=== PATIENT | male | born 1955 | race African-American/Black ===

== ENCOUNTER 2023-04-16 08:55 | Inpatient (IN) | payer OTHER, SELFPAY ==
[2023-04-16] VITALS (34 sets, daily range): BP systolic 86–168; BP diastolic 50–103; BMI 41.5
--- NOTE | 2023-04-16 08:00 | CON.NEURO ---
Consultation
Order
Reason for consultation: stroke alert
Prehospital notification: 7:36 AM 04/16/2023
CC: none
HPI: This is a 67-year-old man who presented to [facility] on April 16, 2023 for with right hemiplegia and aphasia.
According to EMS Mr. 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 Last time seen in usual state of health�midnight.
ER VS: 161/95, 63,
PDMP:no Rxed meds.
Labs: Platelets�165, PT/INR�normal, gluc-101.
CT head wo contrast(04/16/2023)intraparenchymal hemorrhage on the left side, centered in the left thalamus and left basal ganglia, with extension into the left saxena radiata and left lateral ventricle. Main focus of hemorrhage within the left
thalamus measures 2.7 x 1.7 x 1.7 cm.
PMH: HTN, pre DM, anemia, obesity, GERD,
PSH: PPM, gastric bypass
SH:unknown
FH:unknown
All:NKDA
ROS:limited due to aphasia
Assessment and Plan:
I. 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 ICH score-1. Mortality rate 13 %.
II. Vascular encephalopathy
III. HTN
�
-NPO
-AHA guidelines recommend lowering systolic SBP to <160 mmHg
-Treat persistently elevated MAP>110 with Labetalol IV
-Maintain elevation of HOB 30-45 degrees
-Continuous monitoring using pulse oximetry if O2�saturation is <96%
-Normal saline should be used for maintenance and replacement fluids
-Stat Neurosurgery consultation
-Andexanet dakota 800 mg IV bolus administered at a rate of ~30 mg/minute, followed within 2 minutes by an IV infusion of 8 mg/minute for up to 120 minutes.
-If elevated intracranial pressure is suspected or herniation is apparent in imaging- Hyperventilate to maintain pCO2�25mm for a maximum length of time of 6 hours; Osmotic diuresis using Mannitol: load 1g per kg IV bolus and maintain on 0.5g per kg
IV Q6h; check serum osmolality 1 hour prior to each dose.���Dose should be held if serum osm>310
-Treat persistently elevated MAP>110 with Labetalol IV
-SCD/XAVI
I reviewed all radiology and labs along with past medical records pertinent to current medical problems.
Thank you for allowing us to participate in the care of this patient. We will continue to follow. Please do not hesitate to contact us with any questions or concerns.
Subjective/Objective
Subjective Data
Date of Service: April 16, 2023
CVA Assessment
Onset of Stroke Symptoms
Date of onset of symptoms: 04/16/23
Date last time pt seen normal: 04/16/23
Time last time pt seen normal: 12:00 (AM)
NIH Stroke Score
Level of Consciousness: 1 - Arousable
LOC Questions: 2-Neither correct
LOC Commands: 1-Performs one correctly
Best Horizontal Gaze: 1-Partial gaze palsy
Visual Sood: 1=Partial hemianopia
Facial Palsy: 2=Partial paralysis
Motor - Right Arm: 4=No movement
Motor - Left Arm: 0=No drift 10 seconds
Motor - Right Le-No movement
Motor - Left Le-No drift 5 seconds
Limb Ataxia: 0-Absent
Explanation of untestable limb ataxia: encephalopathy, plegia
Sensation: 0-Normal
Best Language: 2-Severe aphasia
Dysarthria: 2-Severe slurring
Extinction and Inattention: 0-No abnormality
Total Score:: 20
--- NOTE | 2023-04-16 08:05 | ED.GENMED ---
History of Present Illness
<Esequiel Agee PA-C - Last Filed: 04/16/23 09:48>
General
Chief Complaint: Change in Mental Status
Time Seen by Provider: 04/16/23 07:52
History of Present Illness
History of Present Illness:
67-year-old male with unknown past medical history arrives via EMS as a prehospital stroke alert. 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
midnight last night, was found this morning lying on the ground up against the tub. Upon arrival of EMS the patient was noted to have dense right hemiparesis and garbled speech. He was also noted to be cold on the right side. Patient arrives with
his medications available and he does take Eliquis however the indication for this is not certain. No family is immediately available on my assessment. On initial evaluation by myself the patient is densely hemiparetic with significant dysarthria
Review of Systems
<Esequiel Agee PA-C - Last Filed: 04/16/23 09:48>
Review of Systems
Allergies reviewed?: Yes
All Other Systems: ROS reviewed and negative except as documented in HPI and ROS
Phy Exam
<Esequiel Agee PA-C - Last Filed: 04/16/23 09:48>
Physical Exam
Physical Exam:
GEN: Well appearing, NAD, WDWN
HEENT: Oral mucosa moist, no scleral icterus, no nasal congestion
Cardiac: Regular rate
Lung: No respiratory distress, no tachypnea
MSK: No gross deformity or injuries
Skin: Good color, no pallor or jaundice, no rashes
Neuro: Alert, follows commands. Difficult to assess orientation due to dysarthria. Dense right hemiparesis involving the face and upper and lower extremity, no effort against gravity. Insensate to pinprick on the right diffusely. Initial NIH
stroke scale of 19
Psych: Calm, cooperative
Scores
<Esequiel Agee PA-C - Last Filed: 04/16/23 09:48>
NIH Stroke Score
Level of Consciousness: 0 - Alert
LOC Questions: 1-Answers one correctly
LOC Commands: 0-Performs both correctly
Best Horizontal Gaze: 0-Normal
Visual Sood: 0=Normal, no visual loss
Facial Palsy: 3=Complete paralysis
Motor - Right Arm: 4=No movement
Motor - Left Arm: 0=No drift 10 seconds
Motor - Right Le-No movement
Motor - Left Le-No drift 5 seconds
Limb Ataxia: 1-Present in one limb
Sensation: 2-Severe loss
Best Language: 0-No aphasia
Dysarthria: 2-Severe slurring
Extinction and Inattention: 2-Total octaviano inattention
Total Score:: 19
Course
<Esequiel Agee PA-C - Last Filed: 04/16/23 09:48>
Orders/Labs/Results
Orders:
Orders
04/16/23 07:43
CT Head W/o Cont STROKE ALERT Stat
Comment:
Reason For Exam: r/o stroke
04/16/23 07:48
Electrocardiogram (*1) Stat
Reason for Study: Other
Other Reason for Exam: neuro symptoms
Bedside Glucose- Treatment ONCE
Cardiac Monitoring- Treatment ONCE
EKG- Treatment ONCE
04/16/23 08:00
Basic Metabolic Panel Urgent
Complete Blood Count/With Diff Urgent
Creatine Phosphokinase Urgent
Comment: ADD ON
PTT Urgent
Prothrombin Time Urgent
04/16/23 08:01
HydrALAZINE [Apresoline] 10 mg IV NOW STA
04/16/23 08:15
Nicardipine 40 mg/200 ml [Cardene] 40 mg in 200 ml IV PER PROTOCOL
Initial dose in mg/hr, then titrate:: 2
Titrate to keep:: SBP 140 - 160 mmHg
Titrate by mg/hr:: 2.5 mg/hr
Frequency of titrations (minutes):: 5-15 minutes
Maximum dose in mg/hr:: 15
Begin to taper infusion when:: Remained at goal for 2hrs
Taper by mg/hr:: 2.5 mg/hr
Frequency of taper (minutes) if patient maintains goal:: every 15-30 minutes
Taper to off?: Yes
If infusion off & no longer maintaining goal:: Contact Provider
04/16/23 08:16
HydrALAZINE [Apresoline] 20 mg .ROUTE .STK-MED ONE
04/16/23 08:18
Add On- LAB Urgent
Tests Added?: CPK
04/16/23 08:23
Prothrombin Complex(Pcc),Human [Kcentra] 2,590 unit Empty Viaflex Container 100 ml [Viaflex Empty Container] 100 ml IV NOW
04/16/23 08:42
Type+Screen Urgent
04/16/23 08:43
Admit/Transfer Patient As Directed
Co-Sign Provider:
Level of Care: Inpatient admission
Assign to:: ICU
Physician / Group: Dr. Alec Oneill
Diagnosis: Brain intraparenchymal hemorrhage - prehospital stroke alert
Reason for Hospitalization: Brain intraparenchymal hemorrhage - prehospital stroke alert
Expected length of stay greater than two midnights?: Yes
ELOS- Estimated Length of Stay in days: 5
I certify the patient meets the requirements for IP care: Yes
04/16/23 08:48
Code Status As Directed
Resuscitation Status: Full Code
HydrALAZINE [Apresoline] 20 mg .ROUTE .STK-MED ONE
04/16/23 08:51
HydrALAZINE [Apresoline] 10 mg IV NOW STA
04/16/23 09:26
0.9% Sodium Chloride 1000 ml [Nss] 1,000 ml IV 100 mls/hr
Acetaminophen [Tylenol/Feverall] 650 mg RECTAL Q4HPRN PRN
Acetaminophen [Tylenol] 650 mg PO Q4HPRN PRN
Labetalol HCl [Trandate] 5 mg IV Q6HPRN PRN
04/16/23 09:26
Echo 2D MMode Color/Doppler Routine
Reason for Study: stroke/TIA
DIETARY CONSULT Routine
Reason for Consult: stroke/TIA
NEUROLOGY CONSULT Urgent
Consulting Provider: Vickie Castillo
Was physician already notified: Yes
Technology Trainer Urgent
Troponin I Urgent
Urinalysis Urgent
Activity As Directed
Activity Level: Bedrest
Elevate HOB [Head of Bed-Restrictions] As Directed
Head of Bed-Restrictions As Directed
Elevation Level: 30 degress
NIH Stroke Scale As Directed
Directions: Per protocol
Comment: every shift and with any change in condition or mental status
Neurological Checks As Directed
Frequency: q1h
Additional Instructions:: q1h and with any change in condition or mental status
Patient Education As Directed
Type: Stroke education packet
Comment: provide to patient and family
Pneumatic Compression Sleeves As Directed
Type: Knee high
Pneumatic Compression Sleeves As Directed
Type: Knee high
Swallow Screening CVA/TIA ONLY As Directed
Comment: NPO until swallowing screening completed
If patient FAILS swallow screening:: NPO, Speech Therapy consult, Aspiration Precautions
If patient PASSES swallow screening, diet:: Cholesterol Lowering
Vital Signs As Directed
Frequency: Per unit guidelines
Additional Instructions:: goal SBP 120-140 mmHg
Ot Eval And Treat Routine
Pt Eval And Treat Routine
Activity Level: As Tolerated
Speech Therapy Eval & Treat Routine
DX Deep Vein Thrombosis Video Routine
DX Deep Vein Thrombosis Video Routine
04/17/23 06:00
Cardiovascular Evaluation IN AM
Complete Blood Count/No Diff IN AM
Comprehensive Metabolic Panel IN AM
Magnesium IN AM
04/18/23 06:00
Complete Blood Count/No Diff IN AM
Comprehensive Metabolic Panel IN AM
Magnesium IN AM
04/19/23 06:00
Complete Blood Count/No Diff IN AM
Comprehensive Metabolic Panel IN AM
Magnesium IN AM
04/20/23 06:00
Complete Blood Count/No Diff IN AM
Comprehensive Metabolic Panel IN AM
Magnesium IN AM
04/21/23 06:00
Complete Blood Count/No Diff IN AM
Comprehensive Metabolic Panel IN AM
Magnesium IN AM
Abnormal Lab Results
04/16/23
08:00
RBC 4.47 L 10^6/uL
(4.70-6.10)
Hgb 10.8 L g/dL
(13.0-18.0)
Hct 37.7 L %
(39.0-52.0)
MCH 24.2 L pg
(27.0-31.0)
MCHC 28.6 L g/dL
(33.0-37.0)
RDW 17.9 H %
(11.5-14.5)
MPV 11.0 H fL
(7.4-10.4)
Absolute Lymphs (auto) 0.8 L 10^3/uL
(1.2-3.4)
Absolute Monos (auto) 0.7 H 10^3/uL
(0.1-0.6)
Lymphocytes % 15.9 L %
(20.5-51.1)
Monocytes % 13.0 H %
(1.7-9.3)
Carbon Dioxide 32 H mmol/L
(22-30)
Glucose 101 H mg/dl
(70-99)
04/16/23 08:00
04/16/23 08:00
Vital Signs
Initial and Last Documented VS:
Initial Vital Signs
Resp Pulse Ox
25 100
04/16/23 07:57 04/16/23 07:57
Last Documented Vital Signs
Temp Pulse Resp BP Pulse Ox
97.7 F 111 33 104/75 99
04/16/23 08:29 04/16/23 09:15 04/16/23 09:15 04/16/23 09:15 04/16/23 09:15
<Isaías Masters, DO - Last Filed: 04/16/23 08:12>
Orders/Labs/Results
Orders:
Orders
04/16/23 07:43
CT Head W/o Cont STROKE ALERT Stat
Comment:
Reason For Exam: r/o stroke
04/16/23 07:48
Electrocardiogram (*1) Stat
Reason for Study: Other
Other Reason for Exam: neuro symptoms
Bedside Glucose- Treatment ONCE
Cardiac Monitoring- Treatment ONCE
EKG- Treatment ONCE
04/16/23 08:00
Basic Metabolic Panel Urgent
Complete Blood Count/With Diff Urgent
Creatine Phosphokinase Urgent
Comment: ADD ON
PTT Urgent
Prothrombin Time Urgent
04/16/23 08:01
HydrALAZINE [Apresoline] 10 mg IV NOW STA
04/16/23 08:15
Nicardipine 40 mg/200 ml [Cardene] 40 mg in 200 ml IV PER PROTOCOL
Initial dose in mg/hr, then titrate:: 2
Titrate to keep:: SBP 140 - 160 mmHg
Titrate by mg/hr:: 2.5 mg/hr
Frequency of titrations (minutes):: 5-15 minutes
Maximum dose in mg/hr:: 15
Begin to taper infusion when:: Remained at goal for 2hrs
Taper by mg/hr:: 2.5 mg/hr
Frequency of taper (minutes) if patient maintains goal:: every 15-30 minutes
Taper to off?: Yes
If infusion off & no longer maintaining goal:: Contact Provider
04/16/23 08:16
HydrALAZINE [Apresoline] 20 mg .ROUTE .STK-MED ONE
04/16/23 08:18
Add On- LAB Urgent
Tests Added?: CPK
04/16/23 08:23
Prothrombin Complex(Pcc),Human [Kcentra] 2,590 unit Empty Viaflex Container 100 ml [Viaflex Empty Container] 100 ml IV NOW
04/16/23 08:42
Type+Screen Urgent
04/16/23 08:43
Admit/Transfer Patient As Directed
Co-Sign Provider:
Level of Care: Inpatient admission
Assign to:: ICU
Physician / Group: Dr. Alec Oneill
Diagnosis: Brain intraparenchymal hemorrhage - prehospital stroke alert
Reason for Hospitalization: Brain intraparenchymal hemorrhage - prehospital stroke alert
Expected length of stay greater than two midnights?: Yes
ELOS- Estimated Length of Stay in days: 5
I certify the patient meets the requirements for IP care: Yes
04/16/23 08:48
Code Status As Directed
Resuscitation Status: Full Code
HydrALAZINE [Apresoline] 20 mg .ROUTE .STK-MED ONE
04/16/23 08:51
HydrALAZINE [Apresoline] 10 mg IV NOW STA
04/16/23 09:26
0.9% Sodium Chloride 1000 ml [Nss] 1,000 ml IV 100 mls/hr
Acetaminophen [Tylenol/Feverall] 650 mg RECTAL Q4HPRN PRN
Acetaminophen [Tylenol] 650 mg PO Q4HPRN PRN
Labetalol HCl [Trandate] 5 mg IV Q6HPRN PRN
04/16/23 09:26
Echo 2D MMode Color/Doppler Routine
Reason for Study: stroke/TIA
DIETARY CONSULT Routine
Reason for Consult: stroke/TIA
NEUROLOGY CONSULT Urgent
Consulting Provider: Vickie Castillo
Was physician already notified: Yes
Technology Trainer Urgent
Troponin I Urgent
Urinalysis Urgent
Activity As Directed
Activity Level: Bedrest
Elevate HOB [Head of Bed-Restrictions] As Directed
Head of Bed-Restrictions As Directed
Elevation Level: 30 degress
NIH Stroke Scale As Directed
Directions: Per protocol
Comment: every shift and with any change in condition or mental status
Neurological Checks As Directed
Frequency: q1h
Additional Instructions:: q1h and with any change in condition or mental status
Patient Education As Directed
Type: Stroke education packet
Comment: provide to patient and family
Pneumatic Compression Sleeves As Directed
Type: Knee high
Pneumatic Compression Sleeves As Directed
Type: Knee high
Swallow Screening CVA/TIA ONLY As Directed
Comment: NPO until swallowing screening completed
If patient FAILS swallow screening:: NPO, Speech Therapy consult, Aspiration Precautions
If patient PASSES swallow screening, diet:: Cholesterol Lowering
Vital Signs As Directed
Frequency: Per unit guidelines
Additional Instructions:: goal SBP 120-140 mmHg
Ot Eval And Treat Routine
Pt Eval And Treat Routine
Activity Level: As Tolerated
Speech Therapy Eval & Treat Routine
DX Deep Vein Thrombosis Video Routine
DX Deep Vein Thrombosis Video Routine
04/17/23 06:00
Cardiovascular Evaluation IN AM
Complete Blood Count/No Diff IN AM
Comprehensive Metabolic Panel IN AM
Magnesium IN AM
04/18/23 06:00
Complete Blood Count/No Diff IN AM
Comprehensive Metabolic Panel IN AM
Magnesium IN AM
04/19/23 06:00
Complete Blood Count/No Diff IN AM
Comprehensive Metabolic Panel IN AM
Magnesium IN AM
04/20/23 06:00
Complete Blood Count/No Diff IN AM
Comprehensive Metabolic Panel IN AM
Magnesium IN AM
04/21/23 06:00
Complete Blood Count/No Diff IN AM
Comprehensive Metabolic Panel IN AM
Magnesium IN AM
Abnormal Lab Results
04/16/23
08:00
RBC 4.47 L 10^6/uL
(4.70-6.10)
Hgb 10.8 L g/dL
(13.0-18.0)
Hct 37.7 L %
(39.0-52.0)
MCH 24.2 L pg
(27.0-31.0)
MCHC 28.6 L g/dL
(33.0-37.0)
RDW 17.9 H %
(11.5-14.5)
MPV 11.0 H fL
(7.4-10.4)
Absolute Lymphs (auto) 0.8 L 10^3/uL
(1.2-3.4)
Absolute Monos (auto) 0.7 H 10^3/uL
(0.1-0.6)
Lymphocytes % 15.9 L %
(20.5-51.1)
Monocytes % 13.0 H %
(1.7-9.3)
Carbon Dioxide 32 H mmol/L
(22-30)
Glucose 101 H mg/dl
(70-99)
04/16/23 08:00
04/16/23 08:00
Vital Signs
Initial and Last Documented VS:
Initial Vital Signs
Resp Pulse Ox
25 100
04/16/23 07:57 04/16/23 07:57
Last Documented Vital Signs
Temp Pulse Resp BP Pulse Ox
97.7 F 111 33 104/75 99
02/14/24 08:29 04/16/23 09:15 04/16/23 09:15 04/16/23 09:15 04/16/23 09:15
<Esequiel Agee PA-C - Last Filed: 04/16/23 09:48>
MDM/Problems Addressed
MDM/Problems Addressed:
67-year-old male arrives by EMS as a prehospital stroke alert with dense right hemiparesis and dysarthria. He is found to have a left basal ganglia/thalamic hemorrhage which is likely hypertensive in nature. Patient is known to take Eliquis,
uncertain if he took within the past 24 hours, given this he was administered Kcentra for reversal of anticoagulation and aggressive hypertensive management was initiated with hydralazine and nicardipine. Case was discussed with neurosurgery who
recommend ICU admission for serial neuroexams and repeat head CT in 4 to 6 hours as there is likely no surgical option. Neurosurgery will consult. Mica Builder and hospitalist made aware for admission. Patient did become increasingly somnolent in
the emergency department however arouses easily to voice and remains oriented on my evaluation.
<Esequiel Agee PA-C - Last Filed: 04/16/23 09:48>
Comment
Comment:
Initial EKG independently interpreted by me reveals a normal sinus rhythm with T wave inversions and abnormal ST segments in the precordial leads likely indicative of LVH
*Critical Care Note
comment:
Critical care time: 45 minutes
Critical care time was exclusive of: Separately billable procedures, treating other patients, and teaching time
Critical care was necessary to treat or prevent imminent or life-threatening deterioration of the following conditions: Intraparenchymal hemorrhage
Critical care time spent personally by me on the following activities:
[x] Review of old charts
[x] Obtaining history from patient or surrogate
[x] Ordering and review of the laboratory studies
[x] Ordering and review of radiographic studies
[x] Ordering and performing treatments and interventions
[x] Patient patient's response to treatment
[x] Development of treatment plan with patient or surrogate
<Isaías Masters DO - Last Filed: 04/16/23 08:12>
*Radiology
Radiology exam reviewed: preliminary read by ED provider and radiology read reviewed
*Pulse Oximetry
Patient hypoxic: no
*EKG
Interpreted by ED Provider?: Yes
Interpretation: abnormal
Comparison EKG: no comparison EKG present
Heart Rate: 78
Rate: normal
Rhythm: sinus
Ischemia: non-specific ST changes
*Terrazzo Supervisor Interpretation
Rate: normal
Interpretation: normal
Heart Rate: 78
Rhythm: sinus
*Critical Care Note
Total Time (30-74mins, 75-104mins- exclusive of procedures): 45
ED Attending Note
<Esequiel Agee PA-C - Last Filed: 04/16/23 09:48>
-
Portions of this chart may have been created with voice recognition software.� Occasional wrong word or��sound alike� substitutions may have occurred due to the inherent limitations of voice recognition software.
<Isaías Masters DO - Last Filed: 04/16/23 08:12>
ED Attending Note
Patient seen and examined by attending physician: Yes
I performed the substantive portion of visit, reviewed & personally made and approve the management plan that is documented in note by myself or MIRELLA.: Yes
ED Attending Note:
Seen with CLARY examined independently, prehospital stroke alert 67 male, aphasia droop right-sided plegia takes Eliquis by report no trauma has looks like an intracerebral hemorrhage
Plan be blood pressure control, reversal of his Eliquis, neurology neurosurgery evaluation
Discharge Plan
Departure
Patient Disposition: Admit
Date of Disposition: 04/16/23
Time of Disposition: 08:07
Admit to: ICU
Presentation/result/management discussed w/ accepting MD/DO: Hospitalist
Discharge Problem:
Intracranial hemorrhage
Interventions
Interventions:
*Risk Screen - Suicide Last Done: 04/16/23 08:29
*General Assessment Last Done: 04/16/23 07:48
*Neglect/Abuse Screening Last Done: 04/16/23 09:37
ED- Fall Risk Assessment Last Done: 04/16/23 09:37
*ED COVID-19 Vaccine History Last Done: 04/16/23 07:48
*Nursing Disposition Last Done: 04/16/23 09:37
ED- Neurological Assessment Last Done: 04/16/23 08:29
ED Swallowing Screen Last Done: 04/16/23 08:29
Discharge Date and Time
Discharge Date/Time: 04/16/23 09:39
[2023-04-16] MEDS: APRESOLINE 10 MG IV ×2 (08:17→08:51)
[2023-04-16 08:18] LABS: % Basophils 0.6 % (0-2); % Eosinophils 1.2 % (0-6); % Immature Granulocytes 0.2 % (0-0.5); % Lymphocytes 15.9 % (20.5-51.1); % Neutrophils 69.1 % (42.2-75.2); Absolute Eosinophils 0.1 10^3/uL (0-0.7); Absolute Lymphocytes 0.8 10^3/uL (1.2-3.4); Absolute Monocytes 0.7 10^3/uL (0.1-0.6); Absolute Neutrophils 3.6 10^3/uL (1.4-6.5); Hematocrit 37.7 % (39.0-52.0); Hemoglobin 10.8 g/dL (13.0-18.0); Mean Corp Hgb Conc. 28.6 g/dL (33.0-37.0); Mean Corpuscular Hgb 24.2 pg (27.0-31.0); Mean Corpuscular Volume 84.3 fL (80.0-94.0); Nucleated Red Blood Cells % 0 % (-); Platelet Count 165 10^3/uL (130-400); Red Blood Cell Count 4.47 10^6/uL (4.70-6.10); Red Cell Dist. Width 17.9 % (11.5-14.5); White Blood Cell Count 5.2 10^3/uL (4.8-10.8)
[2023-04-16] MEDS: CARDENE 200 IV ×3 (08:22→23:31)
[2023-04-16 08:24] LABS: PT 14.3 Sec (11.4-14.6)
[2023-04-16 08:25] LABS: APTT 24.5 Sec (23.4-35.0)
[2023-04-16 08:25] LABS: Glucose - Point of Care 90 mg/dl (70-99)
--- NOTE | 2023-04-16 08:25 | EDRN ---
Pt daughter (Denisse) called and notified of pt condition. NKA confirmed with daughter. CLARY Ross spoke to daughter prior to her leaving to come up. Pt attempting to communicate with garbled speech unable to understand pt clearly. Pt updated on daughter
notification and nods head to confirm understanding.
Nicardipine started Per CLARY Ross IV to start at 5 mg/hr with a targeted SBP of <140. Pt resting comfortably. Vitals being monitored.
[2023-04-16 08:27] LABS: Blood Urea Nitrogen 19 mg/dl (9-20); Carbon Dioxide 32 mmol/L (22-30); Chloride 104 mmol/L (98-107); Glucose 101 mg/dl (70-99); Sodium 138 mmol/L (135-145); eGFR > 60.00
[2023-04-16] MEDS: KCENTRA 100 UNIT IV (08:52)
[2023-04-16 09:41] LABS: Hypochromasia 1+; Normal RBC Morphology No
[2023-04-16 09:51] LABS: Blood Urea Nitrogen 19 mg/dl (9-20); Calcium 9.1 mg/dl (8.4-10.2); Carbon Dioxide 34 mmol/L (22-30); Chloride 99 mmol/L (98-107); Glucose 104 mg/dl (70-99); Potassium 3.8 mmol/L (3.5-5.1); Sodium 140 mmol/L (135-145); eGFR > 60.00
--- NOTE | 2023-04-16 09:57 | CON.INTV ---
Consultation
Consultation Request
Date/Time Consultation Requested: 04/16/2023936
Date/Time Consultation Performed: 04/16/2023952
Requesting Provider: Dr. Oneill
Performing Provider: Dr. Peters
Reason for Consultation: IPH
Medical History
-
Chief Complaint: Found down
History of Present Illness:
67-year-old AAM with past medical history of hypertension, GERD, A-fib on Eliquis who was found down on the floor up against the bathtub. EMS was called originally for a lift assist and when they arrived he was exhibiting stroke symptoms. Unclear
how long he was down for. BIBEMS and stroke alert was called as he was found to have a right-sided facial droop and right-sided arm/leg weakness. He was last known well at around midnight on 04/16/2023. Brought to the ER where imaging showed a
left-sided intraparenchymal hemorrhage with intraventricular extension. Initial vitals showed blood pressure 157/79, saturating 97%, heart rate 88. Afebrile to 97.7 �F. Initial NIH stroke scale was 20. Labs showed an INR of 1.1, Hb 10.8,
platelet count 165. Because patient was taking Eliquis, hence Kcentra was given, and he was given hydralazine and started on Cardene drip and was admitted to the ICU for further care and critical care services consulted for additional
management/recommendations.
PMHx: hypertension, prediabetes, obesity, GERD, PPM, gastric bypass, ?Atrial fibrillation versus stroke on Eliquis
PSHx: Gastric bypass; pacemaker implantation
Past Medical History
Past Medical History: Other (Above as per HPI)
Past Surgical History: Other (Above as per HPI)
Social History
Tobacco: Other (Unable to obtain due to patient's expressive aphasia)
Alcohol: Other (Unable to obtain due to patient's expressive aphasia)
Drug: Other (Unable to obtain due to patient's expressive aphasia)
Family History
Family History: Unable to Obtain (Unable to obtain due to patient's expressive aphasia)
Allergies / Home Medications
Allergies
Allergy/AdvReac Type Severity Reaction Status Date / Time
No Known Allergies Allergy Unverified 04/16/23 08:12
Home Medications
Medication Instructions Recorded Confirmed Last Taken Type
apixaban 5 mg tablet 5 mg PO BID Blood Clot 04/16/23 04/16/23 Unknown History
Prevention/Tx
furosemide 20 mg tablet (Lasix) 20 mg PO DAILY Fluid 04/16/23 04/16/23 Unknown History
Retention/Swelling
metoprolol tartrate 50 mg tablet 50 mg PO BID Heart 04/16/23 04/16/23 Unknown History
Disease/Condition
omeprazole 40 mg capsule,delayed 40 mg PO DAILY Gastrointestinal 04/16/23 04/16/23 Unknown History
release Issue
valsartan 160 mg tablet 160 mg PO DAILY 04/16/23 04/16/23 Unknown History
Review of Systems
-
Unable to Obtain full review of systems at this time due to: Language Barrier (expressive aphasia)
Vitals / Labs / Diagnostic Testing
Vital Signs
Temp Pulse Resp BP Pulse Ox
98.5 F 84 24 126/82 92
04/16/23 15:36 04/16/23 18:00 04/16/23 18:00 04/16/23 18:00 04/16/23 18:00
Lab Data
04/16/23 08:00
04/16/23 09:15
Laboratory Results
04/16/23
08:00
PT 14.3
INR 1.10
APTT 24.5
Diagnostic Testing:
Physical Exam
-
HEENT: Normocephalic and Anicteric
Cardiovascular: S1/S2 and Peripheral Edema (negative)
Respiratory: Clear, Wheeze (negative), Rales (negative) and Rhonchi (negative)
GI: Soft, Non Distended and Non Tender
Neurology: Other (sleepy but easily arousable; answering questions by nodding head yes or no; right-sided facial droop; right-arm flaccid paralysis)
Skin: Warm and Dry
General: Comfortable and Chills (negative)
Assessment
-
Assessment: 67-year-old AAM with a PMHx HTN, GERD, A-fib on Eliquis who was found down on the floor up against the bathtub. EMS was called and patient was found to have strokelike symptoms and stroke alert was called. Patient brought to the ER
where imaging showed left-sided IPH with intraventricular extension. Initial BP elevated at 157/79, and he was treated with hydralazine and Cardene infusion. Because patient takes Eliquis at home, Kcentra was administered. He was transferred to
the ICU for further care and critical care services consulted for additional management/recommendations.
Chronic conditions HAND SURGEON: Hypertension, prediabetes, obesity, GERD, PPM, gastric bypass, ?Atrial fibrillation versus stroke on Eliquis
Impression:
#Acute left-sided hemorrhagic IPH involving thalamus and basal ganglia with intraventricular extension - suspect hypertensive etiology
#Hypertensive crisis on cardene gtt
#Expressive aphasia and right hemiplegia due to above with suspected hemorrhagic CVA
#?A-fib on Eliquis
#Valvular heart disease with moderate and mild AI
Plan:
- Admit to ICU
- Strict SBP<140mmHg with cardene gtt
- Head of bed elevated >30-45 degrees
- NPO for food until seen by NURSE TRANSPLANT
- q1hr neurochecks
- Hold all anti-platelet/anti-coagulants until instructed otherwise by neurology
- Neurosurgery consulted --> no acute neurosurgical intervention required
- Serial CT head with stat CT head for any sudden change in neurological status
- Maintain euglycemia with goal BG 140-180mg/dL
- Replete electrolytes with goal K>3.5 , Mg>1.8, PO4>3
- DVT ppx
Critical care statement: A total of 40 minutes of critical care time was provided for this patient today. This includes management of unstable vital signs, evaluation of the patient at bedside, reviewing the patient's pertinent medical records
including radiographs, microbiology, laboratory evaluations, and discussion with primary team, consultants, pharmacy, nutrition, physical therapy, case management, charge nurse, critical care nursing, and respiratory therapy.
Data:
CXR 04-16-2023: Clear lungs.
CT Head 04-16-2023:
1. Intraparenchymal hemorrhage on the left side, centered in the left thalamus and left basal ganglia, with extension into the left saxena radiata and left lateral ventricle. Main focus of hemorrhage within the left thalamus measures 2.7 x 1.7 x 1.7
cm. Hemorrhage is likely hypertensive in etiology.
2. No evidence of significant hydrocephalus.
TTE 04-16-2023:
Hyperdynamic left ventricular systolic function.� Left ventricular ejection
�fraction is greater than 75%.
�Moderate left ventricular hypertrophy with the thickest wall being the septum
�but spade like ventricle with contrast suggests hypertrophy at the apex as
�well.
�Moderate aortic stenosis (based on gradient) and mild aortic regurgitation.
�No prior study available for comparison.
[2023-04-16] MEDS: NSS 1000 IV ×2 (10:00→20:00)
[2023-04-16 10:20] LABS: Creatine Phosphokinase 121 U/L (55-170)
--- NOTE | 2023-04-16 11:35 | CARDSERVDEF ---
Echocardiogram with Definity completed after protocol screening completed. Allergies verified.
Patent IV site: ___Rt AC__
IV site flushed with 0.9% NaCl pre and post administration.
Diluted bolus method utilized to enhance visualization of ventricular bravo.
Total volume given: _4.0___ mL
Patient tolerated all procedures well without complications.
[2023-04-16 12:59] LABS: Troponin I 0.022 ng/ml
[2023-04-16] MEDS: TYLENOL/FEVERALL 650 MG RECTAL (13:00)
[2023-04-16 13:04] LABS: Urine Albumin 1+ (Neg - Trace); Urine Bilirubin Negative (Negative); Urine Character Clear (Clear); Urine Color Yellow; Urine Glucose Negative (Negative); Urine Ketone Negative (Negative); Urine Leukocyte Negative (Negative); Urine Nitrite Negative (Negative); Urine Occult Blood Negative (Negative); Urine Specific Gravity 1.015 (<1.030); Urine Urobilinogen Negative (Neg - 1+)
[2023-04-16 13:17] LABS: Urine Squamous Cell 0-2 /LPF (Few)
[2023-04-16 13:20] LABS: Urine Bacteria Few (Negative); Urine Red Blood Cell 0-2 /HPF (0-2); Urine White Cell 0-2 /HPF (0-5)
--- NOTE | 2023-04-16 14:28 | PTOTSP ---
Speech Therapy Initial Evaluation
Severe dysarthria, dysphagia and cog-lang deficits s/p CVA.
Recommend
1. Remain NPO with meds via non-oral route
2. Aspiration precautions and oral care with suctioning as needed
3. APPLICATION DEVELOPMENT SPECIALIST following; going speech/language and dysphagia eval + tx
--- NOTE | 2023-04-16 15:00 | CON.NS ---
Consultation
-
Date/Time Consultation Performed: 04/16/2023, 15:00
Performing Provider: Suly
Chief Complaint
History of Present Illness
This is a hospital consultation on a 67-year-old gentleman who presented this morning to the emergency room with right hemiplegia and aphasia. 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 Is
unclear how long he was been down for. Last time he was seen in his usual state of health was approximately midnight. He was found to be hypertensive. He had a noncontrast head CT which demonstrated a left thalamic hemorrhage, with extension into
the ventricle. He was reported to be on Eliquis, it is unclear why.
Patient seen and examined. RN, and patient's daughter is at bedside. Patient's daughter reports that he did not reveal much about his overall health to her. Medication pillboxes available for review. She reports that he has a majority of his
care at [facility]. She reports that he also has a history of having a pacemaker.
Review of Systems
-
Unable to obtain full review of systems at this time due to: Patient Non-verbal
Medication and Allergies
Home Medications
Home Medications
Medication Instructions Recorded
furosemide 20 mg tablet (Lasix) 20 mg PO DAILY 04/16/23
metoprolol succinate 50 mg 50 mg PO DAILY 04/16/23
tablet,extended release 24 hr
(Toprol XL)
valsartan 160 mg tablet 160 mg PO DAILY 04/16/23
Allergies
Allergies
Allergy/AdvReac Type Severity Reaction Status Date / Time
No Known Allergies Allergy Unverified 04/16/23 08:12
Physical Exam
-
Exam:
Sleepy but arousable.
Pupils are equal and reactive.
Extraocular movements are full. Right-sided visual neglect
Right facial droop
Right-sided hemiparesis, with complete plegia of right hand/arm. Does intermittently move right lower extremity involuntarily, and withdraws to noxious stimuli.
Does follow commands on the left. Able to stick tongue out. Intermittently verbal.
Head is normocephalic atraumatic
Breathing nonlabored
Abdomen is soft
Extremities are warm
EXAMINATION: CT of the head without contrast.
INDICATION: Right facial droop, right-sided weakness.
COMPARISON: No prior studies available for comparison.
TECHNIQUE: 5 mm axial images were obtained from the skull base through vertex. Coronal reformats provided. Automated dose reduction technique was utilized for this exam.
FINDINGS:
Parenchymal hemorrhage is seen on the left side, centered within the left thalamus and left basal ganglia. Small amount of hemorrhage within the left saxena radiata. Hemorrhage extends into the left lateral ventricle.
Left thalamic hemorrhage measures 1.7 x 1.7 x 2.7 cm.
Small amount of vasogenic edema is seen adjacent to the hemorrhage.
The ventricles and sulci are of normal caliber.
There is mild confluent periventricular and deep subcortical white matter hypoattenuation.
No areas of transcortical infarction are appreciated.
No displaced skull fracture is seen.
Mastoid air cells are normally aerated. Small mucous retention cysts are seen within the left maxillary sinus.
IMPRESSION:
1. Intraparenchymal hemorrhage on the left side, centered in the left thalamus and left basal ganglia, with extension into the left saxena radiata and left lateral ventricle. Main focus of hemorrhage within the left thalamus measures 2.7 x 1.7 x 1.7
cm. Hemorrhage is likely hypertensive in etiology.
2. No evidence of significant hydrocephalus.
COMPARISON: April 16, 2023 at 0752 hours
FINDINGS:
Unenhanced CT imaging of the head is compared to a study obtained approximately 5 hours previously in the same day again demonstrating a hemorrhage with epicenter in the left thalamus and extensive of hemorrhage into the posterior horn of the left
lateral ventricle, essentially stable.
There is no new intracranial hemorrhage, mass effect or midline shift. There is no extra-axial fluid collection.
The ventricles, cisterns and sulci are again prominent commensurate with age, stable. Again identified is decreased attenuation in the periventricular deep white matter bilaterally.
IMPRESSION:
Acute hemorrhage with epicenter in the left thalamus with extension into the left lateral ventricle, essentially stable in comparison to study earlier in same day, including stable size of the ventricles.
Problems
-
Problem Status Onset Code
Intracranial hemorrhage I62.9
Assessment / Plan
-
This 67-year-old gentleman that presents with acute onset of right hemiparesis/hemiplegia. Imaging demonstrates left thalamic/basal ganglia ICH, with extension into the ventricles. Repeat imaging is stable without any obvious evidence of increase
in size or evolving hydrocephalus. Patient's Eliquis was reversed.
-- At present time, patient's ICH is nonoperative.
--Maintain strict systolic blood pressure control less than 140 mm
--Head of bed elevation greater than 30 degrees at all times
--If examination changes, obtain stat head CT.
--Repeat CT scan of the head tomorrow a.m., 04/17/2023.
--Maintain normal sodium levels
-- Mix all medications in normal saline. Avoid hypotonic fluids.
--- NOTE | 2023-04-16 15:16 | HPS.HSE ---
Family Physician
-
Family Physician: NOT KNOW UNKNOWN - PT DOES
Chief Complaint
-
Stroke alert, lying on the ground, hemiparesis, aphasia
History of Present Illness
67-year-old male with past medical history of hypertension, prediabetes, obesity, GERD, PPM, gastric bypass, ? Atrial fibrillation versus stroke on Eliquis now presenting for right hemiplegia, aphasia. Patient was found on the floor of the
bathroom, last time seen with usual state of health was yesterday night at approximately midnight. Unable to obtain proper history as patient nonverbal although following directions at times. Blood pressure 161/95, heart rate 63 on arrival. Labs
grossly unremarkable, UA negative. CT head with intraparenchymal hemorrhage of the left side, centered in the left thalamus and basal left ganglia, with attention to the left saxena radiata and the left lateral ventricle. Main focus of hemorrhage
within the left thalamus measures 2.7 x 1.7 x 1.7 cm. Hemorrhage is likely hypertensive in etiology. Received Andexanet�. no evidence of hydrocephalus. Repeat CT stable from earlier study. Stroke team alerted, neurovascular surgery and
neurology on board.
Medical History
Past Medical History
Past Medical History: Reports Other (hypertension, prediabetes, obesity, GERD, PPM, gastric bypass, ? Atrial fibrillation versus stroke on Eliqui)
Past Surgical History: Reports Other ( PPM, gastric bypass)
Social History
Unable to obtain full social history at this time due to: Acuity
Living: Assisted Living
Employment: Not Employed
Family History
Family History: Not pertinent
Allergies / Home Medications
Allergies reflects when Allergies were last updated in [employer].
Home Medications with original date entered in [employer]
Allergy/Medication List:
Allergies
Allergy/AdvReac Type Severity Reaction Status Date / Time
No Known Allergies Allergy Unverified 04/16/23 08:12
Home Medications
apixaban 5 mg tablet 5 mg PO BID Blood Clot Prevention/Tx 04/16/23
furosemide 20 mg tablet (Lasix) 20 mg PO DAILY 04/16/23
metoprolol tartrate 50 mg tablet 50 mg PO BID Heart Disease/Condition 04/16/23
omeprazole 40 mg capsule,delayed release 40 mg PO DAILY Gastrointestinal Issue 04/16/23
valsartan 160 mg tablet 160 mg PO DAILY 04/16/23
Review of Systems
-
History Source: Patient
A 12 point ROS was completed and negative except as noted: Yes
Physical Exam
Vital Signs
Vital Signs
Temp Pulse Resp BP Pulse Ox
97.8 F 102 27 140/92 95
04/16/23 11:30 04/16/23 13:45 04/16/23 13:45 04/16/23 13:30 04/16/23 12:00
Physical Exam
General: Well Developed
HEENT: NormoCephalic and Other (aphasic, intermittently follows commands)
Respiratory: Clear
Cardiac: S1/S2
GI: Soft
Genito-urinary: Deferred by me
Musculoskeletal: No Clubbing
Skin: Warm
Neuro: Awake and Other (aphasic)
Hematologic/Lymphatic: No Lymphadenopathy
Psych: Calm
Laboratory Results
-
04/16/23 08:00
04/16/23 09:15
Laboratory Results
PT 14.3 Sec (11.4-14.6) 04/16/23 08:00
INR 1.10 04/16/23 08:00
APTT 24.5 Sec (23.4-35.0) 04/16/23 08:00
Total Bilirubin Cancelled 04/16/23 08:00
AST Cancelled 04/16/23 08:00
ALT Cancelled 04/16/23 08:00
Alkaline Phosphatase Cancelled 04/16/23 08:00
Troponin I 0.022 ng/ml 04/16/23 12:16
Data Reviewed
-
CT Scan: Image Personally Visualized and interpreted and Report Reviewed by me
Lab Data: Labs Reviewed by me
Impression/Plan
-
IMPRESSION:
67-year-old male with past medical history of hypertension, prediabetes, obesity, GERD, PPM, gastric bypass, ? Atrial fibrillation versus stroke on Eliquis now presenting for right hemiplegia, aphasia. Found to have intraparenchymal hemorrhage.
Stroke alert was called, admitted to the ICU.
PLAN:
#Intraparenchymal hemorrhage
-intraparenchymal hemorrhage on the left side, centered in the left thalamus and left basal ganglia, with extension into the left saxena radiata and left lateral ventricle. Main focus of hemorrhage within the left thalamus measures 2.7 x 1.7 x 1.7
cm.
-Repeat CT head stable
-IV labetalol as needed for SBP goal greater than 140 mmHg
� Treat persistently elevated MAP greater than 110 with labetalol IV
� Head of bed elevation
� Continue ICU level of care, pulse oximetry if oxygen saturation less than 96%
� Normal saline
� Neurosurgery on board
� Status post Andexanet
� SCDs
� Further critical care interventions as deemed necessary
� Echo with LVH, especially apex and septum, EF appears to be grossly within normal limits
�Speech, PT, OT eval
� Follow-up lipid panel, hemoglobin A1c
#Hypertension
#Prediabetes
#GERD
� Labetalol IV with goal parameters as stated above
� Hemoglobin A1c follow-up
� Will have to hold oral hypertensives at this time pending speech eval
#? Atrial fibrillation
� Hold Eliquis
#DVT plexus
� SCDs
--- NOTE | 2023-04-16 17:18 | PTCARENOTE ---
Patient received as a transfer from the ED at approx 0930 with assessment as noted. NIH score upon arrival of 21. Complete right sided hemiparesis with no right sided sensation or vision. Patient awake and able to follow simple directions and
communicate basic thoughts. Extremely dysarthric and speech mostly unintelligible. Denies pain. NIH score unchanged since although he now can very weakly wiggle his toes on the right foot. Tolerated follow up CT-Head without difficulty. Cardene
infusing at 5 mg/hr to maintain SBP's between 120-140. Afebrile. NSR on monitor. Lungs decreased bilaterally 1/3 up otherwise CTA. Tachypneic at times. Sao2 93-95% on room air. Hypo BS. No bowel movement since arrival. Condom catheter draining
yellow urine. Family into visit and updated to patient condition by nursing and neurosurgery. Patient currently in bed with side rails and call kay in reach on his left side. Will continue to monitor closely.
[2023-04-17] VITALS (46 sets, daily range): BP systolic 92–158; BP diastolic 51–96; PULSE 97–106; O2SAT 94; BMI 41.2
[2023-04-17 05:07] LABS: Hematocrit 34.8 % (39.0-52.0); Hemoglobin 10.2 g/dL (13.0-18.0); Mean Corp Hgb Conc. 29.3 g/dL (33.0-37.0); Mean Corpuscular Hgb 24.2 pg (27.0-31.0); Mean Corpuscular Volume 82.7 fL (80.0-94.0); Platelet Count 155 10^3/uL (130-400); Red Blood Cell Count 4.21 10^6/uL (4.70-6.10); Red Cell Dist. Width 18.1 % (11.5-14.5); White Blood Cell Count 6.1 10^3/uL (4.8-10.8)
[2023-04-17 05:27] LABS: ALT (SGPT) 15 U/L (0-50); AST (SGOT) 29 U/L (17-59); Albumin 3.8 g/dl (3.5-5.0); Alkaline Phosphatase 102 U/L (38-126); Blood Urea Nitrogen 12 mg/dl (9-20); Calcium 9.1 mg/dl (8.4-10.2); Carbon Dioxide 27 mmol/L (22-30); Chloride 106 mmol/L (98-107); Estimated Creatinine Clearance 107 ml/min; Glucose 121 mg/dl (70-99); HDL Cholesterol 62 mg/dl; LDL Cholesterol, Calculated 58 mg/dl; Magnesium 1.8 mg/dl (1.6-2.3); Phosphorus 2.6 mg/dl (2.5-4.5); Potassium 3.8 mmol/L (3.5-5.1); Sodium 137 mmol/L (135-145); Total Bilirubin 0.9 mg/dl (0.2-1.3); Total Cholesterol 131 mg/dl (50-199); Total Protein 7.1 g/dl (6.3-8.2); Triglyceride 56 mg/dl (10-149); Very Low Density Lipoprotein 11 mg/dl (0-30); eGFR > 60.00
[2023-04-17] MEDS: NSS 1000 IV ×2 (06:36→16:14)
--- NOTE | 2023-04-17 09:01 | W.PN.INTV ---
Today's Communication / Plan
Recommendations
Neurochecks q1hr
SBP<140mmHg
Stat CT head for any sudden change in neuro status or neurochecks
MRI Brain pending
PT/OT/MEDICAL ASSISTANT PER DIEM
Assessment
-
Assessment: 67-year-old AAM with a PMHx HTN, GERD, A-fib on Eliquis who was found down on the floor up against the bathtub. EMS was called and patient was found to have strokelike symptoms and stroke alert was called. Patient brought to the ER
where imaging showed left-sided IPH with intraventricular extension. Initial BP elevated at 157/79, and he was treated with hydralazine and Cardene infusion. Because patient takes Eliquis at home, Kcentra was administered. He was transferred to
the ICU for further care and critical care services consulted for additional management/recommendations.
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
Impression:
#Acute left-sided hemorrhagic IPH involving thalamus and basal ganglia with intraventricular extension - suspect hypertensive etiology
#Hypertensive crisis on cardene gtt --> crisis now resolved and he is off cardene gtt
#Expressive aphasia and right hemiplegia due to above with suspected hemorrhagic CVA
#A-fib on Eliquis
#Valvular heart disease with moderate and mild AI
#Hx of PPM
Plan:
- Maintain SBP<140mmHg
- Head of bed elevated >30-45 degrees
- Diet as per MEDICAL ASSISTANT PER DIEM --> VFSS recommended
- q1hr neurochecks ---> tomorrow can likley reduce frequency if ok with neurology
- check MRI brain to assess for cerebral infarction; need to confirm if PPM is MRI compatible first
- Neurosurgery consulted --> no acute neurosurgical intervention required
- Hold all anti-platelet/anti-coagulants until instructed otherwise by neurology - ok to start HSQ as per NSx
- Serial CT head with stat CT head for any sudden change in neurological status
- Maintain euglycemia with goal BG 140-180mg/dL
- Replete electrolytes with goal K>3.5 , Mg>1.8, PO4>3
- DVT ppx
Critical care statement: A total of 38 minutes of critical care time was provided for this patient today. This includes management of unstable vital signs, evaluation of the patient at bedside, reviewing the patient's pertinent medical records
including radiographs, microbiology, laboratory evaluations, and discussion with primary team, consultants, pharmacy, nutrition, physical therapy, case management, charge nurse, critical care nursing, and respiratory therapy.
Data:
CXR 04-16-2023: Clear lungs.
CT Head 04-17-2023: No significant interval change in left-sided intracranial hemorrhage with intraventricular extension.
CT Head 04-16-2023:
1. Intraparenchymal hemorrhage on the left side, centered in the left thalamus and left basal ganglia, with extension into the left saxena radiata and left lateral ventricle. Main focus of hemorrhage within the left thalamus measures 2.7 x 1.7 x 1.7
cm. Hemorrhage is likely hypertensive in etiology.
2. No evidence of significant hydrocephalus.
TTE 04-16-2023:
Hyperdynamic left ventricular systolic function.� Left ventricular ejection
�fraction is greater than 75%.
�Moderate left ventricular hypertrophy with the thickest wall being the septum
�but spade like ventricle with contrast suggests hypertrophy at the apex as
�well.
�Moderate aortic stenosis (based on gradient) and mild aortic regurgitation.
�No prior study available for comparison.
Subjective Dataa
Subjective Data
Date of Service:
Date of Service: April 17, 2023
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
Subjective:
Patient seen this morning. He is sleeping but easily awakens and is following all commands. Unable to move his right arm at all, still able to barely move his right leg/foot with small wiggles. Left arm and left leg are normal. Right-sided
facial droop is severe, persistent and is greatly impacting his ability to communicate/talk.
Review of Systems
General: Other (Negative unless mentioned above)
Objective Data
Data Reviewed
Vital Signs / I&O / Oxygen:
Vital Signs
Temp Pulse Resp BP Pulse Ox
99.6 F 95 29 137/87 94
04/17/23 08:18 04/17/23 08:30 04/17/23 08:30 04/17/23 08:30 04/17/23 08:00
Intake and Output
04/16/23 04/17/23 04/18/23
06:59 06:59 06:59
Intake Total 2362.5 / 2475.0 212.5 / 212.5
Output Total 2054
Balance 307.5 / 420.0 212.5 / 212.5
SaO2 94
Physical Exam
General: Comfortable
HEENT: Normocephalic and Anicteric
Cardiovascular: S1-S2, Murmur (heard best at RUSB) and Peripheral Edema (negative)
Respiratory: Clear, Wheeze (negative), Crackles (negative) and Rhonchi (negative)
GI: Soft, Non Distended and Non Tender
Neurology: Awake, Alert and Other (flaccid paralysis of RUE; minimal movement seen in R-foot; absent sensation to light touch on RUE or RLE or right cheek or right lower face; unable to keep right eye lid closed against my resistance; unable to
shrug right shoulder; H-test is normal but limited as he excessively blinks during testing)
Skin: Warm and Dry
Labs/Micro/Reports
Lab Data
04/17/23 04:36
04/17/23 04:36
[2023-04-17 09:11] LABS: Glycohemoglobin (HgbA1c) 6.2 % (4.0-5.6)
--- NOTE | 2023-04-17 09:43 | W.PN.NEURO.1 ---
Today's Communication / Plan
-
.
Subjective/Objective
Subjective Data
Date of Service: April 17, 2023
Mr. Villa reports no headache. She continues to be hemiplegic with left arm sensory loss. No reports of nausea, change in vision.
Repeat CT scan�pending. BP has been at goal with Cardene gtt.
Labs: Normal WBCs, creatinine, sodium, platelets. LDL�58.
CT head wo contrast(04/16/2023)intraparenchymal hemorrhage on the left side, centered in the left thalamus and left basal ganglia, with extension into the left saxena radiata and left lateral ventricle. Main focus of hemorrhage within the left
thalamus measures 2.7 x 1.7 x 1.7 cm.
PMH: HTN, pre DM,� anemia, obesity, GERD,
PSH: PPM, gastric bypass
All:NKDA
ROS: Constitutional: Negative. Negative for chills, fever and unexpected weight change.
HENT: Positive for difficulties with swallowing.
Neurological: positive for dysarthria and right hemiplegia
General: Well developed. In no acute distress.
Cardio: Regular rate and rhythm without murmur. Extremities are without cyanosis or edema.
Neuro:
Mental Status: Alert, oriented to name, age, month, year, president. Poor attention and preserved comprehension. Follows simple requests consistently. Nonfluent
Cranial Nerves: . Pupils are equally round and reactive to light. EOMs full. Visual gonzales full to confrontation. No ptosis. No nystagmus. Severe right facial weakness Severe dysarthria.
Motor: Right hemiplegia
Reflexes: Limited exam due to body habitus
Sensory: Reduced light touch in the right arm
Coordination: No dysmetria or tremor on the L.
Gait: deferred
Assessment and Plan:
I. 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
II. Vascular encephalopathy. Clinically improved.
III. HTN
�
-Telemetry monitoring
-NPO
-Dysphagia evaluation
-Maintain elevation of HOB 30-45 degrees
-Continuous monitoring using pulse oximetry if O2�saturation is <96%
-Normal saline for fluid maintenance
-If elevated intracranial pressure is suspected or herniation is apparent in imaging- Hyperventilate to maintain pCO2�25mm for a maximum length of time of 6 hours; Osmotic diuresis using Mannitol: load 1g per kg IV bolus and maintain on 0.5g per kg
IV Q6h; check serum osmolality 1 hour prior to each dose.���Dose should be held if serum osm>310
-Neurosurgery follow up
-SCD/XAVI
�
I reviewed all radiology and labs along with past medical records pertinent to current medical problems.
�
Thank you for allowing us to participate in the care of this patient. We will continue to follow. Please do not hesitate to contact us with any questions or concerns.
�
Objective Data
Vital Signs
Temp Pulse Resp BP Pulse Ox
37.6 C 95 29 137/87 94
04/17/23 08:18 04/17/23 08:30 04/17/23 08:30 04/17/23 08:30 04/17/23 08:00
Lab Results
04/17/23 04:36
04/17/23 04:36
PT 14.3 Sec (11.4-14.6) 04/16/23 08:00
INR 1.10 04/16/23 08:00
APTT 24.5 Sec (23.4-35.0) 04/16/23 08:00
Sodium 137 mmol/L (135-145) 04/17/23 04:36
Potassium 3.8 mmol/L (3.5-5.1) 04/17/23 04:36
BUN 12 mg/dl (9-20) 04/17/23 04:36
Glucose 121 mg/dl (70-99) H 04/17/23 04:36
Calcium 9.1 mg/dl (8.4-10.2) 04/17/23 04:36
Phosphorus 2.6 mg/dl (2.5-4.5) 04/17/23 04:36
LDL Cholesterol, Calc 58 mg/dl 04/17/23 04:36
Patient Allergies
No Known Allergies Allergy (Unverified 04/16/23 08:12)
--- NOTE | 2023-04-17 11:12 | PN.NS ---
Subjective
-
remains stable, BP controlled. Repeat CT completed this am.
Physical Exam
-
Exam:
awakens easily to voice
severe dysarthric speech
Pupils are equal and reactive.
Extraocular movements are full. Right-sided visual neglect
Right facial droop
Right-sided hemiparesis, with complete plegia of right hand/arm. Does intermittently move right lower extremity involuntarily, and withdraws to noxious stimuli.
normal strength on left
Head is normocephalic atraumatic
Breathing nonlabored
Abdomen is soft
Extremities are warm
CT head repeat this am shows stability of left BG ICH with IVH
Problems
-
Problem Status Onset Code
Intracranial hemorrhage I62.9
Assessment / Plan
-
This 67-year-old gentleman that presents with acute onset of right hemiparesis/hemiplegia. Imaging demonstrates left thalamic/basal ganglia ICH, with extension into the ventricles. Repeat imaging is stable without any obvious evidence of increase
in size or evolving hydrocephalus. Patient's Eliquis was reversed.
-- no neurosurgical intervention at this time
--Maintain strict systolic blood pressure control less than 140 mm
--Head of bed elevation greater than 30 degrees at all times
--If examination changes, obtain stat head CT.
--follow exam clinically, no need for repeat imaging at this time
--Maintain normal sodium levels
-- Mix all medications in normal saline. Avoid hypotonic fluids.
--ok to start DVT prophylaxis
--hold eliquis
Today's Communication
-
[2023-04-17] MEDS: NSS (PRESERVATIVE FREE) 10 ML IV (12:23)
[2023-04-17] MEDS: PROTONIX IV 40 MG IV (12:23)
[2023-04-17] MEDS: TYLENOL/FEVERALL 650 MG RECTAL (12:24)
--- NOTE | 2023-04-17 13:22 | CM ---
Addendum entered by Yoshi English 04/17/23 15:02:
PT/OT/ST evaluations noted - Acute rehab recommended.
CM met with pt and his daughter Denisse at bedside. CM discussed next level of care and both pt and his daughter requested [facility].
A referral to [facility] made and spoke to liasergio Garibay.
PM&R consult requested.
D/C plan: [facility].
CM will follow to assist pt with discharge to [facility].
Addendum entered by Yoshi English 04/17/23 14:39:
[facility], pt has [employer] Medicare and it updated in [facility].
Original Note:
CM following re: discharge planning.
Discussed in rounds, reviewed pt's chart, met with pt yesterday and today, met with daughter Denisse and pt's son in law yesterday.
Pt is a 68 year old male, admitted with primary dx of Intracranial Hemophage.
Pt is not a great historian. per daughter Denisse pt was born and grew up in [facility] [place], stays in [place] with daughter, other 4 children and the rest of the family in [place]. 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
Pt's daughter was very anxious to provide any information regarding the pt and she stated she will discuss any after care services when 'it will be time for that'. 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
PT and OT evaluations noted - skilled level of care indicated.
CM spoke to [facility] small business representative Wanda regarding insurance status and she will meet with daughter shortly.
PCP: per daughter pt does not have PCP.
Pharmacy: [facility].
D/C plan: SNF when medically stable and insurance/Medicaid application is in place.
CM will follow with discharge plan updates as hospitalization progresses
--- NOTE | 2023-04-17 14:59 | W.PN.HOSP.TC ---
Today's Communication/Plan
-
cont to monitor in icu
stat ct head if any neuro changes
NSS
DVT ppx
Assessment / Plan
Assessment / Plan
General: Well Developed
HEENT: NormoCephalic and Other (slurred speech, follows commands)
Respiratory: Clear
Cardiac: S1/S2
GI: Soft
Genito-urinary: Deferred by me
Musculoskeletal: No Clubbing
Skin: Warm
Neuro: Awake and Other (aphasic)
Hematologic/Lymphatic: No Lymphadenopathy
Psych: Calm
IMPRESSION:
67-year-old male with past medical history of hypertension, prediabetes, obesity, GERD, PPM, gastric bypass, ?� Atrial fibrillation versus stroke on Eliquis now presenting for right hemiplegia, aphasia.� Found to have intraparenchymal hemorrhage.�
Stroke alert was called, admitted to the ICU.
PLAN:
#Intraparenchymal hemorrhage
-intraparenchymal hemorrhage on the left side, centered in the left thalamus and left basal ganglia, with extension into the left saxena radiata and left lateral ventricle. Main focus of hemorrhage within the left thalamus measures 2.7 x 1.7 x 1.7
cm.
-Repeat CT head stable
-f/u neuro and nsg recs
-Maintain strict systolic blood pressure control less than 140 mm; labetolol IV prn
� Head of bed elevation
� Continue ICU level of care, pulse oximetry if oxygen saturation less than 96%
� Normal saline, avoid hypotonic meds
� Neurosurgery on board
- If any neurological changes - ct head stat
� Status post Andexanet
� SCDs
� Further critical care interventions as deemed necessary
� Echo with LVH, especially apex and septum, EF appears to be grossly within normal limits
�Speech, PT, OT eval
� Follow-up lipid panel, hemoglobin A1c
#Hypertension
#Prediabetes
#GERD
� Labetalol IV with goal parameters as stated above
� Hemoglobin A1c 6.2;
� Will have to hold oral hypertensives at this time pending speech eval
#?� Atrial fibrillation
� Hold Eliquis
#DVT ppx
-okay for hsq as per nsg
Total time spent on today's encounter was 51 minutes which included time spent in counseling the patient/family regarding diagnosis and treatment plan as listed above, goals of care, and symptom management. Case was discussed with nursing staff,
specialists, and care coordinators/case management. All labs and imaging personally reviewed by me. Remainder the time spent in detailed review of previous records, lab data, imaging, and other medical provider documentation.
Anticipated Discharge: > 48 hours
Subjective/Interval History
-
Date of Service: April 17, 2023
improvement in speech today
Objective Data
-
Labs:
Laboratory Results
04/17/23
04:36
WBC 6.1
Hgb 10.2 L
Hct 34.8 L
Plt Count 155
Sodium 137
Potassium 3.8
Chloride 106
Carbon Dioxide 27
BUN 12
Creatinine 0.8
Glucose 121 H
Calcium 9.1
Total Bilirubin 0.9
AST 29
ALT 15
Alkaline Phosphatase 102
Vital Signs:
Vital Signs
Temp Pulse Resp BP Pulse Ox
100.3 F 95 25 142/81 93
04/17/23 11:28 04/17/23 14:00 04/17/23 14:00 04/17/23 14:00 04/17/23 14:00
I&O
04/16/23 04/17/23 04/18/23
06:59 06:59 06:59
Intake Total 2362.5 / 2475.0 812.5 / 812.5
Output Total 2054 525 / 525
Balance 307.5 / 420.0 287.5 / 287.5
Review of Systems
-
History Source: Patient
All other systems: Not reviewed unless documented
Data Reviewed
-
CT Scan: Image personally visualized and interpreted and Report Reviewed by me
Labs: Labs Reviewed by me
--- NOTE | 2023-04-17 15:53 | W.PN.INTV ---
Today's Communication / Plan
Recommendations
-MRI brain without contrast to assess for ischemia
-Now on SC heparin for DVT prophylaxis
-Telemetry monitoring
-Possible downgrade to IMU tomorrow if neuro status remains stable
-NPO due to severe dysarthria, ST to repeat eval
-Maintain elevation of HOB 30-45 degrees
-Continuous monitoring using pulse oximetry if O2�saturation is <96%
-Normal saline for fluid maintenance, avoid hypotonic fluids
-Monitor for change in neuro status
Assessment
-
Assessment: 67-year-old AAM with a PMHx HTN, GERD, A-fib on Eliquis who was found down on the floor up against the bathtub. EMS was called and patient was found to have strokelike symptoms and stroke alert was called. Patient brought to the ER
where imaging showed left-sided IPH with intraventricular extension. Initial BP elevated at 157/79, and he was treated with hydralazine and Cardene infusion. Because patient takes Eliquis at home, Kcentra was administered. He was transferred to
the ICU for further care and critical care services consulted for additional management/recommendations.
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
Impression:
#Acute left-sided hemorrhagic IPH involving thalamus and basal ganglia with intraventricular extension - suspect hypertensive etiology
# BP controlled
#Dysarthria and right hemiplegia due to above with suspected hemorrhagic CVA
#?A-fib on Eliquis
#Valvular heart disease with moderate and mild AI
Plan:
- Strict SBP<140mmHg. IV Labetalol PRN
- Acetaminophen for Fever
- Head of bed elevated >30-45 degrees
- Speech and swallow assessment: remain NPO
- q1hr neurochecks
- Started DVT prophylaxis:SQ Heparin
- Serial CT head with stat CT head for any sudden change in neurological status
- Maintain euglycemia with goal BG 140-180mg/dL
- Replete electrolytes with goal K>3.5 , Mg>1.8, PO4>3
Data:
CXR 04-16-2023: Clear lungs.
CT Head 04-16-2023:
1. Intraparenchymal hemorrhage on the left side, centered in the left thalamus and left basal ganglia, with extension into the left saxena radiata and left lateral ventricle. Main focus of hemorrhage within the left thalamus measures 2.7 x 1.7 x 1.7
cm. Hemorrhage is likely hypertensive in etiology.
2. No evidence of significant hydrocephalus.
REPEAT CT HEAD 04-17-2023 UNCHANGED
TTE 04-16-2023:
Hyperdynamic left ventricular systolic function.� Left ventricular ejection
�fraction is greater than 75%.
�Moderate left ventricular hypertrophy with the thickest wall being the septum
�but spade like ventricle with contrast suggests hypertrophy at the apex as
�well.
�Moderate aortic stenosis (based on gradient) and mild aortic regurgitation.
�No prior study available for comparison.
Subjective Dataa
Subjective Data
Date of Service:
Date of Service: April 17, 2023
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
Subjective:
Spoke to patient, daughter, Denisse in the room. Daughter confirms there is a history of clots, but is unsure of details. Pt's is awake, alert, oriented. Follows all commands appropriately, understands all questions but verbally answers within limits
of his severe dysarthria.
Review of Systems
General: Other (Limited review of systems due to Dysarthria )
Cardiopulmonary: Dyspnea and Chest Pain
Objective Data
Data Reviewed
Vital Signs / I&O / Oxygen:
Vital Signs
Temp Pulse Resp BP Pulse Ox
100.3 F 95 25 142/81 93
04/17/23 11:28 04/17/23 14:00 04/17/23 14:00 04/17/23 14:00 04/17/23 14:00
Intake and Output
04/16/23 04/17/23 04/18/23
06:59 06:59 06:59
Intake Total 2362.5 / 2475.0 912.5 / 912.5
Output Total 2054 525 / 525
Balance 307.5 / 420.0 387.5 / 387.5
SaO2 93
Physical Exam
General: Fever
HEENT: Normocephalic, Anicteric, Moist Mucous Membranes and Other (Pupils equal )
Cardiovascular: S1-S2, Regular Rhythm, Murmur (systolic murmur), Peripheral Edema (negative) and Cool Extremities (negative)
Respiratory: Clear and Other (mildly increased respiratory effort)
GI: Soft and Non Distended
Neurology: Awake, Alert, Oriented, AO x 3, No Motor Deficits (Negative: Right-sided hemiplegia RUE > RLE, absent sensation on RUE, mildly preserved on RLE, Right-sided facial droop with fore-head sparing), Non Verbal (Negative: Responds
appropriately to all questions but severely dysarthric ), Other (Extraocular movements full) and Other (No hemineglect, no dysphasia)
Skin: Warm, Dry and Good Color
Labs/Micro/Reports
Lab Data
04/17/23 04:36
04/17/23 04:36
--- NOTE | 2023-04-17 16:06 | PTOTSP ---
Dysphagia Therapy
Video swallow study recommended to rule out unilateral pharyngeal weakness, rule out silent aspiration, determine if patient is safe for oral intake for therapy and/or nutrition, and further develop dysphagia treatment plan. Continue NPO with oral
care 3-5x daily until video swallow study. Recommendations discussed with patient, nursing, physicians, and with his daughter later via telephone.
--- NOTE | 2023-04-17 17:04 | PTCARENOTE ---
Patient received in AM with assessment as noted. Continues sleeping intermittently, easily awakens to voice and oriented when awake. NIH score of 21 with his right side flaccid and severe dysarthria. Right field cut and inattention continues. Seen
by neurosurgery in AM. CT-head today with results unchanged from 04/16. For an MRI and video swallow study on 04/18. NSR on monitor. Cardene gtt d/c'd at 0700. SBP's maintained <140 when resting and more elevated when interacting with staff or family.
T-max 100.3 oral at 1200. Tylenol supp 650 mg given with results 1600 temp 99.1 oral. Lungs decreased in bases bilaterally. Sao2 93-96% on room air. Hypo BS. Continues NPO. No bowel movement today. Condom catheter draining yellow urine. Family into
visit and updated to patient condition. Patient currently in bed with call kay in his left hand. Will continue to monitor closely.
[2023-04-17] MEDS: HEPARIN 5000 UNITS SC (19:45)
--- NOTE | 2023-04-17 20:30 | PTCARENOTE ---
Resumed care of pt this evening. Pt appears drowsy and was sleeping upon entering the room. NIH pefromed at bedside w/ dayshift RN, Jostin. NIH score was a 20. Pt continues to exhibit rt sided hemiplegia. Pt exhibits dysarthria, facial droop, visual
deficit, limb ataxia, and sensory/sensation deficits all on the right side. Pt appears to have normal function of left sided extremities. Pt is A&Ox3, responds to verbal and tactile cues. Pt denies any pain. Head of bed kept elevated at 30 degrees.
Pt is in NSR on tele monitor, has +1 edema in rt lower extremity, and + pedal/radial pulses. Pt on RA satting at 95% pulse ox. On auscultation pt's lungs sound diminished at the bases. Pt's respirations are shallow. Pt remained NPO, video swall
examination scheduled for tomorrow. Pt's abdomen obese w/ hypoactive BS. Pt incontinent of bladder, condom cath in place and pt is voiding yellow colored urine. Skin is C/D/I. VSS.
[2023-04-17] MEDS: LOPRESSOR 5 MG IV (22:04)
--- NOTE | 2023-04-17 22:20 | PTCARENOTE ---
At approx. 2130 pt's HR elevated to 177 and tele alarmed rhythm change to A-fib. Pt was asleep during rhythm change and appeared asymptomatic. FLOOR TILING PROFESSIONAL, Lesia Del Castillo, notified and an EKG was ordered. EKG read A-fib w/ RVR. A one time dose of IV
lopressor was also ordered. Lopressor administered by this RN.
[2023-04-17] MEDS: CARDIZEM 10 MG IV (23:26)
[2023-04-17] MEDS: CARDIZEM 125 IV (23:26)
--- NOTE | 2023-04-17 23:37 | PTCARENOTE ---
Bolus dose of cardizem administered by this RN for elevated HR. Cardizem gtt initiated at 5mg/hr via peripheral IV site per protocol.
[2023-04-18] VITALS (47 sets, daily range): BP systolic 89–179; BP diastolic 52–108; PULSE 71–105; O2SAT 96–100; BMI 40.7
[2023-04-18] MEDS: NSS 1000 IV ×2 (02:33→13:38)
[2023-04-18 04:43] LABS: Hematocrit 34.4 % (39.0-52.0); Hemoglobin 10.4 g/dL (13.0-18.0); Mean Corp Hgb Conc. 30.2 g/dL (33.0-37.0); Mean Corpuscular Hgb 24.6 pg (27.0-31.0); Mean Corpuscular Volume 81.3 fL (80.0-94.0); Mean Platelet Volume 10.8 fL (7.4-10.4); Platelet Count 164 10^3/uL (130-400); Red Blood Cell Count 4.23 10^6/uL (4.70-6.10); Red Cell Dist. Width 18.2 % (11.5-14.5); White Blood Cell Count 6.1 10^3/uL (4.8-10.8)
[2023-04-18 05:08] LABS: ALT (SGPT) 14 U/L (0-50); AST (SGOT) 29 U/L (17-59); Albumin 3.5 g/dl (3.5-5.0); Alkaline Phosphatase 93 U/L (38-126); Blood Urea Nitrogen 10 mg/dl (9-20); Calcium 8.9 mg/dl (8.4-10.2); Carbon Dioxide 25 mmol/L (22-30); Chloride 106 mmol/L (98-107); Estimated Creatinine Clearance 105 ml/min; Glucose 99 mg/dl (70-99); Magnesium 1.7 mg/dl (1.6-2.3); Potassium 3.8 mmol/L (3.5-5.1); Sodium 135 mmol/L (135-145); Total Bilirubin 0.8 mg/dl (0.2-1.3); Total Protein 6.9 g/dl (6.3-8.2); eGFR > 60.00
[2023-04-18] MEDS: PROTONIX IV 40 MG IV (07:42)
[2023-04-18] MEDS: HEPARIN 5000 UNITS SC ×2 (07:42→21:17)
[2023-04-18] MEDS: CARDIZEM 125 IV ×2 (07:42→17:10)
[2023-04-18] MEDS: NSS (PRESERVATIVE FREE) 10 ML IV (07:42)
--- NOTE | 2023-04-18 08:15 | PTCARENOTE ---
report received, assessments per work list. patient awake, handoff NIH per work list. per off going RN, remains unchanged. patient awake, able to make needs known. speech garbled. right sided neglect. monitor afib, rate 100-110. cardizem@15 mg.
lungs with coarse breath sounds,diminished breath sounds. dyspnea at rest, moist cough. increased oral secretions. right arm, leg edema. oxygen applied for patient comfort. abdomen obese, active bowel sounds, no stool. condom cath in place, reta
yellow urine. reviewed plan of care, call kay in hand
[2023-04-18] MEDS: TRANDATE 5 MG IV ×2 (09:12→14:05)
--- NOTE | 2023-04-18 09:12 | W.PN.INTV ---
Today's Communication / Plan
Recommendations
Neurochecks q1hr
SBP<140mmHg
Cardizem gtt; rate control
Replete K>4, Mg>[address] head for any sudden change in neuro status or neurochecks
MRI Brain pending
PT/OT/STOKER MECHANIC
Cardiology consulted
Assessment
-
Assessment:��67-year-old AAM with a PMHx HTN, GERD, A-fib on Eliquis who was found down on the floor up against the bathtub.� EMS was called and patient was found to have strokelike symptoms and stroke alert was called.� Patient brought to the ER
where imaging showed left-sided IPH with intraventricular extension.� Initial BP elevated at 157/79, and he was treated with hydralazine and Cardene infusion.� Because patient takes Eliquis at home, Kcentra was administered.� He was transferred to
the ICU for further care and critical care services consulted for additional management/recommendations.�
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
Impression:
#Acute left-sided hemorrhagic IPH involving thalamus and basal ganglia with intraventricular extension - suspect hypertensive etiology
#Hypertensive crisis on cardene gtt --> crisis now resolved and he is off cardene gtt
#A-fib with RVR now on cardizem gtt
#Expressive aphasia and right-sided hemiplegia due to above with suspected hemorrhagic CVA
#A-fib on Eliquis
#Valvular heart disease with moderate and mild AI
#Hx of PPM
Plan:
- Maintain SBP<140mmHg
- Rate control with cardizem gtt; titrate as needed
- Head of bed elevated >30-45 degrees
- Diet as per STOKER MECHANIC --> VFSS recommended
- q1hr neurochecks ---> reduce frequency to q2-4hr if ok with neurology
- check MRI brain to assess for cerebral infarction; need to confirm if PPM is MRI compatible first
- Consult cardiology given his A-fib now on cardizem gtt and also with Hx of PPM
- Neurosurgery consulted --> no acute neurosurgical intervention required
- Hold all anti-platelet/anti-coagulants until instructed otherwise by neurology - started HSQ on 04/17 which was ok as per NSx
- Serial CT head with stat CT head for any sudden change in neurological status
- Maintain euglycemia with goal BG 140-180mg/dL
- Physiatry consultation
- Replete electrolytes with goal K>3.5 , Mg>1.8, PO4>3
- DVT ppx
Critical care statement: A total of 39 minutes of critical care time was provided for this patient today. This includes management of unstable vital signs, evaluation of the patient at bedside, reviewing the patient's pertinent medical records
including radiographs, microbiology, laboratory evaluations, and� discussion with primary team, consultants, pharmacy, nutrition, physical therapy, case management, charge nurse, critical care nursing, and respiratory therapy.
Data:
CXR 04-16-2023:�Clear lungs.
CT Head 04-17-2023:�No significant interval change in left-sided intracranial hemorrhage with intraventricular extension.
CT Head 04-16-2023:
1. Intraparenchymal hemorrhage on the left side, centered in the left thalamus and left basal ganglia, with extension into the left saxena radiata and left lateral ventricle. Main focus of hemorrhage within the left thalamus measures 2.7 x 1.7 x 1.7
cm. Hemorrhage is likely hypertensive in etiology.
2. No evidence of significant hydrocephalus.
TTE 04-16-2023:
Hyperdynamic left ventricular systolic function.� Left ventricular ejection
�fraction is greater than 75%.
�Moderate left ventricular hypertrophy with the thickest wall being the septum
�but spade like ventricle with contrast suggests hypertrophy at the apex as
�well.
�Moderate aortic stenosis (based on gradient) and mild aortic regurgitation.
�No prior study available for comparison.
Subjective Dataa
Subjective Data
Date of Service:
Date of Service: April 18, 2023
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
Subjective:
Pt seen this AM. He is going down for speech/swallow exam. Went into rapid a-fib last night and cardizem gtt started. I spoke with daughter and answered all her questions. Nurse says patient was short of breath today with more abdominal
breathing which improved with application of supplemental oxygen at 1 L/min. Patient able to speak a little more clear today but still has slurred speech with right-sided facial droop and right-sided weakness with RUE plegia.
Review of Systems
General: Other (Negative unless mentioned above)
Objective Data
Data Reviewed
Vital Signs / I&O / Oxygen:
Vital Signs
Temp Pulse Resp BP Pulse Ox
97.9 F 103 25 141/92 97
04/18/23 07:26 04/18/23 09:12 04/18/23 09:11 04/18/23 09:12 04/18/23 08:00
Intake and Output
04/17/23 04/18/23 04/19/23
06:59 06:59 06:59
Intake Total 2362.5 / 2475.0 2492.5 / 2607.5 342 / 342
Output Total 2054 / 2054 2945 / 2945
Balance 307.5 / 420.0 -452.5 / -337.5 342 / 342
SaO2 97
Nasal Cannula flow liters per 1
minute
Physical Exam
General: Respiratory Distress (Negative) and Comfortable
HEENT: Normocephalic and Anicteric
Cardiovascular: S1-S2, Murmur (heard best at RUSB) and Peripheral Edema (negative)
Respiratory: Wheeze (Occasionally heard in middle lung gonzales during expiration), Crackles (bibasilar in posterior lung gonzales), Rhonchi (negative) and Accessory Resp Muscle Use (Mild, and more noticeable when patient falls asleep)
GI: Soft, Non Distended and Non Tender
Neurology: Awake, Alert, Oriented, AO x 3, No Motor Deficits (Negative: Right-sided hemiplegia RUE > RLE, absent sensation on RUE, mildly preserved on RLE, Right-sided facial droop with fore-head sparing), Non Verbal (responds appropriately to all
questions but severely dysarthric ), Other (Extraocular movements full) and Other (No hemineglect)
Skin: Warm and Dry
Labs/Micro/Reports
Lab Data
04/18/23 04:23
04/18/23 04:23
--- NOTE | 2023-04-18 09:29 | CON.MR ---
Consultation
Consultation Request
Date/Time Consultation Performed: 04/18/23 930
Requesting Provider: Dr. Oneill
Performing Provider: Dr. Corley
Reason for Consultation: CVA
Medical History
-
Chief Complaint: CVA, R weakness
History of Present Illness:
I had the opportunity to see Martin Durand in rehabilitation consultation. This is a 67-year-old male with past medical history of hypertension, prediabetes, obesity, GERD, PPM, gastric bypass, Atrial fibrillation versus stroke on Eliquis brought to
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 In ED, blood pressure 161/95, heart rate 63 on arrival.� CT head with
intraparenchymal hemorrhage of the left side, centered in the left thalamus and basal left ganglia, with attention to the left saxena radiata and the left lateral ventricle.� Main focus of hemorrhage within the left thalamus measures 2.7 x 1.7 x 1.7
cm.� Hemorrhage is likely hypertensive in etiology.� Received Andexanet.�
Repeat Head CT done 04/17 with no significant interval change in left-sided intracranial hemorrhage with intraventricular extension. Seen by neurosurgery and is currently being treated non-operatively. MRI ordered for possible ischemia evaluation.
Patient seen at bedside this morning, lying in bed. States some SOB this morning, and did have some SOB confirmed by RN. Also states some dizziness and lightheadedness. Denies any headache or other pain. Significant dysarthria does limit speech
intelligibility.
Past Medical History
Past Medical History: HTN, pre DM,� anemia, obesity, GERD
Past Surgical History:PPM, gastric bypass
Social History
Functional Level Premorbidity:
Independent for all activities. No previous cane or assistive device
Current Funct Level: Ambulation, Transfer, UE/LE Dressing:
to be assessed by PT/OT
Living: Alone
# Steps to Enter: 2nd floor apartment in the assisted living facility - elevator accesss.
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
Allergies / Home Medications
Allergy/AdvReac Type Severity Reaction Status Date / Time
No Known Allergies Allergy Unverified 04/16/23 08:12
Medication Instructions Recorded Confirmed Last Taken Type
apixaban 5 mg tablet 5 mg PO BID Blood Clot 04/16/23 04/16/23 Unknown History
Prevention/Tx
furosemide 20 mg tablet (Lasix) 20 mg PO DAILY Fluid 04/16/23 04/16/23 Unknown History
Retention/Swelling
metoprolol tartrate 50 mg tablet 50 mg PO BID Heart 04/16/23 04/16/23 Unknown History
Disease/Condition
omeprazole 40 mg capsule,delayed 40 mg PO DAILY Gastrointestinal 04/16/23 04/16/23 Unknown History
release Issue
valsartan 160 mg tablet 160 mg PO DAILY Blood Pressure 04/16/23 04/16/23 Unknown History
Review Of Systems
-
Unable to obtain full review of systems at this time due to: Language Barrier (Severe dysarthria)
History Source: Patient
All other systems: Negative unless noted
Constitutional: Reports No Symptoms
EENT: Reports No Symptoms
Respiratory: Reports Trouble Breathing
Cardiac: Reports Chest Pain
Abdomen/GI: Reports No Symptoms
: Reports Other (lopez)
Musculoskeletal: Reports No Symptoms
Integumentary: Reports No Symptoms
Neurological: Reports Weakness and Numbness
Psych: Reports No Symptoms
Endocrine: Reports No Symptoms
Hematologic/Lymphatic: Reports No Symptoms
Immunology: Reports No Symptoms
Physical Exam
Active Medications
Generic Name Dose Route Start Last Admin
Trade Name Freq PRN Reason Stop Dose Admin
Acetaminophen 650 mg 04/16/23 09:26
Acetaminophen 325 Mg Tablet PO 05/14/23 09:25
Q4HPRN PRN
MILD PAIN/temp >38C (100.4F)
Acetaminophen 650 mg 04/16/23 09:26 04/17/23 12:24
Acetaminophen 650 Mg Rectal Suppository RECTAL 05/14/23 09:25 650 mg
Q4HPRN PRN Administration
MILD PAIN/temp >38C (100.4F)
Heparin Sodium 5,000 units 04/17/23 20:00 04/18/23 07:42
Heparin 5,000 Units/Ml 1 Ml Vial SC 05/15/23 19:59 5,000 units
Q12 NESSA Administration
Diltiazem HCl 125 mg in 125 mls @ 0 mls/hr 04/17/23 23:15 04/18/23 07:42
Cardizem IV 125 mls
PER PROTOCOL NESSA Administration
Protocol
Per Protocol
Sodium Chloride 1,000 mls @ 100 mls/hr 04/18/23 01:15 04/18/23 02:33
Nss IV 1,000 mls
.Q10H NESSA Administration
Labetalol HCl 5 mg 04/16/23 09:26 04/18/23 09:12
Labetalol Hcl 5 Mg/1 Ml (20 Mg/4 Ml) Injection IV 05/14/23 09:25 5 mg
Q6HPRN PRN Administration
SBP > 140 mmHg or MAP >110
Pantoprazole Sodium 40 mg 04/17/23 12:00 04/18/23 07:42
Pantoprazole Sodium 40 Mg/10 Ml Vial IV 05/15/23 11:59 40 mg
DAILY NESSA Administration
Sodium Chloride 0 flush 04/16/23 12:00
Sodium Chloride 0.9% (Flush) Syringe IV 05/14/23 11:59
PER PROTOCOL NESSA
Sodium Chloride 10 ml 04/17/23 12:00 04/18/23 07:42
Sodium Chloride 0.9% (Preservative Free) 10 Ml Vial IV 05/15/23 11:59 10 ml
DAILY NESSA Administration
Vital Signs
Temp Pulse Resp BP Pulse Ox
97.9 F 103 25 141/92 97
04/18/23 07:26 04/18/23 09:12 04/18/23 09:11 04/18/23 09:12 04/18/23 08:00
Height 5 ft 7 in
Actual Weight 117.7 kg
Body Mass Index (BMI) 40.7
Physical Exam
Physical Exam:
General Appearance/Observation: Well-developed, well-nourished individual in no apparent distress. Lying in bed.
Pain/Comfort Assessment: Denies
Mood/Affect: Drowsy but arousable today.
Able to follow commands and answer simple questions
Eyes: Conjunctiva/Lids: normal Pupils: pupils equal round and reactive to light
Ears/Nose/Throat: oral mucosa moist, throat clear. Lips/Teeth/Gums: some poor dentition, poor control of saliva/secretions
Cardiovascular: Heart: irregular, soft systolic murmur
Pulses: dorsalis pedis 2+ bilaterally
Respiratory: Auscultation: decreased R breath sounds and mild at L base
Gastrointestinal: abdomen not tender, no distension, no guarding, normal abdominal bowel sounds
: Lopez in place - clear yellow urine
Rectal Exam: Deferred
Extremities: Edema: Slight in R hand and bilateral distal leg/ankle Cyanosis: None Trophic changes: None
Neurology Exam:
Orientation: Drowsy but arousable. Oriented to name and place
Higher cortical function
Speech: severe dysarthria
Repetition: Intact
Comprehension: Seems intact
Two step command: Able to follow 1 and 2 step commands
Cranial Nerves:
CNII: Pupillary light reflex: Intact Visual Field: Seems like more right sided neglect, possible visual field deficit
CN III, IV, : Extraocular muscles: decreased gaze to the right
CN V: Facial Sensation at Forehead: Decreased on right
CN VII: Facial movement: Right facial droop and minimal right sided activation
CN VIII: Hearing: Normal
CN IX/X: Speech & swallow: Dysarthria
CN XI: Shoulder shrug: unable on right
CN XII: Tongue protrusion: L
Sensory:
Light touch: States absent to light touch entire R side - face, trunk, RUE and RLE
Reflexes:
Biceps: Absent R
Achilles: Absent R
Babinski: Positive on R
Clonus: None
Hipolito: Positive on R
Cerebellar: Dysmetria/Ataxia: No active movement in R side
Musculoskeletal:
Motor: (Manual muscle scale 0-5)
Muscle SA EF WE EE FF FA HF KE DF EHL PF
Right 0 0 0 0 0 0 0 0 0 0 0
Left 4 5 5 5 5 5 4 4 5 5 5
Tone: Flaccid on R side. No pain with PROM
Range of Motion: Passively within normal limits in all extremities
Lab Results
04/18/23 04:23
04/18/23 04:23
WBC 6.1 10^3/uL (4.8-10.8) 04/18/23 04:23
Hgb 10.4 g/dL (13.0-18.0) L 04/18/23 04:23
Hct 34.4 % (39.0-52.0) L 04/18/23 04:23
MCV 81.3 fL (80.0-94.0) 04/18/23 04:23
Plt Count 164 10^3/uL (130-400) 04/18/23 04:23
PT 14.3 Sec (11.4-14.6) 04/16/23 08:00
INR 1.10 04/16/23 08:00
Sodium 135 mmol/L (135-145) 04/18/23 04:23
Potassium 3.8 mmol/L (3.5-5.1) 04/18/23 04:23
Chloride 106 mmol/L (98-107) 04/18/23 04:23
Carbon Dioxide 25 mmol/L (22-30) 04/18/23 04:23
BUN 10 mg/dl (9-20) 04/18/23 04:23
Creatinine 0.8 mg/dL (0.7-1.3) 04/18/23 04:23
eGFR > 60.00 04/18/23 04:23
Glucose 99 mg/dl (70-99) 04/18/23 04:23
Hemoglobin A1c 6.2 % (4.0-5.6) H 04/17/23 04:36
Calcium 8.9 mg/dl (8.4-10.2) 04/18/23 04:23
Phosphorus 2.6 mg/dl (2.5-4.5) 04/17/23 04:36
Magnesium 1.7 mg/dl (1.6-2.3) 04/18/23 04:23
Total Bilirubin 0.8 mg/dl (0.2-1.3) 04/18/23 04:23
AST 29 U/L (17-59) 04/18/23 04:23
ALT 14 U/L (0-50) 04/18/23 04:23
Alkaline Phosphatase 93 U/L (38-126) 04/18/23 04:23
Total Protein 6.9 g/dl (6.3-8.2) 04/18/23 04:23
Albumin 3.5 g/dl (3.5-5.0) 04/18/23 04:23
Diagnostic Results
As per HPI.
Comorbidities / Impairment Group
Comorbidities:
HTN
Impairment Group:
L intraparenchymal bleed, R hemiparesis
Assessment / Plan
Plan
Assessment:
68 year old male with L hemmoragic CVA L thalamus, basal ganglia with right hemiplegia and dysarthria
PM&R Will need intensive PT/OT when medically stable to increase independence with ADLs, improve balance, coordination, endurance, strength, mobility, community reintegration, decreased burden of care on others and family education.
Hemorrhagic L CVA: Was on apixaban at home prior - on hold now. Blood pressure control (SBP less than 180 and diastolic less than 100 to participate with therapy for ischemic stroke). Continue to monitor neurologic status.
-Neurosurgery determined non-operative treatment
-Neurology still following
-Planning MRI to evaluate for extent of ischemic involvement
Right Hemiplegia: No active movement at present time. High risk for falls and sliding out of chair/bed. Safety reinforced.
- Avoid using affected R arm to help lift or pull patient as this will cause trauma to the shoulder.
Right Neglect: Seems patient has some neglect vs. visual field involvement.
- makes patient at increased risk for falls. Will need therapy to work on scanning of environment for safe navigation.
Dysphagia: speech evaluation, oral care protocol, chlorhexidine rinse after meals and HS, aspiration precautions. Advance diet as tolerated.
Dysarthria: speech evaluation
Seizure prophylaxis: with intraparenchymal hemorrhage - need for medical Seizure prophylaxis?
HTN: On diltiazem for BP control, monitor closely
Atrial fibrillation: Off of anticoagulation
Pulmonary: had some SOB today. May need evaluation CXR vs. CT scan to rule out pneumonia/aspiration?
Skin: monitor for pressure sores/rashes/lesions.
Pain: acetaminophenas needed.
Bowel: Colace and Senna, PRN bisacodyl.
Bladder: has lopez
GI Prophylaxis: Pantoprazole
DVT Prophylaxis: Does have heparin SQ ordered
Safety: Continue to reinforce assistance with all transfers.
Code Status: Full code
Dispo: Eventual home but unsure of social support for assistance. Social history reviewed.
Functional and Medical Goals: Modified Independent with ADL�s, ambulation, transfers
Summary
-
Things that must be addressed in Hospital prior to discharge:
1. Please consult PT/OT.
2. Please consult speech, including swallow eval.
3. Blood pressure must be less than 180 systolic and 100 diastolic for 24 hours before being stable for transfer to SNF/acute rehab.
4. Please give blood pressure parameters.
5. Please comment on dvt chemoprophylaxis restrictions.
Discharge Destination: Acute Rehab when patient is medically stable.
Summary of recommendations:
- Discharge Destination: Acute rehabilitation
- Please comment on potential/timing for restarting anticoagulation for A-fib.
Will continue to follow patient.
Thank you for allowing me to care for your patient. Please contact me with any questions or concerns.
Data Reviewed
-
Radiology: Image Personally Visualized and interpreted
Labs: Labs Reviewed by me
Comments
-
This note was dictated using a voice recognition system. Please excuse any typographical errors from surveillance system monitor. If you believe there are any discrepancies, please notify our office.
--- NOTE | 2023-04-18 10:54 | W.PN.NEURO.1 ---
Today's Communication / Plan
-
.
Subjective/Objective
Subjective Data
Date of Service: April 18, 2023
24h events: Mostly normotensive, new onset of A-fib.
Mr. Villa reports no headache.� She continues to be hemiplegic with hemisensory loss.� No reports of nausea, change in vision.
Labs: LDL�58.
CT head wo contrast(04/16/2023)intraparenchymal hemorrhage on the left side, centered in the left thalamus and left basal ganglia, with extension into the left saxena radiata and left lateral ventricle. Main focus of hemorrhage within the left
thalamus measures 2.7 x 1.7 x 1.7 cm.
PMH: HTN, pre DM,� anemia, obesity, GERD,
PSH: PPM, gastric bypass
All:NKDA
ROS: Constitutional: Negative. Negative for chills, fever and unexpected weight change.
HENT: Positive for difficulties with swallowing, dysarthria
Neurological: positive for dysarthria and right hemiplegia, right-sided numbness, negative for headache, chest pain, abdominal pain
�
�
General: Well developed. In no acute distress.
Cardio: Regular rate and rhythm without murmur. Extremities are without cyanosis or edema.
Neuro:
Mental Status: Alert, oriented to name, age, month, year, president.� Poor attention and preserved comprehension.� Follows simple requests consistently.� Nonfluent
Cranial Nerves: . Pupils are equally round and reactive to light.� EOMs full.� Visual gonzales full to confrontation.� No ptosis.� No nystagmus.� Severe right facial weakness. Severe dysarthria.
Motor:� � Right hemiplegia
Reflexes:� � � � � � Limited exam due to body habitus
Sensory:�Right-sided hemisensory
Coordination: No dysmetria or tremor on the L.
Gait: � � � � � deferred
Assessment and Plan:
I. 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
II. A-Fib. [id number] Score-4.
III. Vascular encephalopathy. Stable
�
-Telemetry monitoring
-Aspiration precaution
-Maintain elevation of HOB 30-45 degrees
-Neurosurgery follow up
-Please repeat CT head without contrast in 7 days or in case of change in neuroexam
-Heparin subQ for DVT prophylaxis
�
I reviewed all radiology and labs along with past medical records pertinent to current medical problems. Total time spent�40 minutes
�
Thank you for allowing us to participate in the care of this patient. We will continue to follow. Please do not hesitate to contact us with any questions or concerns
Objective Data
Vital Signs
Temp Pulse Resp BP Pulse Ox
36.6 C 96 27 138/81 97
04/18/23 07:26 04/18/23 10:30 04/18/23 10:30 04/18/23 10:30 04/18/23 10:30
Lab Results
04/18/23 04:23
04/18/23 04:23
PT 14.3 Sec (11.4-14.6) 04/16/23 08:00
INR 1.10 04/16/23 08:00
APTT 24.5 Sec (23.4-35.0) 04/16/23 08:00
Sodium 135 mmol/L (135-145) 04/18/23 04:23
Potassium 3.8 mmol/L (3.5-5.1) 04/18/23 04:23
BUN 10 mg/dl (9-20) 04/18/23 04:23
Glucose 99 mg/dl (70-99) 04/18/23 04:23
Calcium 8.9 mg/dl (8.4-10.2) 04/18/23 04:23
Phosphorus 2.6 mg/dl (2.5-4.5) 04/17/23 04:36
LDL Cholesterol, Calc 58 mg/dl 04/17/23 04:36
Patient Allergies
No Known Allergies Allergy (Unverified 04/16/23 08:12)
--- NOTE | 2023-04-18 12:39 | CM ---
CM following re: discharge planning.
Discussed in Rounds, reviewed pt's chart, met with pt and pt's daughter at bedside. Neurology following. Video swallowing performed today.
PM&R, PT, OT, ST evaluations noted - acute rehab recommended. Daughter preferred [facility] yesterday and a referral to [facility] made yesterday.
[facility] counselor following.
D/C plan: [facility] when pt is medically stable. Pt will need an auth from [facility]
CM will follow to assist pt with discharge to [facility].
--- NOTE | 2023-04-18 13:06 | CON.CAR ---
Addendum entered and electronically signed by Juan Luis Berger MD 04/18/23 14:45:
I saw and examined the patient.
The METAL SHEET ROLLER OPERATOR's note was reviewed and I agree with the note.
Comment:68 YO male with HTN, HLD, Afib on Eliquis, [employer] DC PPM (MRI compatible), and h/o DVT, who presents to the ER via EMS with c/o right hemiplegia and aphasia found to have IPH. He is currently without complaint but on exam is a
bit tachypneic. Speech is diffficult. He has irreg irreg, lungs cta anterior.1+pitting in the feet rt>Lt. CCN at the bedside, just received IV labetolol and diltiazem for HTN. Goal bp 120-160. Will stop his IV NS. Reassess bp and volume after
medications. Continue iv dilt for rate control. Pedro Sci device and leads MRI compatible.
Original Note:
Consultation
Consultation Request
Date/Time Consultation Requested: 04/18/23 11a
Date/Time Consultation Performed: 04/18/23 12:15p
Requesting Provider: Dr. Arita
Performing Provider: COOPER Monahan for Dr. Berger
Reason for Consultation: CVA, Afib, PPM, needs MRI
Medical History
-
Chief Complaint: right hemiplegia, aphasia
History of Present Illness:
Mr. Durand is a 68 yo male with HTN, HLD, Afib on Eliquis, [employer] DC PPM (MRI compatible), and h/o DVT, who presents to the ER via EMS with c/o right hemiplegia and aphasia. 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 CT head 04/16/23 shows intraparenchymal hemorrhage on the left side, centered in the left thalamus and left basal ganglia, with extension into the left saxena radiata and left lateral ventricle, the main focus of
hemorrhage within the left thalamus measures 2.7 x 1.7 x 1.7 cm. He has been on Eliquis and received Andexxa. He is admitted to the ICU on hospitalist service with neurology and neurosurgery following. He has a PPM and we are asked to investigate
if his PPM is MRI compatible. His passenger agent is Dr. Arturo Madrid at [facility], though has not been seen in 'awhile'. He wishes to switch to our practice as he made a new patient appointment with Dr. Iglesias last month, but had to cancel it. He moved
and is now closer to our office. History was obtained from his outpatient records, patient and his daughter Denisse who is present during exam today. EKG 04/18/23 Afib with RVR 106 bpm and is now on Cardizem drip with rate controlled Afib. He was on
Eliquis as an outpatient.
Past Medical History
Past Medical History: Other (as above)
Past Surgical History: Cardiac ([employer] DC PPM) and Other (bariatric surgery, hernia repair)
Social History
Tobacco: Non-Smoker
Alcohol: None
Living: Alone
Employment: Employed
Family History
Family History: Reviewed & Not Pertinent
Allergies / Home Medications
Allergy/AdvReac Type Severity Reaction Status Date / Time
No Known Allergies Allergy Unverified 04/16/23 08:12
Medication Instructions Recorded Confirmed Type
apixaban 5 mg tablet 5 mg PO BID Blood Clot 04/16/23 04/16/23 History
Prevention/Tx
furosemide 20 mg tablet (Lasix) 20 mg PO DAILY Fluid 04/16/23 04/16/23 History
Retention/Swelling
metoprolol tartrate 50 mg tablet 50 mg PO BID Heart 04/16/23 04/16/23 History
Disease/Condition
omeprazole 40 mg capsule,delayed 40 mg PO DAILY Gastrointestinal 04/16/23 04/16/23 History
release Issue
valsartan 160 mg tablet 160 mg PO DAILY Blood Pressure 04/16/23 04/16/23 History
Review of Systems
-
History Source: Patient
All other systems: Negative unless noted
Physical Exam
Vital Signs
Temp Pulse Resp BP Pulse Ox
98.5 F 96 27 138/81 97
04/18/23 11:00 04/18/23 10:30 04/18/23 10:30 04/18/23 10:30 04/18/23 10:30
Lab Results
04/18/23 04:23
04/18/23 04:23
Troponin I 0.022 ng/ml 04/16/23 12:16
Physical Exam
General: Well Developed and Well Nourished
HEENT: Normocephalic
Respiratory: Clear and Non Labored Respirations
Cardiac: S1/S2, Irregular Rhythm and Murmur (2/6 ELIESER)
Breast: Deferred by me
GI: Soft and Normal Bowel Sounds
Rectal: Deferred by Provider
Genito-urinary: Clear Urine (Du)
Musculoskeletal: No Clubbing, No Cyanosis and No Edema
Skin: Warm and Dry
Neuro: AO x 3 and Other (right hemiplegia )
Hematologic/Lymphatic: No Lymphadenopathy
Psych: Calm
Impression / Plan
-
Afib - rapid ventricular response.
- now rate controlled on Cardizem drip, continue.
- was on Eliquis and received Andexxa in ER.
- Eliquis on hold given ICH.
ICH - acute.
- neurology and neurosurgery following.
- requesting MRI, PPM is MRI compatible.
- right hemiplegia, facial droop, dysarthria.
PPM - [employer] DC PPM.
- followed by Dr. Arturo Madrid at [facility].
- MRI compatible.
HTN - stable on meds, monitor.
GERD - stable on Protonix.
Data Reviewed
-
EKG: Tracing Personally Visualized and interpreted
Radiology: Report Reviewed by me
CT Scan: Report Reviewed by me
Labs: Labs Reviewed by me
Old Records: Requested and Reviewed
--- NOTE | 2023-04-18 13:20 | PTCARENOTE ---
reassessed, tolerated video swallow. working with PT/OT. family at bedside. updated with plan of care
--- NOTE | 2023-04-18 13:58 | PTOTSP ---
ST Video Fluoroscopic Swallow Study
Pt presents with moderately-severe oral dysphagia characterized by ineffective bolus breakdown and bolus formation, mildly delayed anterior to posterior transport, mildly reduced bolus containment resulting in mild posterior loss into the pharynx,
inadequate laryngeal vestibule closure with multiple sequential sips of thin liquids resulting in laryngeal penetration (possible aspiration? - limited view due to body habitus), and mild pharyngeal residue post-swallow that is reduced/eliminated
with a reflexive use of a dry swallow.
Recommendations:
1. Initiate a PO diet of IDDSI 4 (Pureed Solids) and IDDSI 0 (Thin Liquids) with small, single sips.
2. Medications whole with water as tolerated.
3. Aspiration precautions.
4. MERCURY CELL CLEANER will continue to follow and recommend solid diet upgrades as deemed appropriate.
--- NOTE | 2023-04-18 14:37 | W.PN.HOSP.TC ---
Today's Communication/Plan
-
mri brain
ct head in 7 days
cardizem ggt
hsq
Assessment / Plan
Assessment / Plan
General: Well Developed
HEENT: NormoCephalic and Other (slurred speech, follows commands)
Respiratory: Clear
Cardiac: S1/S2
GI: Soft
Genito-urinary: Deferred by me
Musculoskeletal: No Clubbing
Skin: Warm
Neuro: Awake and Other (aphasic)
Hematologic/Lymphatic: No Lymphadenopathy
Psych: Calm
IMPRESSION:
67-year-old male with past medical history of hypertension, prediabetes, obesity, GERD, PPM, gastric bypass, ?� Atrial fibrillation versus stroke on Eliquis now presenting for right hemiplegia, aphasia.� Found to have intraparenchymal hemorrhage.�
Stroke alert was called, admitted to the ICU.
PLAN:
#Intraparenchymal hemorrhage
-intraparenchymal hemorrhage on the left side, centered in the left thalamus and left basal ganglia, with extension into the left saxena radiata and left lateral ventricle. Main focus of hemorrhage within the left thalamus measures 2.7 x 1.7 x 1.7
cm.
-Repeat CT head stable
-f/u neuro and nsg recs
-Maintain strict systolic blood pressure control less than 140 mm; labetolol IV prn
� Head of bed elevation
� Continue ICU level of care, pulse oximetry if oxygen saturation less than 96%
-stop fluids
� Neurosurgery on board
- If any neurological changes - ct head stat
� Status post Andexanet
� Further critical care interventions as deemed necessary
� Echo with LVH, especially apex and septum, EF appears to be grossly within normal limits
�Speech, PT, OT eval
-MRI - will need clearance due to PPM - tentatively MRI friday
-Please repeat CT head without contrast in 7 days or in case of change in neuroexam
#Hypertension
#Prediabetes
#GERD
� Labetalol IV with goal parameters as stated above
� Hemoglobin A1c 6.2;
� Will have to hold oral hypertensives at this time pending speech eval
-Cards consulted
#Atrial fibrillation
� Hold Eliquis
-Dilt ggt
#DVT ppx
-okay for hsq as per nsg/neuro
Total time spent on today's encounter was 55 minutes which included time spent in counseling the patient/family regarding diagnosis and treatment plan as listed above, goals of care, and symptom management. Case was discussed with nursing staff,
specialists, and care coordinators/case management. All labs and imaging personally reviewed by me. Remainder the time spent in detailed review of previous records, lab data, imaging, and other medical provider documentation.
Anticipated Discharge: > 48 hours
Subjective/Interval History
-
Date of Service: April 18, 2023
Went to A-fib with RVR, Dilt drip needed
Objective Data
-
Labs:
Laboratory Results
04/18/23
04:23
WBC 6.1
Hgb 10.4 L
Hct 34.4 L
Plt Count 164
Sodium 135
Potassium 3.8
Chloride 106
Carbon Dioxide 25
BUN 10
Creatinine 0.8
Glucose 99
Calcium 8.9
Total Bilirubin 0.8
AST 29
ALT 14
Alkaline Phosphatase 93
Vital Signs:
Vital Signs
Temp Pulse Resp BP Pulse Ox
98.5 F 81 26 179/93 97
04/18/23 11:00 04/18/23 14:05 04/18/23 14:02 04/18/23 14:05 04/18/23 14:02
I&O
04/17/23 04/18/23 04/19/23
06:59 06:59 06:59
Intake Total 2362.5 / 2475.0 2492.5 / 2607.5 869.5 / 869.5
Output Total 2054 / 2054 2945 / 2945 325 / 325
Balance 307.5 / 420.0 -452.5 / -337.5 544.5 / 544.5
Review of Systems
-
History Source: Patient
All other systems: Not reviewed unless documented
Data Reviewed
-
CT Scan: Image personally visualized and interpreted and Report Reviewed by me
Labs: Labs Reviewed by me
--- NOTE | 2023-04-18 16:38 | PTCARENOTE ---
patient reassessed, taken and returned from MRI without issue. pacer interrogated pre and post MRI by pacer surveying or spatial science technician. poor appetite for lunch. expiratory wheezing noted, RT updated. vitals per work list. Laboratory Animal Facility Supervisor, hospitalist and cardiology
updated with patient vital signs, Cardizem rate by tiger text. reviewed with pharmacist. orders pending
[2023-04-18] MEDS: VASOTEC 1.25 MG IV (17:00)
[2023-04-18] MEDS: DIOVAN 160 MG PO (17:01)
--- NOTE | 2023-04-18 17:13 | PTCARENOTE ---
Vasotec administered per prn order. patient able to take Diovan crushed in applesauce.
[2023-04-18] MEDS: DUONEB 3 ML INH (20:53)
[2023-04-18] MEDS: LOPRESSOR 50 MG PO (21:17)
[2023-04-19] VITALS (36 sets, daily range): BP systolic 123–191; BP diastolic 70–115; PULSE 68; BMI 40.4
[2023-04-19 05:39] LABS: Hematocrit 37.5 % (39.0-52.0); Hemoglobin 11.2 g/dL (13.0-18.0); Mean Corp Hgb Conc. 29.9 g/dL (33.0-37.0); Mean Corpuscular Hgb 24.3 pg (27.0-31.0); Mean Corpuscular Volume 81.5 fL (80.0-94.0); Mean Platelet Volume 10.9 fL (7.4-10.4); Platelet Count 172 10^3/uL (130-400); Red Cell Dist. Width 18.3 % (11.5-14.5); White Blood Cell Count 6.5 10^3/uL (4.8-10.8)
[2023-04-19 05:54] LABS: ALT (SGPT) 16 U/L (0-50); AST (SGOT) 32 U/L (17-59); Albumin 3.9 g/dl (3.5-5.0); Alkaline Phosphatase 101 U/L (38-126); Blood Urea Nitrogen 14 mg/dl (9-20); Calcium 9.4 mg/dl (8.4-10.2); Carbon Dioxide 25 mmol/L (22-30); Chloride 105 mmol/L (98-107); Estimated Creatinine Clearance 94 ml/min; Glucose 102 mg/dl (70-99); Magnesium 1.8 mg/dl (1.6-2.3); Potassium 3.9 mmol/L (3.5-5.1); Sodium 137 mmol/L (135-145); Total Bilirubin 0.8 mg/dl (0.2-1.3); Total Protein 7.4 g/dl (6.3-8.2); eGFR > 60.00
[2023-04-19] MEDS: TRANDATE 5 MG IV (06:07)
[2023-04-19] MEDS: DUONEB 3 ML INH ×2 (07:33→19:38)
[2023-04-19] MEDS: LOPRESSOR 50 MG PO ×2 (08:16→21:22)
[2023-04-19] MEDS: DIOVAN 160 MG PO ×2 (08:16→15:26)
[2023-04-19] MEDS: PROTONIX IV 40 MG IV (08:16)
[2023-04-19] MEDS: NSS (PRESERVATIVE FREE) 10 ML IV (08:16)
[2023-04-19] MEDS: HEPARIN 5000 UNITS SC ×2 (08:16→21:21)
--- NOTE | 2023-04-19 08:27 | PTCARENOTE ---
Rec'd pt at 0700. NIHSS-19, completed with nightshift RN during handoff. Pt oriented, speech garbled and difficult to understand at times. Right side flaccid with loss of sensation on right side. Monitor SR. Lungs dim, pox 96% RA. +BS, abd
large/round. Condom cath in place draining reta urine.
--- NOTE | 2023-04-19 09:13 | W.PN.INTV ---
Today's Communication / Plan
Recommendations
Neurochecks q1hr
SBP<140mmHg
Rate control
Replete K>4, Mg>[address] head for any sudden change in neuro status or neurochecks
PT/OT/ROLLER SKATES ASSEMBLER
Cardiology consulted
May need to resume cardizem gtt if SBP remains uncontrolled despite being on PO anti-hypertensives and getting prn IV meds
Assessment
-
Assessment:��67-year-old AAM with a PMHx HTN, GERD, A-fib on Eliquis who was found down on the floor up against the bathtub.� EMS was called and patient was found to have strokelike symptoms and stroke alert was called.� Patient brought to the ER
where imaging showed left-sided IPH with intraventricular extension.� Initial BP elevated at 157/79, and he was treated with hydralazine and Cardene infusion.� Because patient takes Eliquis at home, Kcentra was administered.� He was transferred to
the ICU for further care and critical care services consulted for additional management/recommendations.�
Chronic conditions BRANCH CONTROLLER:��Hypertension, prediabetes, obesity, GERD, PPM, gastric bypass, Atrial fibrillation on Eliquis
Impression:
#Acute left-sided hemorrhagic IPH involving thalamus and basal ganglia with intraventricular extension - suspect hypertensive etiology
#Hypertensive crisis on cardene gtt --> crisis now resolved and he is off cardene gtt
#A-fib with RVR - HR now controlled and he is off cardizem gtt
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
#A-fib previously on Eliquis
#Valvular heart disease with moderate and mild AI
#Hx of PPM
Plan:
- Maintain SBP<140mmHg
- Rate control with goal HR <110
- Head of bed elevated >30-45 degrees
- Diet as per ROLLER SKATES ASSEMBLER --> VFSS recommended
- q1hr neurochecks ---> reduce frequency to q2-4hr if ok with neurology
- Cardiology on board --> recs appreciated
- Neurosurgery consulted --> no acute neurosurgical intervention required
- Hold all anti-platelet/anti-coagulants until instructed otherwise by neurology - started HSQ on 04/17 which was ok as per NSx
- Serial CT head with stat CT head for any sudden change in neurological status
- Maintain euglycemia with goal BG 140-180mg/dL
- Physiatry consultation
- Replete electrolytes with goal K>3.5 , Mg>1.8, PO4>3
- DVT ppx
Continue ICU level of care given his uncontrolled BP with possible need for Cardene drip. Neurology still wants patient in ICU as well.
Critical care statement: A total of 41 minutes of critical care time was provided for this patient today. This includes management of unstable vital signs, evaluation of the patient at bedside, reviewing the patient's pertinent medical records
including radiographs, microbiology, laboratory evaluations, and� discussion with primary team, consultants, pharmacy, nutrition, physical therapy, case management, charge nurse, critical care nursing, and respiratory therapy.
Data:
CXR 04-16-2023:�Clear lungs.
CT Head 04-17-2023:�No significant interval change in left-sided intracranial hemorrhage with intraventricular extension.
CT Head 04-16-2023:
1. Intraparenchymal hemorrhage on the left side, centered in the left thalamus and left basal ganglia, with extension into the left saxena radiata and left lateral ventricle. Main focus of hemorrhage within the left thalamus measures 2.7 x 1.7 x 1.7
cm. Hemorrhage is likely hypertensive in etiology.
2. No evidence of significant hydrocephalus.
CT Head 04-19-2023: Grossly stable parenchymal hemorrhage within the left basal ganglia/parietal lobe and slightly improved layering intraventricular hemorrhage within the occipital horns bilaterally. No significant midline shift or herniation.
MRI Brain 04-18-2023: Limited examination due to fast scan technique.
Expected evolution of the previously described intraparenchymal hemorrhagic infarct in the left thalamus and left and right lateral ventricle intraventricular hemorrhage. There is mild to moderate adjacent vasogenic edema and minimal 3 mm
[id number] midline shift. No downward herniation.
No additional acute infarct.
Mild to moderate diffuse volume loss. Moderate to severe leukoaraiosis.
Scattered foci of hemosiderin, outlined above, consistent with the history of previous hemorrhagic embolic event.
Continued follow-up MRI in 3-6 months to exclude an underlying occult neoplasm.
TTE 04-16-2023:
Hyperdynamic left ventricular systolic function.� Left ventricular ejection
�fraction is greater than 75%.
�Moderate left ventricular hypertrophy with the thickest wall being the septum
�but spade like ventricle with contrast suggests hypertrophy at the apex as
�well.
�Moderate aortic stenosis (based on gradient) and mild aortic regurgitation.
�No prior study available for comparison.
Subjective Dataa
Subjective Data
Date of Service:
Date of Service: April 19, 2023
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
Subjective:
. Patient seen today at bedside. He BP elevated at 178/81. He still has slurred speech with right-sided facial droop. Unable to move right arm. Brain MRI done last night shows hemorrhagic infarct in the left thalamus and left/right lateral
ventricle intraventricular hemorrhage. No acute events reported overnight. He was weaned off Cardizem drip early this morning.
Review of Systems
General: Other (Negative unless mentioned)
Objective Data
Data Reviewed
Vital Signs / I&O / Oxygen:
Vital Signs
Temp Pulse Resp BP Pulse Ox
99.0 F 82 20 159/115 95
04/19/23 03:36 04/19/23 07:35 04/19/23 07:35 04/19/23 07:00 04/19/23 07:35
Intake and Output
04/18/23 04/19/23 04/20/23
06:59 06:59 06:59
Intake Total 2492.5 / 2607.5 1009.5 / 1009.5
Output Total 2945 / 2945 1375 / 1375
Balance -452.5 / -337.5 -365.5 / -365.5
SaO2 95
Nasal Cannula flow liters per 1
minute
Physical Exam
General: Respiratory Distress (Negative) and Comfortable
HEENT: Normocephalic and Anicteric
Cardiovascular: S1-S2, Murmur (heard best at RUSB) and Peripheral Edema (negative)
Respiratory: Wheeze (negative today), Crackles (bibasilar in posterior lung gonzales), Rhonchi (negative) and Accessory Resp Muscle Use (Mild, and more noticeable when patient falls asleep)
GI: Soft, Non Distended and Non Tender
Neurology: Awake, Alert, Oriented, AO x 3, No Motor Deficits (Negative: Right-sided hemiplegia RUE > RLE, absent sensation on RUE, mildly preserved on RLE, Right-sided facial droop with fore-head sparing), Non Verbal (responds appropriately to all
questions but severely dysarthric ), Other (Extraocular movements full) and Other (No hemineglect)
Skin: Warm and Dry
Labs/Micro/Reports
Lab Data
04/19/23 05:18
04/19/23 05:18
--- NOTE | 2023-04-19 10:08 | W.PN.CD ---
Today's Communication / Plan
-
start po diltiazem 30mg qid and 30 now
consider increasing valsartan but as we want bp >120-160 will do one thing at a time
Impression / Plan
-
Afib - rapid ventricular response.
-back in sinus since 6/:51 am
-transition to po diltiazem as this will also help with bp
- was on Eliquis and received Andexxa in ER.
- Eliquis on hold given ICH.
ICH - acute.
- neurology and neurosurgery following.
-BP goal is 120-160. Diastolic quite high currently, adding diltiazema as gtt stopped last night for HR<70?
-MRI completed
- right hemiplegia, facial droop, dysarthria.
PPM - Amorelie DC PPM.
- followed by Dr. Arturo Madrid at [facility].
- MRI compatible. MRI completed
HTN - elevated, will start po dilt
-cotninue intensive monitoring given strict goals with ICH
-continue po bb
-can increase valsartan later if still elevated
GERD - stable on Protonix.
CCT 31 minutes, d/w CCN Manasa
BP is very tenuous would continue in ICU
Subjective
He is awake in bed, now back in nsr
Physical Exam
Vital Signs/Labs
Vital Signs
Temp Pulse Resp BP Pulse Ox
99.0 F 82 20 159/115 95
04/19/23 03:36 04/19/23 07:35 04/19/23 07:35 04/19/23 07:00 04/19/23 07:35
04/18/23 04/19/23 04/20/23
06:59 06:59 06:59
Actual Weight 117.7 kg 116.8 kg
04/19/23 05:18
04/19/23 05:18
PT 14.3 Sec (11.4-14.6) 04/16/23 08:00
INR 1.10 04/16/23 08:00
APTT 24.5 Sec (23.4-35.0) 04/16/23 08:00
Magnesium 1.8 mg/dl (1.6-2.3) 04/19/23 05:18
Triglycerides 56 mg/dl (10-149) 04/17/23 04:36
LDL Cholesterol, Calc 58 mg/dl 04/17/23 04:36
VLDL Cholesterol, Calc 11 mg/dl (0-30) 04/17/23 04:36
HDL Cholesterol 62 mg/dl 04/17/23 04:36
LAB Results
04/16/23
12:16
Troponin I 0.022
Physical Exam
Constitutional: No acute distress
Cardiovascular: Rhythm & rate is regular, Pedal edema is absent, JVD pressure is normal, Systolic murmur absent, Diastolic murmur absent and Rhythm/rate is irregular
Respiratory: Respiratory effort normal, Lungs clear to auscul., Wheeze Absent, Crackles Absent and Rhonchi Absent
Data Reviewed
-
Date of Service: April 19, 2023
EKG: Other (af to sinus at 6:51)
X-Ray/CT/US/MRI/NUC/PET: Discussed with Nurse (discussed with critical care nursing give po dilt monitor bp )
--- NOTE | 2023-04-19 10:22 | W.PN.NEURO.1 ---
Today's Communication / Plan
-
.
Subjective/Objective
Subjective Data
Date of Service: April 19, 2023
24h events: hypertensive, intermittently tachycardic, continues to be in A-Fib.
Mr. Villa reports a moderate headache, no change in vision, nausea, emesis. He continues to be hemiplegic with hemisensory loss.�
Labs:� LDL�58.
CT head wo contrast(04/16/2023)intraparenchymal hemorrhage on the left side, centered in the left thalamus and left basal ganglia, with extension into the left saxena radiata and left lateral ventricle. Main focus of hemorrhage within the left
thalamus measures 2.7 x 1.7 x 1.7 cm.
PMH: HTN, pre DM,� anemia, obesity, GERD,
PSH: PPM, gastric bypass
All:NKDA
ROS: Constitutional: Negative. Negative for chills, fever and unexpected weight change.
HENT: Positive for difficulties with swallowing, dysarthria
Neurological: positive for dysarthria and right hemiplegia, right-sided numbness, negative for headache, chest pain, abdominal pain
�
�
General: Well developed. In a mild distress due to headache.
Cardio: Regular rate and rhythm without murmur. Extremities are without cyanosis or edema.
Neuro:
Mental Status: Alert, oriented to name, age, month, year, president.� Poor attention and preserved comprehension.� Follows simple requests consistently.� Nonfluent
Cranial Nerves: . Pupils are equally round and reactive to light.� EOMs full.� Visual gonzales full to confrontation.� No ptosis.� No nystagmus.� Severe right facial weakness.� Severe dysarthria.
Motor:� � Right hemiplegia
Reflexes:� � � � � � Limited exam due to body habitus
Sensory:�Right-sided hemisensory
Coordination: No dysmetria or tremor on the L.
Gait: � � � � � deferred
Assessment and Plan:
I. 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
II. A-Fib. [id number] Score-4.
III. Vascular encephalopathy. Stable
�
-Telemetry monitoring
-Aspiration precaution
-Tylenol 500mg Q8h PRN
-Please repeat CT head without contrast
-Brain MRI wo jay jay if PPM is MRI compatible.
-Heparin subQ for DVT prophylaxis
�
I reviewed all radiology and labs along with past medical records pertinent to current medical problems.� Total time spent�40 minutes
�
Thank you for allowing us to participate in the care of this patient. We will continue to follow. Please do not hesitate to contact us with any questions or concern
Objective Data
Vital Signs
Temp Pulse Resp BP Pulse Ox
37.2 C 82 20 159/115 95
04/19/23 03:36 04/19/23 07:35 04/19/23 07:35 04/19/23 07:00 04/19/23 07:35
Lab Results
04/19/23 05:18
04/19/23 05:18
PT 14.3 Sec (11.4-14.6) 04/16/23 08:00
INR 1.10 04/16/23 08:00
APTT 24.5 Sec (23.4-35.0) 04/16/23 08:00
Sodium 137 mmol/L (135-145) 04/19/23 05:18
Potassium 3.9 mmol/L (3.5-5.1) 04/19/23 05:18
BUN 14 mg/dl (9-20) 04/19/23 05:18
Glucose 102 mg/dl (70-99) H 04/19/23 05:18
Calcium 9.4 mg/dl (8.4-10.2) 04/19/23 05:18
Phosphorus 2.6 mg/dl (2.5-4.5) 04/17/23 04:36
LDL Cholesterol, Calc 58 mg/dl 04/17/23 04:36
Patient Allergies
No Known Allergies Allergy (Unverified 04/16/23 08:12)
[2023-04-19] MEDS: CARDIZEM 30 MG PO ×3 (11:04→21:21)
[2023-04-19] MEDS: CARDIZEM PO (13:00)
--- NOTE | 2023-04-19 13:00 | PTCARENOTE ---
Pt to Ct scan of head, tolerated well. Incont for moderate amt soft kaiser stool, pericare performed and condom cath placed. Neuro checks unchanged, speech remains garbled. PRN Vasotec given for SBP 170's.
[2023-04-19] MEDS: VASOTEC 1.25 MG IV (13:08)
--- NOTE | 2023-04-19 14:36 | W.PN.HOSP.TC ---
Today's Communication/Plan
-
Repeat CT head stable
Diltiazem p.o.
Titrate valsartan as needed, goal SBP 120-160
Assessment / Plan
Assessment / Plan
General: Well Developed
HEENT: NormoCephalic and Other (slurred speech, follows commands)
Respiratory: Clear
Cardiac: S1/S2
GI: Soft
Genito-urinary: Deferred by me
Musculoskeletal: No Clubbing
Skin: Warm
Neuro: Awake and Other (aphasic)
Hematologic/Lymphatic: No Lymphadenopathy
Psych: Calm
IMPRESSION:
67-year-old male with past medical history of hypertension, prediabetes, obesity, GERD, PPM, gastric bypass, ?� Atrial fibrillation versus stroke on Eliquis now presenting for right hemiplegia, aphasia.� Found to have intraparenchymal hemorrhage.�
Stroke alert was called, admitted to the ICU.
PLAN:
#Intraparenchymal hemorrhage
-intraparenchymal hemorrhage on the left side, centered in the left thalamus and left basal ganglia, with extension into the left saxena radiata and left lateral ventricle. Main focus of hemorrhage within the left thalamus measures 2.7 x 1.7 x 1.7
cm.
-Repeat CT head stable
-f/u neuro and nsg recs
-Maintain strict systolic blood pressure control less than 140 mm; labetolol IV prn
� Head of bed elevation
� Continue ICU level of care, pulse oximetry if oxygen saturation less than 96%
-stop fluids
� Neurosurgery on board
- If any neurological changes - ct head stat
� Status post Andexanet
� Further critical care interventions as deemed necessary
� Echo with LVH, especially apex and septum, EF appears to be grossly within normal limits
�Speech, PT, OT eval
-MRI with expected evolution of the hemorrhagic infarct; mild to moderate vasogenic edema and minimal 3 mm [id number] midline shift. No downward herniation
� Repeat CT head stable ICH; slightly improved layering intraventricular hemorrhage with occipital horns bilaterally
-speech - dyphagia diet
#Hypertension
#Prediabetes
#GERD
� Labetalol IV with goal parameters as stated above
� Hemoglobin A1c 6.2;
� Will have to hold oral hypertensives at this time pending speech eval
-Titrate losartan as needed for SBP 1 20-1 60
#Atrial fibrillation
� Hold Eliquis
-Started on diltiazem 30 mg 4 times daily
� Appreciate cardiology on board
#DVT ppx
-okay for hsq as per nsg/neuro
Total time spent on today's encounter was 52 minutes which included time spent in counseling the patient/family regarding diagnosis and treatment plan as listed above, goals of care, and symptom management. Case was discussed with nursing staff,
specialists, and care coordinators/case management. All labs and imaging personally reviewed by me. Remainder the time spent in detailed review of previous records, lab data, imaging, and other medical provider documentation.
Anticipated Discharge: > 48 hours
Subjective/Interval History
-
Date of Service: April 19, 2023
Diltiazem was stopped for unknown reason overnight
Objective Data
-
Labs:
Laboratory Results
04/19/23
05:18
WBC 6.5
Hgb 11.2 L
Hct 37.5 L
Plt Count 172
Sodium 137
Potassium 3.9
Chloride 105
Carbon Dioxide 25
BUN 14
Creatinine 0.9
Glucose 102 H
Calcium 9.4
Total Bilirubin 0.8
AST 32
ALT 16
Alkaline Phosphatase 101
Vital Signs:
Vital Signs
Temp Pulse Resp BP Pulse Ox
98.4 F 64 25 149/92 96
04/19/23 13:48 04/19/23 14:30 04/19/23 14:30 04/19/23 14:00 04/19/23 08:00
I&O
04/18/23 04/19/23 04/20/23
06:59 06:59 06:59
Intake Total 2492.5 / 2607.5 1009.5 / 1009.5 120 / 120
Output Total 2945 / 2945 1375 / 1375
Balance -452.5 / -337.5 -365.5 / -365.5 120 / 120
Review of Systems
-
History Source: Patient
All other systems: Not reviewed unless documented
Data Reviewed
-
CT Scan: Image personally visualized and interpreted and Report Reviewed by me
MRI: Image personally visualized and interpreted and Report Reviewed by me
Labs: Labs Reviewed by me
--- NOTE | 2023-04-19 17:37 | PTCARENOTE ---
No changes in assessment. Pt asking when he is going to get transferred somewhere so he can get help to go home. Discussed rehab with pt and that he might not be able to go back home since he is unable to move his entire right side. Pt stated
'living this way is hard'. Emotional support given.
--- NOTE | 2023-04-19 19:30 | PTCARENOTE ---
bedside handoff, NIHSS by 2RN- score 18. dtr updated at bedside.
--- NOTE | 2023-04-19 21:00 | PTCARENOTE ---
pt sleeping in between care, easily arousable, neuro checks per work list documentation, SR HR 60s-70s, RA Sat 96%, B/L IV WNL, condom cath- yellow urine. call kay with patient.
[2023-04-20] VITALS (26 sets, daily range): BP systolic 91–140; BP diastolic 54–82; PULSE 91; BMI 39.3
--- NOTE | 2023-04-20 | PTCARENOTE ---
no changes in pt assessment, neuro checks unchanged.
--- NOTE | 2023-04-20 05:00 | PTCARENOTE ---
CHG clothes, turned, repositioned, no changes in assessment.
[2023-04-20 05:37] LABS: Hematocrit 37.5 % (39.0-52.0); Hemoglobin 11.3 g/dL (13.0-18.0); Mean Corp Hgb Conc. 30.1 g/dL (33.0-37.0); Mean Corpuscular Hgb 24.2 pg (27.0-31.0); Mean Corpuscular Volume 80.5 fL (80.0-94.0); Mean Platelet Volume 10.7 fL (7.4-10.4); Platelet Count 161 10^3/uL (130-400); Red Blood Cell Count 4.66 10^6/uL (4.70-6.10); Red Cell Dist. Width 18.6 % (11.5-14.5); White Blood Cell Count 6.7 10^3/uL (4.8-10.8)
[2023-04-20 06:03] LABS: ALT (SGPT) 11 U/L (0-50); AST (SGOT) 29 U/L (17-59); Albumin 2.3 g/dl (3.5-5.0); Alkaline Phosphatase 44 U/L (38-126); Blood Urea Nitrogen 12 mg/dl (9-20); Calcium 6.7 mg/dl (8.4-10.2); Carbon Dioxide 20 mmol/L (22-30); Chloride 112 mmol/L (98-107); Estimated Creatinine Clearance > 125 ml/min; Glucose 84 mg/dl (70-99); Magnesium 1.3 mg/dl (1.6-2.3); Potassium 2.8 mmol/L (3.5-5.1); Sodium 139 mmol/L (135-145); Total Bilirubin 0.8 mg/dl (0.2-1.3); Total Protein 5.1 g/dl (6.3-8.2); eGFR > 60.00
[2023-04-20] MEDS: KCL 270 MEQ IV ×2 (06:42→10:13)
[2023-04-20] MEDS: MAGNESIUM SULFATE 50 IV (06:43)
[2023-04-20] MEDS: DUONEB 3 ML INH ×2 (07:41→20:19)
[2023-04-20] MEDS: CARDIZEM PO ×2 (08:00→13:00)
[2023-04-20] MEDS: CALCIUM GLUCONATE 130 MG IV (08:22)
[2023-04-20] MEDS: HEPARIN 5000 UNITS SC ×2 (08:25→21:00)
[2023-04-20] MEDS: NSS (PRESERVATIVE FREE) 10 ML IV (08:25)
[2023-04-20] MEDS: PROTONIX IV 40 MG IV (08:25)
--- NOTE | 2023-04-20 08:30 | PTCARENOTE ---
Rec'd pt at 0700. Pt sleeping, awakens to verbal stimuli. Speech garbled, right side remains flaccid. NIHSS-18. Monitor SR. Lungs dim, pox 93% RA. +BS, abd large/round/nt. Poor appetite, pt eating few bites and falls to sleep quickly when
undisturbed. Condom cath in place, pt vdg yellow urine. KCL and Ca Gluconate riders infusing. SBP 90-100's, Dr. Berger notified. To hold am BP meds until BP improves, Valsartan dose also adjusted by .
--- NOTE | 2023-04-20 09:02 | W.PN.INTV ---
Today's Communication / Plan
Recommendations
Neurochecks q3hr as per neuro
SBP<140mmHg but monitor hypotension with q1hr vital signs
Rate control
Replete K>4, Mg>[address] head for any sudden change in neuro status or neurochecks
PT/OT/TITLE LAWYER
Cardiology consulted
Assessment
-
Assessment:��67-year-old AAM with a PMHx HTN, GERD, A-fib on Eliquis who was found down on the floor up against the bathtub.� EMS was called and patient was found to have strokelike symptoms and stroke alert was called.� Patient brought to the ER
where imaging showed left-sided IPH with intraventricular extension.� Initial BP elevated at 157/79, and he was treated with hydralazine and Cardene infusion.� Because patient takes Eliquis at home, Kcentra was administered.� He was transferred to
the ICU for further care and critical care services consulted for additional management/recommendations.�
Chronic conditions BLOCK OPERATOR:��Hypertension, prediabetes, obesity, GERD, PPM, gastric bypass, Atrial fibrillation on Eliquis
Impression:
#Acute left-sided hemorrhagic IPH involving thalamus and basal ganglia with intraventricular extension - suspect hypertensive etiology
#Hypertensive crisis on cardene gtt --> crisis now resolved and he is off cardene gtt
#A-fib with RVR - HR now controlled and he is off cardizem gtt
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
#A-fib previously on Eliquis
#Valvular heart disease with moderate and mild AI
#Hx of PPM
Plan:
- Maintain SBP<140mmHg but keep SBP>100 with MAP>65 mmHg
- Rate control with goal HR <110
- Head of bed elevated >30-45 degrees
- Diet as per TITLE LAWYER --> VFSS recommended
- q3hr neurochecks as per neurology
- Cardiology on board --> recs appreciated
- Neurosurgery consulted --> no acute neurosurgical intervention required
- Hold all anti-platelet/anti-coagulants until instructed otherwise by neurology - started HSQ on 04/17 which was ok as per NSx
- Serial CT head with stat CT head for any sudden change in neurological status
- Maintain euglycemia with goal BG 140-180mg/dL
- Physiatry consultation
- Replete electrolytes with goal K>3.5 , Mg>1.8, PO4>3
- DVT ppx
Considering patient is now borderline hypotensive, continue ICU level of care with q1hr vital signs given possible need for vasopressors. I suspect that if he continues to be stable then we will downgrade him tomorrow.
Critical care statement: A total of 38 minutes of critical care time was provided for this patient today. This includes management of unstable vital signs, evaluation of the patient at bedside, reviewing the patient's pertinent medical records
including radiographs, microbiology, laboratory evaluations, and� discussion with primary team, consultants, pharmacy, nutrition, physical therapy, case management, charge nurse, critical care nursing, and respiratory therapy.
Data:
CXR 04-16-2023:�Clear lungs.
CT Head 04-17-2023:�No significant interval change in left-sided intracranial hemorrhage with intraventricular extension.
CT Head 04-16-2023:
1. Intraparenchymal hemorrhage on the left side, centered in the left thalamus and left basal ganglia, with extension into the left saxena radiata and left lateral ventricle. Main focus of hemorrhage within the left thalamus measures 2.7 x 1.7 x 1.7
cm. Hemorrhage is likely hypertensive in etiology.
2. No evidence of significant hydrocephalus.
CT Head 04-19-2023: Grossly stable parenchymal hemorrhage within the left basal ganglia/parietal lobe and slightly improved layering intraventricular hemorrhage within the occipital horns bilaterally. No significant midline shift or herniation.
MRI Brain 04-18-2023: Limited examination due to fast scan technique.
Expected evolution of the previously described intraparenchymal hemorrhagic infarct in the left thalamus and left and right lateral ventricle intraventricular hemorrhage. There is mild to moderate adjacent vasogenic edema and minimal 3 mm
glid-ut-bjpgl midline shift. No downward herniation.
No additional acute infarct.
Mild to moderate diffuse volume loss. Moderate to severe leukoaraiosis.
Scattered foci of hemosiderin, outlined above, consistent with the history of previous hemorrhagic embolic event.
Continued follow-up MRI in 3-6 months to exclude an underlying occult neoplasm.
TTE 04-16-2023:
Hyperdynamic left ventricular systolic function.� Left ventricular ejection
�fraction is greater than 75%.
�Moderate left ventricular hypertrophy with the thickest wall being the septum
�but spade like ventricle with contrast suggests hypertrophy at the apex as
�well.
�Moderate aortic stenosis (based on gradient) and mild aortic regurgitation.
�No prior study available for comparison.
Subjective Dataa
Subjective Data
Date of Service:
Date of Service: April 20, 2023
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
Subjective:
Patient seen and evaluated today at bedside. He is more hypotensive today with SBP in the 95-115 range. He is similar to yesterday in terms of his ability to enunciate. No real improvement and no worsening neurological status. Still difficult to
understand him clearly. He is in no acute distress. Breathing comfortably on room air, saturating 96%.
Review of Systems
General: Other (Negative unless mentioned above)
Objective Data
Data Reviewed
Vital Signs / I&O / Oxygen:
Vital Signs
Temp Pulse Resp BP Pulse Ox
98.8 F 102 21 114/63 92
04/20/23 07:30 04/20/23 09:37 04/20/23 09:37 04/20/23 09:37 04/20/23 09:30
Intake and Output
04/19/23 04/20/23 04/21/23
06:59 06:59 06:59
Intake Total 1009.5 / 1009.5 420 / 420
Output Total 1375 / 1375 2400 / 2400
Balance -365.5 / -365.5 -1979 /
SaO2 92
Nasal Cannula flow liters per 1
minute
Physical Exam
General: Respiratory Distress (Negative) and Comfortable
HEENT: Normocephalic and Anicteric
Cardiovascular: S1-S2, Murmur (heard best at RUSB) and Peripheral Edema (negative)
Respiratory: Wheeze (negative today), Crackles (bibasilar in posterior lung gonzales), Rhonchi (negative) and Accessory Resp Muscle Use (Mild, and more noticeable when patient falls asleep)
GI: Soft, Non Distended and Non Tender
Neurology: Awake, Alert, Oriented, AO x 3, No Motor Deficits (Negative: Right-sided hemiplegia RUE > RLE, absent sensation on RUE, mildly preserved on RLE, Right-sided facial droop with fore-head sparing), Non Verbal (responds appropriately to all
questions but severely dysarthric ), Other (Extraocular movements full) and Other (No hemineglect)
Skin: Warm and Dry
Labs/Micro/Reports
Lab Data
04/20/23 05:19
--- NOTE | 2023-04-20 10:04 | W.PN.NEURO.1 ---
Today's Communication / Plan
-
.
Subjective/Objective
Subjective Data
Date of Service: April 20, 2023
24h events: transiently hypotensive down to 98/76, tachypneic, hypoxic, requiring O2 via NC, afebrile.
Brain MRI wo jay jay(04/19/2023)-3 mm [id number]-[id number] midline shift, no downward herniation. No acute infarcts in addition to the known ICH.
Mild to moderate diffuse volume loss. Moderate to severe leukoaraiosis. A few scattered tiny foci of hemosiderin in the left cerebellum, BL temporal lobes, right basal ganglia and right thalamus, right occipital lobe and right frontal lobe
anteriorly at the vertex.
Mr. Villa reports no headache.
Labs: Mg 1.3, normal WBC, glucose, Na,
PMH: HTN, pre DM,� anemia, obesity, GERD,
PSH: PPM, gastric bypass
All: NKDA
ROS: Constitutional: Negative. Negative for chills, fever and unexpected weight change.
HENT: Positive for difficulties with swallowing, dysarthria
Neurological: positive for dysarthria and right hemiplegia, right-sided numbness, negative for headache, chest pain, abdominal pain
�
�
General: Well developed. In a mild distress due to headache.
Cardio: Regular rate and rhythm without murmur. Extremities are without cyanosis or edema.
Neuro:
Mental Status: Somnolent, awakens to verbal stimuli, follows simple requests consistently. Poor attention and preserved comprehension.� Nonfluent(getting breathing treatment).
Cranial Nerves: Pupils are equally round and reactive to light.� EOMs full.� BTT BL. No ptosis.� No nystagmus.� Severe right facial weakness.� Severe dysarthria.
Motor:� � Right hemiplegia
Sensory:�Right-sided hemisensory
Coordination: No dysmetria or tremor on the L.
Gait: � � � � � deferred
Assessment and Plan:
I. 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
II. A-Fib. [id number] Score-4.
III. Vascular encephalopathy. Stable
�
-Telemetry monitoring
-Aspiration precaution
-Tylenol 500mg Q8h PRN
-Consider chest CXR
-Please repeat MRI in 3-6 months
-Repeat CT head in 7 days before starting antithrombotic/AC therapy.
-Heparin subQ for DVT prophylaxis
�
I reviewed all radiology and labs along with past medical records pertinent to current medical problems.� Total time spent�35 minutes
�
Thank you for allowing us to participate in the care of this patient. We will continue to follow. Please do not hesitate to contact us with any questions or con
Objective Data
Vital Signs
Temp Pulse Resp BP Pulse Ox
37.1 C 102 21 114/63 92
04/20/23 07:30 04/20/23 09:37 04/20/23 09:37 04/20/23 09:37 04/20/23 09:30
Lab Results
04/20/23 05:19
PT 14.3 Sec (11.4-14.6) 04/16/23 08:00
INR 1.10 04/16/23 08:00
APTT 24.5 Sec (23.4-35.0) 04/16/23 08:00
Sodium 139 mmol/L (135-145) 04/20/23 05:19
Potassium 2.8 mmol/L (3.5-5.1) L D 04/20/23 05:19
BUN 12 mg/dl (9-20) 04/20/23 05:19
Glucose 84 mg/dl (70-99) 04/20/23 05:19
Calcium 6.7 mg/dl (8.4-10.2) L* D 04/20/23 05:19
Phosphorus 2.6 mg/dl (2.5-4.5) 04/17/23 04:36
LDL Cholesterol, Calc 58 mg/dl 04/17/23 04:36
Patient Allergies
No Known Allergies Allergy (Unverified 04/16/23 08:12)
[2023-04-20] MEDS: LOPRESSOR 50 MG PO (10:13)
[2023-04-20] MEDS: CARDIZEM 30 MG PO ×2 (10:19→18:05)
--- NOTE | 2023-04-20 10:35 | W.PN.CD ---
Today's Communication / Plan
-
retime bp meds until bp>100
Decrease valsartan back down to 160mg daily, retitrate as needed
Impression / Plan
-
Afib - rapid ventricular response.
--remains in NSR
-transition to po diltiazem as this will also help with bp
- was on Eliquis and received Andexxa in ER.
- Eliquis on hold given ICH.
ICH - acute.
- neurology and neurosurgery following.
-BP goal is <140.
-MRI completed
- right hemiplegia, facial droop, dysarthria.
PPM - [employer] DC PPM.
- followed by Dr. Arturo Madrid at [facility].
- MRI compatible. MRI completed
HTN -
-[id number] this am, will hold of meds until SBP>100
-will decrease back down the valsartan dose
-cotninue intensive monitoring given strict goals with ICH
-continue po bb
-po diltiazem also added
GERD - stable on Protonix.
d/w CCN Manasa
Subjective
He is awake in bed but quickly falls back to sleep
Physical Exam
Vital Signs/Labs
Vital Signs
Temp Pulse Resp BP Pulse Ox
98.8 F 102 21 128/70 92
04/20/23 07:30 04/20/23 09:37 04/20/23 09:37 04/20/23 10:19 04/20/23 09:30
04/19/23 04/20/23 04/21/23
06:59 06:59 06:59
Actual Weight 116.8 kg 113.6 kg
04/20/23 05:19
PT 14.3 Sec (11.4-14.6) 04/16/23 08:00
INR 1.10 04/16/23 08:00
APTT 24.5 Sec (23.4-35.0) 04/16/23 08:00
Magnesium 1.3 mg/dl (1.6-2.3) L 04/20/23 05:19
Triglycerides 56 mg/dl (10-149) 04/17/23 04:36
LDL Cholesterol, Calc 58 mg/dl 04/17/23 04:36
VLDL Cholesterol, Calc 11 mg/dl (0-30) 04/17/23 04:36
HDL Cholesterol 62 mg/dl 04/17/23 04:36
Physical Exam
Constitutional: No acute distress
Cardiovascular: Rhythm & rate is regular, Pedal edema is absent, JVD pressure is normal and Systolic murmur absent
Respiratory: Wheeze Absent, Crackles Absent, Rhonchi Absent and Other (belly breathing but not in distress)
Neuro/Psych: AO x 3
Data Reviewed
-
Date of Service: April 20, 2023
Labs: Labs Reviewed by me (K low but potassium repletion already ordered)
--- NOTE | 2023-04-20 11:00 | PTCARENOTE ---
1000-BP 128/70, HR up to 100's for brief period of time, paced rhythm, then back down into 70's SR. Am Cardizem and Lopressor doses given at that time.
--- NOTE | 2023-04-20 11:52 | PTOTSP ---
FISH AND WILDLIFE TECHNICIAN Follow Up
Video Fluoroscopic Swallow Study 04/17:
'Pt presents with moderately-severe oral dysphagia characterized by ineffective bolus breakdown and bolus formation, mildly delayed anterior to posterior transport, mildly reduced bolus containment resulting in mild posterior loss into the pharynx,
inadequate laryngeal vestibule closure with multiple sequential sips of thin liquids resulting in laryngeal penetration (possible aspiration? - limited view due to body habitus), and mild pharyngeal residue post-swallow that is reduced/eliminated
with a reflexive use of a dry swallow.'
C/o pureed diet this date w/ poor appetite. Recommend cautious trial of minced and moist (IDDSI 5), FISH AND WILDLIFE TECHNICIAN service to follow up and assess tolerance.
Recommendations:
1. IDDSI 5 (Minced and Moist) and IDDSI 0 (Thin Liquids) with small, single sips.
2. Medications whole with water as tolerated vs in puree
3. Aspiration precautions.
4. FISH AND WILDLIFE TECHNICIAN will continue to follow and recommend solid diet upgrades as deemed appropriate.
--- NOTE | 2023-04-20 12:39 | PTCARENOTE ---
Pt's daughter in to visit, updated on pt's condition and plan of care.
--- NOTE | 2023-04-20 13:57 | W.PN.HOSP.TC ---
Today's Communication/Plan
-
BP titration, reduce valsartan to 160 mg
Continue diltiazem 30 mg 4 times daily, Lopressor
Diet advanced
PT/OT/ST
Electrolyte repletion, follow-up
Assessment / Plan
Assessment / Plan
General: Well Developed
HEENT: NormoCephalic and Other (slurred speech, follows commands)
Respiratory: Clear
Cardiac: S1/S2
GI: Soft
Genito-urinary: Deferred by me
Musculoskeletal: No Clubbing
Skin: Warm
Neuro: Awake and Other (aphasic)
Hematologic/Lymphatic: No Lymphadenopathy
Psych: Calm
IMPRESSION:
67-year-old male with past medical history of hypertension, prediabetes, obesity, GERD, PPM, gastric bypass, ?� Atrial fibrillation versus stroke on Eliquis now presenting for right hemiplegia, aphasia.� Found to have intraparenchymal hemorrhage.�
Stroke alert was called, admitted to the ICU.
PLAN:
#Intraparenchymal hemorrhage
-intraparenchymal hemorrhage on the left side, centered in the left thalamus and left basal ganglia, with extension into the left saxena radiata and left lateral ventricle. Main focus of hemorrhage within the left thalamus measures 2.7 x 1.7 x 1.7
cm.
-Repeat CT head stable
-f/u neuro and nsg recs
-Maintain strict systolic blood pressure control less than 140 mm; labetolol IV prn
� Head of bed elevation
� Continue ICU level of care, pulse oximetry if oxygen saturation less than 96%
-stop fluids
� Neurosurgery on board
- If any neurological changes - ct head stat
� Status post Andexanet
� Further critical care interventions as deemed necessary
� Echo with LVH, especially apex and septum, EF appears to be grossly within normal limits
�Speech, PT, OT eval
-MRI with expected evolution of the hemorrhagic infarct; mild to moderate vasogenic edema and minimal 3 mm xniq-xa-ijulk midline shift. No downward herniation
-speech - dyphagia diet
-Please repeat MRI in 3-6 months
-Repeat CT head in 7 days before starting antithrombotic/AC therapy.
#Hypertension
#Prediabetes
#GERD
� Labetalol IV with goal parameters as stated above
� Hemoglobin A1c 6.2;
� Will have to hold oral hypertensives at this time pending speech eval
-Titrate valsartan as needed for SBP 120-160; decrease valsartan to 160mg daily
#Atrial fibrillation
� Hold Eliquis due to ICH - f/u recs from neuro for initiation
-Started on diltiazem 30 mg 4 times daily
� Appreciate cardiology on board
-cont BB
#Hypokalemia
-is having aggresive diuresis (most likely 2/2 to vasogenic edema)
-ctm and replete aggresively
#Hypomagnesemia
� Monitor and replete
#Hypocalcemia
� Follow-up ionized calcium prior to repletion
#DVT ppx
-okay for hsq as per nsg/neuro
Total time spent on today's encounter was 51 minutes which included time spent in counseling the patient/family regarding diagnosis and treatment plan as listed above, goals of care, and symptom management. Case was discussed with nursing staff,
specialists, and care coordinators/case management. All labs and imaging personally reviewed by me. Remainder the time spent in detailed review of previous records, lab data, imaging, and other medical provider documentation.
Anticipated Discharge: > 48 hours
Subjective/Interval History
-
Date of Service: April 20, 2023
BP down a bit today
Objective Data
-
Labs:
Laboratory Results
04/20/23 04/20/23
05:19 14:00
WBC 6.7
Hgb 11.3 L
Hct 37.5 L
Plt Count 161
Sodium 139 Pending
Potassium 2.8 L D Pending
Chloride 112 H Pending
Carbon Dioxide 20 L Pending
BUN 12 Pending
Creatinine 0.5 L Pending
Glucose 84 Pending
Calcium 6.7 L* D Pending
Total Bilirubin 0.8
AST 29
ALT 11
Alkaline Phosphatase 44
Vital Signs:
Vital Signs
Temp Pulse Resp BP Pulse Ox
99.2 F 67 23 99/63 97
04/20/23 11:30 04/20/23 12:30 04/20/23 12:30 04/20/23 11:00 04/20/23 12:30
I&O
04/19/23 04/20/23 04/21/23
06:59 06:59 06:59
Intake Total 1009.5 / 1009.5 420 / 420 187.5 / 187.5
Output Total 1375 / 1375 2400 / 2400
Balance -365.5 / -365.5 -1979 / -1979 187.5 / 187.5
Review of Systems
-
History Source: Patient
All other systems: Not reviewed unless documented
Data Reviewed
-
CT Scan: Image personally visualized and interpreted and Report Reviewed by me
MRI: Image personally visualized and interpreted and Report Reviewed by me
Labs: Labs Reviewed by me
[2023-04-20 15:39] LABS: Ionized Calcium 1.25 mMOL/L (1.15-1.33)
[2023-04-20 15:52] LABS: Blood Urea Nitrogen 13 mg/dl (9-20); Calcium 8.8 mg/dl (8.4-10.2); Carbon Dioxide 25 mmol/L (22-30); Chloride 108 mmol/L (98-107); Estimated Creatinine Clearance 103 ml/min; Glucose 96 mg/dl (70-99); Sodium 136 mmol/L (135-145); eGFR > 60.00
--- NOTE | 2023-04-20 16:30 | PTCARENOTE ---
No changes in pt assessment. Afternoon labs sent, no new orders.
--- NOTE | 2023-04-20 20:00 | PTCARENOTE ---
ems coordinator, pt drowsy, arousable to verbal, neuro checks/NIHSS per work list documentation, B/L IV intact, RA Sat 95%, condom cath w/yellow UO. call kay with pt.
--- NOTE | 2023-04-20 21:30 | PTCARENOTE ---
scheduled lopressor & cardizem being held at this time due to SBP 90s, KFlaLakshmi aware. will monitor.
[2023-04-21] VITALS (20 sets, daily range): BP systolic 97–178; BP diastolic 51–107; PULSE 89–90; O2SAT 100; BMI 38.7
[2023-04-21] MEDS: LOPRESSOR PO (00:45)
[2023-04-21] MEDS: CARDIZEM PO ×2 (00:45→08:26)
[2023-04-21 03:55] LABS: Hematocrit 36.4 % (39.0-52.0); Hemoglobin 11.1 g/dL (13.0-18.0); Mean Corp Hgb Conc. 30.5 g/dL (33.0-37.0); Mean Corpuscular Hgb 24.4 pg (27.0-31.0); Platelet Count 167 10^3/uL (130-400); Red Blood Cell Count 4.55 10^6/uL (4.70-6.10); Red Cell Dist. Width 18.6 % (11.5-14.5); White Blood Cell Count 6.3 10^3/uL (4.8-10.8)
--- NOTE | 2023-04-21 04:00 | PTCARENOTE ---
speech remains garbled but slightly more clear than earlier in shift, turned/repositioned, mouth care. no further changes.
[2023-04-21 04:21] LABS: ALT (SGPT) 17 U/L (0-50); AST (SGOT) 29 U/L (17-59); Albumin 3.5 g/dl (3.5-5.0); Alkaline Phosphatase 78 U/L (38-126); Blood Urea Nitrogen 18 mg/dl (9-20); Calcium 9.9 mg/dl (8.4-10.2); Carbon Dioxide 26 mmol/L (22-30); Chloride 102 mmol/L (98-107); Estimated Creatinine Clearance 103 ml/min; Glucose 109 mg/dl (70-99); Magnesium 2.1 mg/dl (1.6-2.3); Potassium 4.1 mmol/L (3.5-5.1); Sodium 138 mmol/L (135-145); eGFR > 60.00
[2023-04-21] MEDS: DUONEB 3 ML INH (07:19)
--- NOTE | 2023-04-21 07:24 | W.PN.HOSP.TC ---
Today's Communication/Plan
-
see A/P
Assessment / Plan
Assessment / Plan
IMPRESSION:
67-year-old male with past medical history of hypertension, prediabetes, obesity, GERD, PPM, gastric bypass, ?Atrial fibrillation versus stroke on Eliquis now presenting for right hemiplegia, aphasia.� Found to have intraparenchymal hemorrhage.
Stroke alert was called, admitted to the ICU.
PLAN:
# Intraparenchymal hemorrhage
intraparenchymal hemorrhage on the left side, centered in the left thalamus and left basal ganglia, with extension into the left saxena radiata and left lateral ventricle. Main focus of hemorrhage within the left thalamus measures 2.7 x 1.7 x 1[address] head stable
Maintain strict systolic blood pressure control less than 140 mm; BP controlled with Cardizem, Lopressor, Valsartan ; Labetalol and Enalapril PRN
Head of bed elevation
Continue ICU level of care, pulse oximetry if oxygen saturation less than 96%
Neuro and Neurosurgery on board
If any neurological changes - ct head stat
Status post Andexanet in ED
Echo with LVH, especially apex and septum, EF appears to be grossly within normal limits
Cleared for Minced and Moist diet, thin Liquids
PT, OT recc [facility] vs SNF
MRI with expected evolution of the hemorrhagic infarct; mild to moderate vasogenic edema and minimal 3 mm [id number] midline shift. No downward herniation
Repeat MRI in 3-[address] head in 7 days before starting antithrombotic/AC therapy.
# Hypertension
# Prediabetes
# GERD
BP controlled with Cardizem, Lopressor, Valsartan ; Labetalol and Enalapril PRN
Hemoglobin A1c 6.2;
# Atrial fibrillation
Hold Eliquis due to ICH - f/u recs from neuro for initiation
On Cardizem, Lopressor
Appreciate cardiology on board
# Hypokalemia
# Hypomagnesemia
# Hypocalcemia
resolved
DVT ppx-okay for hsq as per nsg/neuro
Anticipated Discharge: 24 - 48 hours
Subjective/Interval History
-
Date of Service: April 21, 2023
Objective Data
-
Labs:
Laboratory Results
04/21/23
03:39
WBC 6.3
Hgb 11.1 L
Hct 36.4 L
Plt Count 167
Sodium 138
Potassium 4.1
Chloride 102
Carbon Dioxide 26
BUN 18
Creatinine 0.8
Glucose 109 H
Calcium 9.9
Total Bilirubin 1.0
AST 29
ALT 17
Alkaline Phosphatase 78
Vital Signs:
Vital Signs
Temp Pulse Resp BP Pulse Ox
36.8 C 71 18 112/88 92
04/21/23 07:21 04/21/23 07:21 04/21/23 07:21 04/21/23 06:00 04/21/23 07:21
I&O
04/20/23 04/21/23 04/22/23
06:59 06:59 06:59
Intake Total 420 / 420 187.5 / 187.5
Output Total 2400 / 2400 1750 / 1750
Balance -1979 / -1979 -1562.5 / -1562.5
Review of Systems
-
All other systems: Reviewed and negative
Physical Exam
-
General: Well Developed, Well Nourished, No Apparent Distress, Comfortable and Slurred Speech; Negative Respiratory Distress
HEENT: Normocephalic, Atraumatic, Nose Appears Normal and Ears Appear Normal; Negative Oxygen
Respiratory: Clear to Auscultation and Non Labored Respirations; Negative Accessory Resp Muscle Use
Cardiac: Regular Rhythm and S1/S2
GI: Soft, Nontender, Nondistended and Normal Bowel Sounds
Skin: Warm and Dry
Neuro: Awake and Slurred Speech
Psych: Calm
Data Reviewed
-
Labs: Labs Reviewed by me
--- NOTE | 2023-04-21 07:30 | PTCARENOTE ---
Received pt @ change of shift, assessment as charted-see flow sheet. [facility] completed w off going RN, no changes since previous assessment. Assisted w repositioning in bed. Call kay in reach.
--- NOTE | 2023-04-21 07:56 | W.PN.NEURO.1 ---
Today's Communication / Plan
-
-Not recommending further neurologic imaging as inpatient unless there are changes in neurologic exam
-Would start aspirin 81 mg daily on 04/23 which is 7 days after the initial hemorrhage, will provide some minimal protection against cardioembolic stroke
-Would plan on obtaining CT head noncontrast on 05/04 in the outpatient setting (may be at rehab or SNF), based on the study tentatively would plan for starting apixaban 5 mg twice daily on 05/06 and stopping aspirin at that time
-Would eventually pursue Watchman device evaluation given risks of long-term anticoagulation with the intracranial hemorrhage
-Would aim for systolic blood pressure maximum less than 140
-Neurologic checks and NIH stroke scale
-Minimize sedating medications
-Acceptable to continue heparin DVT prophylaxis
-Not recommending any antiseizure medication prophylaxis
-PT OT and rehabilitation medicine evaluations
-Okay to move out of ICU would continue to have on cardiac telemetry
-Will need neurology follow up as outpatient 4 weeks after discharge
Will follow
Neuro Assessment/Plan
Assessment
68-year-old man with left thalamic area intracranial hemorrhage with associated intraventricular hemorrhage
Brain hemorrhage presumed due to hypertensive causes, very low suspicion of any associated neoplasm
MRI brain other microhemorrhages more in the subcortical area
-These are felt very likely due to hypertension rather than amyloid angiopathy given the distribution and patient's history of hypertension
[id number] score of 4 with atrial fibrillation
Over long-term would favor restarting anticoagulation in 3-4 weeks, and then pursuing watchmen device evaluation
Subjective/Objective
Subjective Data
Date of Service: April 21, 2023
No acute events, stable NIH for nursing, no vomiting, BP under control
Objective Data
Vital Signs
Temp Pulse Resp BP Pulse Ox
98.2 F 71 18 112/88 92
04/21/23 07:21 04/21/23 07:21 04/21/23 07:21 04/21/23 06:00 04/21/23 07:21
Lab Results
04/21/23 03:39
04/21/23 03:39
PT 14.3 Sec (11.4-14.6) 04/16/23 08:00
INR 1.10 04/16/23 08:00
APTT 24.5 Sec (23.4-35.0) 04/16/23 08:00
Sodium 138 mmol/L (135-145) 04/21/23 03:39
Potassium 4.1 mmol/L (3.5-5.1) 04/21/23 03:39
BUN 18 mg/dl (9-20) 04/21/23 03:39
Glucose 109 mg/dl (70-99) H 04/21/23 03:39
Calcium 9.9 mg/dl (8.4-10.2) 04/21/23 03:39
Phosphorus 2.6 mg/dl (2.5-4.5) 04/17/23 04:36
LDL Cholesterol, Calc 58 mg/dl 04/17/23 04:36
Patient Allergies
No Known Allergies Allergy (Unverified 04/16/23 08:12)
Review of Systems
-
History Source: Patient
All other systems: Reviewed and negative
Constitutional: No Symptoms
EENT: No Symptoms Reported
Respiratory: No Symptoms
Cardiac: No Symptoms
Abdomen/GI: No Symptoms
Genitourinary: No Symptoms
Musculoskeletal: No Symptoms
Skin: No Symptoms
Neuro: No Symptoms
Endocrine: No Symptoms
Hematologic / Lymphatic: No Symptoms
Allergy / Immunology: No Symptoms
Physical Exam
-
General: Comfortable
Eyes: No Ptosis
HEENT: Normocephalic
Neck: Full Range of Motion
Respiratory: No Dyspnea
GI: Soft and Non-tender
Skin: Warm and Dry; Negative Rash
Extremities: No Edema
Psych: Negative Agitated
Extended Neurological Exam
Attention Span & Concentration: Awake, Alert and Interactive
Memory: Reduced
Tremor: Hand Tremor Absent
Involuntary Movement: None
Speech: Dysarthric (Severe dysarthria); Negative Expressive Aphasia or Receptive Aphasia
Cranial Nerve II: Left Eye: Pupillary Reactivity Unremarkable and Pupillary Size Unremarkable
Cranial Nerve II: Right Eye: Pupillary Reactivity Unremarkable and Pupillary Size Unremarkable
Cranial Nerves III, IV, : Extraocular Movement: Other (Left gaze preference, overcomes and can cross to the right with both eyes)
Cranial Nerve VII: Facial Symmetry: Other (Right facial weakness)
Muscle Strength, Overall: Other (Right arm 1/5, right leg 1/5)
Babinski Sign: Other (Right plantar response is extensor)
Data Reviewed
-
CT Head: Report Reviewed and Image Reviewed
MRI Head: Report Reviewed and Image Reviewed
Echocardiogram: Report Reviewed
Labs: Report Reviewed
--- NOTE | 2023-04-21 08:09 | W.PN.CD ---
Today's Communication / Plan
-
stop diltiazem
retime valsartan
hold lasix
Impression / Plan
-
Afib - rapid ventricular response.
--remains in NSR
-transition to po diltiazem as this will also help with bp
- was on Eliquis and received Andexxa in ER.
- Eliquis on hold given ICH.
-Plan is for repeat CT head at 7 days before starting antithrombotic/AC therapy.
ICH - acute.
- neurology and neurosurgery following.
-BP goal is <140.
-MRI completed
- right hemiplegia, facial droop, dysarthria.
HTN -
-diltiazem doses and second metoprolol dose held, Valsartan reduced back to typical dose 04/20/23. No prn's needed
-lets stop the new diltiazem dose and monitor to ensure gets the standing metopolol and valsartan.
-retime the valsartan to noon to seperate doses
-cotninue intensive monitoring given strict goals with ICH
SOB:
-I supsect abnormal breathing patter is from CVA
-he is not volume overloaded on exam
-would continue to h old lasix
PPM - [facility] DC PPM.
- followed by Dr. Arturo Madrid at [facility].
- MRI compatible. MRI completed
GERD - stable on Protonix.
d/w CCN re retiming of medications and changes in doses
Subjective
He is awake in bed but lethargic, thinks breathing is labored
Physical Exam
Vital Signs/Labs
Vital Signs
Temp Pulse Resp BP Pulse Ox
98.2 F 71 18 112/88 92
04/21/23 07:21 04/21/23 07:21 04/21/23 07:21 04/21/23 06:00 04/21/23 07:21
04/20/23 04/21/23 04/22/23
06:59 06:59 06:59
Actual Weight 113.6 kg 112 kg
04/21/23 03:39
04/21/23 03:39
PT 14.3 Sec (11.4-14.6) 04/16/23 08:00
INR 1.10 04/16/23 08:00
APTT 24.5 Sec (23.4-35.0) 04/16/23 08:00
Magnesium 2.1 mg/dl (1.6-2.3) 04/21/23 03:39
Triglycerides 56 mg/dl (10-149) 04/17/23 04:36
LDL Cholesterol, Calc 58 mg/dl 04/17/23 04:36
VLDL Cholesterol, Calc 11 mg/dl (0-30) 04/17/23 04:36
HDL Cholesterol 62 mg/dl 04/17/23 04:36
Physical Exam
Constitutional: No acute distress
Cardiovascular: Rhythm & rate is regular, Pedal edema is absent, JVD pressure is normal and Systolic murmur absent
Respiratory: Wheeze Absent, Crackles Absent, Rhonchi Absent and Labored respirations (with belly breathing)
GI: Soft
Neuro/Psych: Alert
Data Reviewed
-
Date of Service: April 21, 2023
EKG: Other (tele sinus )
Medical Tests (PFT, Pathology etc): Discussed with Physician (retiming of valsartan stopping diltiazem, getting bp meds sorted ) and Discussed with Nurse (retiming of valsartan stopping diltiazem)
[2023-04-21] MEDS: HEPARIN 5000 UNITS SC ×2 (08:34→19:49)
[2023-04-21] MEDS: NSS (PRESERVATIVE FREE) 10 ML IV (08:35)
[2023-04-21] MEDS: PROTONIX IV 40 MG IV (08:35)
[2023-04-21] MEDS: LOPRESSOR 50 MG PO ×2 (08:35→19:49)
--- NOTE | 2023-04-21 10:59 | W.PN.INTV ---
Today's Communication / Plan
Recommendations
- IMU downgrade
- monitor pressures: SBP >=100<140
- Q2hr neuro checks
Assessment
-
Assessment:��67-year-old AAM with a PMHx HTN, GERD, A-fib on Eliquis who was found down on the floor up against the bathtub.� EMS was called and patient was found to have strokelike symptoms and stroke alert was called.� Patient brought to the ER
where imaging showed left-sided IPH with intraventricular extension.� Initial BP elevated at 157/79, and he was treated with hydralazine and Cardene infusion.� Because patient takes Eliquis at home, Kcentra was administered.� He was transferred to
the ICU for further care and critical care services consulted for additional management/recommendations.�
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
Impression:
#Acute left-sided hemorrhagic IPH involving thalamus and basal ganglia with intraventricular extension - suspect hypertensive etiology
#A-fib with RVR - HR now controlled and he is off cardizem gtt
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
#A-fib previously on Eliquis
#Valvular heart disease with moderate and mild AI
#Hx of permanent pacemaker
Plan:
- Maintain SBP<140mmHg. Monitor for low pressures, keep SBP>100 with MAP>65 mmHg. PRN Labetalol
- Rate control with goal HR <110
- Head of bed elevated >30-45 degrees
- Diet as per ELEMENTARY ASSISTANT TEACHER --> IDDS 5 (minced and moist foods)
- q3hr neurochecks as per neurology
- Cardiology and neurosurgery on board
- Due to occasional borderline hypotensive pressures, Valsartan delayed ttill evening, Diltiazem held.
- Hold Lasix
- Started Heparin SQ on 04/17. To start aspirin 81 mg daily on 04/23 (7 days after the initial hemorrhage)
- Serial CT head with stat CT head for any sudden change in neurological status
- Maintain euglycemia with goal BG 140-180mg/dL
- Physiatry consultation
- Replete electrolytes with goal K>3.5 , Mg>1.8, PO4>3
- DVT ppx
Disposition: Pt now suitable for IMU downgrade.
Data:
CXR 04-16-2023:�Clear lungs.
CT Head 04-17-2023:�No significant interval change in left-sided intracranial hemorrhage with intraventricular extension.
CT Head 04-16-2023:
1. Intraparenchymal hemorrhage on the left side, centered in the left thalamus and left basal ganglia, with extension into the left saxena radiata and left lateral ventricle. Main focus of hemorrhage within the left thalamus measures 2.7 x 1.7 x 1.7
cm. Hemorrhage is likely hypertensive in etiology.
2. No evidence of significant hydrocephalus.
CT Head 04-19-2023: Grossly stable parenchymal hemorrhage within the left basal ganglia/parietal lobe and slightly improved layering intraventricular hemorrhage within the occipital horns bilaterally. No significant midline shift or herniation.
MRI Brain 04-18-2023: Limited examination due to fast scan technique.
Expected evolution of the previously described intraparenchymal hemorrhagic infarct in the left thalamus and left and right lateral ventricle intraventricular hemorrhage. There is mild to moderate adjacent vasogenic edema and minimal 3 mm
[id number] midline shift. No downward herniation.
No additional acute infarct.
Mild to moderate diffuse volume loss. Moderate to severe leukoaraiosis.
Scattered foci of hemosiderin, outlined above, consistent with the history of previous hemorrhagic embolic event.
Continued follow-up MRI in 3-6 months to exclude an underlying occult neoplasm.
TTE 04-16-2023:
Hyperdynamic left ventricular systolic function.� Left ventricular ejection
�fraction is greater than 75%.
�Moderate left ventricular hypertrophy with the thickest wall being the septum
�but spade like ventricle with contrast suggests hypertrophy at the apex as
�well.
�Moderate aortic stenosis (based on gradient) and mild aortic regurgitation.
�No prior study available for comparison.
Subjective Dataa
Subjective Data
Date of Service:
Date of Service: April 21, 2023
No change from previous recorded status. Pt is alert and oriented. Responsive to questions and commands within limits of severe dysarthria.
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
Review of Systems
General: Fever (negative) and Pain (negative)
Cardiopulmonary: Dyspnea (negative)
Neuro: Numbness and Weakness
Objective Data
Data Reviewed
Vital Signs / I&O / Oxygen:
Vital Signs
Temp Pulse Resp BP Pulse Ox
98.2 F 73 22 106/68 95
04/21/23 07:21 04/21/23 10:00 04/21/23 10:00 04/21/23 10:00 04/21/23 10:44
Intake and Output
04/20/23 04/21/23 04/22/23
06:59 06:59 06:59
Intake Total 420 / 420 187.5 / 187.5
Output Total 2400 / 2400 1750 / 1750
Balance -1979 / -1980 -1562.5 / -1562.5
SaO2 95
Nasal Cannula flow liters per 2
minute
Physical Exam
General: Respiratory Distress (Negative) and Comfortable
HEENT: Normocephalic and Anicteric
Cardiovascular: S1-S2, Murmur (systolic, heard best at RUSB) and Peripheral Edema (negative)
Respiratory: Wheeze (negative today), Crackles (bibasilar in posterior lung gonzales), Rhonchi (negative) and Accessory Resp Muscle Use (Mild)
GI: Soft, Non Distended and Non Tender
Neurology: Awake, Alert, Oriented, AO x 3, No Motor Deficits (Negative: Right-sided hemiplegia RUE > RLE, absent sensation on RUE, mildly preserved on RLE, Right-sided facial droop with fore-head sparing), Non Verbal (responds appropriately to all
questions but severely dysarthric ), Other (Extraocular movements full) and Other (No hemineglect)
Skin: Warm and Dry
Labs/Micro/Reports
Lab Data
04/21/23 03:39
04/21/23 03:39
[2023-04-21] MEDS: DIOVAN 160 MG PO (11:46)
--- NOTE | 2023-04-21 12:50 | PTCARENOTE ---
Report given to Kimberly RN and pt. transferred in bed to rm [id number], bed 02 on media monitor w belongings. No further needs from this RN.
--- NOTE | 2023-04-21 13:18 | PTCARENOTE ---
pt transferred from ICU. pt is drowsy but arousable. pt is AAO*2 disoriented to time. pt denies any pain, pt c/o sob pulse 02 97% on room air. pt is flaccid on right side. call kay on the left of the pt. pt oriented to the room. will continue plan
of care.
[2023-04-21] MEDS: TRANDATE 5 MG IV ×3 (13:30→23:15)
--- NOTE | 2023-04-21 14:24 | CM ---
CM following re: discharge planning.
Discussed in rounds, reviewed pt's chart, met with pt. per Rounds meeting, pt has been improving and downgraded from ICU level of care.
PT and OT recommends acute rehab vs SNF. Pt's daughter Denisse requested acute rehab. CM discussed pt's case with [facility] vocational rehabilitation counselor, pt has not been improving physically, requires max assistance and per liaison PT and OT will see him tomorrow for
final determination. Per liaison, as of today pt seems will not be able to tolerate 3 hours of therapy per day.
PT and OT to reevaluate the pt tomorrow.
PM&R recommends acute rehab.
Norm
Accepting physician: Dr. Philippe Patel
D/C plan: [facility]. [facility] acute vocational rehabilitation counselor following.
CM will follow with discharge plan updates as hospitalization progresses
[2023-04-21] MEDS: VASOTEC 1.25 MG IV (15:49)
[2023-04-21] MEDS: DIOVAN 80 MG PO (18:16)
[2023-04-22] VITALS (10 sets, daily range): BP systolic 142–179; BP diastolic 78–112; PULSE 65–67; O2SAT 100; BMI 37.2
[2023-04-22] MEDS: TRANDATE 5 MG IV (03:49)
--- NOTE | 2023-04-22 07:49 | W.PN.CD ---
Addendum entered and electronically signed by Ulises Baer MD 04/22/23 07:59:
-Cardiology will remain available on an as-needed basis; no further recommendations at this time.
-Outpatient follow-up with Cardiology.
Original Note:
Today's Communication / Plan
-
-Continue current dose of metoprolol tartrate 50 mg BID; PO Cardizem now discontinued.
-Plan per yesterday's note: Repeat CT head at 7 days before starting antithrombotic/AC therapy.
-HOCM -avoid volume depletion; Lasix discontinued.
-Continue valsartan 240 mg daily.
-Lasix discontinued; would not resume at this time.
Impression / Plan
-
Afib - rapid ventricular response.
-Remains in NSR.
-Continue current dose of metoprolol tartrate 50 mg BID; PO Cardizem now discontinued.
-Was on Eliquis and received Andexxa in ER; Eliquis on hold given ICH.
-Plan per yesterday's note: Repeat CT head at 7 days before starting antithrombotic/AC therapy.
ICH - acute.
- neurology and neurosurgery following.
-BP goal is <140.
-MRI completed
- right hemiplegia, facial droop, dysarthria.
HTN -blood pressure improved, now controlled.
-Continue valsartan 240 mg daily.
HOCM -avoid volume depletion; Lasix discontinued.
-Continue current dose of metoprolol.
SOB:
-I supsect abnormal breathing patter is from CVA
-he is not volume overloaded on exam
-Lasix discontinued; would not resume at this time.
PPM - [facility] DC PPM.
- followed by Dr. Arturo Madrid at [facility].
- MRI compatible. MRI completed
GERD - stable on Protonix.
d/w CCN re retiming of medications and changes in doses
Subjective
No major events overnight.
Physical Exam
Vital Signs/Labs
Vital Signs
Temp Pulse Resp BP Pulse Ox
98.1 F 71 20 142/78 99
04/22/23 03:42 04/22/23 03:42 04/22/23 03:42 04/22/23 06:17 04/22/23 03:42
04/21/23 04/22/23 04/23/23
06:59 06:59 06:59
Actual Weight 112 kg 107.53 kg
PT 14.3 Sec (11.4-14.6) 04/16/23 08:00
INR 1.10 04/16/23 08:00
APTT 24.5 Sec (23.4-35.0) 04/16/23 08:00
Magnesium 2.1 mg/dl (1.6-2.3) 04/21/23 03:39
Triglycerides 56 mg/dl (10-149) 04/17/23 04:36
LDL Cholesterol, Calc 58 mg/dl 04/17/23 04:36
VLDL Cholesterol, Calc 11 mg/dl (0-30) 04/17/23 04:36
HDL Cholesterol 62 mg/dl 04/17/23 04:36
Physical Exam
Constitutional: No acute distress and Comfortable
EENT: Anicteric
Cardiovascular: Rhythm & rate is regular, Pedal edema is absent, Systolic murmur present (04/08) and S1S2 is normal
Respiratory: Respiratory effort normal and Lungs clear to auscul.
GI: Soft
Neuro/Psych: Alert
Other: Skin (Warm, dry, intact)
Data Reviewed
-
Date of Service: April 22, 2023
EKG: Tracing Personally Visualized and interpreted (Telemetry: Sinus rhythm)
Echo: Tracing Personally Visualized and interpreted (04/16/2023: LVEF greater than 75%, moderate LVH.)
Labs: Labs Reviewed by me
[2023-04-22 07:52] LABS: Hemoglobin 11.3 g/dL (13.0-18.0); Mean Corp Hgb Conc. 29.7 g/dL (33.0-37.0); Mean Corpuscular Volume 84.1 fL (80.0-94.0); Mean Platelet Volume 10.9 fL (7.4-10.4); Platelet Count 158 10^3/uL (130-400); Red Blood Cell Count 4.52 10^6/uL (4.70-6.10); Red Cell Dist. Width 18.9 % (11.5-14.5); White Blood Cell Count 5.1 10^3/uL (4.8-10.8)
[2023-04-22] MEDS: PROTONIX IV 40 MG IV (08:17)
[2023-04-22] MEDS: NSS (PRESERVATIVE FREE) 10 ML IV (08:18)
[2023-04-22] MEDS: HEPARIN 5000 UNITS SC ×2 (08:18→21:32)
[2023-04-22] MEDS: LOPRESSOR 50 MG PO (08:18)
[2023-04-22 08:27] LABS: Blood Urea Nitrogen 25 mg/dl (9-20); Calcium 9.6 mg/dl (8.4-10.2); Carbon Dioxide 28 mmol/L (22-30); Chloride 101 mmol/L (98-107); Estimated Creatinine Clearance 89 ml/min; Glucose 99 mg/dl (70-99); Potassium 4.3 mmol/L (3.5-5.1); Sodium 138 mmol/L (135-145); eGFR > 60.00
--- NOTE | 2023-04-22 09:44 | W.PN.HOSP.TC ---
Today's Communication/Plan
-
see A/P
Assessment / Plan
Assessment / Plan
67-year-old male with past medical history of hypertension, prediabetes, obesity, GERD, PPM, gastric bypass, ?Atrial fibrillation versus stroke on Eliquis now presenting for right hemiplegia, aphasia.� Found to have intraparenchymal hemorrhage.
Stroke alert was called, admitted to the ICU.
PLAN:
# Intraparenchymal hemorrhage
intraparenchymal hemorrhage on the left side, centered in the left thalamus and left basal ganglia, with extension into the left saxena radiata and left lateral ventricle. Main focus of hemorrhage within the left thalamus measures 2.7 x 1.7 x 1.7 cm.
Status post Andexanet in ED.
Repeat CT head stable.
Maintain strict systolic blood pressure control less than 140 mm
Current BP meds adjusted to Coreg 25 BID, Valsartan 240 mg daily ; Labetalol PRN
If any neurological changes - ct head stat
Echo with LVH, especially apex and septum, EF appears to be grossly within normal limits
Cleared for Minced and Moist diet, thin Liquids
PT, OT recc [facility] vs SNF
MRI with expected evolution of the hemorrhagic infarct; mild to moderate vasogenic edema and minimal 3 mm [id number] midline shift. No downward herniation
Per neuro: Not recommending further neurologic imaging as inpatient unless there are changes in neurologic exam
Would start aspirin 81 mg daily on 04/23 which is 7 days after the initial hemorrhage.
Would check CT head noncontrast on 05/04 in the outpatient setting and based on the study tentatively would plan for starting apixaban 5 mg twice daily on 05/06 and stopping aspirin at that time.
Would eventually pursue Watchman device evaluation given risks of long-term anticoagulation with the intracranial hemorrhage
Acceptable to continue heparin DVT prophylaxis
Neuro and Neurosurgery on board
# Hypertension
# Prediabetes
# GERD
BP meds as above
Hemoglobin A1c 6.2;
# Atrial fibrillation
Hold Eliquis due to ICH - neuro recc as above
Coreg [address] Toprol
Appreciate cardiology on board
# Hypokalemia
# Hypomagnesemia
# Hypocalcemia
resolved
DVT ppx-okay for hsq as per nsg/neuro
Dispo: [facility]
Anticipated Discharge: Within 24 hours
Subjective/Interval History
-
Date of Service: April 22, 2023
Objective Data
-
Labs:
Laboratory Results
04/22/23
07:06
WBC 5.1
Hgb 11.3 L
Hct 38.0 L
Plt Count 158
Sodium 138
Potassium 4.3
Chloride 101
Carbon Dioxide 28
BUN 25 H
Creatinine 0.9
Glucose 99
Calcium 9.6
Vital Signs:
Vital Signs
Temp Pulse Resp BP Pulse Ox
36.9 C 70 18 175/103 100
04/22/23 07:00 04/22/23 08:18 04/22/23 07:00 04/22/23 08:18 04/22/23 07:00
I&O
04/21/23 04/22/23 04/23/23
06:59 06:59 06:59
Intake Total 187.5 / 187.5 0 / 0
Output Total 1750 / 1750 575 / 575
Balance -1562.5 / -1562.5 -575 / -575
Review of Systems
-
All other systems: Reviewed and negative
Physical Exam
-
General: Well Developed, Well Nourished, No Apparent Distress, Comfortable and Slurred Speech; Negative Respiratory Distress
HEENT: Normocephalic, Atraumatic, Nose Appears Normal and Ears Appear Normal; Negative Oxygen
Respiratory: Clear to Auscultation and Non Labored Respirations; Negative Accessory Resp Muscle Use
Cardiac: Regular Rhythm and S1/S2
GI: Soft, Nontender, Nondistended and Normal Bowel Sounds
Skin: Warm and Dry
Neuro: Awake and Slurred Speech
Psych: Calm
Data Reviewed
-
Labs: Labs Reviewed by me
[2023-04-22] MEDS: DIOVAN 240 MG PO (11:08)
--- NOTE | 2023-04-22 11:12 | CM ---
CM following re: d/c planning
Chart reviewed
Pt is medically stable for d/c to [facility] pending insurance determination
CM faxed 50 pages of clinical information to and pending ref# [id number]
CM also spoke with Neil/clinical liaison at [facility] who confirmed bed availability once authorization details obtained
CM will continue to monitor patient progress and assist with continued needs as indicated
PLAN; d/c to [facility] pending insurance determination
Report: [phone]
[2023-04-22] MEDS: COREG 25 MG PO (21:32)
[2023-04-23] VITALS (10 sets, daily range): BP systolic 132–176; BP diastolic 78–112; PULSE 55; O2SAT 94; BMI 36.9
[2023-04-23] MEDS: TRANDATE 5 MG IV (00:39)
[2023-04-23 07:29] LABS: Hematocrit 39.6 % (39.0-52.0); Hemoglobin 11.6 g/dL (13.0-18.0); Mean Corp Hgb Conc. 29.3 g/dL (33.0-37.0); Mean Corpuscular Hgb 24.4 pg (27.0-31.0); Mean Corpuscular Volume 83.4 fL (80.0-94.0); Platelet Count 155 10^3/uL (130-400); Red Blood Cell Count 4.75 10^6/uL (4.70-6.10); Red Cell Dist. Width 18.6 % (11.5-14.5); White Blood Cell Count 5.1 10^3/uL (4.8-10.8)
[2023-04-23 08:15] LABS: Blood Urea Nitrogen 24 mg/dl (9-20); Calcium 9.6 mg/dl (8.4-10.2); Carbon Dioxide 28 mmol/L (22-30); Chloride 103 mmol/L (98-107); Estimated Creatinine Clearance 80 ml/min; Glucose 106 mg/dl (70-99); Potassium 4.4 mmol/L (3.5-5.1); Sodium 138 mmol/L (135-145); eGFR > 60.00
[2023-04-23] MEDS: DIOVAN 240 MG PO (09:10)
[2023-04-23] MEDS: COREG 25 MG PO ×2 (09:11→19:37)
[2023-04-23] MEDS: NSS (PRESERVATIVE FREE) 10 ML IV (09:12)
[2023-04-23] MEDS: PROTONIX IV 40 MG IV (09:12)
[2023-04-23] MEDS: HEPARIN 5000 UNITS SC ×2 (09:19→19:37)
[2023-04-23] MEDS: DIOVAN PO (09:19)
--- NOTE | 2023-04-23 09:19 | W.PN.HOSP.TC ---
Today's Communication/Plan
-
see A/P
Assessment / Plan
Assessment / Plan
67-year-old male with past medical history of hypertension, prediabetes, obesity, GERD, PPM, gastric bypass, ?Atrial fibrillation versus stroke on Eliquis now presenting for right hemiplegia, aphasia.� Found to have intraparenchymal hemorrhage.
Stroke alert was called, admitted to the ICU.
PLAN:
# Intraparenchymal hemorrhage
intraparenchymal hemorrhage on the left side, centered in the left thalamus and left basal ganglia, with extension into the left saxena radiata and left lateral ventricle. Main focus of hemorrhage within the left thalamus measures 2.7 x 1.7 x 1.7 cm.
Status post Andexanet in ED.
Repeat CT head stable.
Maintain strict systolic blood pressure control less than 140 mm
Current BP meds are: Coreg 25 BID, Valsartan 240 mg daily, Add hydralazine 10 mg TID; Labetalol PRN
If any neurological changes - ct head stat
Echo with LVH, especially apex and septum, EF appears to be grossly within normal limits
Cleared for Minced and Moist diet, thin Liquids
PT, OT recc [facility] vs SNF
MRI with expected evolution of the hemorrhagic infarct; mild to moderate vasogenic edema and minimal 3 mm [id number] midline shift. No downward herniation
Per neuro: Not recommending further neurologic imaging as inpatient unless there are changes in neurologic exam
Started ASA 81 mg daily on 04/23 which is 7 days after the initial hemorrhage.
Would check CT head noncontrast on 05/04 in the outpatient setting and based on the study tentatively would plan for starting apixaban 5 mg twice daily on 05/06 and stopping aspirin at that time.
Would eventually pursue Watchman device evaluation given risks of long-term anticoagulation with the intracranial hemorrhage
Acceptable to continue heparin DVT prophylaxis
Neuro and Neurosurgery on board
# Hypertension
# Prediabetes
# GERD
BP meds as above
Hemoglobin A1c 6.2
# Atrial fibrillation
Hold Eliquis due to ICH - neuro recc as above
Coreg [address] PLASTER FOREMAN Toprol
Appreciate cardiology on board
# Hypokalemia
# Hypomagnesemia
# Hypocalcemia
resolved
DVT ppx-okay for hsq as per nsg/neuro
Dispo: [facility]
DW RN
Anticipated Discharge: Within 24 hours
Subjective/Interval History
-
Date of Service: April 23, 2023
Objective Data
-
Labs:
Laboratory Results
04/23/23
06:50
WBC 5.1
Hgb 11.6 L
Hct 39.6
Plt Count 155
Sodium 138
Potassium 4.4
Chloride 103
Carbon Dioxide 28
BUN 24 H
Creatinine 1.0
Glucose 106 H
Calcium 9.6
Vital Signs:
Vital Signs
Temp Pulse Resp BP Pulse Ox
37.0 C 66 20 162/96 100
04/23/23 08:17 04/23/23 08:17 04/23/23 08:17 04/23/23 08:17 04/23/23 08:17
I&O
04/22/23 04/23/23 04/24/23
06:59 06:59 06:59
Intake Total 0 / 0 140 / 140
Output Total 575 / 575 600 / 600
Balance -575 / -575 -460 / -460
Review of Systems
-
All other systems: Reviewed and negative
Physical Exam
-
General: Well Developed, Well Nourished, No Apparent Distress, Comfortable and Slurred Speech; Negative Respiratory Distress
HEENT: Normocephalic, Atraumatic, Nose Appears Normal, Ears Appear Normal and Oxygen (2L NC)
Respiratory: Clear to Auscultation and Non Labored Respirations; Negative Accessory Resp Muscle Use
Cardiac: Regular Rhythm and S1/S2
GI: Soft, Nontender, Nondistended and Normal Bowel Sounds
Skin: Warm and Dry
Neuro: Awake and Slurred Speech
Psych: Calm
Data Reviewed
-
Labs: Labs Reviewed by me
[2023-04-23] MEDS: LOW STRENGTH ASPIRIN 81 MG PO (10:52)
[2023-04-23] MEDS: APRESOLINE 10 MG PO ×3 (10:52→23:36)
--- NOTE | 2023-04-23 16:37 | CM ---
CM following re: d/c planning
Chart reviewed
Pt discharge held today by [facility] secondary to patient's elevated BP
Pt was recently placed on hydralazine to manage pressure
CM met with the patient's daughter Denisse at bedside to update on discharge status and explained that patient would likely be transferred to rehab unit tomorrow
IMM was reviewed and copy provided
CM did receive authorization through [employer] and called Neil at [facility] to update her of the same
PT/OT assessed the patient and disposition goal remains acute rehab
CM will continue to follow patient progress and assist with continued needs at d/c as indicated
PLAN; d/c to [facility]
Report: [phone]

CM spoke with Layne Delgado @ [facility]
Pt approved for 5 days inpatient rehab
[employer] 04/23 through 04/27 with NRD 04/28/23
Authorization # [id number]
Concurrent driver license reviewing officerANJANA Velasquez
Fax:
--- NOTE | 2023-04-23 21:40 | DOWNTIME ---
There was a [employer] Downtime on 04/23/2023 from 0111 to 04/23/2023 at 0405. Downtime documentation of patient's care, including medication administrations, has been reconciled in the electronic record per guidelines. Refer to the
patient's paper chart under the miscellaneous tab to see printed paper medication records and downtime forms.
[2023-04-24] VITALS (10 sets, daily range): BP systolic 126–180; BP diastolic 63–100; PULSE 57–64; O2SAT 98; BMI 36.4
[2023-04-24] MEDS: TRANDATE 5 MG IV (04:32)
[2023-04-24 08:21] LABS: Hematocrit 37.5 % (39.0-52.0); Hemoglobin 11.2 g/dL (13.0-18.0); Mean Corp Hgb Conc. 29.9 g/dL (33.0-37.0); Mean Corpuscular Hgb 24.8 pg (27.0-31.0); Platelet Count 133 10^3/uL (130-400); Red Blood Cell Count 4.52 10^6/uL (4.70-6.10); Red Cell Dist. Width 18.2 % (11.5-14.5); White Blood Cell Count 5.3 10^3/uL (4.8-10.8)
[2023-04-24] MEDS: APRESOLINE 20 MG PO ×3 (08:30→22:04)
[2023-04-24] MEDS: COREG 25 MG PO ×2 (08:31→20:47)
[2023-04-24] MEDS: DIOVAN 240 MG PO (08:31)
[2023-04-24] MEDS: LOW STRENGTH ASPIRIN 81 MG PO (08:32)
[2023-04-24] MEDS: HEPARIN 5000 UNITS SC ×2 (08:32→20:47)
[2023-04-24] MEDS: NSS (PRESERVATIVE FREE) 10 ML IV (08:34)
[2023-04-24] MEDS: PROTONIX IV 40 MG IV (08:34)
[2023-04-24 08:44] LABS: Blood Urea Nitrogen 24 mg/dl (9-20); Calcium 9.3 mg/dl (8.4-10.2); Carbon Dioxide 26 mmol/L (22-30); Chloride 104 mmol/L (98-107); Estimated Creatinine Clearance 88 ml/min; Glucose 92 mg/dl (70-99); Potassium 4.2 mmol/L (3.5-5.1); Sodium 137 mmol/L (135-145); eGFR > 60.00
--- NOTE | 2023-04-24 09:43 | W.PN.HOSP.TC ---
Addendum entered and electronically signed by Windy Lewis MD 04/24/23 10:12:
BP 120/80.
Per RN he received hydralazine 20 mg this morning (in addition to the Coreg 25 BID, Valsartan 240 mg daily)
Will cont hydralazine at 20 mg TID instead of 30 mg TID
Original Note:
Today's Communication/Plan
-
Check urgent CT head
of note, pt has been on HSQ for DVT ppx and ASA started 04/23
cont BP meds as above
Assessment / Plan
Assessment / Plan
67-year-old male with past medical history of hypertension, prediabetes, obesity, GERD, PPM, gastric bypass, ?Atrial fibrillation versus stroke on Eliquis now presenting for right hemiplegia, aphasia.� Found to have intraparenchymal hemorrhage.
Stroke alert was called, admitted to the ICU.
PLAN:
# Intraparenchymal hemorrhage
intraparenchymal hemorrhage on the left side, centered in the left thalamus and left basal ganglia, with extension into the left saxena radiata and left lateral ventricle. Main focus of hemorrhage within the left thalamus measures 2.7 x 1.7 x 1.7 cm.
Status post Andexanet in ED.
Repeat CT head stable.
Maintain strict systolic blood pressure control less than 140 mm
Current BP meds are: Coreg 25 BID, Valsartan 240 mg daily, added hydralazine adjust to 30 mg TID; Labetalol PRN
If any neurological changes - ct head stat
Echo with LVH, especially apex and septum, EF appears to be grossly within normal limits
Cleared for Minced and Moist diet, thin Liquids
PT, OT recc [facility] vs SN[facility]
MRI with expected evolution of the hemorrhagic infarct; mild to moderate vasogenic edema and minimal 3 mm [id number] midline shift. No downward herniation
Per neuro: Not recommending further neurologic imaging as inpatient unless there are changes in neurologic exam
Pt was started ASA 81 mg daily on 04/23 which is 7 days after the initial hemorrhage.
Would check CT head noncontrast on 05/04 in the outpatient setting and based on the study tentatively would plan for starting apixaban 5 mg twice daily on 05/06 and stopping aspirin at that time.
Would eventually pursue Watchman device evaluation given risks of long-term anticoagulation with the intracranial hemorrhage
Acceptable to continue heparin DVT prophylaxis
Neuro and Neurosurgery on board
# Increased lethargy and possible weakness
Check urgent CT head
of note, pt has been on HSQ for DVT ppx and ASA started 04/23
cont BP meds as above
# Hypertension
# Prediabetes
# GERD
BP meds as above
Hemoglobin A1c 6.2
# Atrial fibrillation
Hold Eliquis due to ICH - neuro recc as above
Coreg [address] GENERAL MAINTENANCE TECHNICIAN Toprol
Appreciate cardiology on board
# Hypokalemia
# Hypomagnesemia
# Hypocalcemia
resolved
DVT ppx-okay for hsq as per nsg/neuro
Dispo: [facility]
DW RN
Anticipated Discharge: 24 - 48 hours
Subjective/Interval History
-
Date of Service: April 24, 2023
Objective Data
-
Labs:
Laboratory Results
04/24/23
06:43
WBC 5.3
Hgb 11.2 L
Hct 37.5 L
Plt Count 133
Sodium 137
Potassium 4.2
Chloride 104
Carbon Dioxide 26
BUN 24 H
Creatinine 0.9
Glucose 92
Calcium 9.3
Vital Signs:
Vital Signs
Temp Pulse Resp BP Pulse Ox
36.8 C 65 20 177/95 96
04/24/23 07:35 04/24/23 07:35 04/24/23 07:35 04/24/23 07:35 02/22/24 07:35
I&O
04/23/23 04/24/23 04/25/23
06:59 06:59 06:59
Intake Total 140 / 140 840 / 840
Output Total 600 / 600
Balance -460 / -460 840 / 840
Review of Systems
-
Unable to obtain full review of systems at this time due to: Acuity
Physical Exam
-
General: Well Developed, Well Nourished, No Apparent Distress, Comfortable and Slurred Speech; Negative Respiratory Distress
HEENT: Normocephalic, Atraumatic, Nose Appears Normal and Ears Appear Normal
Respiratory: Clear to Auscultation and Non Labored Respirations; Negative Accessory Resp Muscle Use
Cardiac: Regular Rhythm and S1/S2
GI: Soft, Nontender, Nondistended and Normal Bowel Sounds
Skin: Warm and Dry
Neuro: Awake and Slurred Speech
Psych: Calm
Data Reviewed
-
Labs: Labs Reviewed by me
--- NOTE | 2023-04-24 09:45 | WOUNDNOTE ---
WO RN note: Patient seen for HAPI report for penis stage 2 r/t condom cath. 2 small dermal openings noted on penis shaft. Condom cath has been discontinued. Patient has a linear darker skin area on his sacrum which may be a stage 1 pressure injury.
Silicone border foam applied to patient's sacrum. Patient turned to R semi side lying position with help from PCT Whit using foam wedge just above the sacrum and a pillow at buttocks area. Heels off bed with pillow. t/c SPD and ordered TruVue lite
boots. Updated ANJANA Horvath. Care plan to be updated. Consult as needed.
--- NOTE | 2023-04-24 09:47 | WOUNDNOTE ---
PENIS SHAFT (DORSAL LATERAL)
--- NOTE | 2023-04-24 09:48 | WOUNDNOTE ---
WOC RN note: Patient seen for HAPI report for penis stage 2 r/t condom cath. 2 small dermal openings noted
--- NOTE | 2023-04-24 10:00 | PTCARENOTE ---
Pts NIH completed, New left leg weakness noted, Pt also more drowsy this shift, MD into see pt order for Repeat CT scan, pt sent to scan, Plan of care ongoing.
[2023-04-24 11:46] LABS: Glucose - Point of Care 134 mg/dl (70-99)
[2023-04-24] MEDS: APRESOLINE 10 MG IV (12:56)
--- NOTE | 2023-04-24 17:30 | PTCARENOTE ---
Pt having increased SOB and upper airway wheezing POX stable 94-96% on RA. Pt reports his shortness of breath is getting worse but has always had shortness of breath this admission, MD made aware up to eval pt. Orders for portable CXR, Pt and
daughter updated at bedside, call kay within reach, HOB elevated, plan of care ongoing
[2023-04-25 03:38] VITALS: BP 159/95
[2023-04-25 06:00] VITALS: BMI 36.1
[2023-04-25 07:30] VITALS: BP 165/90
[2023-04-25 07:39] LABS: Hematocrit 39.1 % (39.0-52.0); Hemoglobin 11.4 g/dL (13.0-18.0); Mean Corp Hgb Conc. 29.2 g/dL (33.0-37.0); Mean Corpuscular Hgb 24.5 pg (27.0-31.0); Mean Corpuscular Volume 83.9 fL (80.0-94.0); Platelet Count 147 10^3/uL (130-400); Red Blood Cell Count 4.66 10^6/uL (4.70-6.10); Red Cell Dist. Width 18.7 % (11.5-14.5); White Blood Cell Count 5.3 10^3/uL (4.8-10.8)
[2023-04-25 08:21] LABS: Blood Urea Nitrogen 25 mg/dl (9-20); Calcium 9.8 mg/dl (8.4-10.2); Carbon Dioxide 27 mmol/L (22-30); Chloride 101 mmol/L (98-107); Estimated Creatinine Clearance 99 ml/min; Glucose 104 mg/dl (70-99); Potassium 3.9 mmol/L (3.5-5.1); Sodium 138 mmol/L (135-145); eGFR > 60.00
--- NOTE | 2023-04-25 08:58 | W.PN.HOSP.TC ---
Addendum entered and electronically signed by Windy Lewis MD 04/26/23 15:49:
# penis stage 2 ulcer r/t condom cath. Condom cath has been discontinued
# linear darker skin area on his sacrum which may be a stage 1 pressure injury.
Addendum entered and electronically signed by Windy Lewis MD 04/25/23 16:30:
total DC time 35 min
Addendum entered and electronically signed by Windy Lewis MD 04/25/23 15:09:
called daughter again to update, but call not answered
Addendum entered and electronically signed by Windy Lewis MD 04/25/23 10:26:
called daughter twice, calls not answered
Original Note:
Today's Communication/Plan
-
Increase hydralazine to 30 mg TID (from 20 mg TID)
BP has largely improved
[facility] eval
Assessment / Plan
Assessment / Plan
67-year-old male with past medical history of hypertension, prediabetes, obesity, GERD, PPM, gastric bypass, ?Atrial fibrillation versus stroke on Eliquis now presenting for right hemiplegia, aphasia.� Found to have intraparenchymal hemorrhage.
Stroke alert was called, admitted to the ICU.
PLAN:
# Intraparenchymal hemorrhage
intraparenchymal hemorrhage on the left side, centered in the left thalamus and left basal ganglia, with extension into the left saxena radiata and left lateral ventricle. Main focus of hemorrhage within the left thalamus measures 2.7 x 1.7 x 1.7 cm.
Status post Andexanet in ED.
Repeat CT head stable.
Maintain strict systolic blood pressure control less than 140 mm
Current BP meds are: Coreg 25 BID, Valsartan 240 mg daily, added hydralazine adjust to 30 mg TID; Labetalol PRN
If any neurological changes - ct head stat
Echo with LVH, especially apex and septum, EF appears to be grossly within normal limits
Cleared for Minced and Moist diet, thin Liquids
PT, OT recc [facility] vs SN[facility]
MRI with expected evolution of the hemorrhagic infarct; mild to moderate vasogenic edema and minimal 3 mm [id number] midline shift. No downward herniation
Per neuro: Not recommending further neurologic imaging as inpatient unless there are changes in neurologic exam
Pt was started ASA 81 mg daily on 04/23 which is 7 days after the initial hemorrhage.
Would check CT head noncontrast on 05/04 in the outpatient setting and based on the study tentatively would plan for starting apixaban 5 mg twice daily on 05/06 and stopping aspirin at that time.
Would eventually pursue Watchman device evaluation given risks of long-term anticoagulation with the intracranial hemorrhage
Acceptable to continue heparin DVT prophylaxis
Neuro and Neurosurgery on board
# Increased lethargy and possible weakness, resolved
Urgent CT head obtained on 04/24 actually showed decreased intraventricular hemorrhage as compared with the prior study.
Cont HSQ for DVT ppx
Cont ASA, started 04/23
cont BP meds as above
# Hypertension
# Prediabetes
# GERD
BP meds as above
Hemoglobin A1c 6.2
# Atrial fibrillation
Hold Eliquis due to ICH - neuro recc as above
Coreg [address] WHOLESALE BUYER Toprol
Appreciate cardiology on board
# Hypokalemia
# Hypomagnesemia
# Hypocalcemia
resolved
DVT ppx-okay for hsq as per nsg/neuro
Dispo: [facility]
DW RN
Anticipated Discharge: Within 24 hours
Subjective/Interval History
-
Date of Service: April 25, 2023
Objective Data
-
Labs:
Laboratory Results
04/25/23
06:58
WBC 5.3
Hgb 11.4 L
Hct 39.1
Plt Count 147
Sodium 138
Potassium 3.9
Chloride 101
Carbon Dioxide 27
BUN 25 H
Creatinine 0.8
Glucose 104 H
Calcium 9.8
Vital Signs:
Vital Signs
Temp Pulse Resp BP Pulse Ox
36.8 C 72 27 165/90 100
04/25/23 07:30 04/25/23 07:30 04/25/23 07:30 04/25/23 07:30 04/25/23 07:30
I&O
04/24/23 04/25/23 04/26/23
06:59 06:59 06:59
Intake Total 840 / 840 360 / 360
Output Total 200 / 200
Balance 840 / 840 160 / 160
Review of Systems
-
Unable to obtain full review of systems at this time due to: Acuity
Physical Exam
-
General: Well Developed, Well Nourished, No Apparent Distress, Comfortable and Slurred Speech; Negative Respiratory Distress
HEENT: Normocephalic, Atraumatic, Nose Appears Normal and Ears Appear Normal
Respiratory: Clear to Auscultation and Non Labored Respirations; Negative Accessory Resp Muscle Use
Cardiac: Regular Rhythm and S1/S2
GI: Soft, Nontender, Nondistended and Normal Bowel Sounds
Skin: Warm and Dry
Neuro: Awake and Slurred Speech
Psych: Calm
Data Reviewed
-
Labs: Labs Reviewed by me
[2023-04-25] MEDS: APRESOLINE 30 MG PO ×2 (09:27→15:21)
[2023-04-25] MEDS: COREG 25 MG PO (09:31)
[2023-04-25] MEDS: LOW STRENGTH ASPIRIN 81 MG PO (09:34)
[2023-04-25] MEDS: HEPARIN 5000 UNITS SC (09:37)
[2023-04-25] MEDS: PROTONIX IV 40 MG IV (09:40)
[2023-04-25] MEDS: NSS (PRESERVATIVE FREE) 10 ML IV (09:41)
[2023-04-25] MEDS: DIOVAN 240 MG PO (09:44)
[2023-04-25 11:43] VITALS: BP 155/85
--- NOTE | 2023-04-25 15:16 | CM ---
Addendum entered by Myrtle Penny 04/25/23 15:47:
Pt will be transferred to rehab unit via stretcher
Report: [phone]
Fax: [phone]

Pt was approved for 5 days acute inpatient
SOC 04/23/23 through 04/27/23 with NRD 04/28/23
Auth# [id number]
Concurrent research assistant professor: Donal Cifuentes [phone]
Original Note:
CM following re: d/c planning
Chart reviewed
Pt stable for d/c to [facility]
CM has consistently communicated with the patient's daughter
Pt insurance authorization had been obtained however d/c held a couple of days due to increase in patient's blood pressure
Clinical liaison/Neil Morris confirmed bed availability for patient transfer today and CM also notified the patient's daughter
Pt to be transferred via w/c to rehab unit
IMM was reviewed and copy provided
No additional d/c needs to note
PLAN; d/c to [facility] unit
Report:
--- NOTE | 2023-04-25 16:05 | W.DCSUMMARY ---
Discharge Summary
Discharge Data
Date of Admission: 04/16/23
Date of Discharge: 04/25/23
-
Pending Results: No
Hospital Course
Principal Diagnosis:
Intraparenchymal hemorrhage
Chronic Diagnoses:�
Hypertension
Prediabetes, Hemoglobin A1c at 6.2%
Gastroesophageal reflux disease
Atrial fibrillation, presumed paroxysmal
Gastric bypass
Consultations:�
Neurology
Neurosurgery
Cardiology
Doctor Of Dental Surgery
Procedures:�
None
Clinical course:�
This is a 67-year-old male with past medical history as stated above, who presented with right hemiplegia and aphasia.�Patient was found on the floor of the bathroom.
His admission CT head noted intraparenchymal hemorrhage and he received Andexanet�to reverse the Eliquis effect.�
Problem 1:
Intraparenchymal hemorrhage on the left thalamus and left basal ganglia, with extension into the left saxena radiata and left lateral ventricle. Main focus of hemorrhage within the left thalamus measures 2.7 x 1.7 x 1.7 cm.
The patient received Andexanet in the emergency room.
His MRI brain noted expected evolution of the hemorrhagic infarct, mild to moderate vasogenic edema and minimal 3 mm [id number] midline shift, no herniation.
He has had several repeat CT head imaging during his hospital stay which showed that his intraparenchymal hemorrhage is stable.
He should maintain strict systolic blood pressure control less than 140 mm.
He was discharged with Coreg 25 BID, Valsartan 240 mg daily, and hydralazine 30 mg TID.
His Echo noted LVH especially apex and septum, and EF appeared grossly within normal limits.
He can continue with Minced and Moist diet and thin Liquids per speech recommendation.
He was started with ASA 81 mg daily on 04/23 (which was day 7 after the initial hemorrhage) per neurology.
Per neuro, he should get a repeat CT head noncontrast on 05/04 in the outpatient setting, and based on the study to consider starting apixaban 5 mg twice daily on 05/06 and stopping aspirin at that time.
He should follow up with Cardiology outpatient for eventual Watchman device evaluation.
He was discharged to [facility].
The chief radiologic technologist has been informed on TT of the need to check CT head on 05/04 and to start apixaban 5 mg twice daily on 05/06 and stop aspirin at that time.
As for the rest of his medical problems, they were stable during his hospital stay.
Discharge Plan
-
Patient Disposition: Acute Rehab Facility
Discharge Diagnosis/Procedures: Intraparenchymal hemorrhage; essential hypertension; hypertrophic cardiomyopathy (avoid volume depletion, Lasix discontinued).
Condition: Fair
Diet: Other diet
Additional Diets: Minced and Moist with Thin Liquids
Activity: As tolerated
Driving Restrictions: Not until seen by your Dr
Others Tests: Repeat CT head non-contrast on 05/04 and based on the study tentatively would plan to start apixaban 5 mg twice daily on 05/06 and stop aspirin at that time.
Repeat MRI in 3-6 months
Wound Care: Barrier ointment to penis skin breakdown bid.
Sacrum-silicone border foam, change q 3 days and prn loosened dressing.
Air mattress
Soft heel relief boots as tolerated (i.e. TruVue Lite boots).
Pressure redistributing chair cushion (i.e. Roho).
Stop these medications:: Metoprolol, Lasix (to avoid volume depletion in setting of HOCM)
Activity Restrictions/Additional Instructions:
Check CT head noncontrast on 05/04 and based on the study tentatively would plan to start apixaban 5 mg twice daily on 05/06 and stopping aspirin at that time.
Your metoprolol was replaced with Coreg (25 mg BID) for better BP control.
In addition, we have added valsartan 240 mg daily and hydralazine 30 mg TID for BP control.
Keep systolic blood pressure less than 140.
Follow-up with design leader outpatient for eventual Watchman evaluation.
Referrals:
Rhiannon Carr CRNP [Specified Professional Personl] - 05/21/23 10:40 am
UNKNOWN - PT DOES,NOT KNOW [Family Provider] - in less than 1 week
Prescriptions:
New
hydralazine 10 mg Tablet
30 mg PO TID Qty: 90 0RF
carvedilol 25 mg Tablet
25 mg PO BID Qty: 60 0RF
valsartan 80 mg Tablet
240 mg PO DAILY Qty: 90 0RF
aspirin [Children's Aspirin] 81 mg Tablet,Chewable
81 mg PO DAILY Qty: 30 0RF
Continued
omeprazole 40 mg Capsule,Delayed Release(Dr/Ec)
40 mg PO DAILY
Discontinued
furosemide [Lasix] 20 mg Tablet
20 mg PO DAILY
valsartan 160 mg Tablet
160 mg PO DAILY
metoprolol tartrate 50 mg Tablet
50 mg PO BID
apixaban 5 mg Tablet
5 mg PO BID
Discharge Orders:
Discharge Patient (As Directed); Ordered 04/25/23
Ordered By: Windy Lewis
--- NOTE | 2023-04-25 16:38 | PN.CDI ---
CDI
- -
CDI:
Physician Documentation Request
Admit Date: 04/16/23 08:55
Dear Doctor Joshua,
Please review the following and provide your response in the progress notes.
Clinical Indicators:
Pt admitted with ICH /CVA/HTN crisis
Documented per WOCN note 04/24,' Patient seen for HAPI report for penis stage 2 r/t condom cath. 2 small dermal openings noted on penis shaft. Condom cath has been discontinued. Patient has a linear darker skin area on his sacrum which may be a
stage 1 pressure injury. Silicone border foam applied to patient's sacrum. ...'
Physician documentation of the type and location of wounds is required for compliant documentation. Based on the above clinical findings and your assessment, please provide the following in your progress note:
1. Location of the ulcer/wound, including laterality. ( FOR each wound)
2. Type (etiology) of ulcer/wound:
- Pressure (decubitus) ulcer
- Non-pressure ulcer
- Other
Use of terms such as suspected, likely, concern for, or probable (associated with a specific diagnosis that is being evaluated, monitored, or treated as if it exists) are acceptable and can be coded in the inpatient setting, when documented at the
time of discharge.
Thank you,
Oneyda Fairchild RN
CDI Specialist
[place] [employer]
Please use your independent medical judgment in providing your response.
*Source: National Pressure Ulcer Advisory Panel (NPUAP)
--- NOTE | 2023-04-25 17:06 | PTCARENOTE ---
[facility], report called to nursing staff.
== END 2023-04-25 17:20 | DRG 64 ==
LOC: 4 EAST ACU 08:55
PROVIDERS: Nurse Practitioner Family; ADMITTING PHYSICIAN Internal Medicine; ATTENDING PHYSICIAN Internal Medicine; CONSULT PHYSICIAN Internal Medicine Cardiovascular Disease; CONSULT PHYSICIAN Physical Medicine & Rehabilitation; CONSULT PHYSICIAN Psychiatry & Neurology Neurology; EMERGENCY PHYSICIAN Emergency Medicine; OTHER PHYSICIAN Internal Medicine Critical Care Medicine; OTHER PHYSICIAN Neurological Surgery
DX: I61.0 Nontraumatic intracerebral hemorrhage in hemisphere, subcortical (principal); G93.6 Cerebral edema; G81.91 Hemiplegia, unspecified affecting right dominant side; R47.01 Aphasia; I16.9 Hypertensive crisis, unspecified; I42.1 Obstructive hypertrophic cardiomyopathy; G93.49 Other encephalopathy; Z68.41 Body mass index [BMI] 40.0-44.9, adult; R47.1 Dysarthria and anarthria; I61.5 Nontraumatic intracerebral hemorrhage, intraventricular; D64.9 Anemia, unspecified; E11.9 Type 2 diabetes mellitus without complications; I48.91 Unspecified atrial fibrillation; I10 Essential (primary) hypertension; R29.810 Facial weakness; E78.5 Hyperlipidemia, unspecified; E87.6 Hypokalemia; L89.892 Pressure ulcer of other site, stage 2; L89.151 Pressure ulcer of sacral region, stage 1; E83.42 Hypomagnesemia; E83.51 Hypocalcemia; K21.9 Gastro-esophageal reflux disease without esophagitis; E66.9 Obesity, unspecified; Z98.84 Bariatric surgery status; Z79.01 Long term (current) use of anticoagulants; Z95.0 Presence of cardiac pacemaker; Z86.718 Personal history of other venous thrombosis and embolism
CPT/HCPCS: 70450; 70551; 71045; 74230; 80048; 80053; 80061; 81003; 81015; 82330; 82550; 82962; 83036; 83735; 84100; 84484; 85025; 85027; 85610; 85730; 86850; 86900; 86901; 92507; 92523; 92526; 92610; 92611; 93005; 93307; 94640; 96365; 96375; 97110; 97112; 97163; 97167; 97530; 97535; 99291; J7168; Q9957

== ENCOUNTER 2023-04-27 10:09 | Emergency (ER) | payer OTHER, SELFPAY ==
[2023-04-27] VITALS (7 sets, daily range): BP systolic 128–170; BP diastolic 83–111
[2023-04-27 10:30] LABS: Glucose - Point of Care 95 mg/dl (70-99)
[2023-04-27 11:13] LABS: % Basophils 0.7 % (0-2); % Eosinophils 2.6 % (0-6); % Immature Granulocytes 0.4 % (0-0.5); % Lymphocytes 26.6 % (20.5-51.1); % Monocytes 16.6 % (1.7-9.3); % Neutrophils 53.1 % (42.2-75.2); Absolute Eosinophils 0.1 10^3/uL (0-0.7); Absolute Lymphocytes 1.5 10^3/uL (1.2-3.4); Absolute Monocytes 0.9 10^3/uL (0.1-0.6); Absolute Neutrophils 2.9 10^3/uL (1.4-6.5); Hematocrit 37.8 % (39.0-52.0); Hemoglobin 11.5 g/dL (13.0-18.0); Mean Corp Hgb Conc. 30.4 g/dL (33.0-37.0); Mean Corpuscular Hgb 24.8 pg (27.0-31.0); Mean Corpuscular Volume 81.6 fL (80.0-94.0); Nucleated Red Blood Cells % 0 % (-); Platelet Count 144 10^3/uL (130-400); Red Blood Cell Count 4.63 10^6/uL (4.70-6.10); Red Cell Dist. Width 18.8 % (11.5-14.5); White Blood Cell Count 5.5 10^3/uL (4.8-10.8)
[2023-04-27 11:25] LABS: Lactic Acid 0.8 mmol/L (0.7-2.0)
[2023-04-27 11:38] LABS: Troponin I 0.013 ng/ml
[2023-04-27 12:17] LABS: Blood Urea Nitrogen 26 mg/dl (9-20); Calcium 9.8 mg/dl (8.4-10.2); Carbon Dioxide 28 mmol/L (22-30); Chloride 100 mmol/L (98-107); Glucose 106 mg/dl (70-99); Sodium 137 mmol/L (135-145); eGFR > 60.00
[2023-04-27 12:35] LABS: Urine Albumin Negative (Neg - Trace); Urine Bilirubin Negative (Negative); Urine Character Clear (Clear); Urine Color Yellow; Urine Glucose Negative (Negative); Urine Ketone Negative (Negative); Urine Leukocyte Negative (Negative); Urine Nitrite Negative (Negative); Urine Occult Blood Negative (Negative); Urine Urobilinogen Negative (Neg - 1+)
--- NOTE | 2023-04-27 14:16 | ED.GENMED ---
History of Present Illness
General
Chief Complaint: Weakness
Source: patient and other (Nurse from os at bedside)
Exam Limitations: clinical condition
Time Seen by Provider: 04/27/23 10:35
Travel History
Have you had any contact with someone who has COVID-19?: Unable to Answer
Do you have any symptoms of coronavirus? Fever > 100 degrees, chills, cough, shortness of breath, sore throat, loss of taste or smell, muscle aches, or headache?: Unable to Answer
History of Present Illness
History of Present Illness:
68-year-old male who presents after staff at [facility] became concerned that he was less responsive than he had been and having more difficulty with transfers and having difficulty with rehab. The patient was recently here and diagnosed with hemorrhagic
CVA. Patient was discharged on the . No reported fevers or vomiting. No reported fall. Patient is at [facility] for rehab
Past History
Past History
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
ED Past Surgical History: Other (Gastric bypass)
Phy Exam
Physical Exam
Physical Exam:
CONSTITUTIONAL Patient alert and oriented to person. Vital signs reviewed.
HEAD atraumatic, normocephalic.
EYES eyelids normal to inspection, Extraocular muscles intact, Conjunctiva normal, Sclera normal.
NECK normal range of motion, Trachea midline, no jugular venous distention.
RESPIRATORY CHEST No respiratory distress noted, Chest expansion equal, Bilateral breath sounds clear.
CARDIOVASCULAR regular rate and rhythm, Heart sounds normal.
ABDOMEN abdomen nontender, Bowel sounds normal. No distention.
BACK normal inspection, no obvious deformities
UPPER EXTREMITY no cyanosis, no edema.
LOWER EXTREMITY no cyanosis, no edema.
NEURO significantly dysarthric. Flaccid right upper and lower extremity. Right facial droop. Question aphasia
SKIN skin warm, dry, and normal in color.
Course
Orders/Labs/Results
Orders:
Orders
04/27/23
Electrocardiogram (*1) Stat
Comment: ALREADY DONE!!!!!!!
04/27/23 10:40
CT Head W/o Iv Contrast Urgent
Comment:
Reason For Exam: change in ms, h/o CVA
04/27/23 10:41
CR Chest - 2 Views Urgent
Comment:
Reason For Exam: change in ms
04/27/23 11:02
Complete Blood Count/With Diff Urgent
Lactic Acid Q4H
Comment: CANCEL 2nd LACTIC ACID IF 1st LACTIC ACID IS LESS THAN 2
Troponin I Urgent
Blood Culture Q30M
BRYON Source: Blood/Venous
Specimen Description:
Influenza A+B Rapid Molecular Urgent
BRYON Source: Nasal Swab
Specimen Description:
04/27/23 11:08
Blood Culture Q30M
BRYON Source: Blood/Venous
Specimen Description:
04/27/23 11:34
Basic Metabolic Panel Urgent
04/27/23 11:35
Urinalysis Reflex To Culture Urgent
Date Specimen was Collected: 04/27/23
Time Specimen was Collected: 11:33
Abnormal Lab Results
04/27/23 04/27/23
11:02 11:34
RBC 4.63 L 10^6/uL
(4.70-6.10)
Hgb 11.5 L g/dL
(13.0-18.0)
Hct 37.8 L %
(39.0-52.0)
MCH 24.8 L pg
(27.0-31.0)
MCHC 30.4 L g/dL
(33.0-37.0)
RDW 18.8 H %
(11.5-14.5)
Absolute Monos (auto) 0.9 H 10^3/uL
(0.1-0.6)
Monocytes % 16.6 H %
(1.7-9.3)
BUN 26 H mg/dl
(9-20)
Glucose 106 H mg/dl
(70-99)
04/27/23 11:02
04/27/23 11:34
Vital Signs
Initial and Last Documented VS:
Initial Vital Signs
Temp Pulse Resp BP Pulse Ox
99.2 F 59 20 131/91 98
04/27/23 10:29 04/27/23 10:29 04/27/23 10:29 04/27/23 10:29 04/27/23 10:29
Last Documented Vital Signs
Temp Pulse Resp BP Pulse Ox
99.2 F 59 30 142/84 98
04/27/23 10:29 04/27/23 14:15 04/27/23 14:15 04/27/23 12:30 04/27/23 12:30
MDM/Problems Addressed
MDM/Problems Addressed:
Change in mental status, recent intraparenchymal hemorrhage
*Radiology
Radiology exam reviewed: radiology read reviewed
*Pulse Oximetry
Patient hypoxic: no
*EKG
Interpreted by ED Provider?: Yes
Interpretation: abnormal
Rate: bradycardiac
Rhythm: sinus
Ischemia: other (Does have more pronounced T waves anteriorly but is in similar locations to previous. Patient denies chest pain on my exam)
*Application Support Consultant Interpretation
Rate: bradycardiac
Interpretation: abnormal
Rhythm: sinus
*Critical Care Note
Total Time (30-74mins, 75-104mins- exclusive of procedures): Not Applicable
Data Reviewed
Review of Other/Old Records Reveals: Radiology Studies (CT report reviewed), Discharge Summary (Discharge summary reviewed from April 25) and Other (Progress Notes from recent admission reviewed)
Source: patient
Patient Management
Discussion with other providers: Client Technologies Analyst (Case discussed with neurosurgery. Case discussed with neurology)
Escalation/DeEscalation of care consider admission/obs:
68-year-old male with a recent large stroke. Repeat CT today looks about the same certainly does not show progression. No evidence of infection. Daughter at bedside and states he is mostly at his baseline. He is severely dysarthric which makes
his history taking somewhat limited. I discussed with neurosurgery who evaluated his CTs and feels that based on CT, no reason that he cannot go back to [facility]. I do think it is reasonable for him to return to [facility] and be observed
ED Attending Note
-
Portions of this chart may have been created with voice recognition software.� Occasional wrong word or��sound alike� substitutions may have occurred due to the inherent limitations of voice recognition software.
Discharge Plan
Departure
Patient Disposition: Acute Rehab Facility
Date of Disposition: 04/27/23
Time of Disposition: 14:55
Patient with high blood pressure during this ER visit?: No
Discharge Problem:
Acute alteration in mental status
Instructions: Altered Mental Status (DC)
Prescriptions:
No Action
hydralazine 10 mg Tablet
30 mg PO TID Qty: 90 0RF
carvedilol 25 mg Tablet
25 mg PO BID Qty: 60 0RF
aspirin [Children's Aspirin] 81 mg Tablet,Chewable
81 mg PO DAILY Qty: 30 0RF
acetaminophen [Tylenol] 325 mg Tablet
650 mg PO Q6HPRN PRN (Reason: mild pain)
lidocaine 4 % Adhesive Patch,Medicated
1 patch TOPICAL DAILY
valsartan 80 mg Tablet
240 mg PO DAILY
pantoprazole [Protonix] 40 mg Tablet,Delayed Release (Dr/Ec)
40 mg PO DAILY
docusate sodium [Colace] 100 mg Capsule
100 mg PO BID
Referrals:
NONE,* [Family Provider] -
Activity Restrictions/Additional Instructions:
Please be sure to return immediately for any changes in mentation, fevers, vomiting, new neurologic symptoms or any other concerns.
Interventions
Interventions:
*Risk Screen - Suicide Last Done: 04/27/23 10:29
*General Assessment Last Done: 04/27/23 10:29
*Neglect/Abuse Screening Last Done: 04/27/23 10:29
ED- Fall Risk Assessment Last Done: 04/27/23 12:14
*ED COVID-19 Vaccine History Last Done: 04/27/23 10:29
ED- Pulmonary Assessment Last Done: 04/27/23 12:14
ED- Neurological Assessment Last Done: 04/27/23 12:14
ED- Cardiac Assessment Last Done: 04/27/23 12:14
--- NOTE | 2023-04-27 15:36 | EDRN ---
Report to Fitz at [facility].
== END 2023-04-27 15:38 ==
LOC: EMR 10:09
PROVIDERS: EMERGENCY PHYSICIAN Emergency Medicine
DX: R41.82 Altered mental status, unspecified (principal); Z86.73 Personal history of transient ischemic attack (TIA), and cerebral infarction without residual deficits
CPT/HCPCS: 99285; 70450; 71046; 80048; 81003; 82962; 83605; 84484; 85025; 87040; 87502; 93005

== ENCOUNTER 2023-06-06 14:03 | Inpatient (IN) | payer OTHER, SELFPAY ==
[2023-06-05 19:40] VITALS: BP 165/100; BMI 41.6
[2023-06-05 20:00] VITALS: BP 164/83
[2023-06-05 20:15] LABS: % Basophils 0.8 % (0-2); % Eosinophils 14.2 % (0-6); % Immature Granulocytes 0.2 % (0-0.5); % Lymphocytes 32.5 % (20.5-51.1); % Neutrophils 39.3 % (42.2-75.2); Absolute Eosinophils 0.7 10^3/uL (0-0.7); Absolute Lymphocytes 1.7 10^3/uL (1.2-3.4); Absolute Monocytes 0.7 10^3/uL (0.1-0.6); Hematocrit 36.3 % (39.0-52.0); Hemoglobin 10.7 g/dL (13.0-18.0); Mean Corp Hgb Conc. 29.5 g/dL (33.0-37.0); Mean Corpuscular Hgb 25.8 pg (27.0-31.0); Mean Corpuscular Volume 87.7 fL (80.0-94.0); Mean Platelet Volume 9.8 fL (7.4-10.4); Nucleated Red Blood Cells % 0 % (-); Platelet Count 134 10^3/uL (130-400); Red Blood Cell Count 4.14 10^6/uL (4.70-6.10); Red Cell Dist. Width 20.4 % (11.5-14.5); White Blood Cell Count 5.1 10^3/uL (4.8-10.8)
[2023-06-05 20:18] LABS: INR 1.25; PT 15.7 Sec (11.4-14.6)
[2023-06-05 20:19] LABS: APTT 27.9 Sec (23.4-35.0)
[2023-06-05 20:27] LABS: Blood Urea Nitrogen 17 mg/dl (9-20); Calcium 9.8 mg/dl (8.4-10.2); Carbon Dioxide 31 mmol/L (22-30); Chloride 102 mmol/L (98-107); Estimated Creatinine Clearance 92 ml/min; Glucose 119 mg/dl (70-99); Potassium 4.1 mmol/L (3.5-5.1); Sodium 138 mmol/L (135-145); eGFR > 60.00
[2023-06-05 20:47] LABS: COVID-19 Antigen Negative (Negative)
[2023-06-05 20:52] LABS: Troponin I < 0.012 ng/ml
--- NOTE | 2023-06-05 20:59 | ED.GENMED ---
History of Present Illness
General
Chief Complaint: Extremity Pain (non-traumatic)
Source: patient
Exam Limitations: none
Time Seen by Provider: 06/05/23 19:51
Travel History
Have you had any contact with someone who has COVID-19?: No
Do you have any symptoms of coronavirus? Fever > 100 degrees, chills, cough, shortness of breath, sore throat, loss of taste or smell, muscle aches, or headache?: No
History of Present Illness
History of Present Illness:
5-year-old male complaining of swelling to the right arm and right leg with some shortness of breath. Has been short of breath for 3 days. Minimal cough. No fever. No pleuritic pain no chest pain. Recent intracerebral hemorrhage
Past History
Past History
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
ED Past Surgical History: Other (Gastric bypass)
Phy Exam
Physical Exam
Physical Exam:
GENERAL: Alert and oriented in no apparent distress
EYE: Orbits normal.
NECK: Supple, no significant adenopathy.
ENT: Pharynx without erythema
CARDIAC: Regular rate and rhythm without any obvious murmurs.
LUNGS: Minimal tachypnea at rest with some coarse crackles in the base
ABDOMEN: Soft, without focal tenderness or distention
NEUROLOGICAL: Alert and oriented , right hemiplegia
SKIN: Warm and dry, no rash or lesion, no discoloration, skin intact.
MUSCULOSKELETAL: Moderate edema to the right upper extremity and right lower extremity. No warmth or erythema.
PSYCH: Normal and appropriate interaction.
Course
Orders/Labs/Results
Orders:
Orders
06/05/23 Dinner
IDDSI 5 - Minced & Moist
At Your Request: Limited, Ciaio Counter Molder Required
Does patient need a safe tray?: No
Liquid Modification: Thin Liquids
06/05/23 19:52
Electrocardiogram (*1) Stat
Reason for Study: Other
Other Reason for Exam: neuro symptoms
CT Head W/o Iv Contrast Urgent
Comment:
Reason For Exam: Recent hemorrhagic stroke/paresthesias
Cardiac Monitoring- Treatment ONCE
EKG- Treatment ONCE
IV Insert/Care/Rem.- Treatment PRN
06/05/23 19:58
Basic Metabolic Panel Urgent
Complete Blood Count/With Diff Urgent
PTT Urgent
Prothrombin Time Urgent
06/05/23 20:06
CXR2 [CR Chest - 2 Views ] Urgent
Comment:
Reason For Exam: sob
US Periph Venous LOWER Ext RT Urgent
Comment:
Reason For Exam: swelling
US Periph Venous UPPER Ext RT Urgent
Comment:
Reason For Exam: swelling
06/05/23 20:21
COVID-19 Antigen Urgent
Source: Nasal Swab
NT-proBNP Urgent
Troponin I Urgent
Influenza A+B Rapid Molecular Urgent
BRYON Source: Nasal Swab
Specimen Description:
06/05/23 22:15
Ipratropium/Albuterol Sulfate [Duoneb] 3 ml .ROUTE .STK-MED ONE
Ipratropium/Albuterol Sulfate [Duoneb] 3 ml INH R NOW STA
06/05/23 23:[address] Non Medication Order As Directed
Physician Order: PTT 6 hours after initial start of Heparin infusion
Above order entered?: Yes
06/05/23 23:15
Heparin 07123 Units/250 ml 25,000 units in 250 ml IV PER PROTOCOL
Weight to be used for heparin protocol in kilograms (kg):: 116.8
Protocol:: DVT/PE
PTT Goal Range to be used:: PTT 73 to 111 seconds
Order type:: Initial
INITIAL Infusion Dose (UNITS/KG/hr) & then follow protocol:: 18 units/kg/hr
Infusion Dose in UNITS/hr & then follow protocol (UNITS/hr):: 2,000
INFUSION RATE in mL/hr & then follow protocol (mL/hr):: 20
For DVT/PE algorithm, re-bolus for low PTT?: Yes
PTT less than or equal to 64 seconds:: Re-bolus 80 units/kg (max 10,000units). Increase by 500 units/hr
(+ 5mL/hr)
PTT 64.1 to 72.9 seconds:: Re-bolus 40 units/kg (max 5,000 units). Increase by 200 units/hr
(+ 2mL/hr)
PTT 73 to 111 seconds:: Target Range. No change in rate.
PTT 111.1 to 130.9 seconds:: Decrease rate by 200 units/hr (- 2 mL/hr)
PTT 131 to 199.9 seconds:: HOLD for 1 hr. Then decrease by 400 units/hr (- 4mL/hr)
PTT greater than or equal to 200 seconds:: HOLD for 2 hrs & Notify Provider. Then decrease by 500 units/hr
(- 5mL/hr)
Lab follow-up:: Each change, PTT q6h until 2 consecutive are therapeutic. Then
PTT daily.
06/05/23 23:41
Admit/Transfer Patient As Directed
Co-Sign Provider:
Level of Care: Observation services
Assign to:: Telemetry
Physician / Group: dimitris
Diagnosis: DVT right subclavian, axillary/brachial veins
Reason for Telemetry: Arrhythmia
Date to Stop Telemetry: 06/08/23
Time to Stop Telemetry: 11:00
06/05/23 23:42
Code Status As Directed
Resuscitation Status: Full Code
06/06/23
DIETARY CONSULT Routine
Reason for Consult: would like booklet for 'healthy eating'
06/06/23 00:12
Heparin 9,300 units IV PRN PRN
06/06/23 00:13
Heparin 4,700 units IV PRN PRN
06/06/23 01:00
CT Chest Pe Study Urgent
Reason For Exam: Short of breath/right upper extremity DVT
06/06/23 01:43
Acetaminophen [Tylenol] 650 mg PO Q6HPRN PRN
Bisacodyl [Dulcolax] 10 mg RECTAL DAILY PRN
Ondansetron Orally Disint [Zofran Odt (Orally Disintegrating)] 4 mg PO Q8H
Phosphate Enema [Fleet Phosphate Enema-Adult] 118 ml RECTAL DAILY PRN
06/06/23 01:43
VTE Contraindication Routine
VTE Mechanical Device Contraindication: Medical Contraindication
Pharmocologic Contraindication: Medical Contraindication
Heparin Protocol- PTT Orders As Directed
PTT per Heparin protocol: -Obtain CBC and baseline PTT - if not already collected.
-Obtain PTT 6 hours from start of infusion. Then, every 6 hours until 2 consecutive
PTT's are therapeutic. Then, PTT Daily.
-With each rate change, obtain PTT every 6 hours until 2 consecutive PTT's are
therapeutic. Then, PTT Daily.
Activity As Directed
Activity Level: As Tolerated
Notify MD As Directed
Notify physician if: PTT is greater than or equal to 200.
Vital Signs As Directed
Frequency: Per unit guidelines
Incentive Spirometry [Rx Incentive Spirometry] [RESP] Routine
Frequency: q1h while awake
06/06/23 02:00
Flush (0.9% Sodium Chloride) [Flush (Nss)] See Dose Instructions IV PER PROTOCOL
06/06/23 05:36
Oxygen Therapy [O2 Therapy] [RESP] Routine
Titrate/Wean O2 to maintain O2 sat greater than (%): 92
06/06/23 06:43
Neurological Checks As Directed
Frequency: Per unit guidelines
06/06/23 07:55
Request for Physical Therapy [NOTICE] Routine
06/06/23 08:00
Carvedilol [Coreg] 25 mg PO BID
Docusate Sodium [Colace] 100 mg PO BID
Escitalopram Oxalate [Lexapro] 5 mg PO DAILY
HydrALAZINE [Apresoline] 25 mg PO BID
Pantoprazole [Protonix] 40 mg PO DAILY
Sennosides [Senokot] 8.6 mg PO BID
06/06/23 08:12
Complete Blood Count/With Diff IN AM
Comprehensive Metabolic Panel IN AM
Hepatitis C Antibody IN AM
PTT Urgent
06/06/23 08:17
MRSA Screen Routine
BRYON Source: Nose
Specimen Description:
06/06/23 08:22
HEMATOLOGY CONSULT Routine
Consulting Provider: Jason Rodriguez
Was physician already notified: Yes
NEUROLOGY CONSULT Routine
Consulting Provider: Sheldon Malhotra
Was physician already notified: Yes
06/06/23 09:22
Speech Therapy Eval & Treat Routine
06/06/23 Lunch
Cholesterol Lowering
At Your Request: Limited Participation
06/06/23 14:02
Occupational Therapy Consult [Ot Eval And Treat] Routine
Physical Therapy Consult [Pt Eval And Treat] Routine
Activity Level: As Tolerated
06/06/23 16:17
PTT Urgent
Comment: Pt is on a Heparin drip
06/06/23 18:00
Warfarin [Coumadin] 5 mg PO QPM
06/06/23 22:00
Melatonin 3 mg PO HS
06/07/23 05:43
Prothrombin Time IN AM
06/08/23 03:52
Prothrombin Time IN AM
06/08/23 11:00
DC Protocol for Telemetry ONCE
06/09/23 06:00
Prothrombin Time IN AM
06/10/23 06:00
Prothrombin Time IN AM
06/11/23 06:00
Prothrombin Time IN AM
Abnormal Lab Results
06/05/23 06/06/23
19:58 08:12
WBC 4.3 L 10^3/uL
(4.8-10.8)
RBC 4.14 L 10^6/uL 3.93 L 10^6/uL
(4.70-6.10) (4.70-6.10)
Hgb 10.7 L g/dL 10.0 L g/dL
(13.0-18.0) (13.0-18.0)
Hct 36.3 L % 34.8 L %
(39.0-52.0) (39.0-52.0)
MCH 25.8 L pg 25.4 L pg
(27.0-31.0) (27.0-31.0)
MCHC 29.5 L g/dL 28.7 L g/dL
(33.0-37.0) (33.0-37.0)
RDW 20.4 H % 19.9 H %
(11.5-14.5) (11.5-14.5)
Plt Count 121 L 10^3/uL
(130-400)
MPV 12.2 H fL
(7.4-10.4)
Absolute Monos (auto) 0.7 H 10^3/uL 0.7 H 10^3/uL
(0.1-0.6) (0.1-0.6)
Neutrophils % 39.3 L % 39.1 L %
(42.2-75.2) (42.2-75.2)
Monocytes % 13.0 H % 15.8 H %
(1.7-9.3) (1.7-9.3)
Eosinophils % 14.2 H % 12.8 H %
(0-6) (0-6)
PT 15.7 H Sec
(11.4-14.6)
APTT 65.0 H Sec
(23.4-35.0)
Carbon Dioxide 31 H mmol/L
(22-30)
Glucose 119 H mg/dl
(70-99)
06/06/23 08:12
06/06/23 08:12
Vital Signs
Initial and Last Documented VS:
Initial Vital Signs
Temp Pulse Resp BP Pulse Ox
98.4 F 67 22 165/100 96
06/05/23 19:40 06/05/23 19:40 06/05/23 19:40 06/05/23 19:40 06/05/23 19:40
Last Documented Vital Signs
Temp Pulse Resp BP Pulse Ox
98.4 F 64 16 150/91 99
06/08/23 03:44 06/08/23 04:00 06/08/23 03:44 06/08/23 03:43 06/08/23 03:44
*Radiology
Radiology exam reviewed: radiology read reviewed (Negative)
*Pulse Oximetry
Patient hypoxic: no
*Critical Care Note
Total Time (30-74mins, 75-104mins- exclusive of procedures): 15
Update Note
Update Note:
Reviewing records from recent admission it looks like neurology had recommended restarting Eliquis for A-fib actually today if his head CT remained stable. With the extensive right upper extremity DVT patient will be admitted and if the CT is
stable likely heparinized.
Discussed with neurology. Agree if head CT is stable which it appears to be, we can anticoagulate with heparin but do not bolus. No other antiplatelet agents at this time
They actually had started Eliquis 2 days ago. Last dose was 12 hours ago.
ED Attending Note
-
Portions of this chart may have been created with voice recognition software.� Occasional wrong word or��sound alike� substitutions may have occurred due to the inherent limitations of voice recognition software.
Discharge Plan
Departure
Patient Disposition: Admit
Date of Disposition: 06/05/23
Time of Disposition: 23:13
Presentation/result/management discussed w/ accepting MD/DO: Neurology
Discharge Problem:
DVT right subclavian/arm, History of intracerebral bleed left thal
Interventions
Interventions:
*Risk Screen - Suicide Last Done: 06/05/23 19:40
*General Assessment Last Done: 06/05/23 19:40
*Neglect/Abuse Screening Last Done: 06/05/23 19:40
*ED COVID-19 Vaccine History Last Done: 06/05/23 19:40
*Nursing Disposition Last Done: 06/06/23 04:02
ED-Skin Assessment Last Done: 06/05/23 19:49
ED-Peripheral Vascular Assessment Last Done: 06/05/23 19:49
ED-Musculoskeletal Assessment Last Done: 06/05/23 19:49
Discharge Date and Time
Discharge Date/Time: 06/06/23 04:03
[2023-06-05 21:16] LABS: NT-proBNP 1070 pg/ml
[2023-06-05 22:08] VITALS: BP 168/89
[2023-06-05] MEDS: DUONEB 3 ML INH (22:16)
[2023-06-05 23:00] VITALS: BP 157/89
--- NOTE | 2023-06-05 23:44 | HPS.HSE ---
Family Physician
-
Family Physician: Robbie Peterson, DO
Chief Complaint
-
right upper and lower extremity swelling
History of Present Illness
68-year-old male past medical history of hemorrhagic left thalamic/left basal ganglia CVA, atrial fibrillation, hypertension, GERD, prediabetes, gastric bypass, presenting with swelling of the right arm and right leg starting suddenly 3 days ago
associated with pain. He has also been having shortness of breath over the past few weeks but got significantly worse since yesterday. He denies any cough. He denies any chest pain. He denies any dizziness or syncope. He denies any fever.
Patient was recently admitted for right hemiplegia/aphasia and found to have intraparenchymal hemorrhage of left arm/basal ganglia. Patient was on Eliquis and received Andaxanet. He was started on blood pressure medications. He was started on
aspirin on day 7 after the initial hemorrhage with plan to start Eliquis on 05/06. He was discharged to [facility]. Initiation of Eliquis was delayed until yesterday when he took his first dose.
He denies any history of blood clots.
Patient denies smoking or alcohol use.
Medical History
Past Medical History
Past Medical History: Reports Other (hemorrhagic left thalamic/left basal ganglia CVA, atrial fibrillation, hypertension, GERD, prediabetes, gastric bypass)
Past Surgical History: Reports None
Social History
Tobacco: Non-smoker
Alcohol: None
Drug: None
Family History
Family History: Not pertinent
Allergies / Home Medications
Allergies reflects when Allergies were last updated in [employer].
Home Medications with original date entered in [employer]
Allergy/Medication List:
Allergies
Allergy/AdvReac Type Severity Reaction Status Date / Time
No Known Allergies Allergy Verified 04/25/23 17:49
Home Medications
apixaban 5 mg tablet (Eliquis) 5 mg PO BID 30 days #60 tabs 06/03/23
carvedilol 25 mg tablet 25 mg PO BID HTN #60 tabs 06/03/23
docusate sodium 100 mg capsule 100 mg PO BID constipation 30 days #60 caps 06/03/23
escitalopram oxalate 5 mg tablet 5 mg PO DAILY Depression 30 days #30 tabs 06/03/23
hydralazine 25 mg tablet 25 mg PO BID HTN 30 days #60 tabs 06/03/23
melatonin 3 mg tablet 3 mg PO HS insomnia 30 days #30 tabs 06/03/23
pantoprazole 40 mg tablet,delayed release 40 mg PO DAILY GERD 30 days #30 tabs 06/03/23
sennosides 8.6 mg tablet (Senna Laxative) 8.6 mg PO BID Constipation 30 days #60 tabs 06/03/23
acetaminophen 325 mg tablet 650 mg PO Q6HPRN PRN hoyt/mild pain/temp 06/05/23
bisacodyl 10 mg rectal suppository 10 mg OR DAILY PRN if no bm on day 4, if mom ineffective 06/05/23
ondansetron 4 mg disintegrating tablet 4 mg PO Q8H nausea 06/05/23
sodium phosphates 19 gram-7 gram/118 mL enema (Fleet Enema) 118 ml OR DAILY PRN if no bm on day 5, if supp ineffective 06/05/23
Review of Systems
-
History Source: Patient
A 12 point ROS was completed and negative except as noted: Yes
Constitutional: Reports No Symptoms
EENT: Reports No Symptoms
Respiratory: Reports See HPI
Cardiac: Reports No Symptoms
Abdomen/GI: Reports No Symptoms
: Reports No Symptoms
Musculoskeletal: Reports See HPI
Skin: Reports No Symptoms
Neurological: Reports No Symptoms
Endocrine: Reports No Symptoms
Hematologic/Lymphatic: Reports No Symptoms
Psych: Reports No Symptoms
Physical Exam
Vital Signs
Vital Signs
Temp Pulse Resp BP Pulse Ox
98.4 F 66 26 168/89 96
06/05/23 19:40 06/05/23 22:45 06/05/23 22:45 06/05/23 22:08 06/05/23 19:40
Physical Exam
General: Well Developed, Well Nourished and No Apparent Distress
HEENT: NormoCephalic, Moist mucous membranes and Atraumatic
Respiratory: Clear
Cardiac: S1/S2 and Regular Rhythm; No Murmur or Rub
GI: Soft, Non Tender, Non Distended and Normal Bowel Sounds; No Organomegaly
Rectal: Deferred by Provider
Musculoskeletal: No Clubbing, No Cyanosis, Edema, Right Upper Extremity, Edema, Right Lower Extremity and No Edema
Skin: No Rash
Neuro: Nonfocal/grossly intact
Laboratory Results
-
06/05/23 19:58
06/05/23 19:58
Laboratory Results
PT 15.7 Sec (11.4-14.6) H 06/05/23 19:58
INR 1.25 06/05/23 19:58
APTT 27.9 Sec (23.4-35.0) 06/05/23 19:58
Troponin I < 0.012 ng/ml 06/05/23 20:21
Data Reviewed
-
Lab Data: Labs Reviewed by me
Old Records: Reviewed
Impression/Plan
-
IMPRESSION:
PLAN:
# Nonocclusive thrombus of the right subclavian/axillary/proximal brachial veins
-Venous ultrasound shows DVT in the right upper extremity no DVT in the right lower extremity
-CT head checked to evaluate status of recent intracranial hemorrhage which shows no acute intracranial abnormality
-ER spoke with neurology who recommended heparin drip without bolus
-CT PE pending
# Right lower extremity swelling likely venous insufficiency from immobility of right lower extremity from CVA
-Venous ultrasound does not show DVT
# Shortness of breath secondary to atelectasis, rule out aspiration pneumonia, versus pulmonary embolism
-Patient given DuoNeb in ER
-Chest x-ray shows mild to moderate elevation of left hemidiaphragm which is stable, mild linear atelectasis of left lower lung, cardiomegaly without evidence of pulmonary edema
-CT PE pending
-Cardiac BNP of 1000
-Incentive spirometry
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
Paroxysmal atrial fibrillation with pacemaker
-Heparin drip in place of Eliquis which was started yesterday
Moderate aortic stenosis
Essential hypertension
-Continue Coreg
-Continue hydralazine
GERD
-Continue Protonix
Prediabetes
History of gastric bypass
Anxiety/depression
-Continue Lexapro
Chronic anemia
Full code
DVT prophylaxis�heparin drip
Level 5 with thin liquids diet
[2023-06-06] VITALS (12 sets, daily range): BP systolic 137–179; BP diastolic 88–107; BMI 41.6
[2023-06-06] MEDS: HEPARIN 25000 UNITS/250 ML IV ×2 (01:31→16:31)
[2023-06-06] MEDS: ZOFRAN ODT (ORALLY DISINTEGRATING) PO ×3 (03:33→18:16)
--- NOTE | 2023-06-06 05:28 | PTCARENOTE ---
Received patient from ED via bed into room 2250. Tele monitor applied pt Freddy-SR, HR in the 50-60's at rest. IV heparin gtt currently infusing at 20ml/hr, next ptt due at 07:30. Patient AAOx3, garbled speech, and expressive aphasia at
times-baseline since recent CVA. Right arm and leg flaccid w/ decreased sensation. Denies any pain. Patient EUCEDA and c/o having difficulty at times w/ catching his breath. Pt was sating 94% RA. 2L of O2 applied for comfort, pt currently sating 99% on
2L. See nursing assessment for further info. Turned and reposition patient, heels elevated on pillow. Pt oriented to room, call kay in reach.
[2023-06-06] MEDS: APRESOLINE 25 MG PO ×2 (06:25→20:05)
--- NOTE | 2023-06-06 06:46 | CON.NEURO4 ---
Consultation - Neurology 4
-
CONSULTING PHYSICIAN: Angle Malhotra
REFERRING PHYSICIAN: ER
DICTATED BY: Angle Malhotra
DATE/TIME OF REQUEST: 06/06/23
DATE/TIME OF CONSULTATION: 06/06/23
Reason for Consultation: History hemorrhagic stroke, indications for anticoagulation
History of Present Illness:
Patient is a 68-year-old male with a past medical history significant for atrial fibrillation, left-sided subcortical intracranial hemorrhage April 16, and hypertension who presented to the ED with chief complaints of edema of the right arm and
right leg as well as dyspnea for approximately the past 3 days. He had also had some pain in the right side limbs charge from [facility] to [facility] on 04/25 and [facility]. Of note
he had had CT head noncontrast performed on 05/04 and under my review was deemed acceptable for stopping aspirin and starting apixaban on 05/06, patient was receiving apixaban during his acute rehabilitation stay and was discharged on this medication
according to chart review.
Ultrasound performed in the ER found nonocclusive thrombus in the right subclavian axillary and proximal brachial vein, no evidence of DVT in the right lower extremity on ultrasound. Patient was started on heparin infusion and with recommendation
by myself for no heparin bolus given the history of intracranial hemorrhage in April of this year. CT chest for pulmonary embolism performed read is pending at this time.
Patient at this time does endorse some right arm pain as well as chest pain and pleuritic chest pain.
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
Surgical History: Gastric bypass
Family History: Non-contributory
Social History: senior living facility, has a daughter, no current tobacco or alcohol
Allergies: No known drug allergies
Review of Symptoms:
Unable to obtain due to aphasia
Physical Exam:
Middle aged man appears his stated age no signs of head or neck trauma no apparent distress, eyes are clear oropharynx is clear, right arm shows significant edema, right leg with mild edema as well. Heart rate regular breathing unlabored abdomen is
obese soft nontender, no rashes seen.
Neurologic Examination:
Patient is sleeping and awakens easily he demonstrates more expressive than receptive aphasia he obeys commands consistently. Interactive with examiner, tracks, participatory in conversation.
Mildly dysarthric speech with right facial weakness seen, extraocular's are full, blinks to threat in all quadrants, pupils 3 mm equal round react light bilaterally, no ptosis seen, tongue is midline
Motor examination shows 0/5 right arm abduction arm flexion, 0/5 right leg movement. Decreased muscle tone in right arm and leg.
Reflexes increased on the right leg upgoing toe on the right
No ataxia on left arm or leg, limited due to right arm and leg weakness.
Gait deferred
Neuro Imaging: CT head noncontrast with encephalomalacia in the left basal ganglia and thalamus from previous intracranial hemorrhage with no acute hemorrhage seen
Impressions
1. Nonocclusive thrombus in the right subclavian axillary and proximal brachial veins, most likely due to hemiparesis of the right side from the previous left-sided intracranial hemorrhage.
2. Patient will have elevated but acceptable risk for anticoagulation given the previous intracranial hemorrhage in April 2023, potential pulmonary embolism/risk for this and benefits of anticoagulation for this as well as atrial fibrillation
are felt to outweigh the risks.
3. Over the jail would prefer he get watchmen evaluation for atrial fibrillation, but this may not be an option if he is felt to have strong indication for jail anticoagulation given DVT
4. History of left basal ganglia and thalamic area intracranial hemorrhage with intraventricular hemorrhage, this is most likely due to hypertension given location and history of hypertension, with some contribution by his use of Apixaban for
atrial fibrillation
Recommendations:
1. Pursue goal normotension avoid extremes of high blood pressure would recommend keeping systolic blood pressure less than 160
2. Neurologic checks
3. Acceptable risk for anticoagulation given risk of pulmonary embolism and that intracranial hemorrhage has resolved on repeated brain imaging, currently on heparin infusion
4. Follow up CT chest for pulmonary embolism evaluation
5. Not recommending any further neurologic imaging unless there are changes in neurologic status/exam
Will follow as needed call with questions and concerns
Discussed patient care with: Patient, ED physician
[2023-06-06 08:37] LABS: % Basophils 0.5 % (0-2); % Eosinophils 12.8 % (0-6); % Immature Granulocytes 0.2 % (0-0.5); % Lymphocytes 31.6 % (20.5-51.1); % Monocytes 15.8 % (1.7-9.3); % Neutrophils 39.1 % (42.2-75.2); Absolute Eosinophils 0.6 10^3/uL (0-0.7); Absolute Lymphocytes 1.4 10^3/uL (1.2-3.4); Absolute Monocytes 0.7 10^3/uL (0.1-0.6); Absolute Neutrophils 1.7 10^3/uL (1.4-6.5); Hematocrit 34.8 % (39.0-52.0); Mean Corp Hgb Conc. 28.7 g/dL (33.0-37.0); Mean Corpuscular Hgb 25.4 pg (27.0-31.0); Mean Corpuscular Volume 88.5 fL (80.0-94.0); Mean Platelet Volume 12.2 fL (7.4-10.4); Nucleated Red Blood Cells % 0 % (-); Platelet Count 121 10^3/uL (130-400); Red Blood Cell Count 3.93 10^6/uL (4.70-6.10); Red Cell Dist. Width 19.9 % (11.5-14.5); White Blood Cell Count 4.3 10^3/uL (4.8-10.8)
[2023-06-06] MEDS: COREG 25 MG PO ×2 (08:45→20:05)
[2023-06-06] MEDS: ZOFRAN ODT (ORALLY DISINTEGRATING) 4 MG PO (08:45)
[2023-06-06] MEDS: SENOKOT 8.59999999999999964 MG PO ×2 (08:45→20:05)
[2023-06-06] MEDS: LEXAPRO 5 MG PO (08:45)
[2023-06-06] MEDS: PROTONIX 40 MG PO (08:45)
[2023-06-06] MEDS: COLACE 100 MG PO ×2 (08:45→20:05)
--- NOTE | 2023-06-06 09:13 | CON.ONC ---
Addendum entered and electronically signed by Jason Rodriguez MD 06/06/23 14:26:
Hematology Addendum:
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
-right UE DVT on eliquis - DOAC failure
-if patient is considered an anticoagulation candidate by neurology for ongoing RUE DVT as well as h/o afib - heparin to coumadin could be considered as an option for anticoagulation
Will continue to follow with you.
Original Note:
Impression
Impression
Recent hemorrhagic left thalamic /left basal ganglia CVA w/ right-sided residual weakness/expressive aphasia (04/2023)
Nonocclusive thrombus right subclavian/axillary/proximal brachial veins despite Eliquis
DOAC failure
RLE swelling
Hx paroxysmal atrial fibrillation w/ pacemaker
Plan
Plan
Monitor CBC w/ diff daily
4/5 Hgb 10, Hct 34.8, PLT 121
Transfuse as needed to maintain Hgb >7, PLT >20
Continue heparin gtt
Once cleared by Neurology - recommend heparin gtt with transition to Coumadin with a goal INR of 2-3
We will follow.
Patient History
History of Present Illness
Martin Durand is a 68-year-old male who presented to the ER 06/04 with complaints of swelling of the right arm and right leg associated with shortness of breath x3 days. He unfortunately suffered a recent intracerebral hemorrhage and began Apixaban 05/06.
This was continued at acute rehab facility. Ultrasound performed in the ER found nonocclusive thrombus in the right subclavian axillary and proximal brachial vein, no evidence of DVT in the right lower extremity on ultrasound. Patient was started
on heparin infusion without a heparin bolus due to the history of intracranial hemorrhage in Apr 2023. CT chest showed no PE. He complained of right arm pain and pleuritic chest pain. He has been admitted for further evaluation and management.
Past-Medical/Surgical History
Left thalamic/basal ganglia intracranial hemorrhage (04/2023)
Residual right hemiplegia and expressive aphasia
Atrial fibrillation w/ hx pacemaker
Hypertension
Prediabetes
Gastric bypass
Nonsmoker
GERD
Patient Medication
�Medication �Instructions �Recorded �Confirmed �Last Taken �Type
apixaban 5 mg tablet (Eliquis) 5 mg PO BID 30 days #60 tabs 06/03/23 06/05/23 06/05/23 11:12 Rx
carvedilol 25 mg tablet 25 mg PO BID HTN #60 tabs 06/03/23 06/05/23 06/05/23 11:12 Rx
docusate sodium 100 mg capsule 100 mg PO BID constipation 30 days 06/03/23 06/05/23 06/05/23 11:12 Rx
#60 caps
escitalopram oxalate 5 mg tablet 5 mg PO DAILY Depression 30 days 06/03/23 06/05/23 06/05/23 11:12 Rx
#30 tabs
hydralazine 25 mg tablet 25 mg PO BID HTN 30 days #60 tabs 06/03/23 06/05/23 06/05/23 14:08 Rx
melatonin 3 mg tablet 3 mg PO HS insomnia 30 days #30 06/03/23 06/05/23 06/04/23 22:27 Rx
tabs
pantoprazole 40 mg tablet,delayed 40 mg PO DAILY GERD 30 days #30 06/03/23 06/05/23 06/05/23 11:12 Rx
release tabs
sennosides 8.6 mg tablet (Senna 8.6 mg PO BID Constipation 30 days 06/03/23 06/05/23 06/05/23 11:12 Rx
Laxative) #60 tabs
acetaminophen 325 mg tablet 650 mg PO Q6HPRN PRN hoyt/mild 06/05/23 06/05/23 Unknown History
pain/temp
bisacodyl 10 mg rectal suppository 10 mg NC DAILY PRN if no bm on day 06/05/23 06/05/23 Unknown History
4, if mom ineffective
ondansetron 4 mg disintegrating 4 mg PO Q8H nausea 06/05/23 06/05/23 06/05/23 07:27 History
tablet
sodium phosphates 19 gram-7 118 ml NC DAILY PRN if no bm on 06/05/23 06/05/23 Unknown History
gram/118 mL enema (Fleet Enema) day 5, if supp ineffective
Active Medications
Generic Name Dose Route Start Last Admin
Trade Name Freq PRN Reason Stop Dose Admin
Acetaminophen 650 mg 06/06/23 01:43
Acetaminophen 325 Mg Tablet PO 07/04/23 01:42
Q6HPRN PRN
hoyt/mild pain/temp
Bisacodyl 10 mg 06/06/23 01:43
Bisacodyl 10 Mg Rectal Suppository RECTAL 07/04/23 01:42
DAILY PRN
if no bm on day 4, if mom ineffective
Carvedilol 25 mg 06/06/23 08:00 06/06/23 08:45
Carvedilol 25 Mg Tablet PO 07/04/23 07:59 25 mg
BID NESSA Administration
Docusate Sodium 100 mg 06/06/23 08:00 06/06/23 08:45
Docusate Sodium 100 Mg Capsule PO 07/04/23 07:59 100 mg
BID NESSA Administration
Escitalopram Oxalate 5 mg 06/06/23 08:00 06/06/23 08:45
Escitalopram 5 Mg Tablet PO 07/04/23 07:59 5 mg
DAILY NESSA Administration
Heparin Sodium 9,300 units 06/06/23 00:12
Heparin 80 Units/Kg Iv Rebolus IV 07/04/23 00:11
PRN PRN
PTT < OR = 64 seconds
Heparin Sodium 4,700 units 06/06/23 00:13
Heparin 40 Units/Kg Iv Rebolus IV 07/04/23 00:12
PRN PRN
PTT = 64.1 to 72.9 seconds
Hydralazine HCl 25 mg 06/06/23 08:00 06/06/23 06:25
Hydralazine 25 Mg Tablet PO 07/04/23 07:59 25 mg
BID NESSA Administration
Heparin Sodium 25,000 units in 250 mls @ 0 mls/hr 06/05/23 23:15 06/06/23 01:31
Heparin 21154 Units/250 Ml IV 250 mls
PER PROTOCOL NESSA Administration
Protocol
Per Protocol
Melatonin 3 mg 06/06/23 22:00
Melatonin 3 Mg Tablet PO 07/04/23 21:59
HS NESSA
Ondansetron HCl 4 mg 06/06/23 01:43 06/06/23 08:45
Ondansetron 4 Mg (Orally-Disintegrating) Tablet PO 07/04/23 01:42 4 mg
Q8H NESSA Administration
Pantoprazole Sodium 40 mg 06/06/23 08:00 06/06/23 08:45
Pantoprazole 40 Mg Delayed Release Tablet PO 07/04/23 07:59 40 mg
DAILY NESSA Administration
Sennosides 8.6 mg 06/06/23 08:00 06/06/23 08:45
Sennosides (Senokot) 8.6 Mg Tablet PO 07/04/23 07:59 8.6 mg
BID NESSA Administration
Sodium Biphosphate/Sodium Phosphate 118 ml 06/06/23 01:43
Fleet Phosphate Enema (Adult) 135 Ml Bottle RECTAL 07/04/23 01:42
DAILY PRN
if no bm on day 5, if supp ineffective
Sodium Chloride 0 flush 06/06/23 02:00
Sodium Chloride 0.9% (Flush) Syringe IV 07/04/23 01:59
PER PROTOCOL NESSA
Review of Systems
-
Unable to obtain full review of systems at this time due to: Acuity and Other (expressive aphasia)
History Source: Physician, Coordinated Provider and Records
Physical Exam
-
expressive aphasia. RUE swelling.
Labs
Lab Results
WBC 4.3 10^3/uL (4.8-10.8) L 06/06/23 08:12
RBC 3.93 10^6/uL (4.70-6.10) L 06/06/23 08:12
Hgb 10.0 g/dL (13.0-18.0) L 06/06/23 08:12
Hct 34.8 % (39.0-52.0) L 06/06/23 08:12
MCV 88.5 fL (80.0-94.0) 06/06/23 08:12
MCH 25.4 pg (27.0-31.0) L 06/06/23 08:12
MCHC 28.7 g/dL (33.0-37.0) L 06/06/23 08:12
RDW 19.9 % (11.5-14.5) H 06/06/23 08:12
Plt Count 121 10^3/uL (130-400) L 06/06/23 08:12
MPV 12.2 fL (7.4-10.4) H 06/06/23 08:12
Abs Immat Gran (auto) 0.0 10^3/uL (0-0.05) 06/06/23 08:12
Absolute Neuts (auto) 1.7 10^3/uL (1.4-6.5) 06/06/23 08:12
Absolute Lymphs (auto) 1.4 10^3/uL (1.2-3.4) 06/06/23 08:12
Absolute Monos (auto) 0.7 10^3/uL (0.1-0.6) H 06/06/23 08:12
Absolute Eos (auto) 0.6 10^3/uL (0-0.7) 06/06/23 08:12
Absolute Basos (auto) 0.0 10^3/uL (0-0.2) 06/06/23 08:12
Immature Gran % 0.2 % (0-0.5) 06/06/23 08:12
Neutrophils % 39.1 % (42.2-75.2) L 06/06/23 08:12
Lymphocytes % 31.6 % (20.5-51.1) 06/06/23 08:12
Monocytes % 15.8 % (1.7-9.3) H 06/06/23 08:12
Eosinophils % 12.8 % (0-6) H 06/06/23 08:12
Basophils % 0.5 % (0-2) 06/06/23 08:12
Creatinine 0.9 mg/dL (0.7-1.3) 06/05/23 19:58
Vital Signs
Vital Signs
Temp Pulse Resp BP Pulse Ox
98.2 F 62 20 175/101 100
06/06/23 07:22 06/06/23 08:00 06/06/23 07:22 06/06/23 07:22 06/06/23 07:22
06/05/23 CXR: Mild to moderate elevation left hemidiaphragm, stable, with mild linear atelectasis in the left lower lung. Cardiomegaly with no convincing evidence for pulmonary edema. Tortuosity and calcification of the thoracic aorta,
radiographically stable. Thoracic aortic aneurysm cannot be excluded. As warranted, consider further evaluation with CT scan.
06/05/23 PV US: Nonocclusive thrombus within the right subclavian, axillary, and proximal brachial veins.
06/05/23: RLE PV US: No evidence of deep venous thrombosis of the right lower extremity.
06/06/[address]: No evidence of central pulmonary embolism. Evaluation of some the more peripheral pulmonary arterial branches limited.Cardiomegaly with possible left ventricular hypertrophy.
[2023-06-06 09:23] LABS: Anisocytosis 1+; Normal RBC Morphology No; Ovalocytes 1+
[2023-06-06 09:24] LABS: Acanthocytes Occasional; Hypochromasia 2+
[2023-06-06 09:29] LABS: ALT (SGPT) 11 U/L (0-50); AST (SGOT) 21 U/L (17-59); Albumin 3.5 g/dl (3.5-5.0); Alkaline Phosphatase 63 U/L (38-126); Blood Urea Nitrogen 14 mg/dl (9-20); Calcium 9.5 mg/dl (8.4-10.2); Carbon Dioxide 30 mmol/L (22-30); Chloride 104 mmol/L (98-107); Estimated Creatinine Clearance 103 ml/min; Glucose 85 mg/dl (70-99); Potassium 4.1 mmol/L (3.5-5.1); Sodium 138 mmol/L (135-145); Total Bilirubin 0.5 mg/dl (0.2-1.3); Total Protein 6.3 g/dl (6.3-8.2); eGFR > 60.00
[2023-06-06] MEDS: HEPARIN 4700 UNITS IV (09:41)
[2023-06-06 09:55] LABS: Hepatitis C Antibody Negative (Negative)
--- NOTE | 2023-06-06 13:57 | W.PN.HOSP.TC ---
Today's Communication/Plan
-
will continue IV Heparin - requires intensive monitoring. Will bridge to Coumadin. Cleared by Neurology (Recent ICH)
PT/OT/ST
wean O2 as able
Assessment / Plan
Assessment / Plan
Assessment:
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
Eliquis/DOAC failure
- no DVT in LE, no PE on CT
- d/w hematology; DOAC failure
- will continue IV Heparin - requires intensive monitoring. Will bridge to Coumadin. Cleared by Neurology (Recent ICH)
Right lower extremity swelling likely venous insufficiency from immobility of right lower extremity from CVA
- Venous ultrasound does not show DVT
Shortness of breath secondary to atelectasis, rule out aspiration pneumonia
acute hypoxic respiratory insufficiency on 2L
- CT: No evidence of central pulmonary embolism. Evaluation of some the more peripheral pulmonary arterial branches limited. Cardiomegaly with possible left ventricular hypertrophy. Aneurysmal dilatation of the ascending thoracic aorta at 4.7 cm.
Elevated left hemidiaphragm with some left lower lobe subsegmental atelectasis.
- start IS
- prn Nebs
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
- repeat CT resolved hemorrhage
- Neuro consulted; cleared for AC
Paroxysmal atrial fibrillation with pacemaker
- will continue IV Heparin - requires intensive monitoring. Will bridge to Coumadin. Cleared by Neurology (Recent ICH)
Moderate aortic stenosis
Essential hypertension
- continue Coreg
- continue hydralazine
GERD
- continue Protonix
Prediabetes
History of gastric bypass
Anxiety/depression
- continue Lexapro
Chronic anemia
Code: Full
Anticipated Discharge: > 48 hours
Subjective/Interval History
-
Date of Service: June 06, 2023
denies any new complaints at present
Objective Data
-
Labs:
Laboratory Results
06/06/23 06/06/23
08:12 15:50
WBC 4.3 L
Hgb 10.0 L
Hct 34.8 L
Plt Count 121 L
APTT 65.0 H Pending
Sodium 138
Potassium 4.1
Chloride 104
Carbon Dioxide 30
BUN 14
Creatinine 0.8
Glucose 85
Calcium 9.5
Total Bilirubin 0.5
AST 21
ALT 11
Alkaline Phosphatase 63
Vital Signs:
Vital Signs
Temp Pulse Resp BP Pulse Ox
98.2 F 62 16 149/93 100
06/06/23 11:30 06/06/23 12:00 06/06/23 11:30 06/06/23 11:30 06/06/23 11:30
I&O
06/05/23 06/06/23 06/07/23
06:59 06:59 06:59
Output Total 150 / 150
Balance -150 / -150
Physical Exam
-
General: No Apparent Distress
HEENT: Normocephalic and Atraumatic
Respiratory: Negative Wheezes or Rales
Cardiac: Regular Rhythm and S1/S2
GI: Soft
Genito-urinary: No Costovertebral Tender
Musculoskeletal: Edema, Right Upper Extrem
Neuro: AO x 3
Psych: Calm
Data Reviewed
-
Total Time Spent with Patient (in minutes): 51
Labs: Labs Reviewed by me
--- NOTE | 2023-06-06 14:41 | CM ---
CM following for DC planning needs.
Met w/ patient at bedside to complete initial assessment.
Pt. admitted to from [facility], where he [facility]2023 [facility]. [facility] at [facility] @ since April 2023.
Prior to admission, patient was residing w/ dtr. He was indep. prior to that admission.
Information on functional status unable to be obtained at this time.
Multiple calls to [facility]. Spoke w/ Darby gaines [phone]. She informs that patient is not a bed hold. She was unable to share whether they can accept back. When asked whether there are any medical concerns with accepting back,
she declined to notify. Initiated a referral for readmission to review, await response.
Spoke w/ dtr.Denisse. She informed that she resides in [place]. She plans to come to the hospital to speak with patient about his desire to return there versus another facility.
Ultimately, will need insurance authorization for continued SNF stay.
Plan: SNF placement
--- NOTE | 2023-06-06 16:10 | PTOTSP ---
Speech Language Pathology
Pt seen for speech/language evaluations. Mild-mod dysarthria noted combined with accent. Pt was 90% intelligible in known context, 70% in unknown context. Language evaluated via the Quick Aphasia Batter (QAB), form 1. Overall score of 9.15,
indicating score WNL. Scored WNL on all subtests (word comprehension, word finding, grammatical construction, speech motor programming, repetition, reading) except for sentence comprehension with mild deficits noted (score of 8.33).
Pt also seen for clinical bedside swallow evaluation. Seen with lunch tray of regular solids/thin liquids. Slightly prolonged mastication noted, but this was functional given additional time. He reported infrequent pocketing on R, which he is
able to clear with a lingual sweep. No overt signs of aspiration.
Recommend:
(1) Continue regular solids/thin liquids
(2) Aspiration precautions: check for pocketing on R, slow rate, sit upright
(3) Meds as tolerated
(4) DIABETIC EDUCATOR to continue to follow for speech and cognitive-linguistic tx. Further dysphagia therapy not indicated.
[2023-06-06 16:51] LABS: APTT > 200 Sec (23.4-35.0)
--- NOTE | 2023-06-06 17:40 | PTCARENOTE ---
Pt AAOx3 w/no c/o pain or SOB this shift. Pt SB/SR w/occas A-pacing noted on telemetry monitoring. Heparin IV drip infusing per DVT/PE protocol as ordered through patent L FA/wrist IV site. Pt's most recent PTT resulted >200, per protocol IV
infusion placed on hold for 2 hours & hospitalist notified. No new orders received. Pt w/call kay within reach & no addtl needs at this time.
[2023-06-06] MEDS: COUMADIN 5 MG PO (18:15)
--- NOTE | 2023-06-06 21:00 | PTCARENOTE ---
pt pleasant and cooperative. denies pain or discomfort. mild sob noted with exertion. o2 sat=99-100% on 2lnc.condom cath on draining yellow urine. pt pulled off condom cath. pm care done and bed changed.pt aao. speech garbled but understandable.
right arm flaccid. elevated on pillow. pt turned and repositioned by nursing. heparin drip infusing at 1700 units.
[2023-06-06] MEDS: MELATONIN 3 MG PO (21:55)
[2023-06-07] VITALS (9 sets, daily range): BP systolic 131–169; BP diastolic 72–94; PULSE 62; O2SAT 100; BMI 40.2
[2023-06-07 01:27] LABS: APTT 107.3 Sec (23.4-35.0)
[2023-06-07] MEDS: ZOFRAN ODT (ORALLY DISINTEGRATING) PO ×2 (01:52→13:41)
[2023-06-07 05:51] LABS: Hematocrit 34.5 % (39.0-52.0); Mean Corpuscular Hgb 25.6 pg (27.0-31.0); Mean Corpuscular Volume 88.2 fL (80.0-94.0); Mean Platelet Volume 10.7 fL (7.4-10.4); Platelet Count 127 10^3/uL (130-400); Red Blood Cell Count 3.91 10^6/uL (4.70-6.10); Red Cell Dist. Width 20.2 % (11.5-14.5); White Blood Cell Count 4.5 10^3/uL (4.8-10.8)
[2023-06-07 06:04] LABS: Blood Urea Nitrogen 14 mg/dl (9-20); Calcium 9.3 mg/dl (8.4-10.2); Carbon Dioxide 33 mmol/L (22-30); Chloride 103 mmol/L (98-107); Estimated Creatinine Clearance 92 ml/min; Glucose 92 mg/dl (70-99); Potassium 4.2 mmol/L (3.5-5.1); Sodium 136 mmol/L (135-145); eGFR > 60.00
--- NOTE | 2023-06-07 06:15 | PTCARENOTE ---
complete bed bath given and sheets changed.pt states he feels good this morning. o2 ogd=256%. o2 removed. pt with increased anxiety related to o2 being off. requesting to wear it. o2 back on for pt comfort.
[2023-06-07] MEDS: PROTONIX 40 MG PO (08:45)
[2023-06-07] MEDS: APRESOLINE 25 MG PO ×2 (08:46→19:48)
[2023-06-07] MEDS: COREG 25 MG PO ×2 (08:46→19:48)
[2023-06-07] MEDS: LEXAPRO 5 MG PO (08:46)
--- NOTE | 2023-06-07 10:46 | W.PN.HOSP.TC ---
Today's Communication/Plan
-
continue IV heparin/coumadin bridge
nasal spray prn
Assessment / Plan
Assessment / Plan
Assessment:
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
Eliquis/DOAC failure
- no DVT in LE, no PE on CT
- d/w hematology; DOAC failure
- will continue IV Heparin - requires intensive monitoring. Will bridge to Coumadin. Cleared by Neurology (Recent ICH)
Right lower extremity swelling likely venous insufficiency from immobility of right lower extremity from CVA
- Venous ultrasound does not show DVT
Shortness of breath secondary to atelectasis, rule out aspiration pneumonia
acute hypoxic respiratory insufficiency on 2L
Suspected post-nasal drip
- CT: No evidence of central pulmonary embolism. Evaluation of some the more peripheral pulmonary arterial branches limited. Cardiomegaly with possible left ventricular hypertrophy. Aneurysmal dilatation of the ascending thoracic aorta at 4.7 cm.
Elevated left hemidiaphragm with some left lower lobe subsegmental atelectasis.
- no clear evidence of CHF, PNA
- continue IS for atelectasis
- prn Nebs
- add nasal sprays prn
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
- repeat CT resolved hemorrhage
- Neuro consulted; cleared for AC
Paroxysmal atrial fibrillation with pacemaker
- will continue IV Heparin - requires intensive monitoring. Will bridge to Coumadin. Cleared by Neurology (Recent ICH)
Moderate aortic stenosis
Essential hypertension
- continue Coreg
- continue hydralazine
GERD
- continue Protonix
Prediabetes
History of gastric bypass
Anxiety/depression
- continue Lexapro
Chronic anemia
Code: Full
Anticipated Discharge: > 48 hours
Subjective/Interval History
-
Date of Service: June 07, 2023
feels a bit SOB, reports stuffy nose, states that nasal sprays help
Objective Data
-
Labs:
Laboratory Results
06/07/23 06/07/23
01:05 05:43
WBC 4.5 L
Hgb 10.0 L
Hct 34.5 L
Plt Count 127 L
PT 16.0 H
INR 1.30
APTT 107.3 H 143.0 H
Sodium 136
Potassium 4.2
Chloride 103
Carbon Dioxide 33 H
BUN 14
Creatinine 0.9
Glucose 92
Calcium 9.3
Vital Signs:
Vital Signs
Temp Pulse Resp BP Pulse Ox
98.2 F 67 18 169/94 100
06/07/23 07:00 06/07/23 08:46 06/07/23 07:00 06/07/23 08:46 06/07/23 10:29
I&O
06/06/23 06/07/23 06/08/23
06:59 06:59 06:59
Intake Total 720 / 720
Output Total 150 / 150 400 / 400
Balance -150 / -150 320 / 320
Physical Exam
-
General: No Apparent Distress
HEENT: Normocephalic and Atraumatic
Respiratory: Negative Wheezes or Rales
Cardiac: Regular Rhythm and S1/S2
GI: Soft and Nontender
Genito-urinary: No Costovertebral Tender
Neuro: AO x 3
Hematologic / Lymphatic: No Lymphadenopathy
Psych: Calm
Data Reviewed
-
Total Time Spent with Patient (in minutes): 51
Labs: Labs Reviewed by me
[2023-06-07] MEDS: DUONEB 3 ML INH (10:47)
[2023-06-07] MEDS: HEPARIN 25000 UNITS/250 ML IV (13:14)
[2023-06-07] MEDS: COLACE PO (13:25)
[2023-06-07] MEDS: SENOKOT PO (13:25)
[2023-06-07] MEDS: OCEAN, SALINE MIST 50 SPRAYS NASAL (15:50)
[2023-06-07 16:00] LABS: APTT 79.8 Sec (23.4-35.0)
[2023-06-07] MEDS: COUMADIN 5 MG PO (17:12)
[2023-06-07] MEDS: SENOKOT 8.59999999999999964 MG PO (19:48)
[2023-06-07] MEDS: COLACE 100 MG PO (19:48)
[2023-06-07] MEDS: MELATONIN 3 MG PO (21:12)
[2023-06-08] VITALS (12 sets, daily range): BP systolic 150–200; BP diastolic 84–111; BMI 39.8
[2023-06-08 04:02] LABS: Hematocrit 34.2 % (39.0-52.0); Hemoglobin 10.1 g/dL (13.0-18.0); Mean Corp Hgb Conc. 29.5 g/dL (33.0-37.0); Mean Corpuscular Volume 87.9 fL (80.0-94.0); Mean Platelet Volume 10.7 fL (7.4-10.4); Platelet Count 128 10^3/uL (130-400); Red Blood Cell Count 3.89 10^6/uL (4.70-6.10); White Blood Cell Count 4.7 10^3/uL (4.8-10.8)
[2023-06-08 04:32] LABS: INR 1.23; PT 15.4 Sec (11.4-14.6)
[2023-06-08 04:34] LABS: APTT 83.1 Sec (23.4-35.0)
[2023-06-08 04:41] LABS: Blood Urea Nitrogen 14 mg/dl (9-20); Calcium 9.5 mg/dl (8.4-10.2); Carbon Dioxide 33 mmol/L (22-30); Chloride 101 mmol/L (98-107); Estimated Creatinine Clearance 90 ml/min; Glucose 97 mg/dl (70-99); Potassium 4.2 mmol/L (3.5-5.1); Sodium 137 mmol/L (135-145); eGFR > 60.00
--- NOTE | 2023-06-08 05:12 | PTCARENOTE ---
Pt. remains AAOx3, speech garbled, right arm and leg flaccid with decreased sensation. NSR on the monitor, no complaints SOB or pain/discomfort. Right arm +3 edema with palpable radial pulse, elevated on pillows. Condom cath on and draining clear
reta urine. Pt. repositioned frequently for comfort, able to use left arm & leg well to assist with positioning. Heparin gtt infusing at 1300 units/hr, last 3 PTT's drawn therapeutic. Pt. sleeping.
[2023-06-08] MEDS: DUONEB 3 ML INH (08:30)
[2023-06-08] MEDS: HEPARIN 25000 UNITS/250 ML IV (08:43)
[2023-06-08] MEDS: COREG 25 MG PO ×2 (08:46→19:53)
[2023-06-08] MEDS: PROTONIX 40 MG PO (08:46)
[2023-06-08] MEDS: APRESOLINE 25 MG PO ×3 (08:46→19:54)
[2023-06-08] MEDS: LEXAPRO 5 MG PO (08:46)
[2023-06-08] MEDS: COLACE PO ×2 (08:47→19:54)
[2023-06-08] MEDS: SENOKOT 8.59999999999999964 MG PO (08:47)
--- NOTE | 2023-06-08 15:23 | W.PN.HOSP.TC ---
Today's Communication/Plan
-
continue IV Heparin/Coumadin bridge; f/u INRs
increase hydralazine
SNF dc planning
Assessment / Plan
Assessment / Plan
Assessment:
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
Eliquis/DOAC failure
- no DVT in LE, no PE on CT
- d/w hematology; DOAC failure
- will continue IV Heparin - requires intensive monitoring. Will bridge to Coumadin. Cleared by Neurology (Recent ICH)
Right lower extremity swelling likely venous insufficiency from immobility of right lower extremity from CVA
- Venous ultrasound does not show DVT
Shortness of breath secondary to atelectasis, rule out aspiration pneumonia
acute hypoxic respiratory insufficiency on 2L
Suspected post-nasal drip
- CT: No evidence of central pulmonary embolism. Evaluation of some the more peripheral pulmonary arterial branches limited. Cardiomegaly with possible left ventricular hypertrophy. Aneurysmal dilatation of the ascending thoracic aorta at 4.7 cm.
Elevated left hemidiaphragm with some left lower lobe subsegmental atelectasis.
- no clear evidence of CHF, PNA
- continue IS for atelectasis
- prn Nebs
- add nasal sprays prn
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
- repeat CT resolved hemorrhage
- Neuro consulted; cleared for AC
Paroxysmal atrial fibrillation with pacemaker
- will continue IV Heparin - requires intensive monitoring. Will bridge to Coumadin. Cleared by Neurology (Recent ICH)
Moderate aortic stenosis
Essential hypertension
- continue Coreg
- continue hydralazine; increase to TID dosoing
GERD
- continue Protonix
Prediabetes
History of gastric bypass
Anxiety/depression
- continue Lexapro
Chronic anemia
Code: Full
Anticipated Discharge: > 48 hours
Subjective/Interval History
-
Date of Service: June 08, 2023
SOB improving, now on RA. Nasal congestion improving
Objective Data
-
Labs:
Laboratory Results
06/08/23
03:52
WBC 4.7 L
Hgb 10.1 L
Hct 34.2 L
Plt Count 128 L
PT 15.4 H
INR 1.23
APTT 83.1 H
Sodium 137
Potassium 4.2
Chloride 101
Carbon Dioxide 33 H
BUN 14
Creatinine 0.9
Glucose 97
Calcium 9.5
Vital Signs:
Vital Signs
Temp Pulse Resp BP Pulse Ox
98.3 F 74 18 170/92 99
06/08/23 15:09 06/08/23 14:00 06/08/23 15:09 06/08/23 15:09 06/08/23 15:09
I&O
06/07/23 06/08/23 06/09/23
06:59 06:59 06:59
Intake Total 720 / 720 623 / 623
Output Total 400 / 400 800 / 800
Balance 320 / 320 -177 / -177
Physical Exam
-
General: No Apparent Distress
HEENT: Normocephalic and Atraumatic
Respiratory: Negative Wheezes
Cardiac: Regular Rhythm and S1/S2
GI: Soft and Nontender
Neuro: AO x 3
Hematologic / Lymphatic: No Lymphadenopathy
Psych: Calm
Data Reviewed
-
Total Time Spent with Patient (in minutes): 42
Labs: Labs Reviewed by me
[2023-06-08] MEDS: COUMADIN 2.5 MG PO (17:40)
[2023-06-08] MEDS: COUMADIN 5 MG PO (17:40)
--- NOTE | 2023-06-08 18:02 | PTCARENOTE ---
received patient this am in bed, patient is bedridden due to stroke on right side, flaccid arm and leg. patient has garbled speech but understandable. monitor shows NSR, BP on the higher side, Dr. Contreras increased his hydralazine. IV heparin remains
at 1300 units an hour via left arm. Coumadin 7.5 mg given as ordered. patient has secretions in upper airways, breathing treatment completed this am with relief and Mucinex will be started tonight, o2 2 LNC with o2 sat of 93%. patient has condom
cath on , draining dark yellow urine. patient had large, soft BM this am. patient orders meals and has fair appetite. pills given in applesauce.
[2023-06-08] MEDS: MUCINEX 1200 MG PO (19:52)
[2023-06-08] MEDS: SENOKOT PO (19:53)
--- NOTE | 2023-06-08 22:26 | PTCARENOTE ---
Pleasant and cooperative. Denies any complaints of pain or discomfort. SR in the 60's to 70's.
[2023-06-08] MEDS: MELATONIN 3 MG PO (22:48)
[2023-06-09] VITALS (7 sets, daily range): BP systolic 138–173; BP diastolic 86–99
[2023-06-09] MEDS: HEPARIN 25000 UNITS/250 ML IV (03:23)
[2023-06-09 04:44] LABS: Hematocrit 32.7 % (39.0-52.0); Hemoglobin 9.5 g/dL (13.0-18.0); Mean Corp Hgb Conc. 29.1 g/dL (33.0-37.0); Mean Corpuscular Hgb 25.4 pg (27.0-31.0); Mean Corpuscular Volume 87.4 fL (80.0-94.0); Platelet Count 132 10^3/uL (130-400); Red Blood Cell Count 3.74 10^6/uL (4.70-6.10); Red Cell Dist. Width 19.9 % (11.5-14.5); White Blood Cell Count 4.5 10^3/uL (4.8-10.8)
[2023-06-09 04:51] LABS: INR 1.34; PT 16.4 Sec (11.4-14.6)
[2023-06-09 04:53] LABS: APTT 103.4 Sec (23.4-35.0)
[2023-06-09 05:30] LABS: Blood Urea Nitrogen 12 mg/dl (9-20); Calcium 9.6 mg/dl (8.4-10.2); Carbon Dioxide 35 mmol/L (22-30); Chloride 97 mmol/L (98-107); Estimated Creatinine Clearance 90 ml/min; Glucose 87 mg/dl (70-99); Potassium 4.2 mmol/L (3.5-5.1); Sodium 135 mmol/L (135-145); eGFR > 60.00
--- NOTE | 2023-06-09 09:18 | PTCARENOTE ---
Rec'd pt AAOx3 w/no c/o pain or SOB. Pt's VS stable, w/BP elevated at 173/99. AM meds administered as ordered, including BP meds. Pt SR on telemetry monitoring. Pt's IV Heparin drip infusing through patent IV line as ordered. Pt repositioned for
comfort. Pt w/call kay within reach on L side. Pt's daughter at bedside this AM. Plan of care ongoing.
[2023-06-09] MEDS: MUCINEX 1200 MG PO ×2 (09:29→20:40)
[2023-06-09] MEDS: PROTONIX 40 MG PO (09:29)
[2023-06-09] MEDS: SENOKOT 8.59999999999999964 MG PO ×2 (09:29→20:40)
[2023-06-09] MEDS: LEXAPRO 5 MG PO (09:30)
[2023-06-09] MEDS: COLACE 100 MG PO ×2 (09:30→20:40)
[2023-06-09] MEDS: APRESOLINE 25 MG PO ×3 (09:30→20:40)
[2023-06-09] MEDS: COREG 25 MG PO ×2 (09:30→20:40)
--- NOTE | 2023-06-09 13:47 | CM ---
spoke with pt and daughter at length in room. daughter is trying to navigate the best dc plan for her dad. he had a CVA in Apr, went to [place] for 4 wks and then to a SNF ([facility]) for one day, was readmit with R-upper ext DVT. he does not want
to go back there, and they have no beds now. 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 she understands and wants him to get stronger before going home and knows he may end up in LTC if
she cannot care for him. we discussed facilities that could take him for short term and then go to LTC. his financial resources are tight, so we discussed she would like to take him to her house IF she is able to get help lined up, she is applying
for a waiver for help in the home but does not know how long or how much he would even get. both her and the pt are agreeable to sending referrals to [facility], and also 2 facilities near her home in [place], [place]- [facility] [place]- does not take
non-residents in their rehab/ [facility] beds and [facility].
i relayed infor to osbaldo, she spoke to her dad and they are choosing [facility]. [facility] confirms bed for tomorrow. daughter is willing to commute to see him.
cm to start auth process.
--- NOTE | 2023-06-09 14:15 | W.PN.HOSP.TC ---
Today's Communication/Plan
-
await SNF placement
Assessment / Plan
Assessment / Plan
Assessment:
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
Eliquis/DOAC failure
- no DVT in LE, no PE on CT
- d/w hematology; DOAC failure
- will continue IV Heparin - requires intensive monitoring. Will bridge to Coumadin. Cleared by Neurology (Recent ICH)
Right lower extremity swelling likely venous insufficiency from immobility of right lower extremity from CVA
- Venous ultrasound does not show DVT
Shortness of breath secondary to atelectasis, rule out aspiration pneumonia
acute hypoxic respiratory insufficiency on 1L
Suspected post-nasal drip
- CT: No evidence of central pulmonary embolism. Evaluation of some the more peripheral pulmonary arterial branches limited. Cardiomegaly with possible left ventricular hypertrophy. Aneurysmal dilatation of the ascending thoracic aorta at 4.7 cm.
Elevated left hemidiaphragm with some left lower lobe subsegmental atelectasis.
- no clear evidence of CHF, PNA
- continue IS for atelectasis
- prn Nebs
- add nasal sprays prn
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
- repeat CT resolved hemorrhage
- Neuro consulted; cleared for AC
Paroxysmal atrial fibrillation with pacemaker
- will continue IV Heparin - requires intensive monitoring. Will bridge to Coumadin. Cleared by Neurology (Recent ICH)
Moderate aortic stenosis
Essential hypertension
- continue Coreg
- continue hydralazine; increase to TID dosoing
GERD
- continue Protonix
Prediabetes
History of gastric bypass
Anxiety/depression
- continue Lexapro
Chronic anemia
Code: Full
Dispo: to SNF when facility arranaged/bed available. Can do Lovenox+Coumadin bridge at SNF if needed
Anticipated Discharge: 24 - 48 hours
Subjective/Interval History
-
Date of Service: June 09, 2023
denies any new complaints
Objective Data
-
Labs:
Laboratory Results
06/09/23
04:06
WBC 4.5 L
Hgb 9.5 L
Hct 32.7 L
Plt Count 132
PT 16.4 H
INR 1.34
APTT 103.4 H
Sodium 135
Potassium 4.2
Chloride 97 L
Carbon Dioxide 35 H
BUN 12
Creatinine 0.9
Glucose 87
Calcium 9.6
Vital Signs:
Vital Signs
Temp Pulse Resp BP Pulse Ox
98.6 F 62 20 160/86 100
06/09/23 11:21 06/09/23 11:23 06/09/23 11:21 06/09/23 11:23 06/09/23 11:21
I&O
06/08/23 06/09/23 06/10/23
06:59 06:59 06:59
Intake Total 623 / 623 636 / 636 480 / 480
Output Total 800 / 800 1700 / 1700
Balance -177 / -177 -1064 / -1064 480 / 480
Physical Exam
-
General: No Apparent Distress
HEENT: Normocephalic and Atraumatic
Respiratory: Negative Wheezes or Rales
Cardiac: Regular Rhythm and S1/S2
GI: Soft
Neuro: AO x 3
Data Reviewed
-
Total Time Spent with Patient (in minutes): 41
Labs: Labs Reviewed by me
--- NOTE | 2023-06-09 17:16 | CM ---
[facility] auth in progress. awaiting determ.
--- NOTE | 2023-06-09 17:22 | PTCARENOTE ---
Report called to Deidre at ext [phone]. Pt's Heparin drip stopped at at 1700. 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 Plan of care ongoing.
--- NOTE | 2023-06-09 17:30 | PTCARENOTE ---
06/08- Patient transferred and oriented to Unit without issue. Patient is AAOX3; R-sided paralysis; RUE and RLE +3 pitting edema; Skin Warm/[place]/Dry/Intact; Condom Cath #30 CDI draining clear yellow urine; On 2L O2. Lungs clear but diminished BL.
Patient denies any needs at this time.
[2023-06-09] MEDS: LOVENOX 110 MG SC (18:06)
[2023-06-09] MEDS: COUMADIN 10 MG PO (18:09)
[2023-06-09] MEDS: MELATONIN 3 MG PO (20:40)
[2023-06-10] VITALS (8 sets, daily range): BP systolic 118–157; BP diastolic 66–99; PULSE 58–62; O2SAT 98
[2023-06-10] MEDS: LOVENOX 110 MG SC (06:01)
--- NOTE | 2023-06-10 07:32 | W.PN.HOSP.TC ---
Today's Communication/Plan
-
Daily INR
hold Lovenox, reduce dose Warfarin from 10 mg to 5mg qpm
Possible discharge SNF rehab 24-48H depending on stability of INR
cont wean O2 supplementation as tolerated
Assessment / Plan
Assessment / Plan
Physical Exam
General: No Apparent Distress
HEENT: Normocephalic and Atraumatic Right sided facial droop noted
Respiratory: Negative Wheezes or Rales
Cardiac: Regular Rhythm and S1/S2
GI: Soft
Neuro: AO x 3 Right Sided Hemiparesis
Assessment:
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
Eliquis/DOAC failure
- no DVT in LE, no PE on CT
- d/w hematology; DOAC failure
- IV Heparin later converted to Lovenox bridging to Coumadin. Cleared by Neurology (Recent ICH)
-INR therapeutic 06/09 2-3, holding lovenox for now, Coumadin dose reduced from 10 mg QPM to 5 mg
Right lower extremity swelling likely venous insufficiency from immobility of right lower extremity from CVA
- Venous ultrasound does not show DVT
Shortness of breath secondary to atelectasis, rule out aspiration pneumonia
acute hypoxic respiratory insufficiency/failure
Suspected post-nasal drip
- CT: No evidence of central pulmonary embolism. Evaluation of some the more peripheral pulmonary arterial branches limited. Cardiomegaly with possible left ventricular hypertrophy. Aneurysmal dilatation of the ascending thoracic aorta at 4.7 cm.
Elevated left hemidiaphragm with some left lower lobe subsegmental atelectasis.
- no clear evidence of CHF, PNA
- continue IS for atelectasis
- prn Nebs
- nasal sprays prn
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
- repeat CT resolved hemorrhage
- Neuro consulted; cleared for AC
Paroxysmal atrial fibrillation with pacemaker
-Lovenox Coumadin bridge as above
-currently holding Lovenox due to therapeutic INR, Coumadin dose reduced to 5 mg QPM.
Moderate aortic stenosis
Essential hypertension
- continue Coreg
- continue hydralazine
GERD
- continue Protonix
Prediabetes
History of gastric bypass
Anxiety/depression
- continue Lexapro
Chronic anemia
Code: Full
Dispo: SNF
I spent a total of 58 minutes with the patient or on the floor. More than 50% of this time involved counseling and coordination of care.
Anticipated Discharge: 24 - 48 hours
Subjective/Interval History
-
Date of Service: June 10, 2023
Seen and examined at bedside in no acute distress sitting up comfortably in bed. Remains dependent on oxygen. Reports overall feeling well. Denies new acute issues.
Objective Data
-
Labs:
Laboratory Results
06/10/23
06:47
WBC Pending
Hgb Pending
Hct Pending
Plt Count Pending
PT Pending
INR Pending
Sodium Pending
Potassium Pending
Chloride Pending
Carbon Dioxide Pending
BUN Pending
Creatinine Pending
Glucose Pending
Calcium Pending
Vital Signs:
Vital Signs
Temp Pulse Resp BP Pulse Ox
97.9 F 66 18 144/92 99
06/10/23 03:57 06/10/23 03:57 06/10/23 03:57 06/10/23 03:57 06/10/23 03:57
I&O
06/09/23 06/10/23 06/11/23
06:59 06:59 06:59
Intake Total 636 / 636 1440 / 1440
Output Total 1700 / 1700 2500 / 2500
Balance -1064 / -1064 -1060 / -1060
[2023-06-10 07:47] LABS: Hematocrit 34.6 % (39.0-52.0); Mean Corp Hgb Conc. 28.9 g/dL (33.0-37.0); Mean Corpuscular Hgb 25.5 pg (27.0-31.0); Mean Corpuscular Volume 88.3 fL (80.0-94.0); Mean Platelet Volume 11.5 fL (7.4-10.4); Platelet Count 123 10^3/uL (130-400); Red Blood Cell Count 3.92 10^6/uL (4.70-6.10); Red Cell Dist. Width 19.7 % (11.5-14.5); White Blood Cell Count 3.7 10^3/uL (4.8-10.8)
[2023-06-10 07:53] LABS: PT 22.5 Sec (11.4-14.6)
[2023-06-10] MEDS: MUCINEX 1200 MG PO ×2 (08:32→19:53)
[2023-06-10] MEDS: APRESOLINE 25 MG PO ×3 (08:32→19:54)
[2023-06-10] MEDS: SENOKOT 8.59999999999999964 MG PO (08:32)
[2023-06-10] MEDS: LEXAPRO 5 MG PO (08:32)
[2023-06-10] MEDS: COLACE 100 MG PO (08:32)
[2023-06-10] MEDS: PROTONIX 40 MG PO (08:32)
[2023-06-10] MEDS: COREG 25 MG PO ×2 (08:32→19:53)
[2023-06-10 08:54] LABS: Blood Urea Nitrogen 11 mg/dl (9-20); Calcium 9.5 mg/dl (8.4-10.2); Carbon Dioxide 36 mmol/L (22-30); Chloride 96 mmol/L (98-107); Estimated Creatinine Clearance 101 ml/min; Glucose 84 mg/dl (70-99); Potassium 4.3 mmol/L (3.5-5.1); Sodium 134 mmol/L (135-145); eGFR > 60.00
--- NOTE | 2023-06-10 09:04 | CM ---
daniel obtained and approved # [id number], 13 days skilled level 2.
called [facility] with auth, bed is avail today.
CM on the 4th floor, Donna Burch notified and will f/u to [facility] with ambul p/u time and calling daughter with information. ([facility]- [phone])
--- NOTE | 2023-06-10 09:11 | PN.CDI ---
CDI
- -
CDI:
Physician Documentation Request
Admit Date: 06/06/23 14:03
Dear Doctor Diane,
Please review the following and provide your response in the progress notes.
Clinical Indicators:
Height: 5 ft 6 in
Weight:257 lb 7.9 oz
BMI: 41.6
If possible, please provide an associated diagnosis related to the abnormal BMI, such as:
BMI > or = to 40
Obesity:
Due to excess calories
Drug induced
Due to other cause
Severe or morbid obesity:
With alveolar hypoventilation (Obesity hypoventilation syndrome)
Without alveolar hypoventilation
- Other
Use of terms such as suspected, likely, concern for, or probable (associated with a specific diagnosis that is being evaluated, monitored, or treated as if it exists) are acceptable and can be coded in the inpatient setting, when documented at the
time of discharge.
Thank you,
Oneyda Fairchild RN
CDI Specialist
[place] [facility]
Please use your independent medical judgment in providing your response.
--- NOTE | 2023-06-10 09:14 | PN.CDI ---
CDI
- -
CDI:
Physician Documentation Request
Admit Date: 06/06/23 14:03
Dear Doctor Diane,
Please review the following and provide your response in the progress notes.
Clinical Indicators:
Pt admitted with RUE DVT on Heparin gtt/ Pt with HX of CVA Hemiplegia /Chronic Anemia
Blood Counts are as below
06/06/23 06/07/23 06/08/23
08:12 05:43 03:52
WBC 4.3 L 4.5 L 4.7 L
Hgb 10.0 L 10.0 L 10.1 L
Hct 34.8 L 34.5 L 34.2 L
Plt Count 121 L 127 L 128 L
06/10/23
06:47
WBC 3.7 L
Hgb 10.0 L
Hct 34.6 L
Plt Count 123 L
Please Provide a diagnosis for the above lab findings:
Pancytopenia
Chronic Anemia only
Other
Use of terms such as suspected, likely, concern for, or probable (associated with a specific diagnosis that is being evaluated, monitored, or treated as if it exists) are acceptable and can be coded in the inpatient setting, when documented at the
time of discharge.
Thank you,
Oneyda Fairchild RN
CDI Specialist
[place] [facility]
Please use your independent medical judgment in providing your response.
--- NOTE | 2023-06-10 11:33 | CM ---
Per Hospitalist, patient not clear for discharge, daughter Denisse updated. Message sent to Jessica at [facility] that patient is not clear. Per previous CM note, auth obtained and approved # [id number], 13 days skilled level 2. CM will continue to
follow for discharge planning needs.
Plan; [facility] when stable, auth approved.
[2023-06-10] MEDS: COUMADIN 5 MG PO (17:31)
[2023-06-10] MEDS: SENOKOT PO (19:54)
[2023-06-10] MEDS: COLACE PO (19:54)
[2023-06-10] MEDS: MELATONIN 3 MG PO (19:54)
[2023-06-11] MEDS: MELATONIN 3 MG PO ×2 (01:42→20:30)
[2023-06-11 03:42] VITALS: BP 162/88
--- NOTE | 2023-06-11 07:28 | W.PN.HOSP.TC ---
Today's Communication/Plan
-
Stable for discharge SNF pending room availability
cont Coumadin
Assessment / Plan
Assessment / Plan
Physical Exam
General: No Apparent Distress
HEENT: Normocephalic and Atraumatic Right sided facial droop noted
Respiratory: Negative Wheezes or Rales
Cardiac: Regular Rhythm and S1/S2
GI: Soft
Neuro: AO x 3 Right Sided Hemiparesis
Assessment:
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
Eliquis/DOAC failure
- no DVT in LE, no PE on CT
- d/w hematology; DOAC failure
- IV Heparin later converted to Lovenox bridging to Coumadin. Cleared by Neurology (Recent ICH)
-INR therapeutic 06/09 2-3, holding lovenox for now, Coumadin dose reduced from 10 mg QPM to 5 mg, INR remains therapeutic
Right lower extremity swelling likely venous insufficiency from immobility of right lower extremity from CVA
- Venous ultrasound does not show DVT
Shortness of breath secondary to atelectasis, rule out aspiration pneumonia
acute hypoxic respiratory insufficiency/failure
Suspected post-nasal drip
- CT: No evidence of central pulmonary embolism. Evaluation of some the more peripheral pulmonary arterial branches limited. Cardiomegaly with possible left ventricular hypertrophy. Aneurysmal dilatation of the ascending thoracic aorta at 4.7 cm.
Elevated left hemidiaphragm with some left lower lobe subsegmental atelectasis.
- no clear evidence of CHF, PNA
- continue IS for atelectasis
- prn Nebs
- nasal sprays prn
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
- repeat CT resolved hemorrhage
- Neuro consulted; cleared for AC
Paroxysmal atrial fibrillation with pacemaker
-Lovenox Coumadin bridge as above
-currently holding Lovenox due to therapeutic INR, Coumadin dose reduced to 5 mg QPM.
-INR remains therapeutic, cont current Coumadin dose
Moderate aortic stenosis
Essential hypertension
- continue Coreg
- continue hydralazine
GERD
- continue Protonix
Prediabetes
History of gastric bypass
Anxiety/depression
- continue Lexapro
Chronic anemia
Code: Full
Dispo: SNF
Medically stable for discharge SNF pending room availability
discussed with patient at bedside and patient's daughter Denisse over phone
I spent a total of 55 minutes with the patient or on the floor. More than 50% of this time involved counseling and coordination of care.
Anticipated Discharge: Within 24 hours
Subjective/Interval History
-
Date of Service: June 11, 2023
Patient reports feeling well. No new acute issues. Oxygen requirement improving.
Objective Data
-
Labs:
Laboratory Results
06/11/23
07:20
WBC Pending
Hgb Pending
Hct Pending
Plt Count Pending
PT Pending
INR Pending
Sodium Pending
Potassium Pending
Chloride Pending
Carbon Dioxide Pending
BUN Pending
Creatinine Pending
Glucose Pending
Calcium Pending
Vital Signs:
Vital Signs
Temp Pulse Resp BP Pulse Ox
98.2 F 72 20 162/88 97
06/11/23 03:42 06/11/23 03:42 06/11/23 03:42 06/11/23 03:42 06/11/23 03:42
I&O
06/10/23 06/11/23 06/12/23
06:59 06:59 06:59
Intake Total 1440 / 1440 1320 / 1320
Output Total 2500 / 2500 1150 / 1150
Balance -1060 / -1060 170 / 170
[2023-06-11 07:30] VITALS: BP 153/96
[2023-06-11 07:57] LABS: Hematocrit 35.5 % (39.0-52.0); Hemoglobin 10.2 g/dL (13.0-18.0); Mean Corp Hgb Conc. 28.7 g/dL (33.0-37.0); Mean Corpuscular Hgb 25.2 pg (27.0-31.0); Mean Corpuscular Volume 87.9 fL (80.0-94.0); Mean Platelet Volume 10.5 fL (7.4-10.4); Platelet Count 118 10^3/uL (130-400); Red Blood Cell Count 4.04 10^6/uL (4.70-6.10); Red Cell Dist. Width 19.7 % (11.5-14.5); White Blood Cell Count 4.2 10^3/uL (4.8-10.8)
[2023-06-11 08:15] LABS: INR 2.02
[2023-06-11 08:31] LABS: Blood Urea Nitrogen 11 mg/dl (9-20); Calcium 9.7 mg/dl (8.4-10.2); Carbon Dioxide 35 mmol/L (22-30); Chloride 94 mmol/L (98-107); Estimated Creatinine Clearance 90 ml/min; Glucose 82 mg/dl (70-99); Magnesium 1.7 mg/dl (1.6-2.3); Phosphorus 3.7 mg/dl (2.5-4.5); Potassium 4.2 mmol/L (3.5-5.1); Sodium 135 mmol/L (135-145); eGFR > 60.00
[2023-06-11] MEDS: PROTONIX 40 MG PO (08:40)
[2023-06-11] MEDS: APRESOLINE 25 MG PO ×3 (08:40→20:30)
[2023-06-11] MEDS: COREG 25 MG PO ×2 (08:40→20:30)
[2023-06-11] MEDS: LEXAPRO 5 MG PO (08:40)
[2023-06-11] MEDS: MUCINEX 1200 MG PO ×2 (08:41→20:29)
[2023-06-11] MEDS: COLACE PO ×2 (08:42→20:26)
[2023-06-11] MEDS: SENOKOT PO ×2 (08:42→20:27)
--- NOTE | 2023-06-11 09:08 | W.PN.ONC2 ---
Today's Communication / Plan
-
Heme sign off.
Impression
Impression
Recent hemorrhagic left thalamic /left basal ganglia CVA w/ right-sided residual weakness/expressive aphasia (04/2023)
Nonocclusive thrombus right subclavian/axillary/proximal brachial veins despite Eliquis
DOAC failure
RLE swelling
Hx paroxysmal atrial fibrillation w/ pacemaker
Plan
Plan
Coumadin with a goal INR of 2-3. Currently at goal.
Will sign off. Call again if needed.
Subjective/Objective
Chief Complaint
ACS Heme Onc
Subjective
No complaints. On warfarin without bleeding.
Vital Signs:
Vital Signs
Temp Pulse Resp BP Pulse Ox
98.0 F 72 18 153/96 96
06/11/23 07:30 06/11/23 07:30 06/11/23 07:30 06/11/23 07:30 06/11/23 07:30
Lab Results:
Laboratory Data
WBC 4.2 10^3/uL (4.8-10.8) L 06/11/23 07:20
Hgb 10.2 g/dL (13.0-18.0) L 06/11/23 07:20
Plt Count 118 10^3/uL (130-400) L 06/11/23 07:20
PT 23.0 Sec (11.4-14.6) H 06/11/23 07:20
INR 2.02 06/11/23 07:20
APTT 103.4 Sec (23.4-35.0) H 06/09/23 04:06
eGFR > 60.00 06/11/23 07:20
Physical Exam
NAD. AAOx3. PE no changes.
Neuro: Other (right weakness)
[2023-06-11 11:29] VITALS: BP 157/98
[2023-06-11] MEDS: MAGNESIUM SULFATE 50 IV (11:32)
--- NOTE | 2023-06-11 12:12 | CM ---
Addendum entered by Aaliyah Sung 06/11/23 13:15:
Facility unable to accept until tomorrow.
MD and daughter updated.
[facility]
report# [phone]

Original Note:
Per MD patient ready for transfer to [facility] today.
Left VM for [facility], await TCB with report numbers.
Patient requires ambulance transport, scheduled for 3 pm.
Plan: [facility] today.
[2023-06-11 15:12] VITALS: BP 151/88
[2023-06-11] MEDS: COUMADIN 5 MG PO (17:30)
[2023-06-11 20:09] VITALS: BP 161/84
[2023-06-11 23:13] VITALS: BP 146/85
[2023-06-12 03:58] VITALS: BP 148/90
[2023-06-12 07:30] VITALS: BP 153/95
[2023-06-12 08:45] LABS: INR 2.01; PT 22.9 Sec (11.4-14.6)
[2023-06-12] MEDS: COREG 25 MG PO (09:52)
[2023-06-12] MEDS: PROTONIX 40 MG PO (09:52)
[2023-06-12] MEDS: LEXAPRO 5 MG PO (09:52)
[2023-06-12] MEDS: COLACE PO (09:52)
[2023-06-12] MEDS: APRESOLINE 25 MG PO (09:52)
[2023-06-12] MEDS: MUCINEX 1200 MG PO (09:52)
[2023-06-12] MEDS: SENOKOT PO (09:53)
--- NOTE | 2023-06-12 10:36 | CM ---
Addendum entered by Rhiannon Conklin 06/12/23 10:52:
IMM reviewed with patient, reports he cannot sign because he is right handed, patient verbally understands IMM, placed in chart.
Original Note:
Patient seen bedside, discussed plan to discharge to [facility] today, per Sebastien at [facility], able to accept patient. Transport scheduled for 11:30 a.m. ambulance, updated Sebastien from [place] with transport time. CM spoke with patients daughter,
Denisse, updated with transport time. CM will continue to follow for discharge planning needs.
Plan; [facility], 11:30 a.m. by ambulance.
[facility]:
Report: [phone]
--- NOTE | 2023-06-12 10:45 | PTCARENOTE ---
patient was very cooperative with participating in his hygiene care, patient washed face and trunk of body with Left hand.patient was complete care for hygiene for legs and back and buttocks.RN notified.
--- NOTE | 2023-06-12 10:46 | W.PN.HOSP.TC ---
Today's Communication/Plan
-
dc to SNF
Assessment / Plan
Assessment / Plan
Assessment:
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
Eliquis/DOAC failure
- no DVT in LE, no PE on CT
- d/w hematology; DOAC failure
- bridged successfully to Coumadin with Lovenox - INR in range
- DC on Coumadin
Right lower extremity swelling likely venous insufficiency from immobility of right lower extremity from CVA
- Venous ultrasound does not show DVT
Shortness of breath secondary to atelectasis, rule out aspiration pneumonia
acute hypoxic respiratory insufficiency/failure
Suspected post-nasal drip
- CT: No evidence of central pulmonary embolism. Evaluation of some the more peripheral pulmonary arterial branches limited. Cardiomegaly with possible left ventricular hypertrophy. Aneurysmal dilatation of the ascending thoracic aorta at 4.7 cm.
Elevated left hemidiaphragm with some left lower lobe subsegmental atelectasis.
- no clear evidence of CHF, PNA
- continue IS for atelectasis
- prn Nebs
- nasal sprays prn
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
- repeat CT resolved hemorrhage
- Neuro consulted; cleared for AC
Paroxysmal atrial fibrillation with pacemaker
- continue Coreg
- bridged successfully to Coumadin with Lovenox - INR in range
- DC on Coumadin
Moderate aortic stenosis
Essential hypertension
- continue Coreg
- continue hydralazine
GERD
- continue Protonix
Prediabetes
History of gastric bypass
Anxiety/depression
- continue Lexapro
Chronic anemia
Obesity due to excess cals
Pancytopenia
Code: Full
More than 30 minutes spent in discharge including
Final examination of the patient
Summarizing hospital stay
Instructions for continuing care to all relevant caregivers
Preparation of discharge records, prescriptions, and referral forms
Total time spent (in minutes):42
Anticipated Discharge: Today
Subjective/Interval History
-
Date of Service: June 12, 2023
no new complaints at present
Objective Data
-
Labs:
Laboratory Results
06/12/23
08:05
PT 22.9 H
INR 2.01
Vital Signs:
Vital Signs
Temp Pulse Resp BP Pulse Ox
97.8 F 68 20 153/95 100
06/12/23 07:30 06/12/23 07:30 06/12/23 07:30 06/12/23 07:30 06/12/23 07:30
I&O
06/11/23 06/12/23 06/13/23
06:59 06:59 06:59
Intake Total 1320 / 1320 990 / 990
Output Total 1150 / 1150 1025 / 1025
Balance 170 / 170 -35 / -35
Physical Exam
-
General: No Apparent Distress
HEENT: Normocephalic and Atraumatic
Respiratory: Negative Wheezes or Rales
Cardiac: Regular Rhythm and S1/S2
GI: Soft and Nontender
Genito-urinary: No Costovertebral Tender
Neuro: AO x 3
Hematologic / Lymphatic: No Lymphadenopathy
Psych: Calm
Data Reviewed
-
Total Time Spent with Patient (in minutes): 42
Labs: Labs Reviewed by me
--- NOTE | 2023-06-12 10:50 | W.DS.TRANS ---
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
-
Discharge Instructions:
Discharge Diagnosis/Procedures Recent hemorrhagic left thalamic /left basal
ganglia Stroke with right-sided residual
weakness/hemiparesis/expressive aphasia (04/2023)
Nonocclusive thrombus right subclavian/axillary/
proximal brachial veins despite Eliquis, Eliquis
failure, on coumadin with therapeutic INR 2-3,
Paroxysmal atrial fibrillation with pacemaker,
Lower Extremity Venous Insufficiency,
atelectasis, post-nasal drip, moderate aortic
stenosis, hypertension, GERD, Prediabetes,
history gastric bypass, Anxiety/Depression,
Chronic Anemia, Mild Thrombocytopenia,
Aneurysmal dilatation of the ascending thoracic
aorta at 4.7 cm.
Diet Low Cholesterol
Activity With assistance
Driving Restrictions No driving
Bathing Restrictions None
Blood Work Please repeat INR CBC BMP with primary care
provider Friday06/13/23
Others Tests Please repeat Venous US of Right upper extremity
with primary care provider in 3 months of
discharge to continue follow up of deep venous
thrombosis.
Please obtain CT angiography in 1 month of
discharge to follow up Thoracic Aortic Aneurysm
4.7 cm with primary care provider and/or
vascular surgeon
Other Services PT,ST,OT
Instructions: Warfarin
Aortic Aneurysm (DC)
Deep Vein Thrombosis (Blood Clots in the Arm) (DC)
Stand-Alone Forms:
Changes to Home Medications: Yes
Discharge Medications:
DC Medications w/original date entered in [employer]
carvedilol 25 mg tablet 25 mg PO BID HTN #60 tabs 06/03/23
docusate sodium 100 mg capsule 100 mg PO BID constipation 30 days #60 caps 06/03/23
escitalopram oxalate 5 mg tablet 5 mg PO DAILY Depression 30 days #30 tabs 06/03/23
hydralazine 25 mg tablet 25 mg PO BID HTN 30 days #60 tabs 06/03/23
melatonin 3 mg tablet 3 mg PO HS insomnia 30 days #30 tabs 06/03/23
pantoprazole 40 mg tablet,delayed release 40 mg PO DAILY GERD 30 days #30 tabs 06/03/23
sennosides 8.6 mg tablet (Senna Laxative) 8.6 mg PO BID Constipation 30 days #60 tabs 06/03/23
acetaminophen 325 mg tablet 650 mg PO Q6HPRN PRN hoyt/mild pain/temp 06/05/23
bisacodyl 10 mg rectal suppository 10 mg AL DAILY PRN if no bm on day 4, if mom ineffective 06/05/23
ondansetron 4 mg disintegrating tablet 4 mg PO Q8H nausea 06/05/23
sodium phosphates 19 gram-7 gram/118 mL enema (Fleet Enema) 118 ml AL DAILY PRN if no bm on day 5, if supp ineffective 06/05/23
guaifenesin 600 mg tablet, extended release 12 hr 1,200 mg (2 x 600 mg) PO Q12 7 days #28 tabs 06/12/23
warfarin 5 mg tablet (Jantoven) 5 mg PO QPM 30 days #30 tabs 06/12/23
Home Medication Changes
Eliquis to Coumadin
Pending Results: No
Total time spent discharging patient (in min): 42
[2023-06-12 11:12] VITALS: BP 128/75
== END 2023-06-12 11:47 | DRG 300 ==
LOC: 4 WEST ACU 14:03
PROVIDERS: Internal Medicine; ADMITTING PHYSICIAN Hospitalist; ATTENDING PHYSICIAN Internal Medicine; CONSULT PHYSICIAN Student in an Organized Health Care Education/Training Program; EMERGENCY PHYSICIAN Emergency Medicine; FAMILY PHYSICIAN Internal Medicine; OTHER PHYSICIAN Internal Medicine Hematology & Oncology
DX: I82.B11 Acute embolism and thrombosis of right subclavian vein (principal); D61.818 Other pancytopenia; I69.251 Hemiplegia and hemiparesis following other nontraumatic intracranial hemorrhage affecting right dominant side; R47.01 Aphasia; J98.11 Atelectasis; E11.9 Type 2 diabetes mellitus without complications; I10 Essential (primary) hypertension; F32.A Depression, unspecified; R09.02 Hypoxemia; R06.89 Other abnormalities of breathing; I71.21 Aneurysm of the ascending aorta, without rupture; F41.9 Anxiety disorder, unspecified; R47.1 Dysarthria and anarthria; R09.82 Postnasal drip; E66.09 Other obesity due to excess calories; K21.9 Gastro-esophageal reflux disease without esophagitis; I48.0 Paroxysmal atrial fibrillation; I87.2 Venous insufficiency (chronic) (peripheral); I35.0 Nonrheumatic aortic (valve) stenosis; Z95.0 Presence of cardiac pacemaker; Z98.84 Bariatric surgery status; Z11.52 Encounter for screening for COVID-19; Z68.39 Body mass index [BMI] 39.0-39.9, adult
CPT/HCPCS: 70450; 71046; 71275; 80048; 80053; 83735; 83880; 84100; 84484; 85025; 85027; 85610; 85730; 86803; 87070; 87502; 87811; 92507; 92523; 92610; 93005; 93971; 94640; 97112; 97163; 97167; 97530; 99285; Q9967

== ENCOUNTER → 2023-06-13 08:51 | Outpatient (REF) | payer OTHER, SELFPAY ==
[2023-06-13 11:06] LABS: % Eosinophils 12.8 % (0-6); % Immature Granulocytes 0.2 % (0-0.5); % Lymphocytes 35.9 % (20.5-51.1); % Monocytes 15.7 % (1.7-9.3); % Neutrophils 34.4 % (42.2-75.2); Absolute Basophils 0.1 10^3/uL (0-0.2); Absolute Eosinophils 0.7 10^3/uL (0-0.7); Absolute Lymphocytes 1.9 10^3/uL (1.2-3.4); Absolute Monocytes 0.8 10^3/uL (0.1-0.6); Absolute Neutrophils 1.8 10^3/uL (1.4-6.5); Hematocrit 35.4 % (39.0-52.0); Hemoglobin 10.2 g/dL (13.0-18.0); Mean Corp Hgb Conc. 28.8 g/dL (33.0-37.0); Mean Corpuscular Hgb 25.2 pg (27.0-31.0); Mean Corpuscular Volume 87.6 fL (80.0-94.0); Nucleated Red Blood Cells % 0 % (-); Platelet Count 137 10^3/uL (130-400); Red Blood Cell Count 4.04 10^6/uL (4.70-6.10); Red Cell Dist. Width 19.6 % (11.5-14.5); White Blood Cell Count 5.2 10^3/uL (4.8-10.8)
[2023-06-13 11:26] LABS: Blood Urea Nitrogen 14 mg/dl (9-20); Calcium 9.5 mg/dl (8.4-10.2); Carbon Dioxide 30 mmol/L (22-30); Chloride 98 mmol/L (98-107); Glucose 86 mg/dl (70-99); Potassium 4.1 mmol/L (3.5-5.1); Sodium 134 mmol/L (135-145); eGFR > 60.00
== END ==
LOC: OLABN 08:51
PROVIDERS: ATTENDING PHYSICIAN Student in an Organized Health Care Education/Training Program
DX: I10 Essential (primary) hypertension (principal)
CPT/HCPCS: 36415; 80048; 85025

== ENCOUNTER → 2023-06-19 10:20 | Outpatient (REF) | payer OTHER, SELFPAY ==
[2023-06-19 12:07] LABS: % Basophils 0.7 % (0-2); % Eosinophils 7.7 % (0-6); % Immature Granulocytes 0.2 % (0-0.5); % Lymphocytes 41.6 % (20.5-51.1); % Neutrophils 32.8 % (42.2-75.2); Absolute Eosinophils 0.3 10^3/uL (0-0.7); Absolute Lymphocytes 1.8 10^3/uL (1.2-3.4); Absolute Monocytes 0.7 10^3/uL (0.1-0.6); Absolute Neutrophils 1.4 10^3/uL (1.4-6.5); Hematocrit 33.6 % (39.0-52.0); Hemoglobin 9.7 g/dL (13.0-18.0); Mean Corp Hgb Conc. 28.9 g/dL (33.0-37.0); Mean Corpuscular Hgb 26.2 pg (27.0-31.0); Mean Corpuscular Volume 90.8 fL (80.0-94.0); Mean Platelet Volume 12.7 fL (7.4-10.4); Nucleated Red Blood Cells % 0 % (-); Platelet Count 206 10^3/uL (130-400); Red Cell Dist. Width 19.7 % (11.5-14.5); White Blood Cell Count 4.3 10^3/uL (4.8-10.8)
== END ==
LOC: OLABN 10:20
PROVIDERS: ATTENDING PHYSICIAN Student in an Organized Health Care Education/Training Program
DX: D63.8 Anemia in other chronic diseases classified elsewhere (principal); I10 Essential (primary) hypertension
CPT/HCPCS: 36415; 85025

== ENCOUNTER 2023-07-21 05:22 | Observation (INO) | payer OTHER, SELFPAY ==
[2023-07-21] VITALS (15 sets, daily range): BP systolic 92–146; BP diastolic 61–120; PULSE 68; O2SAT 99; BMI 41.2
[2023-07-21 01:16] LABS: % Basophils 0.6 % (0-2); % Eosinophils 3.8 % (0-6); % Immature Granulocytes 0.2 % (0-0.5); % Lymphocytes 21.7 % (20.5-51.1); % Monocytes 13.2 % (1.7-9.3); % Neutrophils 60.5 % (42.2-75.2); Absolute Eosinophils 0.2 10^3/uL (0-0.7); Absolute Lymphocytes 1.1 10^3/uL (1.2-3.4); Absolute Monocytes 0.7 10^3/uL (0.1-0.6); Absolute Neutrophils 3.1 10^3/uL (1.4-6.5); Hematocrit 32.9 % (39.0-52.0); Hemoglobin 9.8 g/dL (13.0-18.0); Mean Corp Hgb Conc. 29.8 g/dL (33.0-37.0); Mean Corpuscular Hgb 26.3 pg (27.0-31.0); Mean Corpuscular Volume 88.2 fL (80.0-94.0); Mean Platelet Volume 10.5 fL (7.4-10.4); Nucleated Red Blood Cells % 0 % (-); Platelet Count 152 10^3/uL (130-400); Red Blood Cell Count 3.73 10^6/uL (4.70-6.10); Red Cell Dist. Width 18.6 % (11.5-14.5); White Blood Cell Count 5.1 10^3/uL (4.8-10.8)
--- NOTE | 2023-07-21 01:24 | ED.GENMED ---
History of Present Illness
General
Chief Complaint: Blood Pressure Problem
Source: patient, ambulance crew and senior care
Exam Limitations: none
Time Seen by Provider: 07/21/23 00:37
Nursing documentation reviewed up to this point in time: agreed with
Travel History
Have you had any contact with someone who has COVID-19?: No
Do you have any symptoms of coronavirus? Fever > 100 degrees, chills, cough, shortness of breath, sore throat, loss of taste or smell, muscle aches, or headache?: No
History of Present Illness
History of Present Illness:
68-year-old male with a past medical history of stroke and right hemiparesis, hypertension, hyperlipidemia, atrial fibrillation who presents to the emergency room from [facility]�he presents via EMS for evaluation of multiple
complaints. Patient says that he has had a cough and shortness of breath for the past few days. He says that today he started to have some nausea and had a few episodes of vomiting. He has had some loose stools. He says he has some mild
epigastric discomfort. He says he has bodyaches and jaw pain. He says that he feels some palpitations. Per EMS senior care reported the low blood pressure today and in the context of the symptoms sent him to the emergency room to be assessed.
Patient denies any chest pain. He denies any headache. Denies other complaints.
Past History
Past History
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
ED Past Surgical History: Other (Gastric bypass)
Review of Systems
Review of Systems
All Other Systems: ROS reviewed and negative except as documented in HPI and ROS
Constitutional: Reports fatigue and chills; Denies fever
Respiratory: Reports cough and trouble breathing
Cardiac: Reports palpitations; Denies chest pain
ABD/GI: Reports abdominal pain, nausea, vomiting and diarrhea
: Denies flank pain
Musculoskeletal: Reports muscle pain (Myalgias); Denies neck pain or back pain
Neurological: Denies headache
Phy Exam
Physical Exam
Physical Exam:
General: Awake, alert, oriented x3; no acute distress
Head: Normocephalic, atraumatic
Eyes: Conjunctiva normal, EOMI
Throat: Airway intact, handling secretions
Neck: Trachea midline, supple without meningismus
Lungs: Patient has tachypnea with a respiratory rate of 26; his pulse ox is appropriate on 2 L nasal cannula (he does wear as needed oxygen mostly at night); his breath sounds are somewhat diminished at the lung bases bilaterally and he does have a
faint occasional wheeze but no rales or rhonchi appreciated
Heart: Tachycardia with irregularly irregular rhythm, faint systolic murmur
Abd: Soft, slightly distended, nontender to deep palpation
Neuro: Right hemiparesis; he is awake and alert and oriented although he does have some slight dysarthria
Extremities: Patient has chronic edema in the right upper and right lower extremity +2; his distal extremities are warm and well-perfused
Scores
Heart Failure Risk
Heart Failure Risk Score: Not Applicable
Heart Score for Chest Pain Patients
STEMI patient?: Not applicable
Withdrawal Assessment of Alcohol
Withdrawal Assessment Completed?: Not applicable
Course
Orders/Labs/Results
Orders:
Orders
07/21/23 00:43
EKG [Electrocardiogram (*1)] Urgent
Reason for Study: Atrial Fibrillation
EKG- Treatment ONCE
07/21/23 01:00
CR Chest Portable - 1 View Urgent
Comment:
Reason For Exam: sob
Reason Study Needs to be Portable: Unable to Transport
07/21/23 01:01
Urinalysis Reflex To Culture Urgent
07/21/23 01:02
Metoprolol [Lopressor] 5 mg IV NOW STA
07/21/23 01:08
COVID-19 Antigen Urgent
Source: Nasal Swab
Complete Blood Count/With Diff Urgent
Comprehensive Metabolic Panel Urgent
Magnesium Urgent
Troponin I Urgent
Influenza A+B Rapid Molecular Urgent
BRYON Source: Nasal Swab
Specimen Description:
07/21/23 01:17
Lactate Level [Lactic Acid] Urgent
Blood Culture Q30M
BRYON Source: Blood/Venous
Specimen Description:
Blood Culture Q30M
BRYON Source: Blood/Venous
Specimen Description:
07/21/23 01:47
PT/INR [Prothrombin Time] Urgent
07/21/23 01:59
CT Abd/pelvis W Iv Cont Urgent
Comment:
Reason For Exam: abd pain, N/V
07/21/23 02:01
0.9% Sodium Chloride 500 ml [Nss] 500 ml IV BOLUS
Ondansetron Injectable [Zofran] 4 mg IV NOW STA
07/21/23 03:05
0.9% Sodium Chloride 500 ml [Nss] 500 ml IV BOLUS
07/21/23 03:30
Cefepime HCl [Maxipime] 1,000 mg IV NOW STA
Vancomycin [Vancocin] 2,000 mg 0.9% Sodium Chloride 500 ml [Nss] 500 ml IV NOW
Abnormal Lab Results
07/21/23 07/21/23
01:08 01:47
RBC 3.73 L 10^6/uL
(4.70-6.10)
Hgb 9.8 L g/dL
(13.0-18.0)
Hct 32.9 L %
(39.0-52.0)
MCH 26.3 L pg
(27.0-31.0)
MCHC 29.8 L g/dL
(33.0-37.0)
RDW 18.6 H %
(11.5-14.5)
MPV 10.5 H fL
(7.4-10.4)
Absolute Lymphs (auto) 1.1 L 10^3/uL
(1.2-3.4)
Absolute Monos (auto) 0.7 H 10^3/uL
(0.1-0.6)
Monocytes % 13.2 H %
(1.7-9.3)
PT 24.1 H Sec
(11.4-14.6)
Glucose 101 H mg/dl
(70-99)
07/21/23 01:08
07/21/23 01:08
Vital Signs
Initial and Last Documented VS:
Initial Vital Signs
Temp Pulse Resp Pulse Ox
36.9 C 138 26 100
07/21/23 00:33 07/21/23 00:33 07/21/23 00:33 07/21/23 00:33
Last Documented Vital Signs
Temp Pulse Resp BP Pulse Ox
36.9 C 113 30 101/75 100
07/21/23 00:33 07/21/23 02:45 07/21/23 02:45 07/21/23 02:00 07/21/23 02:45
MDM/Problems Addressed
Differential Diagnosis Includes:
Pneumonia, bronchitis, viral syndrome, symptomatic A-fib, CHF, ACS somewhat less likely
MDM/Problems Addressed:
68-year-old male presents from [facility] for evaluation of cough and shortness of breath for the past few days now having bodyaches with jaw pain, nausea, vomiting, diarrhea, upper abdominal discomfort. Hypertensive here in the ER although
the report from EMS was that he was hypotensive at senior care. He is tachycardic and EKG confirms A-fib with RVR. He has mild tachypnea but appropriate pulse ox on room air. Physical exam is as above. Will plan to place an IV check labs
including a CBC and a CMP, lactate, blood cultures. Will send viral swabs. Will check a troponin. Will check a chest x-ray. Will treat with some Lopressor for his A-fib with RVR. Will monitor patient very closely here reassess after the above.
Initial labs reviewed: CBC shows stable anemia but no leukocytosis. CMP no clinically significant abnormalities. Troponin negative. Viral swabs negative. Chest x-ray reviewed by me appears to show right lower lobe pneumonia which I suspect is
likely cause for symptoms. Clinical reassessment he is complaining of some abdominal discomfort and does have abdominal distention will send for a CT of the abdomen and pelvis. Plan likely for admission.
CT of the abdomen pelvis shows no acute pathology. Patient's heart rate is improving with some fluids and Lopressor. Plan to treat with antibiotics for pneumonia�she did have an admission a month ago will cover for healthcare associated pneumonia.
Case discussed with hospitalist for admission.
Chronic conditions affecting care:
Stroke, A-fib
Acute Exacerbation and/or Progression of Chronic Illness:
Acute exacerbation of atrial fibrillation treated as above
Acute Exacerbation and/or Progression of Chronic Illness: Arrhythmia
*Radiology
Radiology exam reviewed: preliminary read by ED provider
*Pulse Oximetry
Patient hypoxic: no
*EKG
Interpreted by ED Provider?: Yes
Heart Rate: 111
Rate: tachycardiac
Rhythm: a-fib
[place]: normal axis
Interval: normal interval
QRS Pattern: left vent hypertrophy
Ischemia: non-specific ST changes
*Critical Care Note
Total Time (30-74mins, 75-104mins- exclusive of procedures): 33
comment:
Critical care statement: A total of 33 minutes of critical care time was provided for this patient. This includes management of unstable vital signs, evaluation of the patient at bedside, frequent reassessment, discussion with
consultants/hospitalist, and review of pertinent medical records. This time was separate from time utilized to perform any aforementioned documented procedures
Data Reviewed
Review of Other/Old Records Reveals: Labs and Records
Source: patient, records, ambulance crew and senior care
Patient Management
Discussion with other providers: Hospitalist (Discussed with hospitalist)
Escalation/DeEscalation of care consider admission/obs:
Admission indicated
ED Attending Note
-
Portions of this chart may have been created with voice recognition software.� Occasional wrong word or��sound alike� substitutions may have occurred due to the inherent limitations of voice recognition software.
Discharge Plan
Departure
Patient Disposition: Admit
Date of Disposition: 07/21/23
Time of Disposition: 03:31
Admit to doctor: Jayesh
Presentation/result/management discussed w/ accepting MD/DO: Hospitalist
Discharge Problem:
Pneumonia, Nausea & vomiting, Atrial fibrillation with RVR
Prescriptions:
No Action
bisacodyl 10 mg Suppository
10 mg NC DAILY PRN (Reason: if no bm on day 4, if mom ineffective)
acetaminophen 325 mg tablet
650 mg PO Q6HPRN PRN (Reason: hoyt/mild pain/temp)
ondansetron 4 mg tablet,disintegrating
4 mg PO Q8H PRN (Reason: nausea)
warfarin [Jantoven] 5 mg Tablet
5 mg PO QPM 30 Days Qty: 30 0RF
ipratropium-albuterol 0.5 mg-3 mg(2.5 mg base)/3 mL Solution For Nebulization
3 ml INHALATION Q4H PRN (Reason: wheezing)
magnesium hydroxide [Milk of Magnesia] 400 mg/5 mL Suspension
15 ml PO HS PRN (Reason: constipation)
gabapentin 300 mg Capsule
300 mg PO HS
hydralazine 25 mg tablet
50 mg PO TID
docusate sodium 100 mg Capsule
100 mg PO BID 30 Days Qty: 60 0RF
escitalopram oxalate 5 mg Tablet
5 mg PO DAILY 30 Days Qty: 30 0RF
sennosides [Senna Laxative] 8.6 mg Tablet
8.6 mg PO BID 30 Days Qty: 60 0RF
melatonin 3 mg Tablet
3 mg PO HS 30 Days Qty: 30 0RF
pantoprazole 40 mg Tablet,Delayed Release (Dr/Ec)
40 mg PO DAILY 30 Days Qty: 30 0RF
carvedilol 25 mg Tablet
25 mg PO BID Qty: 60 0RF
Referrals:
Simon Pemberton DO [Family Provider] -
Interventions
Interventions:
*Risk Screen - Suicide Last Done: 07/21/23 00:33
*General Assessment Last Done: 07/21/23 00:33
*Neglect/Abuse Screening Last Done: 07/21/23 00:33
ED- Fall Risk Assessment Last Done: 07/21/23 00:53
*ED COVID-19 Vaccine History Last Done: 07/21/23 00:33
ED- Cardiac Assessment Last Done: 07/21/23 00:53
ED- Neurological Assessment Last Done: 07/21/23 00:53
ED- Pulmonary Assessment Last Done: 07/21/23 00:53
Discharge Date and Time
Print Language: ROMANSH
[2023-07-21] MEDS: LOPRESSOR 5 MG IV (01:27)
[2023-07-21 01:30] LABS: ALT (SGPT) < 10 U/L (0-50); AST (SGOT) 19 U/L (17-59); Albumin 3.5 g/dl (3.5-5.0); Alkaline Phosphatase 58 U/L (38-126); Blood Urea Nitrogen 16 mg/dl (9-20); Calcium 9.5 mg/dl (8.4-10.2); Carbon Dioxide 30 mmol/L (22-30); Chloride 103 mmol/L (98-107); Glucose 101 mg/dl (70-99); Magnesium 1.8 mg/dl (1.6-2.3); Potassium 4.1 mmol/L (3.5-5.1); Sodium 139 mmol/L (135-145); Total Bilirubin 0.4 mg/dl (0.2-1.3); Total Protein 6.4 g/dl (6.3-8.2); eGFR > 60.00
[2023-07-21 01:34] LABS: COVID-19 Antigen Negative (Negative)
[2023-07-21 01:38] LABS: Lactic Acid 0.7 mmol/L (0.7-2.0)
[2023-07-21 01:42] LABS: Troponin I 0.015 ng/ml
[2023-07-21 02:06] LABS: INR 2.18; PT 24.1 Sec (11.4-14.6)
[2023-07-21] MEDS: ZOFRAN 4 MG IV (02:31)
[2023-07-21] MEDS: NSS 500 IV ×2 (02:31→03:06)
[2023-07-21] MEDS: MAXIPIME 1000 MG IV (04:05)
[2023-07-21] MEDS: VANCOCIN 540 MG IV (04:42)
[2023-07-21 04:54] LABS: Procalcitonin < 0.05 ng/ml (0.0-0.25)
--- NOTE | 2023-07-21 05:09 | HPS.HSE ---
Family Physician
-
Family Physician: Simon Pemberton DO
Chief Complaint
-
N/V, abdominal discomfort
History of Present Illness
Patient is a 68y M with PMH significant for CVA, R hemiparesis /aphasia, RUE thrombus, HTN and chronic anemia who presents to ED complaining of myriad complaints. Patient presented with complaints of cough, shortness of breath, nausea with a few
episodes of non-bloody emesis, abdominal discomfort and body aches. He was sent to the ED from [place] with report of low BP - though he was not hypotensive here in the ED. Work-up in the ED was largely unrevealing including CT of the A/P which showed
no acute process. Patient was noted to have A-Fib with periods of tachycardia.
He was given doses of broad spectrum abx in the ED for suspected pneumonia and referred for admission.
Medical History
Past Medical History
Past Medical History: Reports Other
Additional Past Medical History:
Recent hemorrhagic left thalamic/left basal ganglia.
Stroke with right-sided residual weakness/hemiparesis/expressive
aphasia (04/2023).
Nonocclusive thrombus right subclavian/axillary/proximal
brachial veins despite Eliquis.
Paroxysmal atrial fibrillation with pacemaker.
Lower Extremity Venous Insufficiency.
Moderate aortic stenosis.
Hypertension.
Gastroesophageal reflux disease.
Obesity
Anxiety/Depression.
Chronic Anemia.
Mild Thrombocytopenia.
Aneurysmal dilatation of the ascending thoracic aorta at 4.7 cm.
Past Surgical History: Reports Other
Additional Past Surgical History:
Gastric Bypass
PPM Placement
Social History
Tobacco: Non-smoker
Alcohol: None
Drug: None
Living: Longterm (SNF following stroke.)
Family History
Family History: Not pertinent
Allergies / Home Medications
Allergies reflects when Allergies were last updated in [employer].
Home Medications with original date entered in [employer]
Allergy/Medication List:
Allergies
Allergy/AdvReac Type Severity Reaction Status Date / Time
No Known Allergies Allergy Verified 04/25/23 17:49
Home Medications
carvedilol 25 mg tablet 25 mg PO BID HTN #60 tabs 06/03/23
docusate sodium 100 mg capsule 100 mg PO BID constipation 30 days #60 caps 06/03/23
escitalopram oxalate 5 mg tablet 5 mg PO DAILY Depression 30 days #30 tabs 06/03/23
melatonin 3 mg tablet 3 mg PO HS insomnia 30 days #30 tabs 06/03/23
pantoprazole 40 mg tablet,delayed release 40 mg PO DAILY GERD 30 days #30 tabs 06/03/23
sennosides 8.6 mg tablet (Senna Laxative) 8.6 mg PO BID Constipation 30 days #60 tabs 06/03/23
acetaminophen 325 mg tablet 650 mg PO Q6HPRN PRN hoyt/mild pain/temp 06/05/23
bisacodyl 10 mg rectal suppository 10 mg AK DAILY PRN if no bm on day 4, if mom ineffective 06/05/23
ondansetron 4 mg disintegrating tablet 4 mg PO Q8H PRN nausea 06/05/23
warfarin 5 mg tablet (Jantoven) 5 mg PO QPM 30 days #30 tabs 06/12/23
gabapentin 300 mg capsule 300 mg PO HS 07/21/23
hydralazine 25 mg tablet 50 mg PO TID HTN 07/21/23
ipratropium 0.5 mg-albuterol 3 mg (2.5 mg base)/3 mL nebulization soln 3 ml inhalation Q4H PRN wheezing 07/21/23
magnesium hydroxide 400 mg/5 mL oral suspension (Milk of Magnesia) 15 ml PO HS PRN constipation 07/21/23
Review of Systems
-
History Source: Patient
A 12 point ROS was completed and negative except as noted: Yes
Constitutional: Reports Fever and Fatigue; Denies Chills
EENT: Reports Sore Throat
Respiratory: Reports Cough and Trouble Breathing
Cardiac: Denies Chest Pain, Diaphoresis or Palpitations
Abdomen/GI: Reports Abdominal Pain, Nausea and Vomiting; Denies Diarrhea, Constipated, Bloody Stools or Black Stools
: Denies Dysuria, Frequency or Flank Pain
Musculoskeletal: Reports Muscle Pain; Denies Joint Pain or Edema
Neurological: Reports Headache, Weakness and Numbness; Denies Dizzy
Physical Exam
Vital Signs
Vital Signs
Temp Pulse Resp BP Pulse Ox
98.4 F 113 30 101/75 100
07/21/23 00:33 07/21/23 02:45 07/21/23 02:45 07/21/23 02:00 07/21/23 02:45
Physical Exam
General: Other (68y M in no acute distress. )
HEENT: Moist mucous membranes
Respiratory: Other (Decreased at bases - otherwise clear.)
Cardiac: S1/S2, Irregular Rhythm, Tachycardia and Murmur (II/ ELIESER)
GI: Other (Obese, diastasis recti, no focal tenderness, pos BS. )
Musculoskeletal: No Clubbing, No Cyanosis and Other (Marked edema of the RUE and RLE. Compression garment in place RUE.)
Neuro: AO x 3 and Other (R facial droop with dysarthria and R hemiparesis.)
Laboratory Results
-
07/21/23 01:08
07/21/23 01:08
Laboratory Results
PT 24.1 Sec (11.4-14.6) H 07/21/23 01:47
INR 2.18 07/21/23 01:47
Lactic Acid 0.7 mmol/L (0.7-2.0) 07/21/23 01:17
Total Bilirubin 0.4 mg/dl (0.2-1.3) 07/21/23 01:08
AST 19 U/L (17-59) 07/21/23 01:08
ALT < 10 U/L (0-50) 07/21/23 01:08
Alkaline Phosphatase 58 U/L (38-126) 07/21/23 01:08
Troponin I 0.015 ng/ml 07/21/23 01:08
Impression/Plan
-
A/P: Patient is a 68y M with PMH significant for prior CVA with residual R hemiparesis, R sided lymphedema, RUE DVT and hypertension who presents to ED from SNF with multiple complaints.
Abd Pain, N/V
Subjective Dyspnea
- Observe overnight for further evaluation and treatment.
- I see no evidence of pneumonia. Afebrile, no leukocytosis, procal undetectable. No hypoxemia (100% on 2lpm).
- Etiology of his presenting symptoms remains unclear.
- CT A/P was unremarkable.
- Monitor for any new / worsening symptoms.
- Supportive care / antiemetics, etc as needed.
- Would observe off of any further antibiotics and follow clinically.
- Patient had similar complaints of dyspnea during recent admission attributed to atelectasis.
- Continue incentive spirometry, chest PT, nebs PRN, etc.
CVA with Right Hemiparesis / Dysarthria
- Stable. No evidence of any new focal deficits.
- Continue current med regimen including Coumadin, BP control, etc.
- PT / OT / Speech therapy evals.
- Continue modified diet / aspiration precautions.
Paroxysmal Atrial Fibrillation
- Heart rates are somewhat labile, but not persistently tachycardic.
- Continue current med regimen and monitor on telemetry.
- Consider adjustment in medications for improved rate control if needed.
- Continue Coumadin for stroke risk reduction.
RUE DVT
Right Sided Lymphedema
- Continue Coumadin for DVT (prior Eliquis failure).
- Follow INR and adjust Coumadin dosing as needed.
- Continue compression treatments.
- PT / Lymphedema evaluation.
Benign Hypertension
- BP stable at present.
- Continue usual med regimen with holding parameters to avoid hypotension.
- Adjust regimen as needed for adequate control.
Chronic Anemia
- Stable. Hgb is at / near known baseline.
- Follow for any changes.
DVT Prophylaxis: On Coumadin
Code Status: Full
[2023-07-21] MEDS: LOPRESSOR 25 MG PO ×2 (07:20→12:04)
[2023-07-21] MEDS: DUONEB 3 ML INH ×4 (07:38→20:53)
[2023-07-21 09:12] LABS: TSH Reflex To Free T4 1.11 uIU/ml (0.47-4.68)
[2023-07-21] MEDS: SENOKOT PO ×2 (09:24→21:07)
[2023-07-21] MEDS: APRESOLINE PO (09:24)
[2023-07-21] MEDS: PROTONIX 40 MG PO (09:24)
[2023-07-21] MEDS: LEXAPRO 5 MG PO (09:25)
--- NOTE | 2023-07-21 10:32 | CON.CAR ---
Addendum entered and electronically signed by Tunde Ambriz MD 07/21/23 17:38:
I saw and examined the patient.
The ACCOUNT MANAGER's note was reviewed and I agree with the note.
Comment:
He was admitted with multiple complaints but palpitations was one he told me about. He did not know that he converted to sinus today at 1227. Hard to know how much of his symptoms are from fast afib but given his mod , LVH it certainly could be
part of his symptoms.
Will increase Coreg (can go to 50 BID given weight over 85 kg). Will decrease hydralzine.
PAF
Pacer, Pedro Sci
Mod
LVH
Prior Stroke
HTN
Original Note:
Consultation
Consultation Request
Date/Time Consultation Requested: 07/21/2023 09:55
Date/Time Consultation Performed: 07/21/2023 10:30
Requesting Provider: Dr. Jeffrey
Performing Provider: COOPER Kline for Dr. Ambriz
Reason for Consultation: Atrial fibrillation with rapid ventricular response
Medical History
-
Chief Complaint: Hypotension
History of Present Illness:
Martin Durand is a 68-year-old male (known to his primary clothes ironer, Dr. Arturo Madrid at [facility]), with a past medical history of CVA with residual right hemiparesis/aphasia, right upper extremity thrombus, hypertension, chronic anemia, paroxysmal
atrial fibrillation, aortic stenosis, [employer] [place] PPM, thoracic ascending aorta dilation, and chronic anemia who presented to the emergency department with multiple complaints. Vahid Wood sent him for hypotension. He reports having
shortness of breath, cough, nausea with vomiting, and abdominal pain. He was found to be in atrial fibrillation with bouts of RVR for which cardiology has been consulted.
Past Medical History
Past Medical History: CVA, HTN, Valvular Disease (Moderate aortic stenosis) and Other (HOCM)
Past Surgical History: Other (Bariatric surgery, hernia repair)
Social History
Tobacco: Non-Smoker
Drug: None
Living: Senior Care
Employment: Retired
Family History
Family History: Unable to Obtain
Allergies / Home Medications
Allergy/AdvReac Type Severity Reaction Status Date / Time
No Known Allergies Allergy Verified 04/25/23 17:49
�Medication �Instructions �Recorded �Confirmed �Type
carvedilol 25 mg tablet 25 mg PO BID HTN #60 tabs 06/03/23 07/21/23 Rx
docusate sodium 100 mg capsule 100 mg PO BID constipation 30 days 06/03/23 07/21/23 Rx
#60 caps
escitalopram oxalate 5 mg tablet 5 mg PO DAILY Depression 30 days 06/03/23 07/21/23 Rx
#30 tabs
melatonin 3 mg tablet 3 mg PO HS insomnia 30 days #30 06/03/23 07/21/23 Rx
tabs
pantoprazole 40 mg tablet,delayed 40 mg PO DAILY GERD 30 days #30 06/03/23 07/21/23 Rx
release tabs
sennosides 8.6 mg tablet (Senna 8.6 mg PO BID Constipation 30 days 06/03/23 07/21/23 Rx
Laxative) #60 tabs
acetaminophen 325 mg tablet 650 mg PO Q6HPRN PRN hoyt/mild 06/05/23 07/21/23 History
pain/temp
bisacodyl 10 mg rectal suppository 10 mg UT DAILY PRN if no bm on day 06/05/23 07/21/23 History
4, if mom ineffective
ondansetron 4 mg disintegrating 4 mg PO Q8H PRN nausea 06/05/23 07/21/23 History
tablet
warfarin 5 mg tablet (Jantoven) 5 mg PO QPM 30 days #30 tabs 06/12/23 07/21/23 Rx
gabapentin 300 mg capsule 300 mg PO HS 07/21/23 07/21/23 History
hydralazine 25 mg tablet 50 mg PO TID HTN 07/21/23 07/21/23 History
ipratropium 0.5 mg-albuterol 3 mg 3 ml inhalation Q4H PRN wheezing 07/21/23 07/21/23 History
(2.5 mg base)/3 mL nebulization
soln
magnesium hydroxide 400 mg/5 mL 15 ml PO HS PRN constipation 07/21/23 07/21/23 History
oral suspension (Milk of Magnesia)
Review of Systems
-
History Source: Patient
All other systems: Negative unless noted
Constitutional: Fatigue
EENT: No Symptoms
Cardiac: Palpitations
Abdomen/GI: Abdominal Pain
: No Symptoms
Musculoskeletal: No Symptoms
Physical Exam
Vital Signs
Temp Pulse Resp BP Pulse Ox
98.5 F 115 18 96/64 99
07/21/23 07:30 07/21/23 09:24 07/21/23 07:41 07/21/23 09:24 07/21/23 07:41
Lab Results
07/21/23 01:08
07/21/23 01:08
Troponin I 0.015 ng/ml 07/21/23 01:08
Physical Exam
General: Well Developed, Well Nourished, No Apparent Distress and Comfortable
HEENT: Normocephalic, Anicteric and Moist Mucous Membranes
Respiratory: Clear and Non Labored Respirations
Cardiac: S1/S2, Regular Rhythm and Peripheral Edema (Right lower extremity lymphedema)
Breast: Deferred by me
GI: Soft, Non Tender, Non Distended and Normal Bowel Sounds
Rectal: Deferred by Provider
Genito-urinary: No Costovertebral Tender
Musculoskeletal: No Clubbing, No Cyanosis and No Edema
Skin: Warm and Dry
Neuro: AO x 3
Hematologic/Lymphatic: No Lymphadenopathy
Psych: Calm
Impression / Plan
-
Paroxysmal atrial fibrillation
-Rates elevated, his carvedilol 25 mg twice daily was discontinued in favor of metoprolol tartrate 25 mg every 6 hours to achieve rate control
-Oral Anticoagulation: Warfarin
-[id number]: Score at least 4 (HTN, prior Stroke/TIA, age 65-74)
-TSH 1.1
HOCM, avoid volume depletion, his furosemide was discontinued during his hospitalization in April
Hypertension, chronic and stable
Aortic stenosis, moderate based on gradient
[employer] PPM
Prior CVA (ICH) with right hemiparesis and dysarthria
Prior right upper extremity DVT (on apixaban at the time), no warfarin
Anemia of chronic disease, per primary
Data Reviewed
-
EKG: Report Reviewed by me (Atrial fibrillation for ventricular response, lateral ST abnormality, rate 111)
Radiology: Report Reviewed by me (CXR: Very low lung volumes. Unchanged ectasia ascending aorta)
CT Scan: Report Reviewed by me (Abdomen/pelvis: No acute abnormality.)
Labs: Labs Reviewed by me
Old Records: Reviewed
--- NOTE | 2023-07-21 11:34 | PTOTSP ---
SPEECH THERAPY SWALLOW EVALUATION:
Patient exhibits clinical signs of oropharyngeal dysphagia, likely chronic related to CVA from 04/2023, and acutely exacerbated by current illness (ddx including pneumonia though unclear at this time). Patient has been tolerating Regular texture diet
and thin liquids for past several months. No overt signs of aspiration at bedside. WBC WNL. CXR concerning bibasilar opacities, though unclear diagnosis at this time. Patient appears safe to resume baseline diet of Regular texture solids and thin
liquids at this time, with strict aspiration precautions in place includin:1 assist, 100% supervision to monitor for any signs of aspiration, close monitoring of CXR/labs/temperature, HOB 90 degrees, small sips/bites, slow rate of intake, place
bolus on LEFT side of oral cavity, check for pocketing on RIGHT, d/c oral diet and make NPO if any signs of aspiration or a decline in mental or respiratory status. Medications whole in puree. Speech therapy to follow closely, determine indication
for repeat VSE if indicated, monitor diet tolerance and modify as appropriate, and continue to provide diagnostic swallow therapy as appropriate.
RECOMMEND:
1) Regular texture solids and thin liquids
2) strict aspiration precautions in place includin:1 assist, 100% supervision to monitor for any signs of aspiration, close monitoring of CXR/labs/temperature, HOB 90 degrees, small sips/bites, slow rate of intake, place bolus on LEFT side of
oral cavity, check for pocketing on RIGHT, d/c oral diet and make NPO if any signs of aspiration or a decline in mental or respiratory status
3) Medications whole in puree
4) Speech therapy to follow closely, determine indication for repeat VSE if indicated
--- NOTE | 2023-07-21 11:44 | CM ---
Patient seen bedside, initial assessment completed. Patient came from [facility], reports he cannot walk and uses a wheelchair. Patient reports he is on oxygen at night time. Patient confirms PCP Simon Pemberton, [facility]. CM
discussed ALONSO form, refused to sign, placed in patients chart. CM spoke with Sebastien in admissions at [facility], confirmed patient was in short term rehab, is on a 15 day bed hold, will need auth to return to SNF. PT/OT ordered. CM will continue to
follow for discharge planning needs.
Plan; return to [facility] when stable, will require auth.
--- NOTE | 2023-07-21 12:09 | W.PN.HOSP.TC ---
Today's Communication/Plan
-
monitor vitals
see plan
cardiology evaluation
metoprolol
PT/OT
speech
Ua
bladder scan
Nonbillable note
Assessment / Plan
Assessment / Plan
General: Other (68y M in no acute distress.)
HEENT: Moist mucous membranes
Respiratory: Other (Decreased at bases)
Cardiac: S1/S2, Irregular Rhythm, Tachycardia and Murmur (II/ ELIESER)
GI: soft,NT,non distended
Musculoskeletal: No Clubbing, No Cyanosis and Other (Marked edema of the RUE and RLE. Compression garment in place RUE.)
Neuro: AO x 3 and Other (R facial droop with dysarthria and R hemiparesis.)
Abd Pain, N/V
Subjective Dyspnea
- I see no evidence of pneumonia. Afebrile, no leukocytosis, procal undetectable. No hypoxemia (100% on 2lpm).
- Etiology of his presenting symptoms remains unclear. observe off abx
- CT A/P without acute findings
- Supportive care / antiemetics, etc as needed.
- Patient had similar complaints of dyspnea during recent admission attributed to atelectasis.
- Continue incentive spirometry, chest PT, nebs PRN, etc.
check Ua
CVA with Right Hemiparesis / Dysarthria
- Stable. No evidence of any new focal deficits.
- Continue current med regimen including Coumadin, BP control, etc.
- PT / OT
Evaluated speech, okay for regular with thin
- Continue modified diet / aspiration precautions.
Paroxysmal Atrial Fibrillation
now back in afib with RVR
overnight put on metoprolol instead of coreg; BP dropped this morning after metoprolol. Need better rate control. cardiology consulted
- Continue Coumadin for stroke risk reduction.
add on mag
echo 04/26 with moderate . Preserved EF
RUE DVT
Right Sided Lymphedema
- Continue Coumadin for DVT (prior Eliquis failure).
- Follow INR and adjust Coumadin dosing as needed.
- Continue compression treatments.
- PT / Lymphedema evaluation.
Benign Hypertension
- BP stable at present.
- Continue usual med regimen with holding parameters to avoid hypotension.
- Adjust regimen as needed for adequate control.
Chronic Anemia
- Stable. Hgb is at / near known baseline.
- Follow for any changes.
DVT Prophylaxis: On Coumadin
Code Status: Full
Anticipated Discharge: Within 24 hours
Subjective/Interval History
-
Date of Service: July 21, 2023
still has some abdominal discomfort
Objective Data
-
Labs:
Laboratory Results
07/21/23 07/21/23
01:08 01:47
WBC 5.1
Hgb 9.8 L
Hct 32.9 L
Plt Count 152
PT 24.1 H
INR 2.18
Sodium 139
Potassium 4.1
Chloride 103
Carbon Dioxide 30
BUN 16
Creatinine 0.9
Glucose 101 H
Calcium 9.5
Total Bilirubin 0.4
AST 19
ALT < 10
Alkaline Phosphatase 58
Vital Signs:
Vital Signs
Temp Pulse Resp BP Pulse Ox
98.5 F 98 18 133/85 100
07/21/23 11:04 07/21/23 12:04 07/21/23 11:32 07/21/23 12:04 07/21/23 11:32
[2023-07-21 14:58] LABS: Magnesium 1.8 mg/dl (1.6-2.3)
[2023-07-21 16:52] LABS: Urine Albumin Trace (Neg - Trace); Urine Bilirubin Negative (Negative); Urine Character Clear (Clear); Urine Color Yellow; Urine Glucose Negative (Negative); Urine Ketone Negative (Negative); Urine Leukocyte Negative (Negative); Urine Nitrite Negative (Negative); Urine Occult Blood Negative (Negative); Urine Urobilinogen Negative (Neg - 1+)
[2023-07-21] MEDS: COUMADIN 5 MG PO (17:36)
[2023-07-21] MEDS: LOPRESSOR PO (17:37)
[2023-07-21] MEDS: APRESOLINE 25 MG PO ×2 (17:37→21:51)
[2023-07-21] MEDS: COREG 50 MG PO (21:06)
[2023-07-21] MEDS: NEURONTIN 300 MG PO (21:50)
[2023-07-21] MEDS: MELATONIN 3 MG PO (21:50)
[2023-07-22 04:41] VITALS: BP 167/85
[2023-07-22 06:00] VITALS: BMI 41.1
[2023-07-22 06:48] LABS: % Basophils 0.7 % (0-2); % Eosinophils 5.7 % (0-6); % Lymphocytes 31.3 % (20.5-51.1); % Monocytes 17.1 % (1.7-9.3); % Neutrophils 45.2 % (42.2-75.2); Absolute Eosinophils 0.2 10^3/uL (0-0.7); Absolute Lymphocytes 1.3 10^3/uL (1.2-3.4); Absolute Monocytes 0.7 10^3/uL (0.1-0.6); Absolute Neutrophils 1.9 10^3/uL (1.4-6.5); Hematocrit 34.2 % (39.0-52.0); Hemoglobin 9.6 g/dL (13.0-18.0); Mean Corp Hgb Conc. 28.1 g/dL (33.0-37.0); Mean Corpuscular Hgb 26.1 pg (27.0-31.0); Mean Corpuscular Volume 92.9 fL (80.0-94.0); Mean Platelet Volume 10.8 fL (7.4-10.4); Nucleated Red Blood Cells % 0 % (-); Platelet Count 147 10^3/uL (130-400); Red Blood Cell Count 3.68 10^6/uL (4.70-6.10); Red Cell Dist. Width 18.9 % (11.5-14.5); White Blood Cell Count 4.2 10^3/uL (4.8-10.8)
[2023-07-22 07:00] LABS: INR 2.45; PT 26.5 Sec (11.4-14.6)
[2023-07-22] MEDS: DUONEB 3 ML INH ×2 (07:18→11:54)
[2023-07-22 07:20] LABS: Blood Urea Nitrogen 15 mg/dl (9-20); Calcium 9.4 mg/dl (8.4-10.2); Carbon Dioxide 29 mmol/L (22-30); Chloride 103 mmol/L (98-107); Estimated Creatinine Clearance 103 ml/min; Glucose 83 mg/dl (70-99); Potassium 4.5 mmol/L (3.5-5.1); Sodium 139 mmol/L (135-145); eGFR > 60.00
[2023-07-22 07:25] VITALS: BP 157/90
[2023-07-22] MEDS: APRESOLINE 25 MG PO (09:43)
[2023-07-22] MEDS: LEXAPRO 5 MG PO (09:44)
[2023-07-22] MEDS: PROTONIX 40 MG PO (09:44)
[2023-07-22] MEDS: COREG 50 MG PO (09:44)
[2023-07-22] MEDS: SENOKOT 8.59999999999999964 MG PO (09:45)
--- NOTE | 2023-07-22 10:12 | W.PN.CD ---
Today's Communication / Plan
-
I increased hydralazine (I had decreased it to allow more Coreg but BP needs more control
Continue warfarin/increased coreg
He requested cardiology followup with out office. My office will reach out to him with appointment and we will overtake pacemaker followup
Cardiology will sign off
Impression / Plan
-
Paroxysmal atrial fibrillation
-Rates: In AF was fast, fine in sinus, has pacer for whitney support. His chronic BB was increased. Now on Coreg 50 BID (ok for weight)
-Not on rhythm control med
-Oral Anticoagulation: Warfarin
-[id number]: Score at least 4 (HTN, prior Stroke/TIA, age 65-74)
-TSH 1.1
LVH and appearance on echo c/w hypertrophic CM without obstruction seen
- HTN'sive heart disease could give similar appearance
Hypertension, chronic and stable
Aortic stenosis, moderate based on gradient
LP33.TV PPM, dual, mri conditional
Prior CVA (ICH) with right hemiparesis and dysarthria
Prior right upper extremity DVT (on apixaban at the time), no warfarin
Anemia of chronic disease, per primary
long term resident
Subjective:
No complaints
Physical Exam
Vital Signs/Labs
Vital Signs
Temp Pulse Resp BP Pulse Ox
98.3 F 82 20 157/90 100
07/22/23 07:25 07/22/23 09:43 07/22/23 07:25 07/22/23 09:43 07/22/23 07:25
07/21/23 07/22/23 07/23/23
06:59 06:59 06:59
Actual Weight 115.694 kg 115.575 kg
07/22/23 06:28
07/22/23 06:28
PT 26.5 Sec (11.4-14.6) H 07/22/23 06:28
INR 2.45 07/22/23 06:28
Magnesium 1.8 mg/dl (1.6-2.3) 07/21/23 14:31
LAB Results
07/21/23
01:08
Troponin I 0.015
Physical Exam
Constitutional: No acute distress
EENT: Anicteric
Cardiovascular: Rhythm & rate is regular, Pedal edema is absent, Systolic murmur present and S1S2 is normal
Respiratory: Respiratory effort normal
GI: Soft and Distention absent
Neuro/Psych: AO x 3 and Other (motor deficits from prior stroke are present and extensive)
Data Reviewed
-
Date of Service: July 22, 2023
[2023-07-22 10:30] VITALS: BP 133/79; PULSE 76; O2SAT 98
--- NOTE | 2023-07-22 11:18 | W.PN.HOSP.TC ---
Today's Communication/Plan
-
monitor vitals
see plan
cw coreg,hydralazine
abdominal pain resolved
dc today
Discussed with daughter over the phone
time of discharge 38minutes
Assessment / Plan
Assessment / Plan
General: Other (68y M in no acute distress.)
HEENT: Moist mucous membranes
Respiratory: Other (Decreased at bases)
Cardiac: S1/S2, Irregular Rhythm, Tachycardia and Murmur (II/ ELIESER)
GI: soft,NT,non distended
Musculoskeletal: No Clubbing, No Cyanosis and Other (Marked edema of the RUE and RLE. Compression garment in place RUE.)
Neuro: AO x 3 and Other (R facial droop with dysarthria and R hemiparesis.)
Abd Pain, N/V
Subjective Dyspnea
- I see no evidence of pneumonia. Afebrile, no leukocytosis, procal undetectable. No hypoxemia (100% on 2lpm).
- Etiology of his presenting symptoms remains unclear. observe off abx
- CT A/P without acute findings
- Supportive care / antiemetics, etc as needed.
- Patient had similar complaints of dyspnea during recent admission attributed to atelectasis.
- Continue incentive spirometry, chest PT, nebs PRN, etc.
Ua without UTI. Patient symptoms resolved. Could be gastritis.
CVA with Right Hemiparesis / Dysarthria
- Stable. No evidence of any new focal deficits.
- Continue current med regimen including Coumadin, BP control, etc.
- PT / OT
Evaluated speech, okay for regular with thin
- Continue modified diet / aspiration precautions.
Paroxysmal Atrial Fibrillation
was in afib on admission; now back in NSR
coreg increased
cardiology following
- Continue Coumadin for stroke risk reduction.
echo 04/26 with moderate . Preserved EF
RUE DVT
Right Sided Lymphedema
- Continue Coumadin for DVT (prior Eliquis failure).
- Follow INR and adjust Coumadin dosing as needed.
- Continue compression treatments.
- PT / Lymphedema evaluation.
Benign Hypertension
- BP stable at present.
- Continue usual med regimen with holding parameters to avoid hypotension.
- Adjust regimen as needed for adequate control.
Chronic Anemia
- Stable. Hgb is at / near known baseline.
- Follow for any changes.
DVT Prophylaxis: On Coumadin
Code Status: Full
Anticipated Discharge: Today
Subjective/Interval History
-
Date of Service: July 22, 2023
denies abdominal pain
Objective Data
-
Labs:
Laboratory Results
07/22/23
06:28
WBC 4.2 L
Hgb 9.6 L
Hct 34.2 L
Plt Count 147
PT 26.5 H
INR 2.45
Sodium 139
Potassium 4.5
Chloride 103
Carbon Dioxide 29
BUN 15
Creatinine 0.8
Glucose 83
Calcium 9.4
Vital Signs:
Vital Signs
Temp Pulse Resp BP Pulse Ox
98.3 F 82 20 157/90 100
07/22/23 07:25 07/22/23 09:43 07/22/23 07:25 07/22/23 09:43 07/22/23 07:25
I&O
07/21/23 07/22/23 07/23/23
06:59 06:59 06:59
Intake Total 480 / 480
Output Total 925 / 925
Balance -445 / -445
[2023-07-22 11:20] VITALS: BP 102/71
--- NOTE | 2023-07-22 11:39 | W.DCSUMMARY ---
Discharge Summary
Discharge Data
Date of Admission: 07/21/23
Date of Discharge: 07/22/23
-
Pending Results: No
Hospital Course
68-year-old male with past medical history of atrial fibrillation, DVT, lymphedema, hypertension, chronic anemia, CVA with right hemiparesis, dysarthria came to the hospital with nausea vomiting abdominal pain. Patient symptoms were likely thought
was secondary to possible gastritis. CT scan was done which did not show any signs of acute abnormality. Urinalysis also did not show any urinary tract infection. On this hospitalization patient also went into atrial fibrillation with rapid
ventricular rate for which he was seen by cardiology. His Coreg was increased. He subsequently converted back to normal sinus rhythm prior to his discharge. Patient abdominal symptoms over time improved on its own and he was able to tolerate
regular diet. Once patient symptoms improved, he was then discharged back to SNF with instructions to follow-up with all his physicians outpatient.
Discharge Plan
-
Patient Disposition: Fpc/SNF
Discharge Diagnosis/Procedures: Atrial fibrillation with rapid ventricular rate
Essential hypertension
Hypertrophic cardiomyopathy
Suspected gastritis
Diet: As tolerated
Activity: As tolerated
Driving Restrictions: As prior to admission
Bathing Restrictions: None
Referrals:
Simon Pemberton DO [Family Provider] - in less than 1 week
Tunde Ambriz MD [Active] - 08/26/23 1:40 pm
Prescriptions:
New
carvedilol 25 mg Tablet
50 mg PO BID Qty: 0 0RF
Continued
bisacodyl 10 mg Suppository
10 mg CA DAILY PRN (Reason: if no bm on day 4, if mom ineffective)
acetaminophen 325 mg tablet
650 mg PO Q6HPRN PRN (Reason: hoyt/mild pain/temp)
ondansetron 4 mg tablet,disintegrating
4 mg PO Q8H PRN (Reason: nausea)
warfarin [Jantoven] 5 mg Tablet
5 mg PO QPM 30 Days Qty: 30 0RF
ipratropium-albuterol 0.5 mg-3 mg(2.5 mg base)/3 mL Solution For Nebulization
3 ml INHALATION Q4H PRN (Reason: wheezing)
magnesium hydroxide [Milk of Magnesia] 400 mg/5 mL Suspension
15 ml PO HS PRN (Reason: constipation)
gabapentin 300 mg Capsule
300 mg PO HS
hydralazine 25 mg tablet
50 mg PO TID
docusate sodium 100 mg Capsule
100 mg PO BID 30 Days Qty: 60 0RF
escitalopram oxalate 5 mg Tablet
5 mg PO DAILY 30 Days Qty: 30 0RF
sennosides [Senna Laxative] 8.6 mg Tablet
8.6 mg PO BID 30 Days Qty: 60 0RF
melatonin 3 mg Tablet
3 mg PO HS 30 Days Qty: 30 0RF
pantoprazole 40 mg Tablet,Delayed Release (Dr/Ec)
40 mg PO DAILY 30 Days Qty: 30 0RF
Discontinued
carvedilol 25 mg Tablet
25 mg PO BID Qty: 60 0RF
Discharge Orders:
Discharge Patient (As Directed); Ordered 07/22/23
Ordered By: Migue Jeffrey
Discharge Date and Time
Discharge Date/Time: 07/22/23 14:17
Print Language: ANGOLAN
--- NOTE | 2023-07-22 12:18 | CM ---
Addendum entered by Rhiannon Conklin 07/22/23 13:45:
CM spoke with Franny, auth was approved #[id number], 07/21-08/02, fax clinicals to [phone]. Sebastien at [facility] updated.
Paln; return to [facility], 2:00 p.m. ambulance transport
[facility]:
Report: [phone]

Original Note:
Patient seen bedside, discussed plan to return to [facility] SNF, ambulance transport scheduled for 2:00 p.m. CM updated Sebastien at [facility], able to accept patient for return of SNF with pending auth. CM will initiate auth, will update
facility with auth number. CM will continue to follow for discharge planning needs.
Plan; Return to [facility], will need pending reference number
[facility]:
Report: [phone]
== END 2023-07-22 14:17 ==
LOC: 4 EAST ACU 05:22
PROVIDERS: ADMITTING PHYSICIAN Hospitalist; ATTENDING PHYSICIAN Internal Medicine; CONSULT PHYSICIAN Internal Medicine Cardiovascular Disease; EMERGENCY PHYSICIAN Emergency Medicine; FAMILY PHYSICIAN Student in an Organized Health Care Education/Training Program
DX: I48.0 Paroxysmal atrial fibrillation (principal); R06.02 Shortness of breath; I42.2 Other hypertrophic cardiomyopathy; I10 Essential (primary) hypertension; E78.5 Hyperlipidemia, unspecified; I69.351 Hemiplegia and hemiparesis following cerebral infarction affecting right dominant side; R05.9 Cough, unspecified; R11.2 Nausea with vomiting, unspecified; E11.9 Type 2 diabetes mellitus without complications; K21.9 Gastro-esophageal reflux disease without esophagitis; R00.0 Tachycardia, unspecified; R10.9 Unspecified abdominal pain; R19.7 Diarrhea, unspecified; R06.82 Tachypnea, not elsewhere classified; E66.9 Obesity, unspecified; F41.9 Anxiety disorder, unspecified; F32.A Depression, unspecified; R68.84 Jaw pain; I89.0 Lymphedema, not elsewhere classified; D63.8 Anemia in other chronic diseases classified elsewhere; R47.1 Dysarthria and anarthria; I87.2 Venous insufficiency (chronic) (peripheral); I35.0 Nonrheumatic aortic (valve) stenosis; D69.6 Thrombocytopenia, unspecified; I71.21 Aneurysm of the ascending aorta, without rupture; R00.2 Palpitations; I95.9 Hypotension, unspecified; Z98.84 Bariatric surgery status; Z68.41 Body mass index [BMI] 40.0-44.9, adult; Z11.52 Encounter for screening for COVID-19; Z95.0 Presence of cardiac pacemaker; Z86.718 Personal history of other venous thrombosis and embolism
CPT/HCPCS: 71045; 74177; 80048; 80053; 81003; 83605; 83735; 84145; 84443; 84484; 85025; 85610; 87040; 87070; 87502; 87811; 92610; 93005; 94640; 94667; 96361; 96374; 96375; 97163; 97166; 99285; G0378; Q9967

== ENCOUNTER → 2023-07-24 11:34 | Outpatient (REF) | payer OTHER, SELFPAY ==
[2023-07-24 11:55] LABS: Hematocrit 31.6 % (39.0-52.0); Hemoglobin 9.2 g/dL (13.0-18.0); Mean Corp Hgb Conc. 29.1 g/dL (33.0-37.0); Mean Corpuscular Hgb 26.5 pg (27.0-31.0); Mean Corpuscular Volume 91.1 fL (80.0-94.0); Mean Platelet Volume 11.5 fL (7.4-10.4); Platelet Count 136 10^3/uL (130-400); Red Blood Cell Count 3.47 10^6/uL (4.70-6.10); Red Cell Dist. Width 18.1 % (11.5-14.5); White Blood Cell Count 3.8 10^3/uL (4.8-10.8)
[2023-07-24 12:25] LABS: NT-proBNP 1360 pg/ml
[2023-07-24 12:40] LABS: Blood Urea Nitrogen 12 mg/dl (9-20); Calcium 9.6 mg/dl (8.4-10.2); Carbon Dioxide 30 mmol/L (22-30); Chloride 102 mmol/L (98-107); Glucose 80 mg/dl (70-99); Sodium 138 mmol/L (135-145); eGFR > 60.00
[2023-07-24 13:07] LABS: Absolute Neutrophils -Man Diff 1.5 10^3/uL (1.4-6.5); Anisocytosis Slight; Band Neutrophils 0 % (0-3); Eosinophils 6 % (0-6); Hypochromasia 1+; Lymphocytes 35 % (20-51); Monocytes 17 % (2-9); Normal RBC Morphology No; Ovalocytes Slight; Platelets Checked Yes; Segmented Neutrophils 42 % (42-75); Total Cells Counted 100
== END ==
LOC: OLABN 11:34
PROVIDERS: ATTENDING PHYSICIAN Student in an Organized Health Care Education/Training Program
DX: I10 Essential (primary) hypertension (principal); I71.21 Aneurysm of the ascending aorta, without rupture
CPT/HCPCS: 36415; 80048; 83880; 85025

== ENCOUNTER 2023-08-20 13:56 | Inpatient (IN) | payer OTHER, SELFPAY ==
--- NOTE | 2023-08-20 10:39 | CON.NEURO4 ---
Consultation - Neurology 4
-
CONSULTING PHYSICIAN: Angle Malhotra
REFERRING PHYSICIAN: ER
DICTATED BY: Angle Malhotra
DATE/TIME OF REQUEST: 08/20/23
DATE/TIME OF CONSULTATION: 08/20/23
Reason for Consultation: Stroke alert, dysarthria, headache
History of Present Illness:
The patient is a 5-year-old man with a past medical history of right-sided hemiplegia following a left-sided intracranial hemorrhage, chronic anticoagulation for right-sided venous upper extremity thrombosis, hypertension who presents to the "[facility] as a stroke alert due to dysarthria, left facial asymmetry and headache.
Patient does complain of some abdominal pain on the right upper area as well as some back pain. Reports that he has not been feeling very good for the past couple days with a bit of congestion. No headache currently. No chest pain but has had
some amount of coughing. Denies dyspnea or fever.
He has been maintained on Coumadin after having had right upper extremity venous clots even while compliant with apixaban. INR level here therapeutic at 2.12.
Past Medical History: April 2023 left intracranial hemorrhage with residual right hemiplegia, non-occlusive thrombus of right subclavian/axillary veins now on Coumadin, essential hypertension, paroxysmal atrial fibrillation, hypertension, GERD,
prediabetes, anxiety/depression, chronic anemia, aneurysmal dilation of ascending thoracic aorta
Surgical History: Gastric bypass, permanent atrial fibrillation
Family History: Non-contributory
Social History: Living at
Allergies: No known drug allergies
Review of Symptoms:
Patient denies any fever, headache, chest pain, shortness of breath, GI or symptoms.
Physical Exam:
Elderly man, chronically ill appearing, no trauma to head or neck, eyes clear, oropharynx clear with no trauma, no neck masses, heart rate regular, breathing unlabored, abdomen obese soft non tender, significant edema on right arm which is wrapped
Neurologic Examination:
Mental status: Awake, psychomotor slowing, says his name, disoriented says month is April, doesn't know age, obeys simple commands wiggling feet and sticking out tongue
CN: Significant dysarthria is present, right facial weakness seen, resting gaze midline extraocular's are full, visual gonzales intact confrontation bilaterally, no ptosis, pupils 3 mm equal round reactive to light bilaterally, tongue is midline
Motor: Right arm and leg 0/5 movement hemiplegic, left arm no drift, left leg 3/5 able to lift off the bed but drifts down
Sensory: Diminished to light touch and pain on right arm and leg
Reflexes:
Coordination: No ataxia on left arm, right arm cannot evaluate due to severe weakness
Gait not assessed
Neuro Imaging: CT head with encephalomalacia in left basal ganglia from previous insult (previous ICH in April 2023) with wallerian degeneration seen in left mindy, no acute hemorrhage, no acute infarct seenn
CTA head and neck
Impressions
1. Acute neurologic change in a patient with significant deficits from pre-existing stroke. Patient appears largely to have the same deficits he normally does but perhaps with a little bit more dysarthria. He may have a metabolic abnormality
producing a stroke recrudescence or could have a mild small stroke with little focal changes. CT head has excluded hemorrhage and no large vessel occlusion on CTA of the head and neck. Complains of some abdominal pain without clear acute abdominal
process. Vitals and lab work showing very minimal leukopenia, no significant electrolyte kidney or liver function abnormalities.
2. Right-sided hemiplegia furling a left-sided intracranial hemorrhage in April 2023
3. History of paroxysmal atrial fibrillation
4. History of right-sided arm venous thrombosis maintained on Coumadin
5. Hypertension
Patient has the following risk factors for their symptoms: Hypertension, atrial fibrillation, history of stroke
IV Tenecteplase/IAT candidacy: TNK outside time window and history of ICH TNK absolutley contraindicated, no LVO on CTA not an IAT candidate
Recommendations:
1. Would continue on Coumadin and follow INR
2. Would not add on aspirin given his excessive bleeding risks
3. Pursue mild permissive hypertension aim for systolic blood pressure less than 180
4. Would hold gabapentin to minimize sedating medications
5. Check ammonia, VBG
5. Check MRI brain without contrast
6. Speech, PT/OT
7. Follow clinically
Will follow.
Discussed patient care with: Patient, Dr Burks
--- NOTE | 2023-08-20 10:42 | ED.GENMED ---
History of Present Illness
General
Chief Complaint: CVA/TIA Symptoms
Source: patient
Time Seen by Provider: 08/20/23 10:36
History of Present Illness
History of Present Illness:
68-year-old male presents emergency room after being found by skilled nursing staff to have difficulty speaking, left facial droop, left arm weakness. Last known normal was 4 AM. Pt also c/o left abd pain and back pain. Present since yesterday.
Past History
Past History
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
ED Past Surgical History: Other (Gastric bypass)
Phy Exam
Physical Exam
Physical Exam:
General: Awake, Alert, Oriented X3. No acute distress.
Vitals: unremarkable
Head: Atraumatic
Eyes: Pupils equal, EOMI
Throat: Airway intact, no exudates
Neck: Trachea midline
Lungs: Clear and equal b/l
Heart: Regular rate, no murmurs
Abd: Soft, Nontender, No pulsatile mass this is interested
Neuro: Right hemiparesis (baseline from previous chart), left arm strength 3/5, left leg strength 4/5 medicine taken about a clear medicine
Skin: Warm, dry, no rash
Extremities: pulses equal b/l, no edema
Course
Orders/Labs/Results
Orders:
Orders
08/20/23 10:35
CT Head W/o Cont STROKE ALERT Urgent
Reason For Exam: stroke alert
08/20/23 10:36
CT Head/Neck Ang STROKE ALERT Urgent
Comment:
Reason For Exam: left sided weakness
08/20/23 10:57
EKG [Electrocardiogram (*1)] Urgent
Reason for Study: TIA/Stroke
08/20/23 10:58
EKG- Treatment ONCE
08/20/23 11:06
Complete Blood Count/With Diff Urgent
Manual Differential Urgent
PTT Urgent
Prothrombin Time Urgent
08/20/23 11:09
Urinalysis Reflex To Culture Urgent
Date Specimen was Collected: 08/20/23
Time Specimen was Collected: 11:08
08/20/23 12:00
Basic Metabolic Panel Urgent
Abnormal Lab Results
08/20/23 08/20/23
11:06 12:00
WBC 3.2 L 10^3/uL
(4.8-10.8)
RBC 3.80 L 10^6/uL
(4.70-6.10)
Hgb 10.1 L g/dL
(13.0-18.0)
Hct 33.2 L %
(39.0-52.0)
MCH 26.6 L pg
(27.0-31.0)
MCHC 30.4 L g/dL
(33.0-37.0)
RDW 17.4 H %
(11.5-14.5)
Plt Count 120 L 10^3/uL
(130-400)
MPV 10.8 H fL
(7.4-10.4)
Abs Neuts (Manual) 1.1 L 10^3/uL
(1.4-6.5)
Segmented Neutrophils 35 L %
(42-75)
Monocytes (Manual) 12 H %
(2-9)
Eosinophils (Manual) 7 H %
(0-6)
PT 24.0 H Sec
(11.4-14.6)
Carbon Dioxide 32 H mmol/L
(22-30)
08/20/23 11:06
08/20/23 12:00
Vital Signs
Initial and Last Documented VS:
Initial Vital Signs
BP
172/92
08/20/23 11:00
Last Documented Vital Signs
Temp Pulse Resp BP Pulse Ox
98.4 F 63 16 172/92 100
08/20/23 11:12 08/20/23 11:12 08/20/23 11:12 08/20/23 11:12 08/20/23 11:15
MDM/Problems Addressed
Differential Diagnosis Includes:
CVA, hemorrhagic stroke, electrolyte abnormality, seizure,
MDM/Problems Addressed:
Patient presents with slurred speech, confusion, perhaps left facial droop. Suspect patient may have had another ischemic event. CT and CTA did not show any acute malady. Patient to be hospitalized for further observation and treatment. No
evidence for metabolic process as his CBC, BMP, urine are all reassuring.
Chronic conditions affecting care: HTN and Arrhythmia (Atrial fibrillation)
*Radiology
Radiology exam reviewed: radiology read reviewed
*Pulse Oximetry
Patient hypoxic: no
*EKG
Interpreted by ED Provider?: Yes
Heart Rate: 67
Rate: normal
Rhythm: sinus
[place]: normal axis
Interval: normal interval
QRS Pattern: normal QRS
Ischemia: no ischemia
*Retail Selling Specialist Interpretation
Rate: normal
Interpretation: normal
Rhythm: sinus
*Critical Care Note
Total Time (30-74mins, 75-104mins- exclusive of procedures): Not Applicable
Data Reviewed
Review of Other/Old Records Reveals: Radiology Studies and Discharge Summary (past couple admissions)
Patient Management
Social determinants of health affecting care: Living situation
ED Attending Note
-
Portions of this chart may have been created with voice recognition software.� Occasional wrong word or��sound alike� substitutions may have occurred due to the inherent limitations of voice recognition software.
Discharge Plan
Departure
Patient Disposition: Admit
Date of Disposition: 08/20/23
Time of Disposition: 12:44
Presentation/result/management discussed w/ accepting MD/DO: Hospitalist
Condition: Fair
Discharge Problem:
Acute CVA (cerebrovascular accident)
Prescriptions:
No Action
bisacodyl 10 mg Suppository
10 mg [place] [id number] PRN (Reason: if mom ineffective)
acetaminophen 325 mg tablet
650 mg PO Q6HPRN PRN (Reason: hoyt/mild pain/temp)
ondansetron 4 mg tablet,disintegrating
4 mg PO Q8HPRN PRN (Reason: nausea)
warfarin [Jantoven] 5 mg Tablet
5 mg PO QPM 30 Days Qty: 30 0RF
magnesium hydroxide [Milk of Magnesia] 400 mg/5 mL Suspension
30 ml PO HSPRN PRN (Reason: constipation)
gabapentin 300 mg Capsule
300 mg PO HS
hydralazine 25 mg tablet
100 mg PO TID
carvedilol 25 mg Tablet
50 mg PO BID Qty: 0 0RF
sennosides-docusate sodium [Senna-S] 8.6-50 mg Tablet
1 tab-cap PO Q12H
escitalopram oxalate 5 mg Tablet
5 mg PO DAILY 30 Days Qty: 30 0RF
melatonin 3 mg Tablet
3 mg PO HS 30 Days Qty: 30 0RF
pantoprazole 40 mg Tablet,Delayed Release (Dr/Ec)
40 mg PO DAILY 30 Days Qty: 30 0RF
Referrals:
UNKNOWN - PT NOT,INTERVIEWE [Family Provider] -
Interventions
Interventions:
*Risk Screen - Suicide Last Done: 08/20/23 11:12
*General Assessment Last Done: 08/20/23 11:12
*Neglect/Abuse Screening Last Done: 08/20/23 11:12
*ED COVID-19 Vaccine History Last Done: 08/20/23 11:12
ED- Pulmonary Assessment Last Done: 08/20/23 11:15
ED- Neurological Assessment Last Done: 08/20/23 11:15
ED- Cardiac Assessment Last Done: 08/20/23 11:22
Discharge Date and Time
Print Language: ITALIAN
[2023-08-20 11:00] VITALS: BP 172/92
[2023-08-20 11:01] VITALS: BMI 40.9
[2023-08-20 11:12] VITALS: BP 172/92
[2023-08-20 11:15] LABS: Urine Albumin Negative (Neg - Trace); Urine Bilirubin Negative (Negative); Urine Character Clear (Clear); Urine Color Yellow; Urine Glucose Negative (Negative); Urine Ketone Negative (Negative); Urine Leukocyte Negative (Negative); Urine Nitrite Negative (Negative); Urine Occult Blood Negative (Negative); Urine Specific Gravity 1.015 (<1.030); Urine Urobilinogen Negative (Neg - 1+); Urine pH 6.5 (5.0-9.0)
[2023-08-20 11:21] LABS: Hematocrit 33.2 % (39.0-52.0); Hemoglobin 10.1 g/dL (13.0-18.0); Mean Corp Hgb Conc. 30.4 g/dL (33.0-37.0); Mean Corpuscular Hgb 26.6 pg (27.0-31.0); Mean Corpuscular Volume 87.4 fL (80.0-94.0); Mean Platelet Volume 10.8 fL (7.4-10.4); Platelet Count 120 10^3/uL (130-400); Red Cell Dist. Width 17.4 % (11.5-14.5); White Blood Cell Count 3.2 10^3/uL (4.8-10.8)
[2023-08-20 11:28] LABS: APTT 31.5 Sec (23.4-35.0); INR 2.12
[2023-08-20 11:52] LABS: Absolute Neutrophils -Man Diff 1.1 10^3/uL (1.4-6.5); Band Neutrophils 0 % (0-3); Eosinophils 7 % (0-6); Lymphocytes 46 % (20-51); Monocytes 12 % (2-9); Segmented Neutrophils 35 % (42-75)
[2023-08-20 11:53] LABS: Anisocytosis 1+; Hypochromasia 1+; Normal RBC Morphology No; Platelets Checked Yes; Polychromasia 1+; Target Cells 1+
[2023-08-20 11:54] LABS: Acanthocytes 1+; Ovalocytes 1+; Total Cells Counted 100
[2023-08-20 12:22] LABS: Blood Urea Nitrogen 10 mg/dl (9-20); Calcium 9.6 mg/dl (8.4-10.2); Carbon Dioxide 32 mmol/L (22-30); Chloride 99 mmol/L (98-107); Estimated Creatinine Clearance 117 ml/min; Glucose 93 mg/dl (70-99); Potassium 3.8 mmol/L (3.5-5.1); Sodium 137 mmol/L (135-145); eGFR > 60.00
--- NOTE | 2023-08-20 14:17 | HPS.HSE ---
Family Physician
-
Family Physician: INTERVIEWE UNKNOWN - PT NOT
Chief Complaint
-
difficulty speaking, left facial droop, left arm weakness.
History of Present Illness
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
arm weakness. Last known normal was 4 AM. Patient arrived to the hospital with 10 AM. Also complaining left abdominal pain and back lyla, With abdominal pain noted to be similar to past complaints. Patient was out of tPA window. Patient 100% on
2 L, 63 heart rate, respiratory 18, afebrile. INR 2.12 on Coumadin, UA negative. CT head unremarkable, likely previous hemorrhagic CVA, no acute pathology and CTA head and neck.
Medical History
Past Medical History
Past Medical History: Reports Other
Additional Past Medical History:
Recent hemorrhagic left thalamic/left basal ganglia.
Stroke with right-sided residual weakness/hemiparesis/expressive
aphasia (04/2023).
Nonocclusive thrombus right subclavian/axillary/proximal
brachial veins despite Eliquis.
Paroxysmal atrial fibrillation with pacemaker.
Lower Extremity Venous Insufficiency.
Moderate aortic stenosis.
Hypertension.
Gastroesophageal reflux disease.
Obesity
Anxiety/Depression.
Chronic Anemia.
Mild Thrombocytopenia.
Aneurysmal dilatation of the ascending thoracic aorta at 4.7 cm.
Past Surgical History: Reports Other
Additional Past Surgical History:
Gastric Bypass
PPM Placement
Social History
Tobacco: Non-smoker
Alcohol: None
Drug: None
Living: Intermediate (SNF following stroke.)
Family History
Family History: Not pertinent
Allergies / Home Medications
Allergies reflects when Allergies were last updated in [facility].
Home Medications with original date entered in [facility]
Allergy/Medication List:
Allergies
Allergy/AdvReac Type Severity Reaction Status Date / Time
No Known Allergies Allergy Verified 04/25/23 17:49
Home Medications
escitalopram oxalate 5 mg tablet 5 mg PO DAILY Depression 30 days #30 tabs 06/03/23
melatonin 3 mg tablet 3 mg PO HS insomnia 30 days #30 tabs 06/03/23
pantoprazole 40 mg tablet,delayed release 40 mg PO DAILY GERD 30 days #30 tabs 06/03/23
acetaminophen 325 mg tablet 650 mg PO Q6HPRN PRN hoyt/mild pain/temp 06/05/23
bisacodyl 10 mg rectal suppository 10 mg HI [id number] PRN if mom ineffective 06/05/23
ondansetron 4 mg disintegrating tablet 4 mg PO Q8HPRN PRN nausea 06/05/23
warfarin 5 mg tablet (Jantoven) 5 mg PO QPM 30 days #30 tabs 06/12/23
gabapentin 300 mg capsule 300 mg PO HS Neurological Condition 07/21/23
hydralazine 25 mg tablet 100 mg PO TID HTN 07/21/23
magnesium hydroxide 400 mg/5 mL oral suspension (Milk of Magnesia) 30 ml PO HSPRN PRN constipation 07/21/23
carvedilol 25 mg tablet 50 mg (2 x 25 mg) PO BID #0 tabs 07/22/23
sennosides 8.6 mg-docusate sodium 50 mg tablet (Senna-S) 1 tab-cap PO Q12H 08/20/23
Review of Systems
-
History Source: Patient
A 12 point ROS was completed and negative except as noted: Yes
Constitutional: Reports Fever and Fatigue; Denies Chills
EENT: Reports Sore Throat
Respiratory: Reports Cough and Trouble Breathing
Cardiac: Denies Chest Pain, Diaphoresis or Palpitations
Abdomen/GI: Reports Abdominal Pain, Nausea and Vomiting; Denies Diarrhea, Constipated, Bloody Stools or Black Stools
: Denies Dysuria, Frequency or Flank Pain
Musculoskeletal: Reports Muscle Pain; Denies Joint Pain or Edema
Neurological: Reports Headache, Weakness and Numbness; Denies Dizzy
Physical Exam
Vital Signs
Vital Signs
Temp Pulse Resp BP Pulse Ox
98.4 F 63 18 172/92 100
08/20/23 11:12 08/20/23 13:30 08/20/23 11:30 08/20/23 11:12 08/20/23 13:00
Physical Exam
General: Other (68y M in no acute distress. )
HEENT: Moist mucous membranes
Respiratory: Other (Decreased at bases - otherwise clear.)
Cardiac: S1/S2, Irregular Rhythm, Tachycardia and Murmur (II/ ELIESER)
GI: Other (Obese, diastasis recti, no focal tenderness, pos BS. )
Musculoskeletal: No Clubbing, No Cyanosis and Other (Marked edema of the RUE and RLE. Compression garment in place RUE.)
Neuro: AO x 3 and Other (R facial droop with dysarthria and R hemiparesis.)
Laboratory Results
-
08/20/23 11:06
08/20/23 12:00
Laboratory Results
PT 24.0 Sec (11.4-14.6) H 08/20/23 11:06
INR 2.12 08/20/23 11:06
APTT 31.5 Sec (23.4-35.0) 08/20/23 11:06
Data Reviewed
-
CT Scan: Image Personally Visualized and interpreted and Report Reviewed by me
Lab Data: Labs Reviewed by me
Impression/Plan
-
IMPRESSION:
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
arm weakness. Admitted for concern of stroke.
PLAN:
#TIA versus CVA
� Dysarthria, left lower facial droop, left arm weakness
� Continue Coumadin, INR therapeutic
� MRI brain only
� Permissive hypertension
� UA unremarkable
� Follow-up neurology recommendations
� PT/OT/speech therapy
- F/u repeat echo
-avoid sedating meds
-f/u hgba1c, lipid panel
-asa as per neuro if deemed necessary although therapeutic INR
#Paroxysmal atrial fibrillation
� Hold Coreg for permissive hypertension
� Continue Coumadin
� Follow-up INR
-echo 04/26 with moderate . Preserved EF
-f/u repeat echo
#RUE DVT
#Right Sided Lymphedema
- Continue Coumadin for DVT (prior Eliquis failure).
- Follow INR and adjust Coumadin dosing as needed.
- Continue compression treatments.
- PT / Lymphedema evaluation.
#Benign Hypertension
- permissive hypertension for now
Chronic Anemia
- Stable. Hgb is at / near known baseline.
- Follow for any changes.
DVT Prophylaxis: On Coumadin
[2023-08-20 15:16] VITALS: BMI 39.4
[2023-08-20 16:51] VITALS: BP 171/92
[2023-08-20 16:51] LABS: Venous Blood Gas B.E. 8.2 mmol/L (-4 to +4); Venous Blood Gas HCO3 34.9 mmol/L (22-27); Venous Blood Gas O2 Sat % 99.9 %; Venous Blood Gas pCO2 59 mmHg (35-48); Venous Blood Gas pH 7.38 (7.32-7.43); Venous Blood Gas pO2 158 mmHg (30-50)
[2023-08-20 16:52] VITALS: BMI 39.4
[2023-08-20] MEDS: COUMADIN 5 MG PO (18:01)
[2023-08-20 19:34] VITALS: BP 136/74
[2023-08-20 23:22] VITALS: BP 149/80
[2023-08-21 03:27] VITALS: BP 169/95
[2023-08-21 06:40] LABS: Hematocrit 32.4 % (39.0-52.0); Hemoglobin 9.5 g/dL (13.0-18.0); Mean Corp Hgb Conc. 29.3 g/dL (33.0-37.0); Mean Corpuscular Hgb 26.5 pg (27.0-31.0); Mean Corpuscular Volume 90.5 fL (80.0-94.0); Mean Platelet Volume 11.6 fL (7.4-10.4); Platelet Count 112 10^3/uL (130-400); Red Blood Cell Count 3.58 10^6/uL (4.70-6.10); Red Cell Dist. Width 17.2 % (11.5-14.5); White Blood Cell Count 2.8 10^3/uL (4.8-10.8)
[2023-08-21 06:48] LABS: INR 2.45; PT 26.9 Sec (11.4-14.6)
[2023-08-21 07:00] LABS: Ammonia < 9 umol/L (9-30)
--- NOTE | 2023-08-21 07:07 | W.PN.NEURO.1 ---
Addendum entered and electronically signed by Sheldon Malhotra MD 08/21/23 10:54:
Discussed with MRI techs that it does not seem likely patient would be able to get cleared for MRI with barriers from pacemaker standpoint and had not seen cardiology in some time.
Given patient's marked improvement my suspicion for an acute new ischemic stroke is low and MRI is very unlikely to change her management here.
Would check CT head noncontrast but otherwise continue the supportive care and current therapies
Original Note:
Today's Communication / Plan
-
-Continue Coumadin, would not add aspirin
-Neurologic checks NIH stroke scale
-Goal normotension
-Check MRI brain without contrast
-Would continue to hold gabapentin
-Follow clinically
Neuro Assessment/Plan
Assessment
68-year-old male with a history of severe left intracranial hemorrhage of the basal ganglia/thalamus resulting in right-sided hemiplegia, paroxysmal atrial fibrillation, extensive right upper extremity venous thrombosis maintained on Coumadin,
hypertension presented to hospital with neurologic symptoms change from baseline seem to have worsened speech along with report of left facial weakness and headache.
The patient also complained of some right upper quadrant and flank abdominal pain. Or sleep recently and feeling somewhat unwell no vomiting. Reports chronic congestion of the throat. No pronounced lab work abnormalities.
Patient much improved on examination 08/20
Differential diagnosis: Stroke recrudescence due to fatigue, pain or sleep deprivation. New ischemic stroke is possible but felt less likely given his rapid improvement today.
CT head noncontrast showed existing encephalomalacia from previous insult and CTA of the head and neck not show any significant occlusions or vascular pathology which is acute.
Subjective/Objective
Subjective Data
Date of Service: August 21, 2023
Patient feeling improved, says no longer with the significant right flank and right upper area abdominal pain, also reports some poor sleep lately. Denies headache. Feels speech is at baseline.
Objective Data
Vital Signs
Temp Pulse Resp BP Pulse Ox
98.3 F 72 19 169/95 94
08/21/23 03:27 08/21/23 03:27 08/21/23 03:27 08/21/23 03:27 08/21/23 03:27
PT 24.0 Sec (11.4-14.6) H 08/20/23 11:06
INR 2.12 08/20/23 11:06
APTT 31.5 Sec (23.4-35.0) 08/20/23 11:06
Sodium 137 mmol/L (135-145) 08/20/23 12:00
Potassium 3.8 mmol/L (3.5-5.1) 08/20/23 12:00
BUN 10 mg/dl (9-20) 08/20/23 12:00
Glucose 93 mg/dl (70-99) 08/20/23 12:00
Calcium 9.6 mg/dl (8.4-10.2) 08/20/23 12:00
Patient Allergies
No Known Allergies Allergy (Verified 04/25/23 17:49)
Review of Systems
-
History Source: Patient
All other systems: Reviewed and negative
Constitutional: No Symptoms
EENT: No Symptoms Reported
Respiratory: No Symptoms
Cardiac: No Symptoms
Abdomen/GI: Abdominal Pain; Negative Nausea, Vomiting or Diarrhea
Genitourinary: No Symptoms
Musculoskeletal: No Symptoms
Skin: Negative Itching or Rash
Neuro: Negative Dizzy, Headache, Weakness or Speech Problem
Hematologic / Lymphatic: Negative Bleeding
Physical Exam
-
General: No Apparent Distress, Comfortable, Appears Chronically Ill and Obese
Eyes: No Ptosis
HEENT: Normocephalic and Atraumatic
Neck: No Bruits Bilaterally
Respiratory: Clear to Auscultation
Cardiac: Regular Rhythm and No Murmur
GI: Soft and Non-tender
Skin: Warm and Dry; Negative Rash
Extremities: Other (Right arm and leg edema)
Psych: Negative Agitated
Extended Neurological Exam
Attention Span & Concentration: Awake, Alert and Interactive
Memory: Unremarkable
Tremor: Hand Tremor Absent
Involuntary Movement: None
Speech: Dysarthric and Other (More clear speech today compared to ER evaluation on 08/19); Negative Expressive Aphasia or Receptive Aphasia
Cranial Nerve II: Left Eye: Pupillary Reactivity Unremarkable and Pupillary Size Unremarkable
Cranial Nerve II: Right Eye: Pupillary Reactivity Unremarkable and Pupillary Size Unremarkable
Cranial Nerves III, IV, : Extraocular Movement: Extraocular Movement Full in all Directions
Cranial Nerve VII: Facial Symmetry: Other (Right facial weakness)
Muscle Strength, Overall: Other (Left arm and left leg 5/5, right arm and leg 0/5 hemiplegic)
Data Reviewed
-
CT-A: Report Reviewed and Image Reviewed
CT Head: Report Reviewed and Image Reviewed
MRI Head: Ordered and Pending
Labs: Report Reviewed
[2023-08-21 07:27] VITALS: BP 168/94
[2023-08-21 07:41] LABS: ALT (SGPT) < 10 U/L (0-50); AST (SGOT) 18 U/L (17-59); Albumin 3.5 g/dl (3.5-5.0); Alkaline Phosphatase 50 U/L (38-126); Blood Urea Nitrogen 9 mg/dl (9-20); Calcium 9.6 mg/dl (8.4-10.2); Carbon Dioxide 32 mmol/L (22-30); Chloride 99 mmol/L (98-107); Estimated Creatinine Clearance 115 ml/min; Glucose 82 mg/dl (70-99); HDL Cholesterol 46 mg/dl; LDL Cholesterol, Calculated 79 mg/dl; Magnesium 1.5 mg/dl (1.6-2.3); Potassium 3.6 mmol/L (3.5-5.1); Sodium 138 mmol/L (135-145); Total Bilirubin 0.5 mg/dl (0.2-1.3); Total Cholesterol 140 mg/dl (50-199); Triglyceride 77 mg/dl (10-149); Very Low Density Lipoprotein 15 mg/dl (0-30); eGFR > 60.00
--- NOTE | 2023-08-21 08:26 | W.PN.HOSP.TC ---
Addendum entered and electronically signed by Alec Oneill MD 08/21/23 15:32:
[id number]
Original Note:
Today's Communication/Plan
-
repeat CT neg; Most likely Stroke recrudescence due to fatigue, pain or sleep deprivation.
resume BP meds
F/u PCP, Neuro outpatient
Assessment / Plan
Assessment / Plan
Physical Exam
General: Other (68y M in no acute distress. )
HEENT: Moist mucous membranes
Respiratory: Other (Decreased at bases - otherwise clear.)
Cardiac: S1/S2, Irregular Rhythm, Tachycardia and Murmur (II/ ELIESER)
GI: Other (Obese, diastasis recti, no focal tenderness, pos BS. )
Musculoskeletal: No Clubbing, No Cyanosis and Other (Marked edema of the RUE and RLE. Compression garment in place RUE.)
Neuro: AO x 3 and Other (R facial droop with dysarthria and R hemiparesis.)
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
arm weakness. Admitted for concern of stroke.
PLAN:
#Stroke recrudescence due to fatigue, pain or sleep deprivation.
-CVA felt less likely given his rapid improvement today.
� Continue Coumadin, INR therapeutic
-Cannot Tolerate MRI due to Barriers of PPM Device
-Repeat CT head unremarkable for CVA
--Goal normotension
� UA unremarkable
� Follow-up neurology recommendations
� PT/OT/speech therapy
- F/u repeat echo: EF 65-70%; Moderate Conc LVH
-avoid sedating meds
-f/u hgba1c 5.4, lipid panel: 79
-asa not necessary as therapeutic INR
#Hypomagnesemia
-Monitor replete
#Paroxysmal atrial fibrillation
� Resume Coreg
� Continue Coumadin
� Follow-up INR
#RUE DVT
#Right Sided Lymphedema
- Continue Coumadin for DVT (prior Eliquis failure).
- Follow INR and adjust Coumadin dosing as needed.
- Continue compression treatments.
- PT / Lymphedema evaluation.
#Benign Hypertension
- Goal normotension starting today
Chronic Anemia
- Stable. Hgb is at / near known baseline.
- Follow for any changes.
DVT Prophylaxis: On Coumadin
More than 30 minutes spent in discharge including
Final examination of the patient
Summarizing hospital stay
Instructions for continuing care to all relevant caregivers
Preparation of discharge records, prescriptions, and referral forms
Total time spent (35 in minutes):
Anticipated Discharge: Today
Subjective/Interval History
-
Date of Service: August 21, 2023
No acute events
Objective Data
-
Labs:
Laboratory Results
08/21/23
06:26
WBC 2.8 L
Hgb 9.5 L
Hct 32.4 L
Plt Count 112 L
PT 26.9 H
INR 2.45
Sodium 138
Potassium 3.6
Chloride 99
Carbon Dioxide 32 H
BUN 9
Creatinine 0.7
Glucose 82
Calcium 9.6
Total Bilirubin 0.5
AST 18
ALT < 10
Alkaline Phosphatase 50
Vital Signs:
Vital Signs
Temp Pulse Resp BP Pulse Ox
98.3 F 72 19 169/95 94
08/21/23 03:27 08/21/23 03:27 08/21/23 03:27 08/21/23 03:27 08/21/23 03:27
I&O
08/20/23 08/21/23 08/22/23
06:59 06:59 06:59
Intake Total 240 / 240
Output Total 825 / 825
Balance -585 / -585
Review of Systems
-
History Source: Patient
All other systems: Not reviewed unless documented
Data Reviewed
-
Total Time Spent with Patient (in minutes): 42
CT Scan: Image personally visualized and interpreted and Report Reviewed by me
Labs: Labs Reviewed by me
[2023-08-21] MEDS: MAGNESIUM SULFATE 100 IV (09:34)
[2023-08-21] MEDS: LEXAPRO 5 MG PO (09:39)
[2023-08-21] MEDS: PROTONIX 40 MG PO (09:39)
[2023-08-21 09:50] LABS: Glycohemoglobin (HgbA1c) 5.4 % (4.0-5.6)
--- NOTE | 2023-08-21 10:12 | CM ---
Addendum entered by Shannan Schmidt RN 08/21/23 12:41:
MD entered order for discharge.Spoke with Deinsse ly [phone] is in agreement with griselda . 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
completed for ambulance for return to storage battery charger [facility].
[facility]
report [phone]
fax [phone]
Return to [facility] SN[facility]
Original Note:
Alert awake forgetful patient who lives fci [facility]. Spoke with Kristine at [facility] Pt uses wheelchair. He is assisted in all activities of daily living.Referral placed. Check with Jessica or Franki may need auth for skilled time.
Wheelchair
Pharmacy [facility]
PCP DR Pemberton
PLAN Return to [facility] check if auth needed
[2023-08-21 11:44] VITALS: BP 163/98
--- NOTE | 2023-08-21 12:03 | PTOTSP ---
Dysphagia Evaluation
Suspect oral/pharyngeal stages of swallowing are at patient's baseline and WFL to continue a regular, thin liquid diet with precautions below.
At least mild-mod dysarthria noted - with which patient has a history at baseline. Full speech/language/cognitive evaluation held as patient leaving floor for STAT CT at end of session.
Recommend:
1. Regular, Thin Liquids
2. Medications as best tolerated
3. Strategies: upright to 90 degrees, place utensil/PO on left side, check for pocketing on right side (i.e., clean digital sweep, lingual sweep, liquid wash)
4. Dysphagia therapy is not warranted at this time. Will evaluate speech/language/cognition as appropriate.
--- NOTE | 2023-08-21 12:24 | W.DS.TRANS ---
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
-
Discharge Instructions:
Discharge Diagnosis/Procedures Stroke recrudescence due to fatigue, pain or
sleep deprivation
Diet Low Cholesterol,Low Fat
Activity As tolerated
Blood Work cbc, bmp, mag in 1 week
Instructions:
Stand-Alone Forms:
Changes to Home Medications: No
Discharge Medications:
DC Medications w/original date entered in [employer]
escitalopram oxalate 5 mg tablet 5 mg PO DAILY Depression 30 days #30 tabs 06/03/23
melatonin 3 mg tablet 3 mg PO HS insomnia 30 days #30 tabs 06/03/23
pantoprazole 40 mg tablet,delayed release 40 mg PO DAILY GERD 30 days #30 tabs 06/03/23
acetaminophen 325 mg tablet 650 mg PO Q6HPRN PRN hoyt/mild pain/temp 06/05/23
bisacodyl 10 mg rectal suppository 10 mg [place] [id number] PRN if mom ineffective 06/05/23
ondansetron 4 mg disintegrating tablet 4 mg PO Q8HPRN PRN nausea 06/05/23
warfarin 5 mg tablet (Jantoven) 5 mg PO QPM 30 days #30 tabs 06/12/23
gabapentin 300 mg capsule 300 mg PO HS Neurological Condition 07/21/23
hydralazine 25 mg tablet 100 mg PO TID HTN 07/21/23
magnesium hydroxide 400 mg/5 mL oral suspension (Milk of Magnesia) 30 ml PO HSPRN PRN constipation 07/21/23
sennosides 8.6 mg-docusate sodium 50 mg tablet (Senna-S) 1 tab-cap PO Q12H Constipation 08/20/23
carvedilol 25 mg tablet 50 mg PO BID Heart Failure 08/21/23
Home Medication Changes
na
Pending Results: No
[2023-08-21 13:21] LABS: COVID-19 Antigen Negative (Negative)
[2023-08-21 15:40] VITALS: BP 174/98
[2023-08-21] MEDS: COUMADIN 5 MG PO (17:14)
== END 2023-08-21 17:59 | DRG 948 ==
LOC: 4 EAST ACU 13:56
PROVIDERS: ADMITTING PHYSICIAN Internal Medicine; CONSULT PHYSICIAN Student in an Organized Health Care Education/Training Program; EMERGENCY PHYSICIAN Emergency Medicine
DX: R53.83 Other fatigue (principal); I82.721 Chronic embolism and thrombosis of deep veins of right upper extremity; I69.351 Hemiplegia and hemiparesis following cerebral infarction affecting right dominant side; I69.354 Hemiplegia and hemiparesis following cerebral infarction affecting left non-dominant side; I89.0 Lymphedema, not elsewhere classified; R10.9 Unspecified abdominal pain; M54.9 Dorsalgia, unspecified; I10 Essential (primary) hypertension; K21.9 Gastro-esophageal reflux disease without esophagitis; I48.0 Paroxysmal atrial fibrillation; I71.21 Aneurysm of the ascending aorta, without rupture; E66.9 Obesity, unspecified; I69.392 Facial weakness following cerebral infarction; E83.42 Hypomagnesemia; D64.9 Anemia, unspecified; D69.6 Thrombocytopenia, unspecified; F41.9 Anxiety disorder, unspecified; F32.A Depression, unspecified; Z68.39 Body mass index [BMI] 39.0-39.9, adult; I69.320 Aphasia following cerebral infarction; Z79.01 Long term (current) use of anticoagulants; Z72.820 Sleep deprivation
CPT/HCPCS: 70450; 70496; 70498; 80048; 80053; 80061; 81003; 82140; 82805; 83036; 83735; 85025; 85027; 85610; 85730; 87070; 87811; 92610; 93005; 93306; 93970; 97163; 97167; 99285; Q9967

== ENCOUNTER 2023-09-03 13:57 | Emergency (ER) | payer OTHER, SELFPAY ==
[2023-09-03 14:05] VITALS: BP 158/77
[2023-09-03 14:07] VITALS: BMI 36.7
[2023-09-03 14:24] LABS: % Basophils 0.6 % (0-2); % Eosinophils 4.6 % (0-6); % Lymphocytes 43.1 % (20.5-51.1); % Monocytes 19.7 % (1.7-9.3); Absolute Eosinophils 0.2 10^3/uL (0-0.7); Absolute Lymphocytes 1.5 10^3/uL (1.2-3.4); Absolute Monocytes 0.7 10^3/uL (0.1-0.6); Absolute Neutrophils 1.1 10^3/uL (1.4-6.5); Hematocrit 34.8 % (39.0-52.0); Hemoglobin 10.6 g/dL (13.0-18.0); Mean Corp Hgb Conc. 30.5 g/dL (33.0-37.0); Mean Corpuscular Hgb 26.5 pg (27.0-31.0); Mean Platelet Volume 12.2 fL (7.4-10.4); Nucleated Red Blood Cells % 0 % (-); Platelet Count 186 10^3/uL (130-400); Red Cell Dist. Width 17.4 % (11.5-14.5); White Blood Cell Count 3.5 10^3/uL (4.8-10.8)
--- NOTE | 2023-09-03 14:27 | ED.GENMED ---
History of Present Illness
General
Chief Complaint: Weakness
Source: patient
Exam Limitations: none
Time Seen by Provider: 09/03/23 14:17
History of Present Illness
History of Present Illness:
68-year-old male presents with generalized weakness and discomfort down both arms. He denies chest pain. He had a stroke about 3 weeks ago and he was mated to the hospital for this. His INR was therapeutic at that time and had pacemaker in
precluded his ability to get an MRI. No acute findings were found on the CAT scan at that time. He states starting yesterday he started to feel bad again including generalized weakness and pain.
Past History
Past History
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
ED Past Surgical History: Other (Gastric bypass)
Phy Exam
Physical Exam
Physical Exam:
General: Chronically ill-appearing male no acute respiratory distress
HEENT: Normocephalic atraumatic
Heart: Regular rate and rhythm no audible murmurs
Lungs: Clear
Neurologic exam: Chronic dysfunction of the right upper and lower extremity secondary to stroke he had earlier this year. No obvious drift of left upper or lower extremity. Patient does have dysarthria however patient states this is not new from
his prior stroke in August.
Extremities: Pitting edema bilateral lower extremities
skin: Warm, no rashes or lesions.
Course
Orders/Labs/Results
Orders:
Orders
09/03/23 14:14
Complete Blood Count/With Diff Urgent
Comprehensive Metabolic Panel Urgent
09/03/23 14:26
CT Head W/o Iv Contrast Urgent
Comment:
Reason For Exam: weakness
09/03/23 14:29
Electrocardiogram (*1) Urgent
Reason for Study: Fatigue / Weakness
EKG- Treatment ONCE
09/03/23 14:30
Troponin I Urgent
09/03/23 14:39
Interrogate Pacemaker- Treatment ONCE
09/03/23 15:12
Prothrombin Time Urgent
09/03/23 15:17
Urinalysis Reflex To Culture Urgent
Date Specimen was Collected: 09/03/23
Time Specimen was Collected: 15:16
09/03/23 16:00
Shoulder, Right, Trauma [CR Shoulder, Trauma - Right] Urgent
Comment:
Reason For Exam: pain
Abnormal Lab Results
09/03/23 09/03/23
14:14 15:12
WBC 3.5 L 10^3/uL
(4.8-10.8)
RBC 4.00 L 10^6/uL
(4.70-6.10)
Hgb 10.6 L g/dL
(13.0-18.0)
Hct 34.8 L %
(39.0-52.0)
MCH 26.5 L pg
(27.0-31.0)
MCHC 30.5 L g/dL
(33.0-37.0)
RDW 17.4 H %
(11.5-14.5)
MPV 12.2 H fL
(7.4-10.4)
Absolute Neuts (auto) 1.1 L 10^3/uL
(1.4-6.5)
Absolute Monos (auto) 0.7 H 10^3/uL
(0.1-0.6)
Neutrophils % 32.0 L %
(42.2-75.2)
Monocytes % 19.7 H %
(1.7-9.3)
PT 29.2 H Sec
(11.4-14.6)
Carbon Dioxide 32 H mmol/L
(22-30)
09/03/23 14:14
09/03/23 14:14
Vital Signs
Initial and Last Documented VS:
Initial Vital Signs
Temp Pulse Resp BP Pulse Ox
97.9 F 62 18 158/77 96
09/03/23 14:05 09/03/23 14:05 09/03/23 14:05 09/03/23 14:05 09/03/23 14:05
Last Documented Vital Signs
Temp Pulse Resp BP Pulse Ox
97.9 F 62 18 158/77 96
09/03/23 14:05 09/03/23 14:05 09/03/23 14:05 09/03/23 14:05 09/03/23 14:05
MDM/Problems Addressed
Differential Diagnosis Includes:
Generalized weakness. Consider CVA versus electrolyte abnormality versus dehydration
Check CT of head. Labs pending including troponin and EKG.
*Critical Care Note
Total Time (30-74mins, 75-104mins- exclusive of procedures): Not Applicable
Update Note
Update Note:
CT head shows no acute finding. Urinalysis negative. Labs without or new finding as well. Patient has generalized weakness. No unilateral findings to suggest stroke. Reviewed prior hospital records. At this time there is no indication to keep
patient in the hospital. Stable to discharge back to facility.
ED Attending Note
-
Portions of this chart may have been created with voice recognition software.� Occasional wrong word or��sound alike� substitutions may have occurred due to the inherent limitations of voice recognition software.
Discharge Plan
Departure
Patient Disposition: Home (Routine Discharge)
Date of Disposition: 09/03/23
Time of Disposition: 17:56
Patient with high blood pressure during this ER visit?: No
Discharge Problem:
Weakness
Instructions: Generalized Weakness (DC)
Prescriptions:
No Action
bisacodyl 10 mg Suppository
10 mg DC [id number] PRN (Reason: if mom ineffective)
acetaminophen 325 mg tablet
650 mg PO Q4HPRN PRN (Reason: MILD PAIN)
ondansetron 4 mg tablet,disintegrating
4 mg PO Q8HPRN PRN (Reason: nausea)
magnesium hydroxide [Milk of Magnesia] 400 mg/5 mL Suspension
30 ml PO HSPRN PRN (Reason: constipation)
gabapentin 300 mg Capsule
300 mg PO HS
sennosides-docusate sodium [Senna-S] 8.6-50 mg Tablet
1 tab-cap PO Q12H
carvedilol 25 mg tablet
50 mg PO BID
hydralazine 100 mg Tablet
100 mg PO TID
warfarin [Jantoven] 5 mg tablet
4.5 mg PO QPM
Patient Comments:
TAKE FROM 08/31-09/06 PAT INR RESULT 2.7 NEXT BLOOD DRAW ON 09/07
escitalopram oxalate 5 mg Tablet
5 mg PO DAILY 30 Days Qty: 30 0RF
melatonin 3 mg Tablet
3 mg PO HS 30 Days Qty: 30 0RF
pantoprazole 40 mg Tablet,Delayed Release (Dr/Ec)
40 mg PO DAILY 30 Days Qty: 30 0RF
Referrals:
Simon Pemberton DO [Family Provider] -
Activity Restrictions/Additional Instructions:
Please continue current medication regimen. Please return here for worsening symptoms otherwise follow-up with family doctor
Interventions
Interventions:
*Risk Screen - Suicide Last Done: 09/03/23 17:11
*Neglect/Abuse Screening Last Done: 09/03/23 17:11
ED- Cardiac Assessment Last Done: 09/03/23 14:07
ED- Neurological Assessment Last Done: 09/03/23 14:09
ED- Pulmonary Assessment Last Done: 09/03/23 17:20
Discharge Date and Time
Print Language: LITHUANIAN
[2023-09-03 14:31] LABS: ALT (SGPT) < 10 U/L (0-50); AST (SGOT) 18 U/L (17-59); Alkaline Phosphatase 51 U/L (38-126); Blood Urea Nitrogen 9 mg/dl (9-20); Calcium 9.7 mg/dl (8.4-10.2); Carbon Dioxide 32 mmol/L (22-30); Chloride 100 mmol/L (98-107); Estimated Creatinine Clearance 97 ml/min; Glucose 94 mg/dl (70-99); Potassium 3.6 mmol/L (3.5-5.1); Sodium 137 mmol/L (135-145); Total Bilirubin 0.8 mg/dl (0.2-1.3); Total Protein 6.8 g/dl (6.3-8.2); eGFR > 60.00
[2023-09-03 15:08] LABS: Troponin I < 0.012 ng/ml
[2023-09-03 15:31] LABS: Urine Albumin Negative (Neg - Trace); Urine Bilirubin Negative (Negative); Urine Character Clear (Clear); Urine Color Yellow; Urine Glucose Negative (Negative); Urine Ketone Negative (Negative); Urine Leukocyte Negative (Negative); Urine Nitrite Negative (Negative); Urine Occult Blood Negative (Negative); Urine Urobilinogen Negative (Neg - 1+)
[2023-09-03 15:33] LABS: INR 2.71; PT 29.2 Sec (11.4-14.6)
[2023-09-03 18:13] VITALS: BP 142/72
== END 2023-09-03 19:20 | disposition home or self-care (01) ==
LOC: EMR 13:57
PROVIDERS: Emergency Medicine; Physician Assistant; EMERGENCY PHYSICIAN Emergency Medicine; FAMILY PHYSICIAN Student in an Organized Health Care Education/Training Program
DX: R53.1 Weakness (principal)
CPT/HCPCS: 99285; 93288; 70450; 73030; 80053; 81003; 84484; 85025; 85610

== ENCOUNTER → 2023-09-10 10:40 | Outpatient (REF) | payer OTHER, SELFPAY | LOC: RAD 10:40 | PROVIDERS: ATTENDING PHYSICIAN Student in an Organized Health Care Education/Training Program | DX: I71.20 Thoracic aortic aneurysm, without rupture, unspecified (principal) | CPT/HCPCS: 71260; Q9967 ==

== ENCOUNTER → 2023-09-26 14:44 | Outpatient (REF) | payer OTHER, SELFPAY ==
[2023-09-26 14:56] LABS: INR 1.76; PT 20.4 Sec (11.4-14.6)
== END ==
LOC: OLABN 14:44
PROVIDERS: ATTENDING PHYSICIAN Student in an Organized Health Care Education/Training Program
DX: I82.409 Acute embolism and thrombosis of unspecified deep veins of unspecified lower extremity (principal)
CPT/HCPCS: 85610

== ENCOUNTER → 2023-12-30 13:18 | Outpatient (REF) | payer OTHER, SELFPAY | LOC: MRI 13:18 | PROVIDERS: ATTENDING PHYSICIAN Student in an Organized Health Care Education/Training Program | DX: R53.1 Weakness (principal); I48.20 Chronic atrial fibrillation, unspecified; R47.1 Dysarthria and anarthria; Z86.73 Personal history of transient ischemic attack (TIA), and cerebral infarction without residual deficits | CPT/HCPCS: 70551 ==

== ENCOUNTER → 2024-03-23 13:48 | Outpatient (REF) | payer MEDICARE, OTHER, SELFPAY | LOC: MRI 13:48 | PROVIDERS: ATTENDING PHYSICIAN Nurse Practitioner Adult Health | DX: I63.9 Cerebral infarction, unspecified (principal); I63.89 Other cerebral infarction | CPT/HCPCS: 70544; 70549 ==

== ENCOUNTER → 2024-04-16 10:14 | Outpatient (REF) | payer MEDICARE, OTHER, SELFPAY ==
[2024-04-16 10:50] LABS: Hematocrit 32.1 % (39.0-52.0); Hemoglobin 9.7 g/dL (13.0-18.0); Mean Corp Hgb Conc. 30.2 g/dL (33.0-37.0); Mean Corpuscular Hgb 27.8 pg (27.0-31.0); Mean Platelet Volume 12.9 fL (7.4-10.4); Platelet Count 142 10^3/uL (130-400); Red Blood Cell Count 3.49 10^6/uL (4.70-6.10); Red Cell Dist. Width 17.2 % (11.5-14.5); White Blood Cell Count 3.7 10^3/uL (4.8-10.8)
[2024-04-16 11:16] LABS: ALT (SGPT) 11 U/L (0-50); AST (SGOT) 19 U/L (17-59); Albumin 3.4 g/dl (3.5-5.0); Alkaline Phosphatase 60 U/L (38-126); Blood Urea Nitrogen 17 mg/dl (9-20); Calcium 8.9 mg/dl (8.4-10.2); Carbon Dioxide 33 mmol/L (22-30); Chloride 103 mmol/L (98-107); Glucose 82 mg/dl (70-99); Potassium 4.2 mmol/L (3.5-5.1); Sodium 138 mmol/L (135-145); Total Bilirubin 0.4 mg/dl (0.2-1.3); Total Protein 5.8 g/dl (6.3-8.2); eGFR > 60.00
== END ==
LOC: OLABN 10:14
PROVIDERS: ATTENDING PHYSICIAN Student in an Organized Health Care Education/Training Program
DX: I10 Essential (primary) hypertension (principal)
CPT/HCPCS: 36415; 80053; 83735; 85027

== ENCOUNTER → 2024-05-24 09:11 | Outpatient (REF) | payer MEDICARE, OTHER, SELFPAY ==
[2024-05-24 13:15] LABS: HDL Cholesterol 45 mg/dl; LDL Cholesterol, Calculated 51 mg/dl; Total Cholesterol 106 mg/dl (50-199); Triglyceride 51 mg/dl (10-149); Very Low Density Lipoprotein 10 mg/dl (0-30)
== END ==
LOC: OLABN 09:11
PROVIDERS: ATTENDING PHYSICIAN Student in an Organized Health Care Education/Training Program
DX: Z86.73 Personal history of transient ischemic attack (TIA), and cerebral infarction without residual deficits (principal); I69.351 Hemiplegia and hemiparesis following cerebral infarction affecting right dominant side
CPT/HCPCS: 36415; 80061

== ENCOUNTER → 2024-07-08 09:42 | Outpatient (REF) | payer MEDICARE, OTHER, SELFPAY ==
[2024-07-08 11:54] LABS: Hematocrit 32.4 % (39.0-52.0); Hemoglobin 9.9 g/dL (13.0-18.0); Mean Corp Hgb Conc. 30.6 g/dL (33.0-37.0); Mean Corpuscular Hgb 28.5 pg (27.0-31.0); Mean Corpuscular Volume 93.4 fL (80.0-94.0); Red Blood Cell Count 3.47 10^6/uL (4.70-6.10); Red Cell Dist. Width 17.6 % (11.5-14.5); White Blood Cell Count 3.5 10^3/uL (4.8-10.8)
[2024-07-08 11:59] LABS: ALT (SGPT) 12 U/L (0-50); AST (SGOT) 20 U/L (17-59); Albumin 3.5 g/dl (3.5-5.0); Alkaline Phosphatase 49 U/L (38-126); Blood Urea Nitrogen 15 mg/dl (9-20); Carbon Dioxide 31 mmol/L (22-30); Chloride 104 mmol/L (98-107); Glucose 75 mg/dl (70-99); Potassium 4.3 mmol/L (3.5-5.1); Sodium 141 mmol/L (135-145); Total Bilirubin 0.6 mg/dl (0.2-1.3); eGFR > 60.00
[2024-07-08 13:08] LABS: % Basophils 0.9 % (0-2); % Immature Granulocytes 0.6 % (0-0.5); % Lymphocytes 50.4 % (20.5-51.1); % Monocytes 17.6 % (1.7-9.3); % Neutrophils 26.5 % (42.2-75.2); Absolute Eosinophils 0.1 10^3/uL (0-0.7); Absolute Lymphocytes 1.8 10^3/uL (1.2-3.4); Absolute Monocytes 0.6 10^3/uL (0.1-0.6); Absolute Neutrophils 0.9 10^3/uL (1.4-6.5); Nucleated Red Blood Cells % 0 % (-)
== END ==
LOC: OLABN 09:42
PROVIDERS: ATTENDING PHYSICIAN Student in an Organized Health Care Education/Training Program
DX: I48.20 Chronic atrial fibrillation, unspecified (principal)
CPT/HCPCS: 36415; 80053; 85025

== ENCOUNTER → 2024-07-09 12:09 | Outpatient (REF) | payer MEDICARE, OTHER, SELFPAY ==
[2024-07-09 12:49] LABS: Hemoglobin 10.2 g/dL (13.0-18.0); Mean Corpuscular Hgb 28.3 pg (27.0-31.0); Mean Corpuscular Volume 94.4 fL (80.0-94.0); Mean Platelet Volume 12.6 fL (7.4-10.4); Platelet Count 120 10^3/uL (130-400); Red Cell Dist. Width 17.7 % (11.5-14.5); White Blood Cell Count 3.7 10^3/uL (4.8-10.8)
[2024-07-09 12:55] LABS: Iron 61 ug/dl (49-181)
[2024-07-09 13:04] LABS: Percent Saturation 17 % (20-50); Total Iron Binding Capacity 343 ug/dl (261-462)
[2024-07-09 13:35] LABS: Vitamin B12 287 pg/ml (239-931)
== END ==
LOC: OLABN 12:09
PROVIDERS: ATTENDING PHYSICIAN Student in an Organized Health Care Education/Training Program
DX: I48.20 Chronic atrial fibrillation, unspecified (principal); D51.9 Vitamin B12 deficiency anemia, unspecified; D50.9 Iron deficiency anemia, unspecified
CPT/HCPCS: 36415; 82607; 82728; 83540; 83550; 85025

== ENCOUNTER → 2024-07-13 10:42 | Outpatient (REF) | payer MEDICARE, OTHER, SELFPAY ==
[2024-07-13 12:18] LABS: Urine Albumin 1+ (Neg - Trace); Urine Bilirubin Negative (Negative); Urine Character Clear (Clear); Urine Color Yellow; Urine Glucose Negative (Negative); Urine Ketone Negative (Negative); Urine Leukocyte 1+ (Negative); Urine Nitrite Negative (Negative); Urine Occult Blood Negative (Negative); Urine Specific Gravity 1.025 (<1.030); Urine Urobilinogen 1+ (Neg - 1+)
[2024-07-13 13:53] LABS: Urine Squamous Cell 0-2 /LPF (Few)
[2024-07-13 13:55] LABS: Urine Red Blood Cell 0-2 /HPF (0-2)
[2024-07-13 13:56] LABS: Urine Amorphous Seen
== END ==
LOC: OLABN 10:42
PROVIDERS: ATTENDING PHYSICIAN Student in an Organized Health Care Education/Training Program
DX: R35.0 Frequency of micturition (principal)
CPT/HCPCS: 36415; 81003; 81015; 87086

== ENCOUNTER → 2024-09-13 07:37 | Outpatient (REF) | payer MEDICARE, MEDICAID, SELFPAY | LOC: RAD 07:37 | PROVIDERS: ATTENDING PHYSICIAN Internal Medicine Hematology & Oncology; FAMILY PHYSICIAN Student in an Organized Health Care Education/Training Program; REFERRING PHYSICIAN Nurse Practitioner | DX: D72.819 Decreased white blood cell count, unspecified (principal); I71.20 Thoracic aortic aneurysm, without rupture, unspecified | CPT/HCPCS: 71260; 76700; Q9967 ==

== ENCOUNTER → 2024-09-17 09:21 | Outpatient (REF) | payer MEDICARE, MEDICAID, SELFPAY ==
[2024-09-17 10:31] LABS: Ammonia < 9 umol/L (9-30)
[2024-09-17 10:43] LABS: Iron 66 ug/dl (49-181)
[2024-09-17 10:47] LABS: Hematocrit 35.7 % (39.0-52.0); Hemoglobin 10.8 g/dL (13.0-18.0); Mean Corp Hgb Conc. 30.3 g/dL (33.0-37.0); Mean Corpuscular Volume 97.0 fL (80.0-94.0); Platelet Count 126 10^3/uL (130-400); Red Cell Dist. Width 17.0 % (11.5-14.5)
[2024-09-17 10:54] LABS: Total Iron Binding Capacity 292 ug/dl (261-462)
[2024-09-17 11:20] LABS: Ferritin 14.1 ng/ml (17.9-464.0)
[2024-09-17 11:34] LABS: Vitamin B12 819 pg/ml (239-931)
[2024-09-17 11:42] LABS: Absolute Neutrophils -Man Diff 0.9 10^3/uL (1.4-6.5)
[2024-09-17 11:43] LABS: Normal RBC Morphology Yes; Platelets Checked Yes; Total Cells Counted 100
[2024-09-20 08:02] LABS: Transferrin 202 mg/dL (200-360)
== END ==
LOC: OLABN 09:21
PROVIDERS: ATTENDING PHYSICIAN Student in an Organized Health Care Education/Training Program
DX: D72.819 Decreased white blood cell count, unspecified (principal); D64.9 Anemia, unspecified; I48.0 Paroxysmal atrial fibrillation; Z79.899 Other long term (current) drug therapy
CPT/HCPCS: 36415; 82140; 82607; 82728; 83540; 83550; 84466; 85025

== ENCOUNTER → 2024-10-29 09:45 | Outpatient (REF) | payer MEDICARE, MEDICAID, SELFPAY ==
[2024-10-29 10:15] LABS: Hematocrit 42.1 % (39.0-52.0); Hemoglobin 12.7 g/dL (13.0-18.0); Mean Corp Hgb Conc. 30.2 g/dL (33.0-37.0); Mean Corpuscular Volume 99.3 fL (80.0-94.0); Nucleated Red Blood Cells % 0 % (-); Platelet Count 151 10^3/uL (130-400); Red Cell Dist. Width 16.5 % (11.5-14.5)
== END ==
LOC: OIDL 09:45
PROVIDERS: ATTENDING PHYSICIAN Internal Medicine Hematology & Oncology
DX: D72.819 Decreased white blood cell count, unspecified (principal); Z98.84 Bariatric surgery status; D51.9 Vitamin B12 deficiency anemia, unspecified; D50.9 Iron deficiency anemia, unspecified; Z86.73 Personal history of transient ischemic attack (TIA), and cerebral infarction without residual deficits; Z86.718 Personal history of other venous thrombosis and embolism
CPT/HCPCS: 85025

== ENCOUNTER 2024-11-11 16:26 | Emergency (ER) | payer MEDICARE, MEDICAID, SELFPAY ==
[2024-11-11 16:29] VITALS: BP 131/85; BMI 34.2
[2024-11-11 18:38] VITALS: BP 153/93
[2024-11-11 19:00] VITALS: BP 158/91
[2024-11-11 19:00] LABS: Hematocrit 39.0 % (39.0-52.0); Hemoglobin 12.0 g/dL (13.0-18.0); Mean Corp Hgb Conc. 30.8 g/dL (33.0-37.0); Mean Corpuscular Volume 96.8 fL (80.0-94.0); Nucleated Red Blood Cells % 0 % (-); Platelet Count 121 10^3/uL (130-400); Red Cell Dist. Width 15.9 % (11.5-14.5)
[2024-11-11 19:08] LABS: Blood Urea Nitrogen 20 mg/dl (9-20); Calcium 9.0 mg/dl (8.4-10.2); Carbon Dioxide 30 mmol/L (22-30); Chloride 105 mmol/L (98-107); Estimated Creatinine Clearance 82 ml/min; Glucose 91 mg/dl (70-99); Potassium 4.3 mmol/L (3.5-5.1); Sodium 138 mmol/L (135-145); eGFR > 60.00
[2024-11-11 19:08] LABS: Troponin I < 0.012 ng/ml
--- NOTE | 2024-11-11 19:47 | ED.GENMED ---
History of Present Illness
General
Chief Complaint: AICD Problem
Source: patient and family
Time Seen by Provider: 11/11/24 17:27
History of Present Illness
History of Present Illness:
Patient stated to staff he felt like his pacemaker had moved. Also complaining of some shortness of breath. No fever no cough no pleuritic pain no other complaints
Past History
Past History
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
ED Past Surgical History: Other (Gastric bypass)
Review of Systems
Review of Systems
All Other Systems: Not applicable
Constitutional: Denies fever
Cardiac: Denies chest pain, palpitations or syncope
Phy Exam
Physical Exam
Physical Exam:
GENERAL: Alert and oriented in no apparent distress
EYE: Orbits normal.
NECK: Supple, no significant adenopathy.
ENT: Pharynx without erythema
CARDIAC: Regular rate and rhythm with mild midsystolic murmur. Pacemaker left upper chest wall appears normal.
LUNGS: Clear breath sounds,normal. A few rhonchi in the bases. No respiratory distress no rales
ABDOMEN: Soft, without focal tenderness or distention
NEUROLOGICAL: Alert and oriented , dense right hemiplegia
SKIN: Warm and dry, no rash or lesion, no discoloration, skin intact.
MUSCULOSKELETAL: No edema,no deformity.Good color
PSYCH: Normal and appropriate interaction.
Course
Orders/Labs/Results
Orders:
Orders
11/11/24 16:34
EKG [Electrocardiogram (*1)] Urgent
Reason for Study: Other
Other Reason for Exam: pacer
EKG- Treatment ONCE
11/11/24 17:45
Cardiac Monitoring- Treatment ONCE
IV Insert/Care/Rem.- Treatment PRN
CR Chest - 2 Views Urgent
Comment:
Reason For Exam: Short of breath
Pulse Ox/cont/shift [RESP] Stat
Quantity: 1
11/11/24 18:32
Complete Blood Count/With Diff Urgent
NT-proBNP Urgent
Troponin I Urgent
11/11/24 18:33
Basic Metabolic Panel Urgent
11/11/24 20:11
PT/INR [Prothrombin Time] Urgent
PTT Urgent
Abnormal Lab Results
11/11/24
18:32
WBC 3.8 L 10^3/uL
(4.8-10.8)
RBC 4.03 L 10^6/uL
(4.70-6.10)
Hgb 12.0 L g/dL
(13.0-18.0)
MCV 96.8 H fL
(80.0-94.0)
MCHC 30.8 L g/dL
(33.0-37.0)
RDW 15.9 H %
(11.5-14.5)
Plt Count 121 L 10^3/uL
(130-400)
Absolute Neuts (auto) 1.2 L 10^3/uL
(1.4-6.5)
Absolute Monos (auto) 0.7 H 10^3/uL
(0.1-0.6)
Neutrophils % 32.4 L %
(42.2-75.2)
Monocytes % 17.8 H %
(1.7-9.3)
11/11/24 18:32
11/11/24 18:33
Vital Signs
Initial and Last Documented VS:
Initial Vital Signs
Temp Pulse Resp BP Pulse Ox
98.2 F 69 16 131/85 100
11/11/24 16:29 11/11/24 16:29 11/11/24 16:29 11/11/24 16:29 11/11/24 16:29
Last Documented Vital Signs
Temp Pulse Resp BP Pulse Ox
98.2 F 59 24 158/91 98
11/11/24 16:29 11/11/24 19:45 11/11/24 19:45 11/11/24 19:00 11/11/24 19:50
MDM/Problems Addressed
Differential Diagnosis Includes:
Patient in no distress with a relatively benign exam. Doubt this is a pacer issue. Clinically not in heart failure. Workup in progress. Discussed with patient's family. Trying to interrogate the pacer although we do not know the type.
*Radiology
Radiology exam reviewed: preliminary read by ED provider (Negative) and radiology read reviewed (Negative)
*Pulse Oximetry
SaO2: 98
Oxygen Mode of Delivery: Room air
Patient hypoxic: no
*EKG
Interpreted by ED Provider?: Yes
Interpretation: abnormal
Comparison EKG: no changes
Heart Rate: 63
Rate: normal
Rhythm: sinus
Alto: left axis deviation
Interval: normal interval
QRS Pattern: left vent hypertrophy
Ischemia: non-specific ST changes
Data Reviewed
Review of Other/Old Records Reveals: Labs, Records, Radiology Studies and Testing
Update Note
Update Note:
Patient is remained medically stable. No serious etiology. Await INR and interrogation. Daughter updated.
ED Attending Note
-
Portions of this chart may have been created with voice recognition software.� Occasional wrong word or��sound alike� substitutions may have occurred due to the inherent limitations of voice recognition software.
Discharge Plan
Departure
Discharge Problem:
Dyspnea, Mild thrombocytopenia, Pacemaker evaluation
Instructions: Shortness of breath in adults - ED (DC), BLOOD PRESSURE
Prescriptions:
No Action
bisacodyl 10 mg Suppository
10 mg FL [id number] PRN (Reason: if mom ineffective)
acetaminophen 325 mg tablet
650 mg PO Q4HPRN PRN (Reason: MILD PAIN)
ondansetron 4 mg tablet,disintegrating
4 mg PO Q8HPRN PRN (Reason: nausea)
magnesium hydroxide [Milk of Magnesia] 400 mg/5 mL Suspension
30 ml PO HSPRN PRN (Reason: constipation)
gabapentin 300 mg Capsule
300 mg PO HS
sennosides-docusate sodium [Senna-S] 8.6-50 mg Tablet
1 tab-cap PO Q12H
carvedilol 25 mg tablet
50 mg PO BID
hydralazine 100 mg Tablet
100 mg PO TID
warfarin [Jantoven] 5 mg tablet
4.5 mg PO QPM
Patient Comments:
TAKE FROM 08/31-09/06 PAT INR RESULT 2.7 NEXT BLOOD DRAW ON 09/07
escitalopram oxalate 5 mg Tablet
5 mg PO DAILY 30 Days Qty: 30 0RF
melatonin 3 mg Tablet
3 mg PO HS 30 Days Qty: 30 0RF
pantoprazole 40 mg Tablet,Delayed Release (Dr/Ec)
40 mg PO DAILY 30 Days Qty: 30 0RF
Referrals:
UNKNOWN - PT NOT,INTERVIEWE [Family Provider] - Follow up in 2-3 days
Interventions
Interventions:
*Risk Screen - Suicide Last Done: 11/11/24 16:29
*General Assessment Last Done: 11/11/24 16:29
*Neglect/Abuse Screening Last Done: 11/11/24 16:29
*ED- Fall Risk Assessment Last Done: 11/11/24 16:29
Discharge Date and Time
Print Language: [place] IR[place]
[2024-11-11 20:00] VITALS: BP 159/93
[2024-11-11 20:32] LABS: APTT 36.2 Sec (23.4-35.0); INR 3.13; PT 32.5 Sec (11.4-14.6)
[2024-11-11 21:00] VITALS: BP 166/90
[2024-11-11 23:52] VITALS: BP 172/94
[2024-11-12 02:51] VITALS: BP 156/89
== END 2024-11-12 02:53 ==
LOC: EMR 16:26
PROVIDERS: EMERGENCY PHYSICIAN Emergency Medicine
DX: Z45.018 Encounter for adjustment and management of other part of cardiac pacemaker (principal); R06.00 Dyspnea, unspecified; D69.6 Thrombocytopenia, unspecified; E11.9 Type 2 diabetes mellitus without complications; I10 Essential (primary) hypertension; Z86.73 Personal history of transient ischemic attack (TIA), and cerebral infarction without residual deficits; Z98.84 Bariatric surgery status; Z95.810 Presence of automatic (implantable) cardiac defibrillator
CPT/HCPCS: 99285; 71046; 80048; 83880; 84484; 85025; 85610; 85730; 93005

== ENCOUNTER → 2024-11-16 09:44 | Outpatient (REF) | payer MEDICARE, MEDICAID, SELFPAY ==
[2024-11-16 11:15] LABS: Hematocrit 38.6 % (39.0-52.0); Hemoglobin 11.8 g/dL (13.0-18.0); Mean Corp Hgb Conc. 30.6 g/dL (33.0-37.0); Mean Corpuscular Volume 98.0 fL (80.0-94.0); Platelet Count 121 10^3/uL (130-400); Red Cell Dist. Width 16.0 % (11.5-14.5)
[2024-11-16 11:34] LABS: Iron 78 ug/dl (49-181)
[2024-11-16 11:44] LABS: Total Iron Binding Capacity 248 ug/dl (261-462)
[2024-11-16 12:26] LABS: PSA, Total - Screen 5.79 ng/ml (0.0-4.0)
[2024-11-16 12:30] LABS: Ferritin 159.0 ng/ml (17.9-464.0)
[2024-11-16 12:45] LABS: Vitamin B12 958 pg/ml (239-931)
[2024-11-16 15:47] LABS: Absolute Neutrophils -Man Diff 0.7 10^3/uL (1.4-6.5); Anisocytosis 1+
[2024-11-16 15:48] LABS: Normal RBC Morphology No; Platelets Checked Yes; Total Cells Counted 100
[2024-11-18 01:15] LABS: Transferrin 170 mg/dL (200-360)
== END ==
LOC: OLABN 09:44
PROVIDERS: ATTENDING PHYSICIAN Student in an Organized Health Care Education/Training Program
DX: D51.9 Vitamin B12 deficiency anemia, unspecified (principal); D50.9 Iron deficiency anemia, unspecified; D72.819 Decreased white blood cell count, unspecified; Z12.5 Encounter for screening for malignant neoplasm of prostate
CPT/HCPCS: 36415; 82607; 82728; 83540; 83550; 84466; 85025; G0103

== ENCOUNTER → 2025-02-09 11:11 | Outpatient (REF) | payer MEDICARE, OTHER, SELFPAY ==
[2025-02-09 13:33] LABS: Hematocrit 38.1 % (39.0-52.0); Hemoglobin 11.9 g/dL (13.0-18.0); Mean Corp Hgb Conc. 31.2 g/dL (33.0-37.0); Mean Corpuscular Volume 101.6 fL (80.0-94.0); Platelet Count 112 10^3/uL (130-400); Red Cell Dist. Width 14.7 % (11.5-14.5)
[2025-02-09 13:54] LABS: Absolute Neutrophils -Man Diff 0.3 10^3/uL (1.4-6.5); Platelets Checked Yes
[2025-02-09 13:55] LABS: Acanthocytes 1+; Anisocytosis 1+; Hypochromasia 1+; Normal RBC Morphology No; Ovalocytes 1+; Polychromasia 1+
[2025-02-09 13:56] LABS: Total Cells Counted 100
[2025-02-09 16:32] LABS: Iron 78 ug/dl (49-181)
[2025-02-09 16:41] LABS: Total Iron Binding Capacity 226 ug/dl (261-462)
[2025-02-09 17:06] LABS: Ferritin 81.0 ng/ml (17.9-464.0)
== END ==
LOC: OLABN 11:11
PROVIDERS: ATTENDING PHYSICIAN Student in an Organized Health Care Education/Training Program
DX: D50.9 Iron deficiency anemia, unspecified (principal); D72.819 Decreased white blood cell count, unspecified
CPT/HCPCS: 36415; 82728; 83540; 83550; 85025